=== PATIENT | male | born 1940 | race Caucasian/White ===

== ENCOUNTER 2021-09-08 11:12 | Outpatient (CLI) | payer MEDICARE, SELFPAY ==
[2021-09-08 21:39] LABS: Chloride* 101 mmol/L (96-114); Potassium* 4.7 mmol/L (3.6-5.1); Sodium* 139 mmol/L (135-149)
[2021-09-08 21:42] LABS: Blood Urea Nitrogen* 26 mg/dL (7-30); Carbon Dioxide* 30 mmol/L (20-32); Estimated Glomerular Filt Rate 75.61; Glucose* 104 mg/dL (60-115)
[2021-09-08 21:43] LABS: Calcium* 9.1 mg/dL (8.4-10.6)
[2021-09-08 21:56] LABS: Creatinine Urine 91.4 mg/dL
[2021-09-08 22:13] LABS: Microalbumin Creatinine Ratio 10 mg/g (0-30); Microalbumin Urine < 1 mg/dL
== END 2021-09-08 11:13 | disposition home or self-care (01) ==
PROVIDERS: PCP Emergency Medicine; Visit Provider Emergency Medicine
DX: E11.9 Type 2 diabetes mellitus without complications (principal); I10 Essential (primary) hypertension; D72.821 Monocytosis (symptomatic); E78.5 Hyperlipidemia, unspecified
CPT/HCPCS: 80048; 80061; 82043; 82570

== ENCOUNTER 2021-09-16 12:48 | Outpatient (CLI) | payer MEDICARE, SELFPAY | END 2021-09-16 12:49 | disposition home or self-care (01) | LOC: RAD 12:48 | PROVIDERS: PCP Emergency Medicine; Visit Provider Emergency Medicine | DX: R00.1 Bradycardia, unspecified (principal); I51.7 Cardiomegaly; I35.1 Nonrheumatic aortic (valve) insufficiency | CPT/HCPCS: 93306 ==

== ENCOUNTER 2021-09-23 08:06 | Outpatient (CLI) | payer MEDICARE, SELFPAY ==
[2021-09-23 13:39] LABS: Cholesterol* 121 mg/dL (90-199)
[2021-09-23 13:40] LABS: HDL Cholesterol* 29 mg/dL (>=40); LDL Cholesterol Calculated 59 mg/dL (<100); Triglycerides* 167 mg/dL (40-149)
[2021-09-23 13:44] LABS: Creatinine Urine 105.5 mg/dL
[2021-09-23 13:45] LABS: Microalbumin Creatinine Ratio 0 mg/g (0-30); Microalbumin Urine 1 mg/dL
--- OUTSIDE RECORDS SUMMARY | 2021-10-18 13:03 | XMS_ITS | Encounter Summary ---
:1940 Author Organization [facility] Address [address] [place] [address] Care Team Providers Name Role Phone Ramy Sánchez MD Primary Care Provider [phone] Debbie Burden MD Primary Care Provider Encounter Details Date Type Department Care Team Description 12/19/2019 [facility] Ramona Herrera Obstr uctive sleep apnea (adult) (pediatric) (Primary Dx); Sleep Center Hypertension, e [address] [address] Social History Tobacco Use Types Packs/Day Years Used Date Former Smoker Cigars Alcohol Use Standard Drinks/Week Comments Yes 0 (1 standard drink = 0.6 oz pure alcoho l) one drink once a week Sex Assigned at Date Recorded Not on file documented as of this encounter Plan of Treatment Not on filedocumented as of this encounter Visit Diagnoses Diagnosis Obstructive sleep apnea (adult) (pediatr ic) - Primary Hypertension, essential Unspecified essential hypertension documented in this encounter Care Teams Flight Kitchen Manager Relationship Specialty Start Date End Date Ramy Sánchez MD PCP - General 09/20/01 05/25/21 [address] [place], [place] [id number] Debbie Burden MD PCP - General Family Medicine 05/26/21 [facility] [address] [place] [address] documented as of this encounter
--- OUTSIDE RECORDS SUMMARY | 2021-10-18 13:03 | XMS_ITS | Encounter Summary ---
:1940 Author Organization [facility] Address [address] [place] [address]. [place] [address] Care Team Providers Name Role Phone Ramy Sánchez MD Primary Care Provider [phone] Encounter Details Date Type Department Care Team Description 05/09/2021 Orders Only [facility] Barry Turner er for [facility] OR MD Karl screening for other [address] [facility] GASTROENTEROLOGY viral diseases [address] (Prima ry Dx) [address] [facility] [phone] [place], [place] [address] (Wo rk) Social History Tobacco Use Types Packs/Day Years Used Date Former Smoker Cigars Alcohol Use Standard Drinks/Week Comments Yes 0 (1 standard drink = 0.6 oz pure alcoho l) one drink once a week Sex Assigned at Date Recorded Not on file documented as of this encounter Plan of Treatment Scheduled Orders Name Type Priority Associated Diagnoses Order S chedule Asymptomatic COVID-19 Lab Routine Encounter For [facility] michael Expected: 05/09/2021 Virus (Coronavirus) by PCR For Other Chandrika l Diseases (Approximate), Expires: 2022 documented as of this encounter Visit Diagnoses Diagnosis Encounter for screening for other viral diseases - Primary documented in this encounter Care Teams Director Of It Operations Relationship Specialty Start Date End Date Ramy Sánchez MD PCP - General 09/20/01 05/25/21 [address] [place], [place] [id number] documented as of this encounter
--- OUTSIDE RECORDS SUMMARY | 2021-10-18 13:03 | XMS_ITS | Encounter Summary ---
:1940 Author Organization [facility] Address [address] [place] [address] Care Team Providers Name Role Phone Debbie Burden MD Primary Care Provider Encounter Details Date Type Department Care Team Description 06/16/2021 Travel Social History Tobacco Use Types Packs/Day Years Used Date Former Smoker Cigars Smokeless Tobacco: Never Used Alcohol Use Standard Drinks/Week Comments Yes 0 (1 standard drink = 0.6 oz pure alcoho l) one drink once a week Sex Assigned at Date Recorded Not on file COVID-19 Exposure Response Date Recorded In the last month, have you been in contact with No / Unsure 06/16/2021 11:49 AM CDT someone who was confirmed or suspected to have Coronavirus / COVID-19? documented as of this encounter Plan of Treatment Not on filedocumented as of this encounter Visit Diagnoses Not on filedocumented in this encounter Care Teams Corrections Unit Supervisor Relationship Specialty Start Date End Date Debbie Burden MD PCP - General Family Medicine 05/26/21 [facility] [address] [place] [address] documented as of this encounter
--- OUTSIDE RECORDS SUMMARY | 2021-10-18 13:03 | XMS_ITS | Encounter Summary ---
:1940 Author Organization [facility] Address [address] [place] [address] Care Team Providers Name Role Phone Ramy Sánchez MD Primary Care Provider [phone] Reason for Visit Reason Comments Sleep Problem PAP REPLACEMENT SETUP Encounter Details Date Type Department Care Team Description 12/19/2019 Documentation Only [facility] Slee p Problem (PAP Sleep [facility] REPLACEMENT SET UP) [address] [address] Social History Tobacco Use Types [...] on filedocumented in this encounter Care Teams Oil And Gas Superintendent Relationship Specialty Start Date End Date Ramy Sánchez MD PCP - General 09/20/01 05/25/21 [address] [place] [address] documented as of this encounter
--- OUTSIDE RECORDS SUMMARY | 2021-10-18 13:03 | XMS_ITS | Encounter Summary ---
:1940 Author Organization [facility] Address [address] [place] [address]. [place] [address] Care Team Providers Name Role Phone Debbie Burden MD Primary Care Provider Reason for Visit Auth/Cert Specialty Diagnoses / Procedures Referred By Contact Refer red To Contact Surgery Diagnoses Acute pancreatitis Acute pancreatitis [K85.90] [facility] Procedures HC UGI ENDOSCOPY W EUS ESOPHAGOGASTRODUODENOSCOPY, WITH ENDOSCOPIC US [address] [place], [place] [phone] Fax: Referral ID Status Reason Start Date Expiration Date Visits Requ ested Visits Authorized [id number] 1 1 Encounter Details Date Type Department Care Team Description 06/16/2021 Surgery [facility] Jesús Turner ESOPHAG OGASTRODUODENOS [facility]imy Barajas MD COPY, WITH ENDOSCOPIC [address] [facility] GASTROENTEROLOGY Ultrasound [address] [phone] [place] [address] 5511 (Wo rk) Surgery Details Date/Time Status Location OR Service Patient Case Case Traum a Class Class Type Case? 06/16/21 12:40 Posted [facility] OR OR 03 Gastroenterology Same Day PM Surgery Panel 1 Procedure [facility] Anes Op Region Wound Class Commen ts ESOPHAGOGASTRODUODEN N/A Monitor Anesthesia Mouth II-Jenna n Contaminated OSCOPY, WITH Care ENDOSCOPIC Ultrasound Surgeon Surgeon Role Service Panel Jesús Turner MD Primary Gastroenterology 1 documented in this encounter Social History Tobacco Use Types Packs/Day Years [...] / COVID-19? documented as of this encounter Last Filed Vital Signs Vital Sign Reading Time Taken Comments Blood Pressure 137/86 06/15/2021 12:07 PM CDT Pulse 78 06/15/2021 12:07 PM CDT Temperature 36.5 ??C (97.7 ??F) 06/15/2021 12:07 PM CDT Respiratory Rate - - Oxygen Saturation 98% 06/15/2021 12:07 PM CDT Inhaled Oxygen Concentration - - Weight 89.8 kg (198 lb) 06/15/2021 12:07 PM CDT H&P Height 172.7 cm (5' 8) 06/15/2021 12:07 PM CDT H&P Body Mass Index 30.11 06/15/2021 12:07 PM CDT documented in this encounter Discharge Instructions Discharge InstructionsJosy John RN - 06/16/2021 2:[address] JESÚS TURNER M.D. CLINIC PHONE NUMBER: [phone] [facility] GENERAL ANESTHESIA OR SEDATION ADULT DISCHARGE INSTRUCTIONS SPECIAL PRECAUTIONS FOR 24 HOURS AFTER SURGERY IT IS NOT UNUSUAL TO FEEL LIGHT-HEADED OR FAINT, UP TO 24 HOURS AFTER SURGERY OR WHILE TAKING PAIN MEDICATION. IF YOU HAVE THESE SYMPTOMS; SIT FOR A FEW MINUTES BEFORE STANDING AND HAVE SOMEONE ASSIST YOU WHEN YOU GET UP TO WALK OR USE THE BATHROOM. YOU SHOULD REST AND RELAX FOR THE NEXT 24 HOURS AND YOU MUST MAKE ARRANGEMENTS TO HAVE SOMEONE STAY WITH YOU FOR AT LEAST 24 HOURS AFTER YOUR DISCHARGE. AVOID HAZARDOUS AND STRENUOUS ACTIVITIES. DO NOTMAKE IMPORTANT DECISIONS FOR [address] ANY VEHICLE OR OPERATE MECHANICAL EQUIPMENT FOR 24 HOURS FOLLOWING THE END OF YOUR SURGERY. EVEN THOUGH YOU MAY FEEL NORMAL, YOUR REACTIONS MAY BE AFFECTED BY THE MEDICATION YOU HAVE RECEIVED. DO NOT DRINK ALCOHOLIC BEVERAGES FOR 24 HOURS FOLLOWING YOUR SURGERY. DRINK CLEAR LIQUIDS (APPLE JUICE, WINSTON JALYN, 7-UP, BROTH, ETC.). PROGRESS TO YOUR REGULAR DIET YOU FEEL ABLE. YOU MAY HAVE A DRY MOUTH, A SORE THROAT, MUSCLES ACHES OR TROUBLE SLEEPING. THESE SHOULD GO AWAY AFTER 24 HOURS. CALL YOUR DOCTOR FOR ANY OF THE FOLLOWING: SIGNS OF INFECTION (FEVER, GROWING TENDERNESS AT THE SURGERY SITE, A LARGE AMOUNT OF DRAINAGE OR BLEEDING, SEVERE PAIN, FOUL-SMELLING DRAINAGE, REDNESS OR SWELLING. IT HAS BEEN OVER 8 TO 10 HOURS SINCE SURGERY AND YOU ARE STILL NOT ABLE TO URINATE (PASS WATER). documented in this encounter Medications at Time of Discharge Medication Sig Dispensed Refills Start Date End Date ACCU-CHEK CATARINO FOR ONCE DAILY 1 Device 1 06/10/2009 DEVIIndications: Type II or CHECKS unspecified type diabetes mellitus without mention of complication, not stated as uncontrolled ACCU-CHEK CATARINO Check BS daily as 100 Strip 0 06/10/2009 STRPIndications: Type II or directed unspecified type diabetes mellitus without mention of complication, not stated as uncontrolled ACCU-CHEK MULTICLIX LANCETS TEST DAILY 100 Each 0 06/11/19 10 MISCIndications: Type II or unspecified type diabetes mellitus without mention of complication, not stated as uncontrolled ASPIRIN 81 MG OR ONE DAILY 100 3 06/14/2006 TABSIndications: Other and unspecified hyperlipidemia, Essential hypertension, benign atorvastatin (LIPITOR) 20 Take 20 mg by mouth 0 MG tablet daily cholecalciferol (VITAMIN Take by mouth three 0 D3) 125 mcg (5000 units) times a week capsule fluticasone (FLONASE) 50 Binger 1 spray into 0 MCG/ACT nasal spray both nostrils daily gabapentin (NEURONTIN) 600 Take 600 mg by mouth 0 MG tablet At Bedtime LISINOPRIL 20 MG OR ONE DAILY, LAST 30 10 12/18/2008 TABSIndications: Type II or REFILL unspecified type diabetes mellitus without mention of complication, not stated as uncontrolled, Essential hypertension, benign metFORMIN (GLUCOPHAGE) 500 Take 1,500 mg by 0 MG tablet mouth daily (with breakfast) metoprolol succinate ER Take 50 mg by mouth 0 (TOPROL-XL) 50 MG 24 hr daily tablet montelukast (SINGULAIR) 10 Take 10 mg by mouth 0 MG tablet At Bedtime tamsulosin (FLOMAX) 0.4 MG Take 0.4 mg by mouth 0 capsule daily documented as of this encounter H&P Notes Carin Gallego MD - 06/16/2021 12:10 PM CDT I have reviewed the surgical (or preoperative) H&P that is linked to this encounter, and examined the patient. There are no significant changes Clinical Conditions Present on Arrival: Clinically Significant Risk Factors Present on Admission # Platelet Defect: home medication list includes an antiplatelet medication # Obesity: Estimated body mass index is 30.11 kg/m?? as calculated from the following: Height as of this encounter: 1.727 m (5' 8). Weight as of this encounter: 89.8 kg (198 lb). Source Note - Gilbert, Provider - 06/15/2021 12:15 PM CDT documented in this encounter Plan of Treatment Not on filedocumented as of this encounter Procedures Procedure Name Priority Date/Time Associated Diagnosis Comme nts GLUCOSE BY METER Routine 06/16/2021 2:18 PM Resul ts for this CDT procedure are i n the results section. ESOPHAGOGASTRODUODE 06/16/2021 1:27 PM Acute pancreati tis NOSCOPY, WITH CDT ENDOSCOPIC US UPPER EUS Routine 06/16/2021 1:25 PM Results f or this CDT procedure are i n the results section. GLUCOSE BY METER Routine 06/16/2021 11:33 Results for this AM CDT procedure are i n the results section. LAB RESULT - HIM 06/14/2021 12:00 SCAN AM CDT LAB RESULT - HIM 06/14/2021 12:00 SCAN AM CDT EKG CARDIAC - HIM 06/14/2021 12:00 SCAN AM CDT documented in this encounter Results Glucose by meter (06/16/2021 2:18 PM CDT) P athologist Signature GLUCOSE BY 85 70 - 99 06/16/2021 [facility] METER POCT mg/dL 2:31 PM CDT POC Specimen (Source) Anatomical Collection Method Collection Time Re ceived Time Location / / Volume Laterality Blood, Capillary BLOOD SPECIMEN / 06/16/2021 2:18 04/0 09/2021 2:31 Unknown PM CDT PM CDT Jesús JONES POCT Performing Organization Address City/State/ZIP Code Phon [place] [address] Care Lab [address] Lab (1st floor, no room number) UPPER EUS (06/16/2021 1:25 PM CDT) Component Value Ref Test Analysis Performed At [facility] Range Method Time Signature Upper EUS [facility] RADIOLOGY RESULTS Patient Name: Jd ZimmermanJuany Donavan ? Procedure Date: 06/16/2021 1:25 PM ? Account Num juan: [id number] Date of : 1940 ? Admit Type: Outp atient Age: 80 ? Gender: Male Attending MD: JESÚS TURNER MD Total Sedation Joe e: Instrument Name: 260 - Linear EUS ? Procedure: ?Upper EUS Indications: ?pancreas cyst, pancreatitis of unknown etiology, ?and one first degree relative with pancreas cancer Providers: ?JESÚS TURNER MD (Doctor) Referring MD: ? Medicines: ?Monitored Anesthesia Care Complications: ?No immediate complications. Procedure: ?Pre-Anesthesia Assessment: ?- Prior to the procedure, a History and Physical ?was performed, and patient medications and ?allergies were reviewed. The patient is competent. ?The risks and benefits of the procedure and the ?sedation options and risks were discussed with the ?patient. All questions were answered and informed ?consent was obtained. Patient identification and ?proposed procedure were verified by the physician ?in the pre-procedure area. Mental Status ?E xamination: alert and oriented. Airway ?Examination: normal oropharyngeal airway and neck ?mobility. Respiratory Examination: clear to ?auscultation. CV Examination: normal. After ?reviewing the risks and benefits, the patient was ?deemed in satisfactory condition to undergo the ?procedure. The anesthesia plan was to use monitored ?anesthesia care (MAC). Immediately prior to ?administration of medications, the patient was ?re-assessed for adequacy to receive sedatives. The ?heart rate, respiratory rate, oxygen saturations, ?blood pressure, adequacy of pulmonary ventilation, ?and response to care were monitored throughout the ?procedure. The physical status of the patient was ?re-assessed after the procedure. ?After obtaining informed consent, the endoscope was ?passed under direct vision. Throughout the ?procedure, the patient's blood pressure, pulse, and ?oxygen saturations were monitored continuously. The ?Olympus Exera II Ultrasound Gastrovideoscope, ?Linear, Model # [id number], Endora # 260, SN # ?[id number] was introduced through the mouth, and ?advanced to the third part of duodenum. The upper ?EUS was accomplished without difficulty. The ?patient tolerat ed the procedure well. ? Findings: ? ENDOSCOPIC FINDING: : ? The entire examined stomach was normal. ? The examined duodenum was normal. ? ENDOSONOGRAPHIC FINDING: : ? There was no sign of significant endosonographic abno rmality in the ? ampulla. No masses were identified. ? There was no sign of significant endosonographic abno rmality in the ? common bile duct. The maximum sera meter of the duct was 3 mm. No stones, ? no biliary sludge, ducts of normal caliber and ducts with regular ? contour were identified. ? There was no sign of significant endosonographic abno rmality in the ? gallbladder. No stones and no biliary sludge were lidia ntified. ? There was no sign of significant endosonographic abnormality in the left ? lobe of the liver and in the right lobe of the liver. No focal pathology ? was identified. ? There was no sign of significant endosonographic abno rmality in the ? pancreatic head, pancreatic body and pancreatic tuyet l. The pancreatic ? duct measured up to 2 mm in diameter in the hea d and 1 mm in the body ? and tail. No masses, no cysts. ? The aortopulmonary region (level 5), subcarinal mediastinum (level 7) ? and celiac region (level 20) nodes were e ndosonographically normal. No ? pathologic lymphadenopathy was identified. ? Impression: ? - There was no sign of significant pathology in the ?ampulla. ?- There was no sign of significant pathology in the ?common bile duct. ?- There was no sign of significant pathology in the ?gallbladder. ?- There was no evidence of significant pathology in ?the left lobe of the liver and in the right lobe of ?the liver. ?- There was no sign of significant pathology in the ?pancreatic head, pancreatic body and pancreatic ?tail. Recommendation: ? - Observe patient's clinical course. ? Procedure Code(s): ? --- Professional --- ? 03875, Esophagogastroduodenoscopy , flexible, transoral; with endoscopic ? ultrasound examinatio n, including the esophagus, stomach, and either the ? duodenum or a surgically altered stomach where the jejunum is examined ? distal to the anastomosis CPT copyright 2020 [employer]. All rights reserved. The codes documented in this report are prelimin denilson and upon invoice coder review may be revised to meet current compliance requirements. Jesús Turner M.D. JESÚS TURNER MD 06/16/2021 2:22:07 PM I was physically present for the entire viewing portion of t he exam. JESÚS TURNER MD Number of Addenda: 0 Note Initiated On: 06/16/2021 1:25 PM MRN: ?[id number] Procedure Date: ? 06/16/2021 1:25:06 PM Total Procedure Duration: 0 hours 6 minutes 35 seconds Estimated Blood Loss: ? Scope In: 1:53:18 PM Scope Out: 1:59:53 PM Specimen (Source) Anatomical Collection Method Collection Time Re ceived Time Location / / Volume Laterality 06/16/2021 1:25 PM CDT Jesús Turner MD PROCEDURES Performing Organization Address City/State/ZIP Code Phon e Number RADIOLOGY RESULTS (ABNORMAL) Glucose by meter (06/16/2021 11:33 AM CDT) P athologist Signature GLUCOSE BY 108 (H) 70 - 99 06/16/2021 [facility] METER POCT mg/dL 11:40 AM CDT POC Specimen Anatomical Collection Method Collection Time Receive d Time (Source) Location / / Volume Laterality Blood, venous BLOOD SPECIMEN / 06/16/2021 11:33 2021 Unknown AM CDT 11:40 AM CDT Jesús Turner MD LAB - BEAKER POCT Performing Organization Address City/State/ZIP Code Phon e Number [facility] [place] [address] Care Lab [address] Lab (1st floor, no room number) LAB RESULT - HIM SCAN (06/14/2021 12:00 AM CDT) Specimen (Source) Anatomical Location Collection Method / Collectio n Time Received Time / Laterality Volume 06/14/2021 Narrative This result has an attachment that is no t available. Provider Scan NON-BEAKER LAB TESTING LAB RESULT - HIM SCAN (06/14/2021 12:00 AM CDT) Specimen (Source) Anatomical Location Collection Method / Collectio n Time Received Time / Laterality Volume 06/14/2021 Narrative This result has an attachment that is no t available. Provider Scan NON-BEAKER LAB TESTING EKG CARDIAC - HIM SCAN (06/14/2021 12:00 AM CDT) Specimen (Source) Anatomical Location Collection Method / Collectio n Time Received Time / Laterality Volume 06/14/2021 Narrative This result has an attachment that is no t available. Provider Scan ECG ORDERABLES documented in this encounter Visit Diagnoses Diagnosis Acute pancreatitis documented in this encounter Administered Medications Inactive Administered Medications - up to 3 most recent administrations Medication Order MAR Action Action Date Dose Rate Site albuterol (PROVENTIL) neb solution 2.5 m g 2.5 mg, Nebulization, EVERY 4 HOURS PRN, shortness of breath / dyspnea, Starting on Lissette 06/16/21 at 1423, PACU fentaNYL (PF) (SUBLIMAZE) injection 50 m cg 50 mcg, Intravenous, EVERY 5 MIN PRN, moderate to eda re pain, Starting on Lissette 06/16/21 at 1423, Administer fentaNYL (SUBLIMAZE) for ac sterling pain control. Move to HYDROmorphone (DILAUDID): - IF patient has received up to 4 doses (200 mcg) of fentaNYL (SUBLIMAZE), OR - IF severe pain (pain score greater than or equal to seven (7) or inability of patient to par ticipate in post op recovery due to pain) AFTER 2 doses fentaNYL (SUBLIMAZE). WAIT 5 minutes AFTER last fentaNYL (SUBLIMAZE) dose before administering HYDROmorphone (DILAUDID). Postop Anesthesia Phase I only. Notify Provider to assess for uncontroll ed pain or analgesic side effects. Do NOT revert back to fentanyl (SUBLIMAZE) afte r moving to HYDROmorphone (DILAUDID)., PACU fentaNYL (PF) (SUBLIMAZE) injection 50 m cg 50 mcg, Intravenous, EVERY 15 MIN PRN, other, acute pa in while in Phase II, Starting on Lissette 06/16/21 at 1423, Up to a total of 100 mcg. Use as a short acting IV agent for acute pain control. Patient must be monitore d a minimum of 30 minutes before leaving the facility and meet all Phase II disc harge criteria., Phase ll hydrALAZINE (APRESOLINE) injection 2.5-5 mg 2.5-5 mg, Intravenous, EVERY 10 MIN PRN, other, for Systolic Blood Pressure greater than 160 mmHg, Administer over 1 Minutes, Starting on Lissette 06/16/21 at 1423, Max cumulative dose = 20 mg. FOR USE IN PACU ONLY., PACU HYDROmorphone (DILAUDID) injection 0.4 m g 0.4 mg, Intravenous, EVERY 5 MIN PRN, moderate to eda re pain, Starting on Lissette 06/16/21 at 1423, Administer HYDROmorphone (DILAUDID) up to a total of 5 doses (2 mg) for moderate to severe pain. Notify Provider to assess for uncontrolled pain or analgesic side effects., PACU labetalol (NORMODYNE/TRANDATE) injection 10 mg 10 mg, Intravenous, ONCE PRN, other, for Systolic Blood Pressure greater than 160 mmHg while Heart Rate greater than 60 bp m, Starting on Lissette 06/16/21 at 1423, For 1 dose, For PACU USE ONLY. PROTECT FROM LIGHT., PACU lactated ringers infusion New Bag 06/16/2021 1:47 PM CDT at 25 mL/hr, Intravenous, CONTINUOUS, IF patient NOT on dialysis., Pre-procedure, Starting on Lissette 06/16/21 at 1200, Until Lissette 06/16/21 at 1707 lactated ringers infusion at 100 mL/hr, Intravenous, CONTINUOUS, Continue until IV catheter is weaned, PACU/Phase II, Starting on Lissette 06/16/21 at 1430, Until T 06/16/21 at 1707 lidocaine (LMX4) cream Topical, EVERY 1 HOUR PRN, pain, with VAD insertion, S tarting on Lissette 06/16/21 at 1130, Apply at least 30 minutes prior to VAD insertion in divided doses as needed for size of site for insertion. MAX Dose: 2.5 g (?? of 5 g tube) Do NOT give if patient has a history of allergy to any local anesthetic or any babak product. Do NOT use both lidocaine intradermal/subcu taneous injection and the lidocaine cream on the same site., Pre-procedure lidocaine 1 % 0.1-1 mL 0.1-1 mL, Other, EVERY 1 HOUR PRN, mild pain with VAD insertion, Starting on Lissette 06/16/21 at 1130, MAX dose 1 mL subcutaneous OR intrader mal along the side of the vein in divided doses as needed for VAD insertion. Do NOT give if patient has a history of allergy to any local anesthet ic or any babak product. Do NOT use both lidocaine intradermal/subcutaneous injec tion and the lidocaine cream on the same site., Pre-procedure ondansetron (ZOFRAN) injection 4 mg 4 mg, Intravenous, EVERY 30 MIN PRN, owen sea, Administer over 2-5 Minutes, Starting on Lissette 06/16/21 at 1423, For 2 doses, MAX total dose = 8 mg, including OR dosing. If not resolved in 15 minutes, then go to step 2 [prochlo rperazine (COMPAZINE), if ordered]. Irritant., PACU/Phase II ondansetron (ZOFRAN-ODT) ODT tab 4 mg 4 mg, Oral, EVERY 30 MIN PRN, nausea, St arting on Lissette 06/16/21 at 1423, For 2 doses, MAX total dose = 8 mg, including OR dosi ng. If not resolved in 15 minutes, then go to step 2 [prochlorperazine (COMPAZINE), if ordered]. With dry hands, peel back foil backing and gently remove tablet. Do not push ora l disintegrating tablet through foil backing. Administer immediately on tongue and oral disintegrating tablet dissolves in seconds, then swallow with saliva. Liquid not required., PACU/Phase II oxyCODONE (ROXICODONE) tablet 5 mg 5 mg, Oral, EVERY 4 HOURS PRN, moderate to severe pain, Starting on Lissette 06/16/21 at 1423, Max: 5 mg for opioid-na??ve patient., PACU/Phase II prochlorperazine (COMPAZINE) injection 5 mg 5 mg, Intravenous, EVERY 6 HOURS PRN, nausea, vomiting , Administer over 1-2 Minutes, Starting on Lissette 06/16/21 at 1423, PACU/Phase II racEPINEPHrine neb solution 0.5 mL 0.5 mL, Nebulization, EVERY 4 HOURS PRN, shortness of breath / dyspnea, Starting on Lissette 06/16/21 at 1423, PACU sodium chloride (PF) 0.9% PF flush 3 mL 3 mL, Intracatheter, EVERY 8 HOURS, First dose on Lissette 06/16/21 at 1200, to lock peripheral IV dormant line, Pre-procedure sodium chloride (PF) 0.9% PF flush 3 mL 3 mL, Intracatheter, EVERY 1 MIN PRN, li ne flush, other, to ensure patency or to lock dormant line, Starting on Lissette 06/16/21 at 1130, Pre -procedure documented in this encounter Active and Recently Administered Medications Times are shown in CDT. Scheduled Medication Order 06/14/2021 06/15/2021 06/16/2021 sodium chloride (PF) 0.9% PF flush 3 mL 1200 (Canceled Entry - Provider: Orders Generic Provider - Comment: Automatically canceled at discontinue of medication order) 3 mL, Intracatheter, EVERY 8 HOURS, Firs t dose on Lissette 06/16/21 at 1200, to lock peripheral IV dormant line, Pre-procedure Continuous Medication Order 06/14/2021 06/15/2021 06/16/2021 lactated ringers infusion 1347 ( New Bag - Provider: Artemio Leo APRN DIRECTOR OF ACQUISITIONS)1401 (Anesthesia Volume Adjustment - Provider: Artemio Leo APRN DIRECTOR OF ACQUISITIONS) at 25 mL/hr, Intravenous, CONTINUOUS, IF patient NOT on dialysis., Pre- procedure, Starting on Lissette 06/16/21 at 1200, Until Lissette 06/16/21 at 1707 lactated ringers infusion 1430 ( Canceled Entry - Provider: Orders Generic Provider - Comment: Automatically canceled at discontinue of medication order) at 100 mL/hr, Intravenous, CONTINUOUS, C ontinue until IV catheter is weaned, PACU/Phase II, Starting on Lissette 06/16/21 at 1430, Until Lissette 06/16/21 at 1707 PRN Medication Order 06/14/2021 06/15/2021 06/16/2021 albuterol (PROVENTIL) neb solution 2.5 mg 2.5 mg, Nebulization, EVERY 4 HOURS PRN, shortness of breath / dyspnea, Starting on Lissette 06/16/21 at 1423, PACU fentaNYL (PF) (SUBLIMAZE) injection 50 mcg 50 mcg, Intravenous, EVERY 5 MIN PRN, mo derate to severe pain, Starting on Lissette 06/16/21 at 1423, Administer fentaNYL (SUBLIMAZE) for acute pain control. Move to HYDROmorphone (DILAUDID): - IF patient has received up to 4 doses (200 mcg) of fent aNYL (SUBLIMAZE), OR - IF severe pain (pain score greater than or equal to seven (7) or inability of patient to participate in post op recovery due to pain) AFTER 2 doses fentaNYL (SUBLIMAZE). WAIT 5 mi nutes AFTER last fentaNYL (SUBLIMAZE) dose before administering HYDROmorphone (DILAUDID). Postop Anesthesia Phase I only. Notify Provider to assess for uncontroll ed pain or analgesic side effects. Do NO T revert back to fentanyl (SUBLIMAZE) after moving to HYDROmorphone (DILAUDID)., PACU fentaNYL (PF) (SUBLIMAZE) injection 50 mcg 50 mcg, Intravenous, EVERY 15 MIN PRN, o ther, acute pain while in Phase II, Starting on Lissette 06/16/21 at 1423, Up to a total of 100 mcg. Use as a short acting IV agent for acute pain control. Patient must be monitored a minimum of 30 minutes bef ore leaving the facility and meet all Phase II discharge criteria., Phase ll hydrALAZINE (APRESOLINE) injection 2.5-5 mg 2.5-5 mg, Intravenous, EVERY 10 MIN PRN, other, for Systolic Blood Pressure greater than 160 mmHg, Administer over 1 Minutes, Starting on Lissette 06/16/21 at 1423, Max cumulative dose = 20 mg. FOR USE IN PACU ONLY., PACU HYDROmorphone (DILAUDID) injection 0.4 mg 0.4 mg, Intravenous, EVERY 5 MIN PRN, mo derate to severe pain, Starting on Lissette 06/16/21 at 1423, Administer HYDROmorphone (DILAUDID) up to a total of 5 doses (2 mg) for moderate to severe pain. Notify Pro vider to assess for uncontrolled pain or analgesic side effects. , PACU labetalol (NORMODYNE/TRANDATE) injection 10 mg 10 mg, Intravenous, ONCE PRN, other, for Systolic Blood Pressure greater than 160 mmHg while Heart Rate greater than 60 bpm, Starting on Lissette 06/16/21 at 1423, For 1 dose, For PACU USE ONLY. PROTECT FROM LIGHT., PACU lidocaine (LMX4) cream Topical, EVERY 1 HOUR PRN, pain, with VA D insertion, Starting on Lissette 06/16/21 at 1130, Apply at least 30 minutes prior to VAD insertion in divided doses as needed for size of site for insertion. MAX Dose: 2.5 g (?? of 5 g tube) Do NOT give if p atient has a history of allergy to any local anesthetic or any babak product. Do NOT use both lidocaine intradermal/subcutaneous injection and the lidocaine cream on the same site., Pre-procedure lidocaine 1 % 0.1-1 mL 0.1-1 mL, Other, EVERY 1 HOUR PRN, mild pain with VAD insertion, Starting on Lissette 06/16/21 at 1130, MAX dose 1 mL subcutaneous OR intradermal along the side of the vein in divided doses as needed for VAD i nsertion. Do NOT give if patient has a h istory of allergy to any local anesthetic or any babak product. Do NOT use both lidocaine intradermal/subcutaneous injection and the lidocaine cream on the same site., Pre-procedure ondansetron (ZOFRAN) injection 4 mg(Linked Group 1) 4 mg, Intravenous, EVERY 30 MIN PRN, owen sea, Administer over 2-5 Minutes, Starting on Lissette 06/16/21 at 1423, For 2 doses, MAX total dose = 8 mg, including OR dosing. If not resolved in 15 minutes, then go to step 2 [prochlorperazine (COMPAZINE), if ordered]. Irrita nt., PACU/Phase II ondansetron (ZOFRAN-ODT) ODT tab 4 mg(Linked Group 1) 4 mg, Oral, EVERY 30 MIN PRN, nausea, St arting on Lissette 4/7/22 at 1423, For 2 doses, MAX total dose = 8 mg, including OR dosing. If not resolved in 15 minutes, then go to step 2 [prochlorperazine (COMPAZI NE), if ordered]. With dry hands, peel b ack foil backing and gently remove tablet. Do not push oral disintegrating tablet through foil backing. Administer immediately on tongue and oral disintegrating t ablet dissolves in seconds, then swallow with saliva. Liquid not required., PACU/Phase II oxyCODONE (ROXICODONE) tablet 5 mg 5 mg, Oral, EVERY 4 HOURS PRN, moderate to severe pain, Starting on Lissette 06/16/21 at 1423, Max: 5 mg for opioid-na??ve patient., PACU/Phase II prochlorperazine (COMPAZINE) injection 5 mg 5 mg, Intravenous, EVERY 6 HOURS PRN, na usea, vomiting, Administer over 1-2 Minutes, Starting on Lissette 06/16/21 at 1423, PACU/Phase II racEPINEPHrine neb solution 0.5 mL 0.5 mL, Nebulization, EVERY 4 HOURS PRN, shortness of breath / dyspnea, Starting on Lissette 06/16/21 at 1423, PACU sodium chloride (PF) 0.9% PF flush 3 mL 3 mL, Intracatheter, EVERY 1 MIN PRN, li ne flush, other, to ensure patency or to lock dormant line, Starting on Lissette 06/16/21 at 1130, Pre-procedure Linked Groups Order Group 1: ondansetron (ZOFRAN-ODT) ODT tab 4 mgJump to med 4 mg, Oral, EVERY 30 MIN PRN, nausea, St arting on Lissette 06/16/21 at 1423, For 2 doses
MAX total dose = 8 mg, including OR dosing. If not resolved in 15 minutes, then go to step 2 [prochlorperazine (COMPAZINE), if ordered]. With dry hands, peel back foil backing and gently remove tablet. Do not push oral disintegrating tablet through foil backing. Administer immediately on tongue and oral disintegrating tablet dissolves in seco nds, then swallow with saliva. Liquid not required.
PACU/Phase II Or ondansetron (ZOFRAN) injection 4 mgJump to med 4 mg, Intravenous, EVERY 30 MIN PRN, owen sea, Administer over 2-5 Minutes, Starting on Lissette 06/16/21 at 1423, For 2 doses
MAX total dose = 8 mg, including OR dosing. If not resolved in 15 minutes, then go to step 2 [prochlorperazine (COM PAZINE), if ordered]. Irritant.
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
--- OUTSIDE RECORDS SUMMARY | 2021-10-18 13:03 | XMS_ITS | Clinical Summary ---
:1940 Author Organization [facility] Address [address] [place] [address] Care Team Providers Name Role Phone Debbie Burden MD Primary Care Provider Allergies Active Allergy Reactions Severity Noted Date Comments Iodine Blisters 06/09/2021 Mercury Blisters 11/22/2005 No Known Drug Allergies 08/06/2003 Medications Medication Sig Dispensed Refills Start Date End Date Status ASPIRIN 81 MG OR ONE DAILY 100 3 06/14/2006 Ac tive TABSIndications: Other and unspecified hyperlipidemia, Essential hypertension, benign LISINOPRIL 20 MG OR ONE DAILY, LAST 30 10 12/18/2008 Active TABSIndications: Type II REFILL or unspecified type diabetes mellitus without mention of complication, not stated as uncontrolled, Essential hypertension, benign ACCU-CHEK CATARINO FOR ONCE DAILY 1 Device 1 06/10/2009 Active DEVIIndications: Type II CHECKS or unspecified type diabetes mellitus without mention of complication, not stated as uncontrolled ACCU-CHEK CATARINO Check BS daily 100 Strip 0 06/10/2009 Active STRPIndications: Type II as directed or unspecified type diabetes mellitus without mention of complication, not stated as uncontrolled ACCU-CHEK MULTICLIX TEST DAILY 100 Each 0 06/10/2009 Active LANCETS MISCIndications: Type II or unspecified type diabetes mellitus without mention of complication, not stated as uncontrolled metFORMIN (GLUCOPHAGE) Take 1,500 mg by 0 Active 500 MG tablet mouth daily (with breakfast) atorvastatin (LIPITOR) Take 20 mg by 0 Active 20 MG tablet mouth daily tamsulosin (FLOMAX) 0.4 Take 0.4 mg by 0 Active MG capsule mouth daily gabapentin (NEURONTIN) Take 600 mg by 0 Active 600 MG tablet mouth At Bedtime montelukast (SINGULAIR) Take 10 mg by 0 Active 10 MG tablet mouth At Bedtime metoprolol succinate ER Take 50 mg by 0 Active (TOPROL-XL) 50 MG 24 hr mouth daily tablet cholecalciferol (VITAMIN Take by mouth 0 Active D3) 125 mcg (5000 units) three times a capsule week fluticasone (FLONASE) 50 Quentin 1 spray 0 Active MCG/ACT nasal spray into both nostrils daily Active Problems Problem Noted Date TYPE 2 DIABETES, HBA1C GOAL < 7% 01/09/2010 HYPERLIPIDEMIA LDL GOAL <100 01/09/2010 Impotence of organic origin 10/04/2007 Diabetes mellitus, type 2 10/31/2006 Overview: Problem list name updated by automated p rocess. Provider to review Allergic rhinitis 10/13/2004 Overview: Problem list name updated by automated p rocess. Provider to review Hyperlipidemia 08/06/2003 Overview: Problem list name updated by automated p rocess. Provider to review Essential hypertension, benign 08/06/2003 Special screening for malignant neoplasm of prostate 0 08/06/2003 Resolved Problems Problem Noted Date Resolved Date Abnormal glucose 06/14/2006 10/06/2007 Overview: Problem list name updated by automated p rocess. Provider to review Immunizations Name Administration Dates Next Due Pneumococcal 23 valent 06/10/2009 TD (ADULT, 7+) 06/10/2009, 07/13/1997 Family History Medical History Relation Comments Cancer Brother 1 pancreatic 57 years diagnosis Diabetes Brother 2 type two Cancer Brother 3 ESPOGHEAL CANCER Relation Status Comments Brother 1 Brother 2 Alive Brother 3 Alive Social History Tobacco Use Types Packs/Day Years Used Date Former Smoker Cigars Smokeless Tobacco: Never Used Alcohol Use Standard Drinks/Week Comments Yes 0 (1 standard drink = 0.6 oz pure alcoho l) one drink once a week Sex Assigned at Date Recorded Not on file Last Filed Vital Signs Vital Sign Reading Time Taken Comments Blood Pressure 139/85 06/16/2021 2:45 PM CDT Pulse 69 06/16/2021 2:45 PM CDT Temperature 36.7 ??C (98.1 ??F) 06/16/2021 2:45 PM CDT Respiratory Rate 16 06/16/2021 2:45 PM CDT Oxygen Saturation 96% 06/16/2021 2:45 PM CDT Inhaled Oxygen Concentration - - Weight 89.8 kg (198 lb) 06/15/2021 12:07 PM CDT H&P Height 172.7 cm (5' 8) 06/15/2021 12:07 PM CDT H&P Body Mass Index 30.11 06/15/2021 12:07 PM CDT Plan of Treatment Health Maintenance Due Date Last Done Comments ADVANCE CARE PLANNING 1940 ANNUAL REVIEW OF HM ORDERS 1940 FALL RISK ASSESSMENT 12/27/2004 MEDICARE ANNUAL WELLNESS 12/27/2004 VISIT LIPID 01/13/2010 07/13/2009, 04/28/2009, 10/27/2008, Additional history exists A1C 02/23/2010 11/24/2009, 07/13/2009, 04/28/2009, Additional history exists DIABETIC FOOT EXAM 06/10/2010 06/10/2009, 06/10/2009 BMP 07/13/2010 07/13/2009, 06/10/2009, 04/28/2009, Additional history exists CREATININE 07/13/2010 07/13/2009, 06/10/2009, 04/28/2009, Additional history exists EYE EXAM 11/24/2010 11/24/2009 MICROALBUMIN 11/24/2010 11/24/2009, 10/27/2008, 09/27/2007 PHQ-2 (once per calendar 03/12/2021 year) COVID-19 Vaccine (4 - 04/19/2021 12/17/2020, 05/15/2020, Booster for Pfizer series) 04/24/2020 DTAP/TDAP/TD IMMUNIZATION 10/12/2029 10/13/2019, 03/12/2011 , (5 - Td or Tdap) 06/10/2009, Additional history exists Pneumococcal Vaccine: 65+ Completed 05/06/2014, 03/19/2012 , Years 06/10/2009 ZOSTER IMMUNIZATION Completed 11/21/2019, 07/17/2019, 03/19/2012 INFLUENZA VACCINE Completed 01/10/2021, 11/21/2019, 01/13/2019, Additional history exists IPV IMMUNIZATION Aged Out No longer eligi ble based on patient 's age to complete this topic MENINGITIS IMMUNIZATION Aged Out No longe r eligible based on patient 's age to complete this topic Insurance Payer Benefit Plan / Subscriber ID Effective Dates Phone Addre ss Type Group BCBS BCBS MEDICARE [id number] 2020-Lian [phone] [address] [address] Medicare ADVANTAGE t 0 [place] [address] (Home) [place] [address] 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
--- OUTSIDE RECORDS SUMMARY | 2021-10-18 13:03 | XMS_ITS | Continuity of Care Document ---
:1940 Author Organization [facility] Address [address] [address] [place] [address] Phone Care Team Providers Name Role Phone Andreas Marrufo MD Unavailable Unavailable Allergies, Adverse Reactions, Alerts Substance Reaction Status Criticality sodium iodide Adverse reaction Active No Information povidone-iodine Adverse reaction Active No Information iodoform Adverse reaction Active No Information POTASSIUM IODIDE Adverse reaction Active No Information IODINE Adverse reaction Active No Information SODIUM IODIDE Adverse reaction Active No Information Medications Medication Instructions Dosage Effective Dates Status Comment s (start - stop) gabapentin 600 mg take 1 Tablet by 1 Tablet - Active tablet Oral route 3 times every day metoprolol succinate take 1 tablet by 50 MG - Active ER 50 mg oral route every tablet,extended day release 24 hr MONTELUKAST SODIUM chew 2 tablet by Not Available - Activ e (unknown strength) oral route every day metformin 500 mg take 1 tablet by 500 MG - Active tablet ORAL route 2 times every day atorvastatin 20 mg take 1 tablet by 20 MG - Active tablet ORAL route every day tamsulosin 0.4 mg take 1 capsule by 0.4 MG - Active capsule ORAL route every day 1/2 hour following the same meal each day Vitamin D3 125 mcg take 1 by Oral 1 - Active (5,000 unit) tablet route every day Lipitor 20 mg Tab Take 1 tablet by - Active mouth daily lisinopril 20 mg Tab Take one tablet by - Active mouth daily Aspirin Low Dose 81 Take one tablet by - Active mg Tab, Delayed mouth daily Release Procedures Procedure Date Ugi Endo; W/endo Ultrasound Ex Telephone E&M III 21-30 Min EFFIE Colonoscopy Flex; Dx (sep Pro) Advance Directives Directive Yes / No Effective Date File Name No Information Encounters Encounter Practice Location Reason(s) Diagnoses Date Provider Provide rs Description For Visit Copied on Encounter [facility] No Information Jun- Niru ORTE[place] [facility] Andreas. [facility] [place], Endoscopy [address] [address], [place] [address], [place], [place], [place], [id number], [place], [place] [id number], tel:[phone]. [phone] tel:[phone] [place] [address] No Information Jun- Yue ORTEGA Referri [facility]. Provider: [facility], Hospital [address] [facility] [address] [facility] Yue [place], [address] [place] [address], [facility], [place], [place], [address] [place] [id number], [place], [address], [place] [id number], [place] tel:+[phone] [place]. , [place], [id number] tel:[phone] . tel:[phone] Telephone [facility] GI Acute Yue ORTEGA Referring E&M III [facility] Symptoms pancreatitis, [facility]. Provi rajiv: 21-30 Min MD [place], or unspecified [address] Concerns complication [facility] [address], (chief status, [address], , [address] [facility] complaint) unspecified [address], [place], pancreatitis [place], , [id number], type [place], [place], [place] [id number], [place], [address]. tel:[phone] [place]. tel:[phone] tel:[phone] [address] [facility] No Information Niru ORTE[facility] Andreas. [facility], [address] [address], [address], [address], [place], [place], [place], [id number], [place], [place] [id number], tel:[phone]. [phone] tel:[phone] [facility] No Referri ng Digestive [facility] ScreeningHemor 9-200 Information Pro vider: Health [place], Endoscopy rhoids Nos [address] [facility] Princess [place] [address], [place], [address] [facility] [address], [place], [place], [facility] [id number], [facility], [address]. tel:+ tel:[phone] Family History Family Member Type Diagnosis Age At Onset No Information Immunizations Vaccine Date Status Comments influenza, high-dose seasonal, administered N ote: [facility] bi-directional quadrivalent, .7mL dose, interfa ce ; Source: Other preservative free Registry SARS-COV-2 (COVID-19) vaccine, administered N ote: [facility] bi-directional mRNA, spike protein, LNP, interf jessica ; Source: Other preservative free, 30 mcg/0.3mL Registry dose SARS-COV-2 (COVID-19) vaccine, administered N ote: [facility] bi-directional mRNA, spike protein, LNP, interf jessiac ; Source: Other preservative free, 30 mcg/0.3mL Registry dose SARS-COV-2 (COVID-19) vaccine, administered N ote: [facility] bi-directional mRNA, spike protein, LNP, interf jessica ; Source: Other preservative free, 30 mcg/0.3mL Registry dose influenza, seasonal vaccine, administered Not e: [facility] bi-directional quadrivalent, adjuvanted, .5mL i nterface ; Source: Other dose, preservative free Registry zoster vaccine recombinant administered Note: [facility] bi-directional interface ; Sour ce: Other Registry tetanus toxoid, reduced administered Note: [facility] bi-directional diphtheria toxoid, and acellular interface ; Source: Other pertussis vaccine, adsorbed Roberta stry zoster vaccine recombinant administered Note: [facility] bi-directional interface ; Sour ce: Other Registry influenza, high dose seasonal, administered N ote: [facility] bi-directional preservative-free interface ; So urce: Other Registry influenza, high dose seasonal, administered N ote: [facility] bi-directional preservative-free interface ; So urce: Other Registry influenza, high dose seasonal, administered N ote: [facility] bi-directional preservative-free interface ; So urce: Other Registry Afluria Qd administered Note: [facility] bi-directional interface ; Sour ce: Other Registry influenza, high dose seasonal, administered N ote: [facility] bi-directional preservative-free interface ; So urce: Other Registry Prevnar 13 administered Note: [facility] bi-di rectional interface ; Sour ce: Other Registry influenza, high dose seasonal, administered N ote: [facility] bi-directional preservative-free interface ; So urce: Other Registry zoster vaccine, live administered Note: [facility] bi-directional interface ; Sour ce: Other Registry Pneumovax 23 administered Note: [facility] bi-di rectional interface ; Sour ce: Other Registry influenza virus vaccine, administered Note: M [facility] bi-directional unspecified formulation interfac e ; Source: Other Registry tetanus toxoid, reduced administered Note: [facility] bi-directional diphtheria toxoid, and acellular interface ; Source: Other pertussis vaccine, adsorbed Roberta stry Influenza, seasonal, injectable administered Note: [facility] bi-directional interface ; Sour ce: Other Registry tetanus toxoid, reduced administered Note: [facility] bi-directional diphtheria toxoid, and acellular interface ; Source: Other pertussis vaccine, adsorbed Roberta stry Pneumovax administered Note: [facility] bi-di rectional interface ; Sour ce: Other Registry Payers Payer name Insurance type Covered libertarian ID Authorization(s ) [employer] Medicare Advantage BL [id number] Social History Type Description Quantity Date Captured Comments Sex Male Smoking Status No Information Chief Complaint And Reason For Visit No Information Reason For Referral Reason For Referral No Information Plan Of Treatment Date Type Action Status Referral Ordered: ordered EUS Appointment date/timeframe: 06/16/2021 History Of Present Illness Encounter Date Complaint History Of Present I llness GI Symptoms or Concerns Jd is a very pleasant 80-year-old gentleman with no past medical history of any pancreas problems who about 6 weeks ago developed abdominal pain and w as hospitalized and after workup was diagnosed with acute pancreatitis of unknown etiology. He did have a mild elevation in ALT abo ut 2 times upper limit of normal but otherwise had normal liver tests an ultrasound revealed no stones in his gallbladder or bile duct dilatation. He does not drink alcohol. H e had further imaging with MRI that did reveal a small cyst in his pancreas and noted n o pancreas duct dilatation. I should note this study was done at the time of his e pisode and there was some edema in his pancrea s noted that aided the diagnosis. Since his discharge he has done well with no weight loss no nausea or vomiting. Abdominal pain had completely resolved. Functional Status Date Functional Assessment No Information Instructions Date Instruction Additional Informati on At this point I do recommend Related to Acute pancreatitis, proceeding with endoscopic ultrasound un specified complication status, to better interrogate his pancreas unspe cified pancreatitis type and rule out any occult lesion as well as to better characterize his pancreas cyst. He asked good questions and has a good understanding of the issues at hand. Assessments Type Assessment Date No Information Patient Care Teams Name Effective Dates (start - stop) Status M rubén No Information
--- OUTSIDE RECORDS SUMMARY | 2021-10-18 13:03 | XMS_ITS | Encounter Summary ---
:1940 Author Organization [place] Address [address] [place] [address]. [place] [address] Care Team Providers Name Role Phone Debbie Burden MD Primary Care Provider Reason for Visit Auth/Cert Specialty Diagnoses / Procedures Referred By Contact Refer red To Contact Surgery Diagnoses Acute pancreatitis Acute pancreatitis [K85.90] Rh Periop Services Procedures HC UGI ENDOSCOPY W EUS ESOPHAGOGASTRODUODENOSCOPY, WITH ENDOSCOPIC US [address] [place], [place] [address] Fax: Referral ID Status Reason Start Date Expiration Date Visits Requ ested Visits Authorized [id number] 1 1 Encounter Details Date Type Department Care Team Description 06/16/2021 Anesthesia Event M [facility] Carin Gallego MD [facility] [place] [address] [place], [place] [id number] PeriOp Services Luis A Dobbins APRN [facility] ANESTHESIA [address] [facility] [address] [place], [place] [address] [address] [place] [address] Anesthesia Record Procedure Summary Procedure Name Responsible Anesthesia Start Anesthesia Stop Anesthesiologist Time Time ESOPHAGOGASTRODUODEN Carin Gallego MD 06/16/21 1343 06/16/21 1408 OSCOPY, WITH ENDOSCOPIC Ultrasound (N/A Mouth) Events Date Time Event Comment 06/16/2021 1218 1343 An Start 1347 AN REASSESS I attest that I have identified and re-evaluated the patient immediat jayy before the induction of anesthesia and I am satisfi ed that the anesthetic plan is suitable for the patient' s condition and procedure. The first vital signs beverley rded are pre- induction. Artemio Leo APRN CLOTH BLEACHING RANGE OPERATOR CHIEF 1347 An Start Data 1359 MD Present 1403 an stop data 1408 An Stop Electronically s igned by Artemio Leo APRN CRNA on June 16, 2021 2: 08 PM Name Total propofol 10 mg/mL 60 mg propofol infusion (mcg/kg/min) 71.84 mg glycopyrrolate 0.2 mg/mL 0.2 mg ondansetron 2 mg/mL 4 mg ketamine 10 mg/mL 20 mg lactated ringers infusion 300 mL Agents Name NO HELIOX O2 N2O Air Exp Sevoflurane Exp Isoflurane Exp Desflurane Exp N2O O2 Delivery Device Ins Sevoflurane Ins Isoflurane Ins Desflurane O2 Auxiliary Blood No blood administrations on file. Lines, Drains, and Airways Type Details Placement Removal Incision/Surgical Site 06/16/21; 1358; 06/16/21 1358 by Mouth; scope down Brie Soria RN mouth for procedure Peripheral IV 06/16/21; 1209; 20 G; 06/16/21 1209 by 06/16/21 1504 by Anterior, Left; Juan Wheeler, RN Britni John T, Wrist; Chlorhexidine; RN Tolerated well documented in this encounter Social History Tobacco [...] / COVID-19? documented as of this encounter OR Notes Anesthesia Postprocedure Evaluation - Carin Gallego MD - 06/16/2021 2:26 PM CDT Patient: Jd Go Procedure: Procedure(s): ESOPHAGOGASTRODUODENOSCOPY, WITH ENDOSCOPIC US Anesthesia Type: MAC Note: Disposition: Outpatient Postop Pain Control: Uneventful Sign Out: Well controlled pain PONV: No Neuro/Psych: Uneventful Sign Out: Acceptable/Baseline neuro status Airway/Respiratory: Uneventful Sign Out: Acceptable/Baseline resp. status CV/Hemodynamics: Uneventful Sign Out: Acceptable CV status; No obvious hypovolemia; No obvious fluid overload Other NRE: NONE DID A NON-ROUTINE EVENT OCCUR? No Last vitals: Vitals Value Taken Time BP 109/59 06/16/21 1410 Temp 97.7 ??F (36.5 ??C) 06/16/21 1405 Pulse 68 06/16/21 1410 Resp 16 06/16/21 1410 SpO2 98 % 06/16/21 1405 Electronically Signed By: Carin Gallego MD June 16, 2021 2:26 PM Anesthesia Preprocedure Evaluation - Carin Gallego MD - 06/16/2021 12:08 PM CDT Anesthesia Pre-Procedure Evaluation Patient: Jd Go : 1940 Procedure : Procedure(s): ESOPHAGOGASTRODUODENOSCOPY, WITH ENDOSCOPIC US Past Medical History: Diagnosis Date ??? Arrhythmia ??? Calculus of kidney ??? Coronary artery disease ??? Diabetes (H) type 2 ??? Heart murmur aortic stenosis ??? High cholesterol ??? Hypertension ??? Pancreatitis HX of ??? Sleep apnea Past Surgical History: Procedure Laterality Date ??? ORTHOPEDIC SURGERY Right thumb laceration repaired ??? SEPTOPLASTY ??? ZZ NONSPECIFIC PROCEDURE 1965 surgery on shoulder ??? ZZ NONSPECIFIC PROCEDURE 1985 surgery on lacerated tendons R hand Allergies Allergen Reactions ??? Iodine Blisters ??? Mercury Blisters ??? No Known Drug Allergies Social History Tobacco Use ??? Smoking status: Former Smoker Types: Cigars ??? Smokeless tobacco: Never Used Substance Use Topics ??? Alcohol use: Yes Comment: one drink once a week Wt Readings from Last 1 Encounters: 06/15/21 89.8 kg (198 lb) Anesthesia Evaluation ROS/MED HX ENT/Pulmonary: (+) sleep apnea, Neurologic: Cardiovascular: Comment: Aortic stenosis Echo 09/2020 Final Impressions: 1. LVEF estimate 60-65%. Normal LV size and wall thickness. 2. Normal RV size and global systolic function. 3. Mild aortic stenosis (peak velocity 2.7 m/s and mean gradient 16 mmHg). 4. Mild mitral regurgitation. 5. IVC respiratory variability not well seen. 6. Significantly dilated ascending aorta (4.9 cm). Size is unchanged compared to prior Echo in 08/2019. (+) hypertension--CAD --- METS/Exercise Tolerance: Hematologic: Musculoskeletal: GI/Hepatic: Renal/Genitourinary: Endo: (+) type II DM, Psychiatric/Substance Use: Infectious Disease: Malignancy: Other: Physical Exam Airway Mallampati: II TM distance: > 3 FB Neck ROM: full Respiratory Devices and Support Dental Cardiovascular cardiovascular exam normal Pulmonary pulmonary exam normal OUTSIDE LABS: CBC: Lab Results Component Value Date WBC 9.2 06/10/2009 HGB 16.3 06/10/2009 HCT 46.3 06/10/2009 PLT 251 06/10/2009 BMP: Lab Results Component Value Date NA 140 07/13/2009 NA 139 06/10/2009 POTASSIUM 4.5 07/13/2009 POTASSIUM 4.1 06/10/2009 CHLORIDE 101 07/13/2009 CHLORIDE 102 06/10/2009 CO2 27 07/13/2009 CO2 25 06/10/2009 BUN 19 07/13/2009 BUN 17 06/10/2009 CR 0.90 07/13/2009 CR 0.85 06/10/2009 GLC 108 (H) 06/16/2021 GLC 151 (H) 07/13/2009 COAGS: No results found for: PTT, INR, FIBR POC: No results found for: BGM, HCG, HCGS HEPATIC: Lab Results Component Value Date ALBUMIN 4.5 07/13/2009 PROTTOTAL 8.4 07/13/2009 ALT 21 07/13/2009 AST 31 07/13/2009 ALKPHOS 66 07/13/2009 BILITOTAL 0.6 07/13/2009 OTHER: Lab Results Component Value Date A1C 6.8 (H) 11/24/2009 NENA 8.9 07/13/2009 TSH 1.74 11/24/2009 T4 0.72 11/24/2009 SED 7 06/10/2009 Anesthesia Plan ASA Status: 2 NPO Status: NPO Appropriate Anesthesia Type: MAC. Induction: Intravenous. Maintenance: TIVA. Consents Anesthesia Plan(s) and associated risks, benefits, and realistic alternatives discussed. Questions answered and patient/loss prevention representative(s) expressed understanding. - Discussed: - Discussed with: Patient Postoperative Care Pain management: Oral pain medications. PONV prophylaxis: Ondansetron (or other 5HT-3), Background Propofol Infusion Comments: Carin Gallego MD documented in this encounter Miscellaneous Notes Anesthesia Care Transfer Note - Artemio Leo APRN CLOTH BLEACHING RANGE OPERATOR CHIEF - 06/16/2021 2:08 PM CDT Patient: Jd Go Procedure: Procedure(s): ESOPHAGOGASTRODUODENOSCOPY, WITH ENDOSCOPIC US Diagnosis: Acute pancreatitis [K85.90] Diagnosis Additional Information: No value filed. Anesthesia Type: MAC Note: Oropharynx: oropharynx clear of all foreign objects Level of Consciousness: awake Oxygen Supplementation: nasal cannula Level of Supplemental Oxygen (L/min / FiO2): 2 Independent Airway: airway patency satisfactory and stable Dentition: dentition unchanged Vital Signs Stable: post-procedure vital signs reviewed and stable Report to RN Given: handoff report given Patient transferred to: Phase II Handoff Report: Identifed the Patient, Identified the Reponsible Provider, Reviewed the pertinent medical history, Discussed the surgical course, Reviewed Intra-OP anesthesia mangement and issues during anesthesia, Set expectations for post-procedure period and Allowed opportunity for questions and acknowledgement of understanding Electronically Signed By: Artemio Leo APRN CRNA June 16, 2021 2:08 PM documented in this encounter Plan of Treatment Not on filedocumented as of this encounter Visit Diagnoses Not on filedocumented in this encounter Administered Medications Inactive Administered Medications - up to 3 most recent administrations Medication Order MAR Action Action Date Dose Rate Site glycopyrrolate (ROBINUL) injection Given 06/16/2021 1:51 PM CDT 0.2 mg Intravenous, PRN, Administer over 1-2 Minutes, Starting on Lissette 06/16/21 at 1351, Anesthesia Intra-op ketamine (KETALAR) injection Given 06/16/2021 1:51 PM CDT 20 mg Intravenous, PRN, Administer over 2-5 Minutes, Starting on Lissette 06/16/21 at 1351, Anesthesia Intra-op lactated ringers infusion New Bag 06/16/2021 1:47 PM CDT at 25 mL/hr, Intravenous, CONTINUOUS, IF patient NOT on dialysis., Pre-procedure, Starting on Lissette 06/16/21 at 1200, Until Lissette 06/16/21 at 1707 ondansetron (ZOFRAN) injection Given 06/16/2021 1:55 PM CDT 4 mg Intravenous, PRN, Administer over 2-5 Minutes, Starting on Lissette 06/16/21 at 1355, Anesthesia Intra-op propofol (DIPRIVAN) injection 10 mg/mL v ial Given 06/16/2021 1:54 PM CDT 30 mg Intravenous, PRN, Starting on Lissette 06/16/21 at 1351, Anesthesia Intra-op Given 06/16/2021 1:51 PM CDT 30 mg propofol (DIPRIVAN) New Bag 06/16/2021 1:51 PM 100 mcg/kg/min 53.8 8 mL/hr injection 10 mg/mL vial CDT Intravenous, CONTINUOUS PRN, Starting on Lissette 06/16/21 at 1351, Anesthesia Intra-op documented in this encounter Care Teams Cork Painter And Grader Relationship Specialty Start Date End Date Debbie Burden MD PCP - General Family Medicine 05/26/21 [place] [address] [address], [place] [address] documented as of this encounter
--- OUTSIDE RECORDS SUMMARY | 2021-10-18 13:03 | XMS_ITS | Encounter Summary ---
:1940 Author Organization [facility] Address [address] [place], [place] [address]. [place] [address] Care Team Providers Name Role Phone Debbie Burden MD Primary Care Provider Reason for Visit Auth/Cert Specialty Diagnoses / Procedures Referred By Contact Refer red To Contact Surgery Diagnoses Acute pancreatitis Acute pancreatitis [K85.90] Rh Periop Services Procedures HC UGI ENDOSCOPY W EUS ESOPHAGOGASTRODUODENOSCOPY, WITH ENDOSCOPIC US [address] [place], [place] [address] Fax: Referral ID Status Reason Start Date Expiration Date Visits Requ ested Visits Authorized [id number] 1 1 Encounter Details Date Type Department Care Team Description 06/16/2021 Hospital Encounter M [facility] Jesús Turner PreOP/PostOP MD Karl [address] [facility] GASTROENTEROLOGY [place], [place] [address] [facility] [address] [facility] [phone] [place], [place] [address] (Wo rk) Social History Tobacco [...] documented in this encounter Discharge Instructions Discharge InstructionsDora, Josy Bui RN - 06/16/2021 2:[address] JESÚS TURNER M.D. CLINIC PHONE NUMBER: [phone] [facility] GENERAL ANESTHESIA OR SEDATION ADULT DISCHARGE [...] times a week capsule fluticasone (FLONASE) 50 [place] 1 spray into 0 MCG/ACT nasal spray [...] 89.8 kg (198 lb). Source Note - Scan, Provider - 06/15/2021 12:15 PM CDT documented [...] n the results section. LAB RESULT - [facility] 06/14/2021 12:00 SCAN AM CDT LAB RESULT - [facility] 06/14/2021 12:00 SCAN AM CDT EKG CARDIAC - [facility] 06/14/2021 12:00 SCAN AM CDT documented in this encounter Results Glucose by meter (06/16/2021 2:18 PM CDT) athologist Signature GLUCOSE BY 85 70 - 99 06/16/2021 [facility] METER POCT mg/dL 2:31 PM CDT POC Specimen (Source) Anatomical Collection Method Collection Time Re ceived Time Location / / Volume Laterality Blood, Capillary BLOOD SPECIMEN / 06/16/2021 2:18 04/0 09/2021 2:31 Unknown PM CDT PM CDT Jesús Turner MD LAB - BEAKER POCT Performing Organization Address City/State/ZIP Code Phon e Number [place] [address] Care Lab [address] Lab (1st floor, no room number) UPPER EUS (06/16/2021 1:25 PM CDT) Component Value Ref Test Analysis Performed At [facility] gist Range Method Time Signature Upper EUS [facility] RADIOLOGY RESULTS Patient Name: Jd Go ? Procedure Date: 06/16/2021 1:25 PM ? Account Num juan: [id number] Date of : 1940 ? Admit Type: [...] and ?oxygen saturations were monitored continuously. The ?Fashion Playtesa II Ultrasound Gastrovideoscope, ?Linear, Model # [id number], [place] # 260, SN # ?[id number] was introduced through the mouth, and ?advanced [...] Procedure Code(s): ? --- Professional --- ? 70527, Esophagogastroduodenoscopy , flexible, transoral; with endoscopic ? ultrasound examinatio n, including the esophagus, stomach, and either the ? duodenum or a surgically altered stomach where the jejunum is examined ? distal to the anastomosis CPT copyright 2020 [employer]. All rights reserved. The codes documented in this report are prelimin denilson and upon component assembler supervisor review may be revised to meet current compliance requirements. Jesús Turner M.D. JESÚS TURNER MD 06/16/2021 2:22:07 PM I was physically present for the entire viewing portion of t he exam. JESÚS TURNER MD Number of Addenda: 0 Note Initiated On: 06/16/2021 1:25 PM MRN: ?[id number] Procedure Date: ? 06/16/2021 1:25:06 PM Total [...] BY 108 (H) 70 - 99 06/16/2021 LABORATORY METER POCT mg/dL 11:40 AM CDT POC Specimen Anatomical Collection Method Collection Time Receive d Time (Source) Location / / Volume Laterality Blood, venous BLOOD SPECIMEN / 06/16/2021 11:33 2021 Unknown AM CDT 11:40 AM CDT Jesús Turner MD LAB - BEAKER POCT Performing Organization Address City/State/ZIP Code Phon e Number [place] [address] Care Lab [address] Lab (1st floor, no room number) LAB RESULT - HIM SCAN (06/14/2021 12:00 AM CDT) Specimen (Source) Anatomical Location Collection Method / Collectio n Time Received Time / Laterality Volume 06/14/2021 Narrative This result has an attachment that is no t available. Provider Scan [facility] NON-BEAKER LAB TESTING LAB RESULT - HIM [...] ORDERABLES documented in this encounter Visit Diagnoses Not on filedocumented [...] New Bag - Provider: Artemio Leo APRN BEHAVIOR THERAPIST)1401 (Anesthesia Volume Adjustment - Provider: Artemio Leo APRN BEHAVIOR THERAPIST) at 25 mL/hr, Intravenous, CONTINUOUS, IF patient [...] II documented in this encounter Care Teams Naturalization Examiner Relationship Specialty Start Date End Date Debbie Burden MD PCP - General Family Medicine 05/26/21 [facility] [address] [place] [address] documented as of this encounter
--- OUTSIDE RECORDS SUMMARY | 2021-10-18 13:03 | XMS_ITS | Encounter Summary ---
:1940 Author Organization [facility] Address [address] [place] [address] Care Team Providers Name Role Phone Debbie Burden MD Primary Care Provider Encounter Details Date Type Department Care Team Description 06/09/2021 Travel Social History Tobacco Use Types Packs/Day [...] been in contact with No / Unsure 06/09/2021 3:22 PM CDT someone who was confirmed or suspected to have Coronavirus / COVID-19? documented as of this encounter Plan of Treatment Not on filedocumented as of this encounter Visit Diagnoses Not on filedocumented in this encounter Care Teams Campaign Advisor Relationship Specialty Start Date End Date Debbie Burden MD PCP - General Family Medicine 05/26/21 [facility] [address] [place] [address] documented as of this encounter
--- OUTSIDE RECORDS SUMMARY | 2021-10-18 13:03 | XMS_ITS | Encounter Summary ---
:1940 Author Organization [facility] Address [address] [place] [address]. [place] [address] Care Team Providers Name Role Phone Ramy Sánchez MD Primary Care Provider Reason for Visit Reason Comments Sleep Problem [facility] Encounter Details Date Type Department Care Team Description 12/22/2019 Documentation Only [facility] [address], [address] [place] [address] Social History Tobacco Use Types Packs/Day Years Used Date Former Smoker Cigars Alcohol Use Standard Drinks/Week Comments Yes 0 (1 standard drink = 0.6 oz pure alcoho l) one drink once a week Sex Assigned at Date Recorded Not on file documented as of this encounter Progress Notes Ashly Hayes - 12/22/2019 9:00 AM CDT Error. Pt not a [facility] sleep patient. STM deleted. documented in this encounter Plan of Treatment Not on filedocumented as of this encounter Visit Diagnoses Not on filedocumented in this encounter Care Teams Senior Linux Engineer Relationship Specialty Start Date End Date Ramy Sánchez MD PCP - General 09/20/01 05/25/21 [address] [place] [address] documented as of this encounter
--- OUTSIDE RECORDS SUMMARY | 2021-10-18 13:04 | XMS_ITS | Encounter Summary ---
:1940 Author Organization [facility] Address [address] [place] [address] Care Team Providers Name Role Phone Vanda Sánchez MD Primary Care Provider [phone] Encounter Details Date Type Department Care Team Description 09/27/2007 Orders Only [facility] DM w/o Complication Type II; [facility] DIABETES MELLITUS TYPE II-UN COMPL [address] [place] [phone] Social History Tobacco Use Types Packs/Day Years Used Date Current Every Day Smoker Cigars Comments: couple times a year Alcohol Use Standard Drinks/Week Comments Not Asked 0 (1 standard drink = 0.6 oz pure alcoho l) Sex Assigned at Date Recorded Not on file documented as of this encounter Progress Notes Vanda Sánchez - 09/30/2007 4:03 PM CDT Addended by: VANDA SÁNCHEZ on: 09/30/2007 4:03:58 PM Modules accepted: Orders documented in this encounter Plan of Treatment Not on filedocumented as of this encounter Procedures Procedure Name Priority Date/Time Associated Diagnosis Comme nts CREATININE, URINE Routine 09/27/2007 8:14 DM w/o Complication Results for this AM CDT Type II procedure are i n the results section. HCL ALBUMIN URINE (INC Routine 09/27/2007 8:14 DM w/o Complica tion Results for this CREAT) AM CDT Type II procedure are i n the results section. HCL COMPREHENSIVE Routine 09/27/2007 8:13 DM w/o Complication Results for this METABOLIC PANEL AM CDT Type II procedure ar e in the results section. HCL TSH W/FREE T4 Routine 09/27/2007 8:13 DIABETES MELLITUS Re sults for this REFLEX AM CDT TYPE II-UNCOMPL procedure ar e in the results section. HCL GLYCATED Routine 09/27/2007 8:13 DM w/o Complication Resul ts for this HEMOGLOBIN AM CDT Type II procedure are i n the results section. CL AFF A.M.A. LIPID Routine 09/27/2007 8:13 DM w/o Complicatio n Results for this PANEL AM CDT Type II procedure are i n the results section. documented in this encounter Results CREATININE, URINE (09/27/2007 8:14 AM CDT) athologist Signature Creatinine 173 mg/dL [facility] Urine [place] Specimen Anatomical Collection Method Collection Time Receive d Time (Source) Location / / Volume Laterality 09/27/2007 8:14 AM 8 8:17 CDT AM CDT Vanda Sánchez MD LABORATORY Performing Organization Address City/State/ZIP Code Phon e Number [address] LABS MICROALBUMIN (INC URINE CREAT) (09/27/2007 8:14 AM CDT) athologist Signature Albumin Urine 8 mg/L [facility] mg/L [facility] Albumin Urine 4.68 0 - 20 [facility] mg/g Cr mg/g Cr [facility]AMP[facility] Specimen Anatomical Collection Method Collection Time Receive d Time (Source) Location / / Volume Laterality 09/27/2007 8:14 AM 8 8:17 CDT AM CDT Vanda Sánchez MD LABORATORY Performing Organization Address City/State/ZIP Code Phon e Number [facility] [address] LABS TSH W/FREE T4 REFLEX (09/27/2007 8:13 AM CDT) athologist Signature TSH 1.97 0.4 - 5.0 [facility] mU/L CLINIC LAB Specimen Anatomical Collection Method Collection Time Receive d Time (Source) Location / / Volume Laterality 09/27/2007 8:13 AM 8 8:16 CDT AM CDT Vanda Sánchez MD LABORATORY Performing Organization Address City/State/ZIP Code Phon e Number [facility] [address] [place] [address] [facility] (ABNORMAL) HEMOGLOBIN A1C (09/27/2007 8:13 AM CDT) athologist Signature Hemoglobin A1C 6.5 (H) 4.3 - 6.0 [place] POCT % [facility] Specimen Anatomical Collection Method Collection Time Receive d Time (Source) Location / / Volume Laterality 09/27/2007 8:13 AM 8 8:16 CDT AM CDT Vanda Sánchez MD LABORATORY Performing Organization Address City/[facility]/ZIP Code Phon e Number [facility] [address] [place] [address] [facility] LAB (ABNORMAL) A.M.A. COMPREHENSIVE MET.PANEL (09/27/2007 8:13 AM CDT) athologist Signature Sodium 141 133 - 144 [place] mmol/L [facility] Potassium 4.3 3.4 - 5.3 [place] mmol/L [facility] Chloride 101 94 - 109 [place] mmol/L [facility] Carbon Dioxide 25 20 - 32 [place] mmol/L [facility] Anion Gap 14 6 - 17 [place] mmol/L [facility] Glucose 120 (H) 60 - 99 [facility] mg/dL [facility] Urea Nitrogen 18 7 - 30 [place] mg/dL [facility] Creatinine 0.75 0.66 - [facility] 1.25 mg/dL [facility] Comment: New IDMS-traceable calibration beginning 07/11/07 GFR Estimate >90 >60 mL/min/1.7m2 [place] [facility] GFR Estimate If Black >90 >60 mL/min/1.7m2 [facility] Calcium 9.2 8.5 - 10.4 mg/dL [facility] Bilirubin Total 0.7 0.2 - 1.3 mg/dL [facility] Albumin 4.6 (H) 3.2 - 4.5 g/dL [facility] Protein Total 8.1 6.8 - 8.8 g/dL [facility] Comment: As of 07, reference range reflects plasma specimen type. Alkaline Phosphatase 64 40 - 150 U/L [facility] LAB ALT 18 0 - 70 U/L [facility] CL[facility] IC LAB AST 28 0 - 55 U/L [facility] LAB Specimen Anatomical Collection Method Collection Time Receive d Time (Source) Location / / Volume Laterality 09/27/2007 8:13 AM 8 8:16 CDT AM CDT Vanda Sánchez MD LABORATORY Performing Organization Address City/State/ZIP Code Phon e Number [facility] [address] [place] [address] [facility] LAB (ABNORMAL) A.M.A. LIPID PANEL (09/27/2007 8:13 AM CDT) athologist Signature Cholesterol 195 0 - 200 [facility] mg/dL CLINIC LAB Comment: LDL Cholesterol is the primary guide to therapy: LDL-cholesterol goal in high risk patients is <100 mg/dL and in very high risk patients is <70 mg/dL. The NCEP recommends further evaluation of: patients with cholesterol <200 mg/dL if additional risk factors are present, cholesterol >240 mg/dL, triglycerides >150 mg/dL, or HDL <40 mg/dL. Triglycerides 241 (H) 0 - 150 mg/dL [facility] HDL Cholesterol 30 (L) 40 - 110 mg/dL [facility] LDL Cholesterol Calculated 116 0 - 129 mg/dL [facility] Comment: LDL Cholesterol is the primary guide to therapy: LDL-cholesterol goal in high risk patients is <100 mg/dL and in very high risk patients is <70 mg/dL. VLDL-Cholesterol 48 (H) 0 - 30 mg/dL [facility] Cholesterol/HDL Ratio 6.5 (H) 0.0 - 5.0 [facility] Specimen Anatomical Collection Method Collection Time Receive d Time (Source) Location / / Volume Laterality 09/27/2007 8:13 AM 8 8:16 CDT AM CDT Vanda Sánchez MD LABORATORY Performing Organization Address City/State/ZIP Code Phon e Number [facility] [address] [place] [address] [facility] documented in this encounter Visit Diagnoses Diagnosis DIABETES MELLITUS TYPE II-UNCOMPL Type II or unspecified type diabetes chandler litus without mention of complication, not stated as uncontrolled documented in this encounter Care Teams Psychiatric Nursing Assistant Relationship Specialty Start Date End Date Vanda Sánchez MD PCP - General 09/20/01 05/25/21 [address] [place] [address] documented as of this encounter
--- OUTSIDE RECORDS SUMMARY | 2021-10-18 13:04 | XMS_ITS | Encounter Summary ---
:1940 Author Organization [facility] Address [address] [place] [address]. [place] [address] Care Team Providers Name Role Phone Ramy Sánchez MD Primary Care Provider Reason for Visit Reason Onset Date Comments Diabetes 06/15/2009 supplies Encounter Details Date Type Department Care Team Description 06/15/[address] [facility] Ramy Sánchez Diabetes (supplies) Janice Aguirre MD [address] [place] [phone] (Wo rk) Social History Tobacco Use Types Packs/Day Years Used Date Former Smoker Cigars Alcohol Use Standard Drinks/Week Comments Yes 0 (1 standard drink = 0.6 oz pure alcoho l) one drink once a week Sex Assigned at Date Recorded Not on file documented as of this encounter Miscellaneous Notes Telephone Encounter - Iveth Moreno - 06/15/2009 11:19 AM CDT This was done on 06/10/09. Left a message for patient to check with pharmacy. Iveth Moreno RN Telephone Encounter - Abby Adame - 06/15/2009 10:39 AM CDT Message copied by ABBY ADAME on SunJun 15, 2009 10:39 AM ------ Message from: NESSA DHILLON Created: Yoly Jun 15, 2009 10:34 AM Regarding: JM - DIABETES Contact: First and Last name of caller: JD MCLAUGHLIN Relationship to patient: SELF Reason for call: Pt saw Dr Sánchez 06/10 and was given new test strip kit for diabetes. He needs prescription for acu-strip refills. Pls call pt with questions. Is it in regards to a medication: yes Med Name: ACU-STRIPS Pharmacy name and location: [facility] Provider they see: TATI Phone number they can be reached at: [phone] Ok to leave a message: YES Nessa documented in this encounter Plan of Treatment Not on filedocumented as of this encounter Visit Diagnoses Not on filedocumented in this encounter Care Teams Network Associate Relationship Specialty Start Date End Date Ramy Sánchez MD PCP - General 09/20/01 05/25/21 [address] [place] [address] documented as of this encounter
--- OUTSIDE RECORDS SUMMARY | 2021-10-18 13:04 | XMS_ITS | Encounter Summary ---
:1940 Author Organization [facility] Address [address] [place] [address]. [place] [address] Care Team Providers Name Role Phone Ramy Sánchez MD Primary Care Provider Reason for Visit Reason Onset Date Comments Refill Request 09/24/2007 Lipitor Encounter Details Date Type Department Care Team Description 09/24/2007 Refill [facility] Ramy Sánchez Refill Request (Lipitor) Clinic [place] MD Timothy [address] [place] [phone] (Wo rk) Social History Tobacco Use Types Packs/Day Years Used Date Current Every Day Smoker Cigars Comments: couple times a year Alcohol Use Standard Drinks/Week Comments Not Asked 0 (1 standard drink = 0.6 oz pure alcoho l) Sex Assigned at Date Recorded Not on file documented as of this encounter Miscellaneous Notes Telephone Encounter - Patricia Forbes - 09/24/2007 9:22 AM CDT Date of Last OV: 02/26/07 Reason for visit: Sinus problems Provider seen: Dr. Sánchez When advised to RTC: no RTC Labs pertaining to med: Lab Test 02/12/07 07/30/06 CHOL 175 131 HDL 32* 28* LDL 99 79 TRIG 223* 123 CHOLHDLRATIO 5.5* 4.7 AST 33 02/12/07 ALT 31 06/14/06 Patient has fasting lab appt scheduled for 09/27/07 and follow up with JM on 10/04/07 Approved #15 only until then Patricia Forbes RN documented in this encounter Plan of Treatment Not on filedocumented as of this encounter Visit Diagnoses Diagnosis Other and unspecified hyperlipidemia documented in this encounter Care Teams Shade Classifier Relationship Specialty Start Date End Date Ramy Sánchez MD PCP - General 09/20/01 05/25/21 [address] [place] [address] documented as of this encounter
--- OUTSIDE RECORDS SUMMARY | 2021-10-18 13:04 | XMS_ITS | Encounter Summary ---
:1940 Author Organization [facility] Address [address] [place] [address]. [place] [address] Care Team Providers Name Role Phone Ramy Sánchez MD Primary Care Provider Reason for Visit Reason Onset Date Comments Refill Request 01/18/2009 simvastatin Encounter Details Date Type Department Care Team Description 01/18/2009 Refill [facility] Ramy Sánchez Refill Request Clinic [place]re MD (simvastatin) [address] [place] [phone] (Wo rk) Social History Tobacco Use Types Packs/Day Years Used Date Former Smoker Cigars Alcohol Use Standard Drinks/Week Comments Yes 0 (1 standard drink = 0.6 oz pure alcoho l) one drink once a week Sex Assigned at Date Recorded Not on file documented as of this encounter Miscellaneous Notes Telephone Encounter - Eloisa Sneed - 01/18/2009 1:34 PM CST Last OV: 11/10/08 Reason for visit: DM, allergic, rhinitis, lipid Date last filled: 12/18/08 Lab Test 10/27/08 12/16/07 CHOL 172 167 HDL 31* 30* LDL 97 95 TRIG 219* 208* CHOLHDLRATIO 5.5* 5.5* AST 28 09/27/07 ALT 23 12/16/07 Pt did not check [employer] message last month for liver enzyme, sent letter Medication approved per standing orders Eloisa Sneed RN ADER OPERATOR documented in this encounter Plan of Treatment Not on filedocumented as of this encounter Visit Diagnoses Diagnosis Diabetes mellitus, type 2 (H) Type II or unspecified type diabetes chandler litus without mention of complication, not stated as uncontrolled HYPERLIPIDEMIA NEC/NOS Other and unspecified hyperlipidemia documented in this encounter Care Teams Head Bucker Relationship Specialty Start Date End Date Ramy Sánchez MD PCP - General 09/20/01 05/25/21 [address] [place] [address] documented as of this encounter
--- OUTSIDE RECORDS SUMMARY | 2021-10-18 13:04 | XMS_ITS | Encounter Summary ---
:1940 Author Organization [facility] Address [address] [place] [address]. [place] [address] Care Team Providers Name Role Phone Ramy Sánchez MD Primary Care Provider [phone] Reason for Visit Reason Comments Sinus Problem pressure, headache, teeth hu rt, drainage x3 days Encounter Details Date Type Department Care Team Description 05/18/2008 Office Visit [facility] Ramy Sánchez Maxill denilson Sinusitis; [facility] [place] MD DIABETES MELLITUS TYPE II-UNCOMPL; [address] [place] [address] BENIGN HYPERTENSION; [place], [place] Acute M axillary Sinusitis [phone] Social History Tobacco Use Types Packs/Day Years Used Date Current Every Day Smoker Cigars Comments: couple times a year Alcohol Use Standard Drinks/Week Comments Yes 0 (1 standard drink = 0.6 oz pure alcoho l) one drink once a week Sex Assigned at Date Recorded Not on file documented as of this encounter Last Filed Vital Signs Vital Sign Reading Time Taken Comments Blood Pressure 126/90 05/18/2008 4:00 PM CDT Pulse - - Temperature 36.6 ??C (97.9 ??F) 05/18/2008 4:00 PM CDT Respiratory Rate - - Oxygen Saturation - - Inhaled Oxygen Concentration - - Weight 104.3 kg (230 lb) 05/18/2008 4:00 PM CDT Height 171.5 cm (5' 7.5) 05/18/2008 4:00 PM CDT Body Mass Index 35.49 05/18/2008 4:00 PM CDT documented in this encounter Progress Notes Ramy Sánchez - 05/18/2008 4:18 PM CDT Patient complains of congestion with sore throat, nasal congestion and sinus pain. Some mucopurulantdischarge but no upper dental pain and no sustained fever. Duration less than one month. Has diabetes and also history of airborn allergy or asthma. No chest pain, diaphoresis, or sob. scantilyproductive cough. No problems with vision, hearing, dental or neck pain. No chest pain, palpitations, dyspnea, change in bowel habits, blood in stool or dyspepsia. No rashes, changing moles, weakness, lassitude or back problems. No diabetes, thyroid or cancer. No dysuria or menstrual irregularity. Patient not a smoker. No problems with significant headaches. He has glucose intolerance, obesity and hypertension TMs dull not*red, sinus tenderness left, dental pain lungs clear, s1s2,soft abd,no distress, cyanosis or stridor. A:URI with sinusitis P:fluids, antipyretics,rest and meds as directed. Recheck PRN worsening or non-improvement over 5 days. Discussed signs of systemic or constutional illness. Hyperlipidemia documented in this encounter Nursing Notes 05/18/2008 4:00 PM CDT >> JEFF KINGSLEY Mon May 18, 2008 4:07 PM Patient presents with: Sinus Problem - pressure, headache, teeth hurt, drainage x3 days Initial BP 126/90 Temp (Src) 97.9 ??F (36.6 ??C) (Oral) Ht 5' 7.5 (1.715 m) Wt 230 lb (104.327 kg) Body mass index is 35.49 kg/(m^2).. BP completed using cuff size large Jeff Kingsley CMA documented in this encounter Plan of Treatment Not on filedocumented as of this encounter Visit Diagnoses Diagnosis Maxillary sinusitis Chronic maxillary sinusitis DIABETES MELLITUS TYPE II-UNCOMPL Type II or unspecified type diabetes chandler litus without mention of complication, not stated as uncontrolled BENIGN HYPERTENSION Essential hypertension, benign Acute maxillary sinusitis documented in this encounter Care Teams Air Chipper Relationship Specialty Start Date End Date Ramy Sánchez MD PCP - General 09/20/01 05/25/21 [address] [place] [address] documented as of this encounter
--- OUTSIDE RECORDS SUMMARY | 2021-10-18 13:04 | XMS_ITS | Encounter Summary ---
:1939 Author Organization [facility] Address [address] [place] [address] Care Team Providers Name Role Phone Ramy Sánchez MD Primary Care Provider Reason for Visit Reason Onset Date Comments Refill Request 09/05/2007 lipitor Encounter Details Date Type Department Care Team Description 09/05/2007 Refill [facility] Ramy Sánchez Refill Request (lipitor) Clinic [place] MD Timothy [address] [place] [phone] (Wo rk) Social History Tobacco Use Types Packs/Day Years Used Date Current Every Day Smoker Cigars Comments: couple times a year Alcohol Use Standard Drinks/Week Comments Not Asked 0 (1 standard drink = 0.6 oz pure alcoho l) Sex Assigned at Date Recorded Not on file documented as of this encounter Miscellaneous Notes Telephone Encounter - Martha Ahn - 09/05/2007 10:32 AM CDT Last office visit: [id number] Reason for visit: sinusitis/diabetes Date last filled: [id number] Lab Test 02/12/07 07/30/06 CHOL 175 131 HDL 32* 28* LDL 99 79 TRIG 223* 123 CHOLHDLRATIO 5.5* 4.7 AST 33 02/12/07 ALT 31 06/14/06 Medication APPROVED per standing orders-#15 only Letter sent [id number] appt., yet. Josiah Ahn RN documented in this encounter Plan of Treatment Not on filedocumented as of this encounter Visit Diagnoses Diagnosis Other and unspecified hyperlipidemia documented in this encounter Care Teams Security Sales Manager Relationship Specialty Start Date End Date Ramy Sánchez MD PCP - General 09/20/01 05/25/21 [address] [place] [address] documented as of this encounter
--- OUTSIDE RECORDS SUMMARY | 2021-10-18 13:04 | XMS_ITS | Encounter Summary ---
:1940 Author Organization [facility] Address [address] [place] [address]. [place] [address] Care Team Providers Name Role Phone Ramy Sánchez MD Primary Care Provider Reason for Visit Reason Onset Date Comments Refill Request 12/18/2008 lisinopril Encounter Details Date Type Department Care Team Description 12/18/2008 Refill [facility] Ramy Sánchez Refill Request Clinic [place] MD Timothy (lisinopril) [address] [place] [phone] (Wo rk) Social History Tobacco Use Types Packs/Day Years Used Date Former Smoker Cigars Alcohol Use Standard Drinks/Week Comments Yes 0 (1 standard drink = 0.6 oz pure alcoho l) one drink once a week Sex Assigned at Date Recorded Not on file documented as of this encounter Miscellaneous Notes Telephone Encounter - Conchita Franklin - 12/18/2008 1:38 PM CDT Date of last OV: 11/10/08 Reason for visit: DM, allergies Date last filled: 12/14/08 #30 Labs pertaining to med: Last 2 Encounter BP Readings: Date BP 11/10/2008 104/70 05/18/2008 126/90 CR 0.84 10/27/08 POTASSIUM 4.1 10/27/08 Lab Test 10/27/08 12/16/07 CHOL 172 167 HDL 31* 30* LDL 97 95 TRIG 219* 208* CHOLHDLRATIO 5.5* 5.5* AST 28 09/27/07 ALT 23 12/16/07 Medication approved per standing orders, needs LFT, letter sent via [employer] Conchita Franklin RN documented in this encounter Plan of Treatment Not on filedocumented as of this encounter Visit Diagnoses Diagnosis Type II or unspecified type diabetes chandler litus without mention of complication, not stated as uncontrolled Essential hypertension, benign Diabetes mellitus, type 2 (H) Type II or unspecified type diabetes chandler litus without mention of complication, not stated as uncontrolled documented in this encounter Care Teams Blacksmith Farm Relationship Specialty Start Date End Date Ramy Sánchez MD PCP - General 09/20/01 05/25/21 [address] [place] [address] documented as of this encounter
--- OUTSIDE RECORDS SUMMARY | 2021-10-18 13:04 | XMS_ITS | Encounter Summary ---
:1940 Author Organization [facility] Address [address] [place] [address] Care Team Providers Name Role Phone Ramy Sánchez MD Primary Care Provider [phone] Reason for Visit Reason Comments Sinus Problem sneezing, cogestion, pain an d pressure x 2 days Encounter Details Date Type Department Care Team Description 04/02/2009 Office Visit [facility] Chris Grover MD [facility] [address] (Primary Dx) [address] [place] [address] [place] [phone] [phone] Social History Tobacco Use Types Packs/Day Years Used Date Former Smoker Cigars Alcohol Use Standard Drinks/Week Comments Yes 0 (1 standard drink = 0.6 oz pure alcoho l) one drink once a week Sex Assigned at Date Recorded Not on file documented as of this encounter Last Filed Vital Signs Vital Sign Reading Time Taken Comments Blood Pressure 123/67 04/02/2009 2:08 PM ENVIRONMENTAL PROTECTION INSPECTOR Pulse 87 04/02/2009 2:08 PM ENVIRONMENTAL PROTECTION INSPECTOR Temperature 36.9 ??C (98.5 ??F) 04/02/2009 2:08 PM ENVIRONMENTAL PROTECTION INSPECTOR Respiratory Rate - - Oxygen Saturation - - Inhaled Oxygen Concentration - - Weight 103.9 kg (229 lb) 04/02/2009 2:08 PM ENVIRONMENTAL PROTECTION INSPECTOR Height 171.5 cm (5' 7.5) 04/02/2009 2:08 PM ENVIRONMENTAL PROTECTION INSPECTOR Body Mass Index 35.34 04/02/2009 2:08 PM ENVIRONMENTAL PROTECTION INSPECTOR documented in this encounter Progress Notes Chris Grover - 04/02/2009 2:27 PM CST SUBJECTIVE: Jd Go is a 68 year old male who complains of coryza, nasal congestion, post nasal drip and facial pressure for 1 days. He denies a history of no other unusual symptoms and denies a history of asthma. Patient used tosmoke cigarettes. OBJECTIVE: He appears well, vital signs are as noted by the nurse. Ears normal. Throat and pharynx normal. Necksupple. No adenopathy in the neck. Nose is congested. Sinuses non tender. The chest is clear, without wheezes or rales. ASSESSMENT: Viral Syndrome PLAN: Symptomatic therapy suggested: push fluids and rest. Call or return to clinic prn if these symptoms worsen or fail to improve as anticipated. RONMENTAL PROTECTION INSPECTOR documented in this encounter Nursing Notes 04/02/2009 2:15 PM CST >> BROOKE INFANTE Fri Apr 02, 2009 2:10 PM Patient presents with: Sinus Problem - sneezing, cogestion, pain and pressure x 2 days Initial BP 123/67 Pulse 87 Temp (Src) 98.5 ??F (36.9 ??C) (Oral) Ht 5' 7.5 (1.715 m) Wt 229lb (103.874 kg) Body mass index is 35.34 kg/(m^2).. BP completed using cuff size regular HEALTH MAINTENANCE REVIEWED. Brooke Infante CMA documented in this encounter Plan of Treatment Not on filedocumented as of this encounter Visit Diagnoses Diagnosis Viral syndrome - Primary Unspecified viral infection, in conditio ns classified elsewhere and of unspecified site documented in this encounter Care Teams Vice President Of Advertising Relationship Specialty Start Date End Date Ramy Sánchez MD PCP - General 09/20/01 05/25/21 [address] [place] [address] documented as of this encounter
--- OUTSIDE RECORDS SUMMARY | 2021-10-18 13:04 | XMS_ITS | Encounter Summary ---
:1939 Author Organization [facility] Address [address] [place] [address]. [place] [address] Care Team Providers Name Role Phone Ramy Sánchez MD Primary Care Provider [phone] Reason for Visit Reason Comments Blood Draw pt is fasting for labs Encounter Details Date Type Department Care Team Description 11/24/2009 Office Visit [facility] Ramy Sánchez HYPERL IPIDEMIA NEC/NOS; Clinic [facility] Aguirre MD BENIGN HYPERTENSION [address] [place] [phone] Social History Tobacco Use Types Packs/Day Years Used Date Former Smoker Cigars Alcohol Use Standard Drinks/Week Comments Yes 0 (1 standard drink = 0.6 oz pure alcoho l) one drink once a week Sex Assigned at Date Recorded Not on file documented as of this encounter Last Filed Vital Signs Vital Sign Reading Time Taken Comments Blood Pressure 128/78 11/24/2009 9:52 AM CDT Pulse 70 11/24/2009 9:52 AM CDT Temperature 36.3 ??C (97.4 ??F) 11/24/2009 9:52 AM CDT Respiratory Rate 16 11/24/2009 9:52 AM CDT Oxygen Saturation 96% 11/24/2009 9:52 AM CDT Inhaled Oxygen Concentration - - Weight 101.2 kg (223 lb) 11/24/2009 9:52 AM CDT Height 171.5 cm (5' 7.5) 11/24/2009 9:52 AM CDT Body Mass Index 34.41 11/24/2009 9:52 AM CDT documented in this encounter Progress Notes Ramy Sánchez - 11/24/2009 10:23 AM CDT SUBJECTIVE: CC: Jd Go is a 68 year old male who presents for hypertension and diabetes HPI: has gone off his statin, did better on lipitor, working on a fish diet, labs today, then two months from now after back on meds PROBLEM LIST: Patient Active Problem List Diagnoses Code ??? HYPERLIPIDEMIA NEC/NOS 272.4 ??? BENIGN HYPERTENSION 401.1 ??? SCREENING MAL NEOP-PROSTATE V76.44 ??? ALLERGIC RHINITIS NOS 477.9 ??? DIABETES MELLITUS TYPE II-UNCOMPL 250.00 ??? Impotence of Organic Origin 607.84 PAST MEDICAL HISTORY: Past Medical History Diagnosis Date ??? Calculus of Kidney PAST SURGICAL HISTORY: Past Surgical History Procedure Date ??? Nonspecific procedure 1965 surgery on shoulder ??? Nonspecific procedure 1985 surgery on lacerated tendons R hand CURRENT MEDICATIONS: Current outpatient prescriptions Medication Sig ??? ACCU-CHEK CATARINO MAR FOR ONCE DAILY CHECKS ??? ACCU-CHEK CATARINO STRP Check BS daily as directed ??? ACCU-CHEK MULTICLIX LANCETS MISC TEST DAILY ??? LISINOPRIL 20 MG OR TABS ONE DAILY, LAST REFILL ??? ASPIRIN 81 MG OR TABS ONE DAILY FAMILY HISTORY: Family History Problem Relation Age of Onset ??? Cancer Brother pancreatic 57 years diagnosis ??? Diabetes Brother type two ??? Cancer Brother [facility] MAINTENANCE: REVIEW OF OUTSIDE RECORDS: NO REVIEW OF SYSTEMS: C: NEGATIVE for fever, chills, change in weight I: NEGATIVE for worrisome rashes, moles or lesions E: NEGATIVE for vision changes or irritation E/M: NEGATIVE for ear, mouth and throat problems R: NEGATIVE for significant cough or SOB CV: NEGATIVE for chest pain, palpitations or peripheral edema GI: NEGATIVE for nausea, abdominal pain, heartburn, or change in bowel habits : NEGATIVE for frequency, dysuria, or hematuria M: NEGATIVE for significant arthralgias or myalgia N: NEGATIVE for weakness, dizziness or paresthesias E: NEGATIVE for temperature intolerance, skin/hair changes H: NEGATIVE for bleeding problems P: NEGATIVE for changes in mood or affect EXAM: BP 138/78 Pulse 70 Temp(Src) 97.4 ??F (36.3 ??C) (Oral) Resp 16 Ht 5' 7.5 (1.715 m) Wt 223 lb (101.152 kg) SpO2 96% GENERAL APPEARANCE: healthy, alert and no distress EXAM: GENERAL APPEARANCE: healthy, alert and no distress EYES: EOMI, PERRL HENT: ear canals and TM's normal and nose and mouth without ulcers or lesions NECK: no adenopathy, no asymmetry, masses, or scars and thyroid normal to palpation RESP: lungs clear to auscultation - no rales, rhonchi or wheezes CV: regular rates and rhythm, normal S1 S2, no S3 or S4 and no murmur, click or rub - ABDOMEN: soft, nontender, no HSM or masses and bowel sounds normal MS: extremities normal- no gross deformities noted, no evidence of inflammation in joints, FROM in all extremities. ASSESSMENT/PLAN hgms are at goal I have discussed with patient the risks, benefits, medications, treatment options and modalities. I have instructed the patient to call or schedule a follow-up appointment if any problems or failureto improve. documented in this encounter Nursing Notes 11/24/2009 10:00 AM CDT >> BRIE PALENCIA Wed Nov 24, 2009 10:02 AM Patient presents with: Blood Draw - pt is fasting for labs Initial BP 138/78 Pulse 70 Temp(Src) 97.4 ??F (36.3 ??C) (Oral) Resp 16 Ht 5' 7.5 (1.715 m) Wt 223 lb (101.152 kg) SpO2 96% Estimated Body mass index is 34.41 kg/(m^2) as calculated from the following: Height as of this encounter: 5' 7.5(1.715 m). Weight as of this encounter: 223 lb(101.152 kg).. BP completed using cuff size large Health Maintenance Updated with Patient: Yes Tobacco Verified: Yes Payor/Verify RX Benefits/Reconcile Disp Completed if allowed: Yes Family History Updated: Yes Immunizations Up to Date: Yes Mychart Offered: Yes Brie Palencia CMA documented in this encounter Plan of Treatment Not on filedocumented as of this encounter Procedures Procedure Name Priority Date/Time Associated Diagnosis Comme nts HCL ALBUMIN URINE Routine 11/24/2009 10:27 HYPERLIPIDEMIA NEC/ NOS Results for this (INC CREAT) AM CDT procedure are i n the results section. HCL TSH Routine 11/24/2009 10:26 HYPERLIPIDEMIA NEC/NOS R esults for this AM CDT procedure are i n the results section. HCL T4 FREE Routine 11/24/2009 10:26 HYPERLIPIDEMIA NEC/NOS R esults for this AM CDT procedure are i n the results section. HCL GLYCATED Routine 11/24/2009 10:26 HYPERLIPIDEMIA NEC/NOS R esults for this HEMOGLOBIN AM CDT procedure are i n the results section. documented in this encounter Results MICROALBUMIN (INC URINE CREAT) (11/24/2009 10:27 AM CDT) P athologist Signature Creatinine 196 mg/dL [facility] Urine [facility] Albumin Urine 12 mg/L [facility] mg/L [facility] Albumin Urine 6.12 0 - 20 [facility] mg/g Cr mg/g Cr [facility] Specimen Anatomical Collection Method Collection Time Receive d Time (Source) Location / / Volume Laterality 11/24/2009 10:27 11/24/2009 AM CDT 10:30 AM CDT Ramy Sánchez MD LABORATORY Performing Organization Address City/State/ZIP Code Phon e Number [address] [address] [facility] T4, FREE, SERUM (11/24/2009 10:26 AM CDT) P athologist Signature T4 Free 0.72 0.70 - 1.85 [facility] ng/dL CLINIC LAB Specimen Anatomical Collection Method Collection Time Receive d Time (Source) Location / / Volume Laterality 11/24/2009 10:26 11/24/2009 AM CDT 10:29 AM CDT Ramy Sánchez MD LABORATORY Performing Organization Address City/State/ZIP Code Phon e Number [facility] [address] [place] [address] [facility] TSH- (11/24/2009 10:26 AM CDT) athologist Signature TSH 1.74 0.4 - 5.0 [facility] mU/L [facility] Specimen Anatomical Collection Method Collection Time Receive d Time (Source) Location / / Volume Laterality 11/24/2009 10:26 11/24/2009 AM CDT 10:29 AM CDT Ramy Sánchez MD LABORATORY Performing Organization Address City/State/ZIP Code Phon e Number [facility] [address] [place] [address] [facility] (ABNORMAL) HEMOGLOBIN A1C (11/24/2009 10:26 AM CDT) P athologist Signature Hemoglobin A1C 6.8 (H) 4.3 - 6.0 [place] [facility] Specimen Anatomical Collection Method Collection Time Receive d Time (Source) Location / / Volume Laterality 11/24/2009 10:26 11/24/2009 AM CDT 10:29 AM CDT Ramy Sánchez MD LABORATORY Performing Organization Address City/State/ZIP Code Phon e Number [facility] [id number] [place] [address] [facility] documented in this encounter Visit Diagnoses Diagnosis HYPERLIPIDEMIA NEC/NOS Other and unspecified hyperlipidemia BENIGN HYPERTENSION Essential hypertension, benign documented in this encounter Care Teams Felling Bucking Supervisor Relationship Specialty Start Date End Date aRmy Sánchez MD PCP - General 09/20/01 05/25/[id number] [place] [address] documented as of this encounter
--- OUTSIDE RECORDS SUMMARY | 2021-10-18 13:04 | XMS_ITS | Encounter Summary ---
:1939 Author Organization [facility] Address [address] [place] [address]. [place] [address] Care Team Providers Name Role Phone Ramy Sánchez MD Primary Care Provider Encounter Details Date Type Department Care Team Description 10/21/2008 Orders Only [facility] Ramy Sánchez DIABET ES MELLITUS TYPE [facility] [place] MD II-UNCOMPL (Primary [address] [facility] [address] [facility] [place] [place] [place] [address] [phone] Social History Tobacco Use Types Packs/Day Years [...] as of this encounter Visit Diagnoses Diagnosis DIABETES MELLITUS TYPE II-UNCOMPL - Prim denilson Type II or unspecified type diabetes chandler litus without mention of complication, not stated as uncontrolled documented in this encounter Care Teams Technical Operations Specialist Relationship Specialty Start Date End Date Ramy Sánchez MD PCP - General 09/20/01 05/25/[address] [place], [place] [id number] documented as of this encounter
--- OUTSIDE RECORDS SUMMARY | 2021-10-18 13:04 | XMS_ITS | Encounter Summary ---
:1939 Author Organization [facility] Address [address] [place] [address] Care Team Providers Name Role Phone Ramy Sánchez MD Primary Care Provider Reason for Visit Reason Onset Date Comments Refill Request 06/04/2007 lipitor Encounter Details Date Type Department Care Team Description 06/04/2007 Refill [facility] Ramy Sánchez Refill Request (lipitor) Clinic [place] MD Timothy [address] [place] [phone] [phone] (Wo rk) Social History Tobacco Use Types Packs/Day Years Used Date Current Every Day Smoker Cigars Comments: couple times a year Alcohol Use Standard Drinks/Week Comments Not Asked 0 (1 standard drink = 0.6 oz pure alcoho l) Sex Assigned at Date Recorded Not on file documented as of this encounter Miscellaneous Notes Telephone Encounter - Abby James - 06/04/2007 12:02 PM CDT Last ov 02/26/07 Last filled 05/02/07 Lab Test 02/12/07 07/30/06 CHOL 175 131 HDL 32* 28* LDL 99 79 TRIG 223* 123 CHOLHDLRATIO 5.5* 4.7 AST 33 02/12/2007 ALT 31 06/14/2006 Medication approved per standing orders/Abby James RN documented in this encounter Plan of Treatment Not on filedocumented as of this encounter Visit Diagnoses Diagnosis Other and unspecified hyperlipidemia documented in this encounter Care Teams Traffic Control Operator Relationship Specialty Start Date End Date Ramy Sánchez MD PCP - General 09/20/01 05/25/21 [address] [place] [address] documented as of this encounter
--- OUTSIDE RECORDS SUMMARY | 2021-10-18 13:04 | XMS_ITS | Encounter Summary ---
:1939 Author Organization [facility] Address [address] [place] [address]. [place] [address] Care Team Providers Name Role Phone Ramy Sánchez MD Primary Care Provider Reason for Referral Referral not Required - Closed Specialty Diagnoses / Procedures Referred By Contact Refer red To Contact Diagnoses Diabetes mellitus, type 2 (H) Well adult exam Ramy Sánchez [facility] [address] [facility] [address] [place], [place] [address] [place] [address] Referral ID Status Reason Start Date Expiration Date Visits Requ ested Visits Authorized [id number] Closed 12/19/2007 03/11/2011 1 1 Referral not Required - Closed Specialty Diagnoses / Procedures Referred By Contact Refer red To Contact Diagnoses Diabetes mellitus, type 2 (H) Well adult exam Ramy Sánchez [place] [facility] [address] [place], [place] [address] [address] [place] [address] Phone: Fax: Referral ID Status Reason Start Date Expiration Date Visits Requ ested Visits Authorized [id number] Closed 12/19/2007 03/11/2011 1 1 Reason for Visit Reason Comments Results lab results Refill Request Encounter Details Date Type Department Care Team Description 12/19/2007 Office Visit [facility] Ramy Sánchez Diabet es Mellitus, Type 2 (H); [facility] [place] Well Adult Exam; [address] [facility] [id number] [place] [address] DM w/o Complication Type II; [place] [facility] [place] Essenti al Hypertension, Benign [phone] [phone] Social History Tobacco Use Types Packs/Day Years [...] Sign Reading Time Taken Comments Blood Pressure 114/54 12/19/2007 9:45 AM CDT Pulse - - Temperature - - Respiratory Rate - - Oxygen Saturation - - Inhaled Oxygen Concentration - - Weight 103.9 kg (229 lb) 12/19/2007 9:45 AM CDT Height 170.2 cm (5' 7) 12/19/2007 9:45 AM CDT Body Mass Index 35.87 12/19/2007 9:45 AM CDT documented in this encounter Progress Notes Ramy Sánchez - 12/19/2007 10:39 AM CDT SUBJECTIVE: CC: Jd Go is a 66 year old male who presents for diabetes follow up and well parameters HPI: has a brother with pancreatic ca, he needs colon check, psa, PROBLEM LIST: Patient Active Problem List Diagnoses Code ??? HYPERLIPIDEMIA NEC/NOS 272.4 ??? BENIGN HYPERTENSION 401.1 ??? SCREENING MAL NEOP-PROSTATE V76.44 ??? ALLERGIC RHINITIS NOS 477.9 ??? DIABETES MELLITUS TYPE II-UNCOMPL 250.00 ??? Impotence of Organic Origin 607.84 PAST MEDICAL HISTORY: Past Medical History Diagnosis Date ??? Calculus of Kidney PAST SURGICAL HISTORY: Past Surgical History Procedure Date ??? Nonspecific procedure 1966 surgery on shoulder ??? Nonspecific procedure 1985 surgery on lacerated tendons R hand CURRENT MEDICATIONS: Current outpatient prescriptions Medication Sig ??? LEVITRA 20 MG OR TABS ONE TABLET TAKEN AT LEAST 30 MINUTES BEFORE INTERCOURSE ??? LISINOPRIL 20 MG OR TABS ONE DAILY, LAST REFILL, pt needs fasting labs and an appt with his provider ??? LIPITOR 20 MG OR TABS ONE DAILY ??? FLONASE INHA 50 MCG/DOSE NA as directed ??? ASPIRIN 81 MG OR TABS ONE DAILY ??? TYRA 180 MG OR TABS 1 TABLET DAILY FAMILY HISTORY: Family History Problem Relation ??? Cancer Brother pancreatic 57 years diagnosis ??? Diabetes Brother type two HEALTH MAINTENANCE: REVIEW OF OUTSIDE RECORDS: NO [...] changes in mood or affect EXAM: BP 114/54 Ht 5' 7 (1.702 m) Wt 229 lb (103.874 kg) GENERAL APPEARANCE: healthy, alert and no distress [...] HSM or masses and bowel sounds normal Rectal exam: prostate symmetric w/o nodularity, no masses palpated GU_male: testicles normal without atrophy or masses and no hernias MS: extremities normal- no gross deformities noted, no evidence of inflammation in joints, FROM in all extremities. SKIN: no suspicious lesions or rashes NEURO: Normal strength and tone, sensory exam grossly normal, mentation intact and speech normal PSYCH: mentation appears normal. and affect normal/bright ASSESSMENT/PLAN: : Well Adult Diabetes Colon screen Discussed diabetic comorbities Wt loss Med adjust Discussed specific cardiac sonsiderations regarding smoking, chol, diet family history, obesity, exercise, stress, second hand smoke and air pollutants, and relationship to ASVD in general. Discussed general screening and chest pain investigation modalities and Sceeningrelated to patients current needs. I have discussed with patient the risks, benefits, medications, treatment options and modalities. I have instructed the patient to call or schedule a follow-up appointment if any problems or failureto improve. documented in this encounter Nursing Notes 12/19/2007 9:45 AM CDT >> JEFF KINGSLEY [facility] Dec 19, 2007 9:53 AM Patient presents with: Results - lab results Refill Request Initial BP 114/54 Ht 5' 7 (1.702 m) Wt 229 lb (103.874 kg) Body mass index is 35.87 kg/(m^2).. BP completed using cuff size large Jeff Kingsley CMA documented in this encounter Plan of Treatment Not on filedocumented as of this encounter Procedures Procedure Name Priority Date/Time Associated Comments Diagnosis ZZ CONSULT Routine 05/20/2008 Diabetes Mellitus, OPHTHALMOLOGY Type 2 (H) Well Adult Exam [facility] PROSTATE SPEC Routine 12/19/2007 10:36 Diabetes Mellitus, Results for this ANTIGEN,SCREEN AM CDT Type 2 (H) procedure are in the results section. documented in this encounter Results CONSULT OPHTHALMOLOGY (05/20/2008) Narrative This result has an attachment that is no t available. Ramy Sánchez MD REFERRAL PROSTATE SPEC ANTIGEN,SCREEN (12/19/2007 10:36 AM CDT) P athologist Signature PSA 0.47 0 - 4 ug/L [facility] Specimen Anatomical Collection Method Collection Time Receive d Time (Source) Location / / Volume Laterality 12/19/2007 10:36 12/19/2007 AM CDT 10:41 AM CDT Ramy Sánchez MD LABORATORY Performing Organization Address City/State/ZIP Code Phon e Number [facility] [address] [place] [address] [facility] documented in this encounter Visit Diagnoses Diagnosis Diabetes mellitus, type 2 (H) Type II or unspecified type diabetes chandler litus without mention of complication, not stated as uncontrolled Well adult exam Routine general medical examination at a [facility] care facility Type II or unspecified type diabetes chandler litus without mention of complication, not stated as uncontrolled Essential hypertension, benign documented in this encounter Care Teams Shuttle Preparation Supervisor Relationship Specialty Start Date End Date Ramy Sánchez MD PCP - General 09/20/01 05/25/21 [address] [place] [address] documented as of this encounter
--- OUTSIDE RECORDS SUMMARY | 2021-10-18 13:04 | XMS_ITS | Encounter Summary ---
:1939 Author Organization [facility] Address [address] [place] [address] Care Team Providers Name Role Phone Ramy Sánchez MD Primary Care Provider [phone] Encounter Details Date Type Department Care Team Description 10/27/2008 Orders Only [facility] HILTON BETES MELLITUS TYPE [facility] II-UNCOMPL [address] [place] [address] Social History Tobacco Use Types Packs/Day Years [...] Procedure Name Priority Date/Time Associated Comments Diagnosis HCL ALBUMIN URINE Routine 10/27/2008 8:01 AM DIABETES MELLITUS Results for this (INC CREAT) CDT TYPE II-UNCOMPL procedure ar e in the results section. HCL LIPID PANEL, Routine 10/27/2008 8:00 AM DIABETES MELLITUS Results for this REFLEX TO DIRECT LDL CDT TYPE II-UNCOMPL proc edure are in the results section. HCL BASIC METABOLIC Routine 10/27/2008 8:00 AM DIABETES MELLIT US Results for this PANEL CDT TYPE II-UNCOMPL procedure ar e in the results section. HCL GLYCATED Routine 10/27/2008 8:00 AM DIABETES MELLITUS Resu lts for this HEMOGLOBIN CDT TYPE II-UNCOMPL procedure ar e in the results section. documented in this encounter Results MICROALBUMIN (INC URINE CREAT) (10/27/2008 8:01 AM CDT) P athologist Signature Creatinine 164 mg/dL [facility] Urine [facility] Albumin Urine 9 mg/L [facility] mg/L [facility] Albumin Urine 5.49 0 - 20 [facility] mg/g Cr mg/g Cr [facility] Specimen Anatomical Collection Method Collection Time Receive d Time (Source) Location / / Volume Laterality 10/27/2008 8:01 AM 9 8:03 CDT AM CDT Ramy Sánchez MD LABORATORY Performing Organization Address City/State/ZIP Code Phon e Number [facility] [address] [place] [address] [facility] (ABNORMAL) LIPID PANEL, REFLEX TO DIRECT LDL (10/27/2008 8:00 AM CDT) athologist Signature Cholesterol 172 0 - 200 [facility] mg/dL CLINIC LAB Comment: LDL Cholesterol is the primary guide to therapy: LDL-cholesterol goal in high risk patients is <100 mg/dL and in very high risk patients is <70 mg/dL. The NCEP recommends further evaluation of: patients with cholesterol <200 mg/dL if additional risk factors are present, cholesterol >240 mg/dL, triglycerides >150 mg/dL, or HDL <40 mg/dL. Triglycerides 219 (H) 0 - 150 mg/dL [facility] HDL Cholesterol 31 (L) 40 - 110 mg/dL [facility] LDL Cholesterol Calculated 97 0 - 129 mg/dL [facility] Comment: LDL Cholesterol is the primary guide to therapy: LDL-cholesterol goal in high risk patients is <100 mg/dL and in very high risk patients is <70 mg/dL. VLDL-Cholesterol 44 (H) 0 - 30 mg/dL [facility] Cholesterol/HDL Ratio 5.5 (H) 0.0 - 5.0 [facility] Specimen Anatomical Collection Method Collection Time Receive d Time (Source) Location / / Volume Laterality 10/27/2008 8:00 AM 9 8:02 CDT AM CDT Ramy Sánchez MD LABORATORY Performing Organization Address City/State/ZIP Code Phon e Number [facility] [address] [place] [address] [phone] [facility] (ABNORMAL) A.M.A. BASIC METABOLIC PANEL (10/27/2008 8:00 AM CDT) athologist Signature Sodium 139 133 - 144 [facility] mmol/L [facility] Potassium 4.1 3.4 - 5.3 [facility] mmol/L [facility] Chloride 102 94 - 109 [facility] mmol/L [facility] Carbon Dioxide 25 20 - 32 [facility] mmol/L [facility] Anion Gap 12 6 - 17 [facility] mmol/L [facility] Glucose 138 (H) 60 - 99 [facility] mg/dL [facility] Urea Nitrogen 16 7 - 30 [facility] mg/dL [facility] Creatinine 0.84 0.66 - [facility] 1.25 mg/dL [facility] Comment: New IDMS-traceable calibration beginning 07/11/07 GFR Estimate >90 >60 mL/min/1.7m2 [facility] GFR Estimate If Black >90 >60 mL/min/1.7m2 F [facility] Calcium 8.5 8.5 - 10.4 mg/dL [facility] Specimen Anatomical Collection Method Collection Time Receive d Time (Source) Location / / Volume Laterality 10/27/2008 8:00 AM 9 8:02 CDT AM CDT Ramy Sánchez MD LABORATORY Performing Organization Address City/State/ZIP Code Phon e Number [facility] [address] [place] [address] [phone] [facility] (ABNORMAL) HEMOGLOBIN A1C (10/27/2008 8:00 AM CDT) athologist Signature Hemoglobin A1C 7.2 (H) 4.3 - 6.0 [facility] POCT % [facility] Specimen Anatomical Collection Method Collection Time Receive d Time (Source) Location / / Volume Laterality 10/27/2008 8:00 AM 9 8:02 CDT AM CDT Ramy Sánchez MD LABORATORY Performing Organization Address City/[facility]/ZIP Code Phon e Number [facility] [address] [place] [address] [facility] documented in this encounter Visit Diagnoses Diagnosis DIABETES MELLITUS TYPE II-UNCOMPL Type II or unspecified type diabetes chandler litus without mention of complication, not stated as uncontrolled documented in this encounter Care Teams Core Man Relationship Specialty Start Date End Date Ramy Sánchez MD PCP - General 09/20/01 05/25/21 [address] [place], [place] [id number] documented as of this encounter
--- OUTSIDE RECORDS SUMMARY | 2021-10-18 13:04 | XMS_ITS | Encounter Summary ---
:1939 Author Organization [place] Address [address] [place] [address]. [place] [address] Care Team Providers Name Role Phone Ramy Sánchez MD Primary Care Provider [phone] Reason for Visit Reason Onset Date Comments Refill Request 09/16/2007 Lisinopril Slk Encounter Details Date Type Department Care Team Description 09/16/2007 Refill [facility] Ramy Sánchez Refill Request Clinic [place] MD Timothy (Lisinopril Slk) [id number] [place] [phone] [phone] (Wo rk) Social History Tobacco Use Types Packs/Day Years Used Date Current Every Day Smoker Cigars Comments: couple times a year Alcohol Use Standard Drinks/Week Comments Not Asked 0 (1 standard drink = 0.6 oz pure alcoho l) Sex Assigned at Date Recorded Not on file documented as of this encounter Miscellaneous Notes Telephone Encounter - Sue Hemphill - 09/16/2007 3:48 PM CDT Refilled Pso for quanity of #14 only, pt hasn't been seen and we have sent him 2 letters. I sent radha my chart reminder today and a reminder letter Last Seen: 02/26/07 with JM for sinusitis Last 4 Encounter BP Readings: Date BP 02/26/2007 120/78 02/12/2007 126/79 10/11/2006 118/70 10/06/2006 118/70 CREATININE Date Value Range Status 06/14/06 0.80 0.80-1.50 (mg/dL) Final POTASSIUM Date Value Range Status 06/14/06 4.1 3.4-5.3 (mmol/L) Final Rtc instructions: see above Last Filled: 08/14/07 #30 Sue Hemphill RN. documented in this encounter Plan of Treatment Not on filedocumented as of this encounter Visit Diagnoses Diagnosis Type II or unspecified type diabetes chandler litus without mention of complication, not stated as uncontrolled Essential hypertension, benign documented in this encounter Care Teams Director Web Relationship Specialty Start Date End Date Ramy Sánchez MD PCP - General 09/20/01 05/25/21 [address] [place] [address] documented as of this encounter
--- OUTSIDE RECORDS SUMMARY | 2021-10-18 13:04 | XMS_ITS | Encounter Summary ---
:1939 Author Organization [place] Address [address] [place] [address]. [place] [address] Care Team Providers Name Role Phone Ramy Sánchez MD Primary Care Provider [phone] Reason for Visit Reason Comments Results Allergies Encounter Details Date Type Department Care Team Description 11/10/2008 Office Visit [facility] Ramy Sánchez DIABET ES MELLITUS TYPE II-UNCOMPL; [facility] [place] [facility] MD ALLERGIC RHINITIS NOS; [address] [facility] [id number] [place] [address] HYPERLIPIDEMIA NEC/[place] [address] [phone] Social History Tobacco Use Types Packs/Day Years Used Date Former Smoker Cigars Alcohol Use Standard Drinks/Week Comments Yes 0 (1 standard drink = 0.6 oz pure alcoho l) one drink once a week Sex Assigned at Date Recorded Not on file documented as of this encounter Last Filed Vital Signs Vital Sign Reading Time Taken Comments Blood Pressure 104/70 11/10/2008 4:10 PM CDT Pulse 64 11/10/2008 4:10 PM CDT Temperature - - Respiratory Rate - - Oxygen Saturation - - Inhaled Oxygen Concentration - - Weight 106.6 kg (235 lb) 11/10/2008 4:10 PM CDT Height - - Body Mass Index 36.26 05/18/2008 4:00 PM CDT documented in this encounter Progress Notes Ramy Sánchez - 11/10/2008 4:20 PM CDT SUBJECTIVE: CC: Jd Go is a 67 year old male who presents for DIABETES AND ALLERGY HPI: generally doing well but weight is still high, labs are good, no foot issues PROBLEM LIST: Patient Active Problem List Diagnoses [...] outpatient prescriptions Medication Sig ??? ACCU-CHEK CATARINO STRP Check BS as directed ??? SIMVASTATIN 40 MG OR TABS 1 TABLET AT BEDTIME ??? LISINOPRIL 20 MG OR TABS ONE DAILY, LAST REFILL, pt needs fasting labs and an appt with his provider ??? ASPIRIN 81 MG OR TABS ONE DAILY ??? TYRA 180 MG OR TABS 1 TABLET DAILY ??? LEVITRA 20 MG OR TABS ONE TABLET TAKEN AT LEAST 30 MINUTES BEFORE INTERCOURSE FAMILY HISTORY: Family History Problem Relation ??? [...] changes in mood or affect EXAM: BP 104/70 Pulse 64 Wt 235 lb (106.595 kg) GENERAL APPEARANCE: healthy, alert and no [...] in joints, FROM in all extremities. ASSESSMENT/PLAN Diabetes I have discussed with patient the risks, benefits, medications, treatment options and modalities. I have instructed the patient to call or schedule a follow-up appointment if any problems or failureto improve. documented in this encounter Nursing Notes 11/10/2008 4:00 PM CDT >> BRITTANEY Frederick Nov 10, 2008 4:11 PM Patient presents with: Results Allergies Initial BP 104/70 Pulse 64 Wt 235 lb (106.595 kg) Estimated Body mass index is 36.26 kg/(m^2) ascalculated from: Height of 5' 7.5 (1.715 m) as of 05/18/08 Weight of 235 lb (106.595 kg) as of this encounter. BP completed using cuff size large-L Cora Andrews CMA documented in this encounter Plan of Treatment Not on filedocumented as of this encounter Visit Diagnoses Diagnosis DIABETES MELLITUS TYPE II-UNCOMPL Type II or unspecified type diabetes chandler litus without mention of complication, not stated as uncontrolled ALLERGIC RHINITIS NOS Allergic rhinitis, cause unspecified HYPERLIPIDEMIA NEC/NOS Other and unspecified hyperlipidemia documented in this encounter Care Teams Sewer And Drain Technician Relationship Specialty Start Date End Date Ramy Sánchez MD PCP - General 09/20/01 05/25/21 [address] [place] [address] documented as of this encounter
--- OUTSIDE RECORDS SUMMARY | 2021-10-18 13:04 | XMS_ITS | Encounter Summary ---
:1939 Author Organization [place] Address [address] [place] [address] Care Team Providers Name Role Phone Ramy Sánchez MD Primary Care Provider Encounter Details Date Type Department Care Team Description 05/20/2008 Orders Only [facility] Ramy Sánchez SIS NOT YET Clinic [facility] MD DEFINED (Primary Dx) [address] [place] [phone] [id number] Social History Tobacco Use Types Packs/Day Years [...] Name Priority Date/Time Associated Diagnosis Comme nts EYE EXAM (SIMPLE-NONBILLABLE) Routine 05/20/2008 DIAGNOSIS N OT YET DEFINED documented in this encounter Results EYE EXAM (SIMPLE-NONBILLABLE) (05/20/2008) Narrative This result has an attachment that is no t available. Ramy Sánchez MD PROCEDURES documented in this encounter Visit Diagnoses Diagnosis DIAGNOSIS NOT YET DEFINED - Primary documented in this encounter Care Teams Wax Cutter Relationship Specialty Start Date End Date Ramy Sánchez MD PCP - General 09/20/01 05/25/[id number] [place] [address] documented as of this encounter
--- OUTSIDE RECORDS SUMMARY | 2021-10-18 13:04 | XMS_ITS | Encounter Summary ---
:1939 Author Organization [place] Address [address] [place] [address]. [place] [address] Care Team Providers Name Role Phone Ramy Sánchez MD Primary Care Provider [phone] Reason for Visit Reason Onset Date Comments Refill Request 03/18/2009 zocor Encounter Details Date Type Department Care Team Description 03/18/2009 Refill [facility] Ramy Sánchez Refill Request (zocor) Janice Aguirre MD [address] [place] [phone] [phone] (Wo rk) Social History Tobacco Use Types Packs/Day Years Used Date Former Smoker Cigars Alcohol Use Standard Drinks/Week Comments Yes 0 (1 standard drink = 0.6 oz pure alcoho l) one drink once a week Sex Assigned at Date Recorded Not on file documented as of this encounter Miscellaneous Notes Telephone Encounter - Eloisa Sneed - 03/23/2009 11:39 AM CST Tried pt again, no answer,lmovm informing will refill, needs liver fxn before next refill, make lab appt, call if ?'s, sent message to pharmacy too Eloisa Sneed RN OROLOGY PROFESSOR Telephone Encounter - Eloisa Sneed - 03/18/2009 4:12 PM CST Last OV: 11/10/08 Reason for visit: DM Date last filled: 03/04/09 Lab Test 10/27/08 12/16/07 CHOL 172 167 HDL 31* 30* LDL 97 95 TRIG 219* 208* CHOLHDLRATIO 5.5* 5.5* AST 28 09/27/07 ALT 23 12/16/07 Pt instructed multiple times to make lab appt, no appt made, pt needs liver fxn done, lmom for pt benedicto, routed to [facility] to await call Eloisa Sneed RN OROLOGY PROFESSOR documented in this encounter Plan of Treatment Not on filedocumented as of this encounter Visit Diagnoses Diagnosis Diabetes mellitus, type 2 (H) Type II or unspecified type diabetes chandler litus without mention of complication, not stated as uncontrolled documented in this encounter Care Teams Tax Appraiser Relationship Specialty Start Date End Date Ramy Sánchez MD PCP - General 09/20/01 05/25/21 [address] [place] [address] documented as of this encounter
--- OUTSIDE RECORDS SUMMARY | 2021-10-18 13:04 | XMS_ITS | Encounter Summary ---
:1939 Author Organization [place] Address [address] [place] [address] Care Team Providers Name Role Phone Ramy Sánchez MD Primary Care Provider [phone] Encounter Details Date Type Department Care Team Description 04/28/2009 Orders Only [facility] HYP ERLIPIDEMIA NEC/NOS; [facility] BENIGN HYPERTENSION; [address] [facility] DIABETES MELLITUS TYPE II-UN COMPL; [place], [place] Diabetes Me llitus, Type 2 (H) [phone] Social History Tobacco Use Types Packs/Day Years [...] Priority Date/Time Associated Diagnosis Comme nts HCL COMPREHENSIVE Routine 04/28/2009 9:40 Diabetes Mellitus, R esults for this METABOLIC PANEL AM INDUSTRIAL ENGINEERING DIRECTOR Type 2 (H) procedure are in HYPERLIPIDEMIA NEC/NOS the r esults section. HCL LIPID PANEL, Routine 04/28/2009 9:39 HYPERLIPIDEMIA NEC/NOS Results for this REFLEX TO DIRECT LDL AM INDUSTRIAL ENGINEERING DIRECTOR BENIGN HYPE RTENSION procedure are in DIABETES MELLITUS TYPE the r esults II-UNCOMPL section. HCL GLYCATED Routine 04/28/2009 9:39 DIABETES MELLITUS TYPE Re sults for this HEMOGLOBIN AM INDUSTRIAL ENGINEERING DIRECTOR II-UNCOMPL procedure are in BENIGN HYPERTENS ION the results HYPERLIPIDEMIA NEC/NOS secti on. documented in this encounter Results (ABNORMAL) A.M.A. COMPREHENSIVE MET.PANEL (04/28/2009 9:40 AM INDUSTRIAL ENGINEERING DIRECTOR) athologist Signature Sodium 141 133 - 144 [place] mmol/L [facility] Potassium 3.8 3.4 - 5.3 [place] mmol/L [facility] Chloride 101 94 - 109 [place] mmol/L [facility] Carbon Dioxide 29 20 - 32 [place] mmol/L [facility] Anion Gap 11 6 - 17 [place] mmol/L [facility] Glucose 143 (H) 60 - 99 [place] mg/dL [facility] Urea Nitrogen 17 7 - 30 [place] mg/dL [facility] Creatinine 0.84 0.66 - [place] 1.25 mg/dL [facility] Comment: New IDMS-traceable calibration beginning 07/11/07 GFR Estimate >90 >60 mL/min/1.7m2 [place] E [facility] GFR Estimate If Black >90 >60 mL/min/1.7m2 F [facility] Calcium 8.8 8.5 - 10.4 mg/dL [facility] Bilirubin Total 0.7 0.2 - 1.3 mg/dL [facility] Albumin 4.3 3.3 - 4.9 g/dL [facility] Comment: Reference range changed on 11/11. Protein Total 7.9 6.8 - 8.8 g/dL [facility] Comment: As of 07, reference range reflects plasma specimen type. Alkaline Phosphatase 62 40 - 150 U/L [facility] ALT 27 0 - 70 U/L [facility] AST 32 0 - 55 U/L [facility] Specimen Anatomical Collection Method Collection Time Receive d Time (Source) Location / / Volume Laterality 04/28/2009 9:40 AM 0 9:41 INDUSTRIAL ENGINEERING DIRECTOR AM INDUSTRIAL ENGINEERING DIRECTOR Ramy Sánchez MD LABORATORY Performing Organization Address City/State/ZIP Code Phon e Number [facility] [address] [place] [address] [facility] (ABNORMAL) HEMOGLOBIN A1C (04/28/2009 9:39 AM INDUSTRIAL ENGINEERING DIRECTOR) athologist Signature Hemoglobin A1C 7.0 (H) 4.3 - 6.0 [place] POCT % [facility] Specimen Anatomical Collection Method Collection Time Receive d Time (Source) Location / / Volume Laterality 04/28/2009 9:39 AM 0 9:41 INDUSTRIAL ENGINEERING DIRECTOR AM INDUSTRIAL ENGINEERING DIRECTOR Ramy Sánchez MD LABORATORY Performing Organization Address [facility] [address]/ZIP Code Phon e Number [facility] [address] [place] [address] [facility] (ABNORMAL) LIPID PANEL, REFLEX TO DIRECT LDL (04/28/2009 9:39 AM INDUSTRIAL ENGINEERING DIRECTOR) P athologist Signature Cholesterol 226 (H) 0 - 200 [facility] mg/dL CLINIC LAB Comment: LDL Cholesterol is the primary guide to therapy. The NCEP recommends further evaluation of: patients with cholesterol <200 mg/dL if additional risk factors are present, cholesterol >240 mg/dL, triglycerides >150 mg/dL, or HDL <40 mg/dL. Triglycerides 265 (H) 0 - 150 mg/dL [facility] HDL Cholesterol 29 (L) 40 - 110 mg/dL [facility] LDL Cholesterol Calculated 144 (H) 0 - 129 mg/dL [facility] Comment: LDL Cholesterol is the primary guide to therapy: LDL-cholesterol goal in high risk patients is <100 mg/dL and in very high risk patients is <70 mg/dL. VLDL-Cholesterol 53 (H) 0 - 30 mg/dL [facility] Cholesterol/HDL Ratio 7.8 (H) 0.0 - 5.0 [facility] Specimen Anatomical Collection Method Collection Time Receive d Time (Source) Location / / Volume Laterality 04/28/2009 9:39 AM 0 9:41 INDUSTRIAL ENGINEERING DIRECTOR AM INDUSTRIAL ENGINEERING DIRECTOR Ramy Sánchez MD LABORATORY Performing Organization Address City/[facility] [address]/ZIP Code Phon e Number [facility] [address] [place] [address] [facility] documented in this encounter Visit Diagnoses Diagnosis HYPERLIPIDEMIA NEC/NOS Other and unspecified hyperlipidemia BENIGN HYPERTENSION Essential hypertension, benign DIABETES MELLITUS TYPE II-UNCOMPL Type II or unspecified type diabetes chandler litus without mention of complication, not stated as uncontrolled Diabetes mellitus, type 2 (H) Type II or unspecified type diabetes chandler litus without mention of complication, not stated as uncontrolled documented in this encounter Care Teams Pack Worker Relationship Specialty Start Date End Date Ramy Sánchez MD PCP - General 09/20/01 05/25/21 [address] [place] [address] documented as of this encounter
--- OUTSIDE RECORDS SUMMARY | 2021-10-18 13:04 | XMS_ITS | Encounter Summary ---
:1939 Author Organization [place] Address [address] [place] [address]. [place] [address] Care Team Providers Name Role Phone Ramy Sánchez MD Primary Care Provider [phone] Reason for Visit Reason Comments Sinus Problem runny nose, cough, sneezing Encounter Details Date Type Department Care Team Description 02/26/2007 Office Visit [facility] Ramy Sánchez ACUTE MAXILLARY SINUSITIS; [facility] [place] MD DIABETES MELLITUS TYPE II-[address] [address] [phone] Social History Tobacco Use Types Packs/Day Years Used Date Current Every Day Smoker Cigars Comments: couple times a year Alcohol Use Standard Drinks/Week Comments Not Asked 0 (1 standard drink = 0.6 oz pure alcoho l) Sex Assigned at Date Recorded Not on file documented as of this encounter Last Filed Vital Signs Vital Sign Reading Time Taken Comments Blood Pressure 120/78 02/26/2007 2:30 PM CONSERVATION SCIENCE TEACHER Pulse 80 02/26/2007 2:30 PM CONSERVATION SCIENCE TEACHER Temperature 36.6 ??C (97.8 ??F) 02/26/2007 2:30 PM CONSERVATION SCIENCE TEACHER Respiratory Rate - - Oxygen Saturation - - Inhaled Oxygen Concentration - - Weight 98.4 kg (217 lb) 02/26/2007 2:30 PM CONSERVATION SCIENCE TEACHER Height 171.5 cm (5' 7.5) 02/26/2007 2:30 PM CONSERVATION SCIENCE TEACHER Body Mass Index 33.49 02/26/2007 2:30 PM CONSERVATION SCIENCE TEACHER documented in this encounter Progress Notes Ramy Sánchez - 02/26/2007 3:00 PM CST Patient complains of congestion with sore throat, nasal congestion and sinus pain. Some mucopurulantdischarge but no upper dental pain and no sustained fever. Duration less than five days. Has longhistory of airborn allergy or asthma. No chest pain, diaphoresis, or sob. Non productive cough. TMs dull not *red, sinus tenderness left lungs clear, s1s2,soft abd,no distress, cyanosis or stridor. A:URI with sinusitis P:fluids, antipyretics,rest and amox as directed. Recheck PRN worsening or non-improvement over 5 days. Discussed signs of systemic or constutional illness. Review diabetic parameters ERVATION SCIENCE TEACHER documented in this encounter Nursing Notes 02/26/2007 2:30 PM CST >> JORGE AMADOR 02/26/2007 2:50 pm Patient presents with: Sinus Problem - runny nose, cough, sneezing Initial BP 120/84 Pulse 80 Temp (Src) 97.8 (Oral) Ht 5' 7.5 (1.72m) Wt 217 lbs (98.4kg) Body mass index is 33.47 kg/(m^2). BP completed using cuff size large ALINA AMADOR MA documented in this encounter Plan of Treatment Not on filedocumented as of this encounter Visit Diagnoses Diagnosis Acute maxillary sinusitis Type II or unspecified type diabetes chandler litus without mention of complication, not stated as uncontrolled documented in this encounter Care Teams Senior Microstrategy Developer Relationship Specialty Start Date End Date Ramy Sánchez MD PCP - General 09/20/01 05/25/21 [address] [place] [address] documented as of this encounter
--- OUTSIDE RECORDS SUMMARY | 2021-10-18 13:04 | XMS_ITS | Encounter Summary ---
:1939 Author Organization [place] Address [address] [place] [address]. [place] [address] Care Team Providers Name Role Phone Ramy Sánchez MD Primary Care Provider [phone] Reason for Visit Reason Comments RECHECK lab work Refill Request Flonase Encounter Details Date Type Department Care Team Description 10/04/2007 Office Visit [facility] Ramy Sánchez nce of Organic Origin (Primary Dx); Clinic Janice Aguirre MD DIABETES MELLITUS TYPE II-UNCOMPL; [address] [place] [address] [place] [address] [phone] Social History Tobacco Use Types Packs/Day Years Used Date Current Every Day Smoker Cigars Comments: couple times a year Alcohol Use Standard Drinks/Week Comments Not Asked 0 (1 standard drink = 0.6 oz pure alcoho l) Sex Assigned at Date Recorded Not on file documented as of this encounter Last Filed Vital Signs Vital Sign Reading Time Taken Comments Blood Pressure 118/79 10/04/2007 9:00 AM CDT Pulse - - Temperature - - Respiratory Rate - - Oxygen Saturation - - Inhaled Oxygen Concentration - - Weight 103.9 kg (229 lb) 10/04/2007 9:00 AM CDT Height 170.2 cm (5' 7) 10/04/2007 9:00 AM CDT Body Mass Index 35.87 10/04/2007 9:00 AM CDT documented in this encounter Progress Notes Ramy Sánchez - 10/04/2007 9:15 AM CDT SUBJECTIVE: CC: Jd Go is a 66 year old male who presents for diabetes, obesity and metabollic syndrome-HPI: exercise slowed down by foot injury Concerned about ed issues, glucose control, bp and has only tinea on foot exam today PROBLEM LIST: Patient Active Problem List Diagnoses Code ??? HYPERLIPIDEMIA NEC/NOS 272.4 ??? BENIGN HYPERTENSION 401.1 ??? SCREENING MAL NEOP-PROSTATE V76.44 ??? ALLERGIC RHINITIS NOS 477.9 ??? OTHER ABNORMAL GLUCOSE 790.29 ??? DIABETES MELLITUS TYPE II-UNCOMPL 250.00 PAST MEDICAL HISTORY: Past Medical History Diagnosis Date ??? CALCULUS OF KIDNEY PAST SURGICAL HISTORY: Past Surgical History Procedure Date ??? Nonspecific procedure 1965 surgery on shoulder ??? Nonspecific procedure 1985 surgery on lacerated tendons R hand CURRENT MEDICATIONS: Current outpatient prescriptions Medication Sig ??? LISINOPRIL 20 MG OR TABS ONE DAILY, LAST REFILL, pt needs fasting labs and an appt with his provider ??? LIPITOR 20 MG OR TABS ONE DAILY ??? FLONASE INHA 50 MCG/DOSE NA as directed ??? ASPIRIN 81 MG OR TABS ONE DAILY ??? TYRA 180 MG OR TABS 1 TABLET DAILY FAMILY HISTORY: No family history on file. HEALTH MAINTENANCE: REVIEW OF OUTSIDE RECORDS: NO [...] skin/hair changes H: NEGATIVE for bleeding problems EXAM: BP 118/79 Ht 5' 7 (1.702 m) Wt 229 [...] PSYCH: mentation appears normal. and affect normal/bright LYMPHATICS: No axillary, cervical, inguinal, or supraclavicular nodes ASSESSMENT/PLAN Diabetes ed I have discussed with patient the risks, benefits, medications, treatment options and modalities. I have instructed the patient to call or schedule a follow-up appointment if any problems or failureto improve. documented in this encounter Nursing Notes 10/04/2007 9:00 AM CDT >> JEFF KINGSLEY Fri Oct 04, 2007 9:05 AM Patient presents with: RECHECK - lab work Refill Request - Flonase Initial BP 118/80 Ht 5' 7 (1.702 m) Wt 229 lb (103.874 kg) Body mass index is 35.87 kg/(m^2).. BP completed using cuff size large Jeff Kingsley CMA documented in this encounter Plan of Treatment Not on filedocumented as of this encounter Visit Diagnoses Diagnosis Impotence of organic origin - Primary DIABETES MELLITUS TYPE II-UNCOMPL Type II or unspecified type diabetes chandler litus without mention of complication, not stated as uncontrolled BENIGN HYPERTENSION Essential hypertension, benign documented in this encounter Care Teams Motion Study Technician Relationship Specialty Start Date End Date Ramy Sánchez MD PCP - General 09/20/01 05/25/21 [address] [place] [address] (work) documented as of this encounter
--- OUTSIDE RECORDS SUMMARY | 2021-10-18 13:04 | XMS_ITS | Encounter Summary ---
:1939 Author Organization [facility] Address [address] [place] [address] Care Team Providers Name Role Phone Ramy Sánchez MD Primary Care Provider [phone] Encounter Details Date Type Department Care Team Description 05/08/2009 Medical Correspondence [facility], 05-08-09 Clinic Janice Aguirre [facility] [address] [facility] [address] [place] [address], [address] [place] [address] [phone] Social History Tobacco Use Types Packs/Day Years [...] on filedocumented in this encounter Care Teams Farm Field Manager Relationship Specialty Start Date End Date Ramy Sánchez MD PCP - General 09/20/01 05/25/[id number] [place] [address] documented as of this encounter
--- OUTSIDE RECORDS SUMMARY | 2021-10-18 13:04 | XMS_ITS | Encounter Summary ---
:1939 Author Organization [place] Address [address] [place] [address]. [place] [address] Care Team Providers Name Role Phone Ramy Sánchez MD Primary Care Provider [phone] Encounter Details Date Type Department Care Team Description 12/30/2012 Telephone [facility] Ramy Sán[place] [address] [phone] [place], [place] [phone] (Wo rk) Social History Tobacco Use Types [...] on filedocumented in this encounter Care Teams Chief Of Internal Medicine Relationship Specialty Start Date End Date Ramy Sánchez MD PCP - General 09/20/01 05/25/21 [address] [place], [place] [id number] documented as of this encounter
--- OUTSIDE RECORDS SUMMARY | 2021-10-18 13:04 | XMS_ITS | Encounter Summary ---
:1939 Author Organization [place] Address [address] [place] [address]. [place] [address] Care Team Providers Name Role Phone Ramy Sánchez MD Primary Care Provider Reason for Visit Reason Onset Date Comments Refill Request 10/01/2007 zestril 20mg x 1 wk only to cover him until office visit - pt overdue f or ov Encounter Details Date Type Department Care Team Description 10/01/2007 Refill [facility] Ramy Sánchez Refill Request (zestril [facility] [place] MD Timothy 20mg x 1 wk only to [address] [place] [address] cover him until office [place], [place] visit - pt overdue [phone] for ov) [phone] (Wo rk) Social History Tobacco Use Types Packs/Day Years Used Date Current Every Day Smoker Cigars Comments: couple times a year Alcohol Use Standard Drinks/Week Comments Not Asked 0 (1 standard drink = 0.6 oz pure alcoho l) Sex Assigned at Date Recorded Not on file documented as of this encounter Miscellaneous Notes Telephone Encounter - Tabitha Maria - 10/01/2007 2:23 PM CDT Last seen: Reason for visit: sinusitis RTC: none Last 2 Encounter BP Readings: Date BP 02/26/2007 120/78 02/12/2007 126/79 CR 0.75 09/27/07 POTASSIUM 4.3 09/27/07 Last filled: #14 on - pt instructed this is his last refill. Appt. Scheduled for OK x 7 days only per PSO. Kyle Maria RN documented in this encounter Plan of Treatment Not on filedocumented as of this encounter Visit Diagnoses Diagnosis Type II or unspecified type diabetes chandler litus without mention of complication, not stated as uncontrolled Essential hypertension, benign documented in this encounter Care Teams Scroll Machine Operator Relationship Specialty Start Date End Date Ramy Sánchez MD PCP - General 09/20/01 05/25/21 [address] [place] [address] documented as of this encounter
--- OUTSIDE RECORDS SUMMARY | 2021-10-18 13:04 | XMS_ITS | Encounter Summary ---
:1939 Author Organization [place] Address [address] [place] [address]. [place] [address] Care Team Providers Name Role Phone Ramy Sánchez MD Primary Care Provider Reason for Visit Reason Onset Date Comments Refill Request 07/15/2007 lisinopril Encounter Details Date Type Department Care Team Description 07/15/2007 Refill [facility] Ramy Sánchez Refill Request Clinic [place] MD Timothy (lisinopril) [address] [place] [phone] (Wo rk) Social History Tobacco Use Types Packs/Day Years Used Date Current Every Day Smoker Cigars Comments: couple times a year Alcohol Use Standard Drinks/Week Comments Not Asked 0 (1 standard drink = 0.6 oz pure alcoho l) Sex Assigned at Date Recorded Not on file documented as of this encounter Miscellaneous Notes Telephone Encounter - Conchita Franklin - 07/15/2007 3:49 PM CDT Date of last OV: 02/26/07 Reason for visit: sinus Date last filled: 04/09/07 #90 Labs pertaining to med: Last 2 BP Readings: Date: BP: 02/26/2007 120/78 02/12/2007 126/79 CR 0.80 06/14/2006 POTASSIUM 4.1 06/14/2006 OKed one month, letter sent to be seen fasting. Conchita Franklin RN documented in this encounter Plan of Treatment Not on filedocumented as of this encounter Visit Diagnoses Diagnosis Type II or unspecified type diabetes chandler litus without mention of complication, not stated as uncontrolled Essential hypertension, benign documented in this encounter Care Teams Semiconductor Wafers Marker Relationship Specialty Start Date End Date Ramy Sánchez MD PCP - General 09/20/01 05/25/21 [address] [place] [address] documented as of this encounter
--- OUTSIDE RECORDS SUMMARY | 2021-10-18 13:04 | XMS_ITS | Encounter Summary ---
:1939 Author Organization [place] Address [address] [place] [address]. [place] [address] Care Team Providers Name Role Phone Ramy Sánchez MD Primary Care Provider [phone] Reason for Visit Reason Comments Diabetes FU Refill Request NEEDS A NEW DIABETES DEBI Breathing Problem SLEEPING LONGER DON'T FEEL R ESTED, SOB, COUGHING X4 MONTHS + Pain NOTICING MORE ACHES AND PAIN S AFTER STARTING CHOLESTEROL MED. Encounter Details Date Type Department Care Team Description 06/10/2009 Office Visit [facility] Ramy Sánchez Hypertension, Benign; Clinic [place] MD Timothy DIABETES MELLITUS TYPE II-UNCOMPL; [id number] [employer]OTENCE [employer]IN; [place], [place] Vac-Dis Combinations NEC; [phone] Hyperlipidaemia LDL Goal <100 [phone] Social History Tobacco Use Types Packs/Day Years Used Date Former Smoker Cigars Alcohol Use Standard Drinks/Week Comments Yes 0 (1 standard drink = 0.6 oz pure alcoho l) one drink once a week Sex Assigned at Date Recorded Not on file documented as of this encounter Last Filed Vital Signs Vital Sign Reading Time Taken Comments Blood Pressure 112/70 06/10/2009 10:32 AM CDT Pulse 75 06/10/2009 10:32 AM CDT Temperature 36.4 ??C (97.6 ??F) 06/10/2009 10:32 AM CDT Respiratory Rate - - Oxygen Saturation 93% 06/10/2009 10:32 AM CDT Inhaled Oxygen Concentration - - Weight 104.8 kg (231 lb) 06/10/2009 10:32 AM CDT Height - - Body Mass Index 35.65 04/02/2009 2:08 PM 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 Patient concerns: sob - PATIENT LOST GLUCOSE METER AND HASN'T BEEN TAKING GLUCOSE READINGS. Patient glucose self monitoring: LOST METER. Blood glucose averages: Symptoms of low blood sugar/hypoglycemia (nausea, shakey, sweaty, dizzy...)? NO Problems taking medications regularly? NO DIABETIC MEDS NOW Side effects? What are you doing for exercise outside of work or your daily activities? WALKING Health maintenance updated? Yes PHQ-2 Over the last two weeks- Have you been bothered by little interest or pleasure in doing things? No Over the last two weeks- Have you been been feeling down, depressed, or hopeless? No Situational stress from family illness BP: At goal,feels dragged out, sleeping poorly, dry cough and malaise Last 3 Encounter Readings: Office Visit on 06/10/2009 06/10/2009 10:32 AM BP: 112/70 Office Visit on 04/02/2009 04/02/2009 2:08 PM BP: 123/67 Office Visit on 11/10/2008 11/10/2008 4:10 PM BP: 104/70 A1C 7.0 04/28/2009 A1C 7.2 10/27/2008 A1C 6.5 12/16/2007 Recent Labs Lab Test 04/28/09 0939 10/27/08 0800 ??? CHOL 226* 172 ??? HDL 29* 31* ??? LDL 144* 97 ??? TRIG 265* 219* ??? CHOLHDLRATIO 7.8* 5.5* Last 3 Encounter Readings: Office Visit on 06/10/2009 06/10/2009 10:32 AM Weight: 231 lb (104.781 kg) Office Visit on 04/02/2009 04/02/2009 2:08 PM Weight: 229 lb (103.874 kg) Office Visit on 11/10/2008 11/10/2008 4:10 PM Weight: 235 lb (106.595 kg) Current outpatient prescriptions Medication Sig ??? SIMVASTATIN 40 MG OR TABS NEEDS LIVER TEST--1 TABLET AT BEDTIME ??? LISINOPRIL 20 MG OR TABS ONE DAILY, LAST REFILL ??? ACCU-CHEK CATARINO STRP Check BS as directed ??? LEVITRA 20 MG OR TABS ONE TABLET TAKEN AT LEAST 30 MINUTES BEFORE INTERCOURSE ??? ASPIRIN 81 MG OR TABS ONE DAILY ??? TYRA 180 MG OR TABS 1 TABLET DAILY Histories reviewed and updated in [facility]. Chest xray shows his baseline and no lesion REVIEW OF SYSTEMS: C: NEGATIVE for fatigue, unexpected change in weight I: NEGATIVE for worrisome rashes, moles or lesions E: NEGATIVE for acute vision problems or changes R: NEGATIVE for significant cough or shortness of breath CV: NEGATIVE for chest pain, palpitations or new or worsening peripheral edema : NEGATIVE for frequency, dysuria, or hematuria N: NEGATIVE for weakness, dizziness, syncope, headaches E: NEGATIVE for temperature intolerance, skin/hair changes H: NEGATIVE for easy bruising or bleeding problems P: NEGATIVE for changes in mood or affect EXAM: Vitals: BP 112/70 Pulse 75 Temp(Src) 97.6 ??F (36.4 ??C) (Oral) Wt 231 lb (104.781 kg) SpO2 93% BMIE= There is no height on file to calculate BMI. GENERAL APPEARANCE: alert and no acute distress PSYCH: mentation appears normal and affect normal/bright EYES: EOMI, fundoscopic exam normal HENT: ear canals and TM's normal and nose and mouth without ulcers or lesions RESP: lungs clear to auscultation - no rales, rhonchi or wheezes CV: regular rate and rhythm, normal S1 S2, no S3 or S4 and no murmur, click or rub - ABDOMEN: soft, nontender, no HSM or masses and bowel sounds normal. No abdominal bruits. EXT: no cyanosis or edema in lower extremities SKIN: no venous stasis changes NEURO: Normal strength and tone, sensory exam grossly normal, mentation intact and speech normal LYMPHATICS: No axillary, cervical, inguinal, or supraclavicular nodes Foot Exam: normal DP and PT pulses, no trophic changes or ulcerative lesions and normal sensory exam ASSESSMENT/PLAN: 401.1 Essential Hypertension, Benign Plan: Comment: on lisinopril: will watch the cough, dc'd his statin today 250.00 DIABETES MELLITUS TYPE II-UNCOMPL Plan: FOOT EXAM, ACCU-CHEK CATARINO MAR, CBC WITH PLATELETS, DIFF, CHEST X-RAY 2 VW, A.M.A. COMPREHENSIVE MET.PANEL, CK, TOTAL, SED RATE, AUTO, FOOT EXAM Comment: 607.84 Impotence of Organic Origin Plan: LEVITRA 20 MG OR TABS Comment: V06.8 Vac-Dis Combinations NEC Plan: TD (ADULT, 7+), PNEUMOCOCCAL VACCINE,ADULT,SQ OR IM Comment: 272.4DH Hyperlipidaemia LDL Goal <100 Plan: Comment: stop statin for one month for myalgia documented in this encounter Nursing Notes 06/10/2009 10:30 AM CDT >> GALO PURVIS Lissette Jun 10, 2009 10:37 AM Patient presents with: Diabetes - FU Refill Request - NEEDS A NEW DIABETES DEBI Breathing Problem - SLEEPING LONGER DON'T FEEL RESTED, SOB, COUGHING X4 MONTHS + Pain - NOTICING MORE ACHES AND PAINS AFTER STARTING CHOLESTEROL MED. Initial BP 112/70 Pulse 75 Temp(Src) 97.6 ??F (36.4 ??C) (Oral) Wt 231 lb (104.781 kg) SpO2 93% Estimated Body mass index is 35.65 kg/(m^2) as calculated from the following: Height as of 10: 5' 7.5(1.715 m). Weight as of this encounter: 231 lb(104.781 kg).. BP completed using cuff size large - ra. Galo Purvis, Quality Control Scientist documented in this encounter Plan of Treatment Not on filedocumented as of this encounter Procedures Procedure Name Priority Date/Time Associated Comments Diagnosis HC CHEST TWO VIEWS, Routine 06/10/2009 11:31 DIABETES MELLITUS Results for this FRONT/LAT AM CDT TYPE II-UNCOMPL procedure ar e in the results section. CL AFF CBC WITH Routine 06/10/2009 11:11 DIABETES MELLITUS Res ults for this PLATELETS, DIFF AM CDT TYPE II-UNCOMPL procedure are in the results section. HCL COMPREHENSIVE Routine 06/10/2009 11:11 DIABETES MELLITUS R esults for this METABOLIC PANEL AM CDT TYPE II-UNCOMPL procedure are in the results section. HCL CK, TOTAL Routine 06/10/2009 11:11 DIABETES MELLITUS Resul ts for this AM CDT TYPE II-UNCOMPL procedure ar e in the results section. HCL SED RATE (ESR) Routine 06/10/2009 11:11 DIABETES MELLITUS Results for this AM CDT TYPE II-UNCOMPL procedure ar e in the results section. C FOOT EXAM Routine 06/10/2009 11:10 DIABETES MELLITUS AM CDT TYPE II-UNCOMPL C FOOT EXAM Routine 06/10/2009 10:25 DIABETES MELLITUS AM CDT TYPE II-UNCOMPL documented in this encounter Results CHEST X-RAY 2 VW (06/10/2009 11:31 AM CDT) Anatomical Region Laterality Modality Other Specimen (Source) Anatomical Collection Method Collection Time Re ceived Time Location / / Volume Laterality 06/10/2009 11:31 AM CDT Impressions 06/11/2009 7:40 AM CDT CHEST TWO VIEW* ??Jun 10, 2009 11:31:00 A M HISTORY: ??Diabetes. COMPARISON: ??None. FINDINGS: The heart is mildly prominent. Otherwise negative. Ramy Sánchez MD GENERAL IMAGING SED RATE, AUTO (06/10/2009 11:11 AM CDT) P athologist Signature Sed Rate 7 0 - 20 mm/h [facility] Specimen Anatomical Collection Method Collection Time Receive d Time (Source) Location / / Volume Laterality 06/10/2009 11:11 06/10/2009 AM CDT 11:14 AM CDT Ramy Sánchez MD LABORATORY Performing Organization Address City/State/ZIP Code Phon e Number [facility] [address] [place], [place] [id number] [facility] CK, TOTAL (06/10/2009 11:11 AM CDT) athologist Signature CK Total 157 45 - 300 [facility] U/L [facility] Specimen Anatomical Collection Method Collection Time Receive d Time (Source) Location / / Volume Laterality 06/10/2009 11:11 06/10/2009 AM CDT 11:14 AM CDT Ramy Sánchez MD LABORATORY Performing Organization Address City/State/ZIP Code Phon e Number [facility] [address] [place] [address] [facility] (ABNORMAL) A.M.A. COMPREHENSIVE MET.PANEL (06/10/2009 11:11 AM CDT) athologist Signature Sodium 139 133 - 144 [place] mmol/L [facility] Potassium 4.1 3.4 - 5.3 [place] mmol/L [facility] Chloride 102 94 - 109 [place] mmol/L [facility] Carbon Dioxide 25 20 - 32 [place] mmol/L [facility] Anion Gap 12 6 - 17 [place] mmol/L [facility] Glucose 206 (H) 60 - 99 [place] mg/dL [facility] Urea Nitrogen 17 7 - 30 [place] mg/dL [facility] Creatinine 0.85 0.66 - [place] 1.25 mg/dL [facility] Comment: New IDMS-traceable calibration beginning 07/11/07 GFR Estimate 89 >60 mL/min/1.7m2 [place] [facility] GFR Estimate If Black >90 >60 mL/min/1.7m2 [facility] Calcium 8.9 8.5 - 10.4 mg/dL [facility] Bilirubin Total 0.7 0.2 - 1.3 mg/dL [facility] Albumin 4.4 3.3 - 4.9 g/dL [facility] Comment: Reference range changed on 11/11. Protein Total 8.1 6.8 - 8.8 g/dL [place] [facility] Comment: As of 07, reference range reflects plasma specimen type. Alkaline Phosphatase 62 40 - 150 U/L [facility] ALT 26 0 - 70 U/L [facility] LAB AST 32 0 - 55 U/L [facility] Specimen Anatomical Collection Method Collection Time Receive d Time (Source) Location / / Volume Laterality 06/10/2009 11:11 06/10/2009 AM CDT 11:14 AM CDT Ramy Sánchez MD LABORATORY Performing Organization Address City/State/ZIP Code Phon e Number [facility] [address] [place] [address] [facility] CBC WITH PLATELETS, DIFF (06/10/2009 11:11 AM CDT) [facility] Method Time Signature WBC 9.2 4.0 - [place] 11.0 [facility] 10e9/L [facility] RBC Count 5.08 4.4 - 5.9 [place] 10e12/L [facility] Hemoglobin 16.3 13.3 - [place] 17.7 g/dL [facility] Hematocrit 46.3 40.0 - [place] 53.0 % [facility] MCV 91 78 - 100 [place] fl [facility] MCH 32.1 26.5 - [place] 33.0 pg [facility] MCHC 35.2 31.5 - [place] 36.5 g/dL [facility] RDW 12.5 10.0 - [place] 15.0 % [facility] Platelet Count 251 150 - 450 [place] 10e9/L [facility] Diff Method Automated [place] Method [facility] % Neutrophils 57 40 - 75 % [facility] % Lymphocytes 27 20 - 48 % [facility] % Monocytes 12 0 - 12 % [facility] % Eosinophils 3 0 - 6 % [facility] % Basophils 1 0 - 2 % [facility] Absolute 5.3 1.6 - 8.3 [place] Neutrophil 10e9/L [facility] Absolute 2.5 0.8 - 5.3 [place] Lymphocytes 10e9/L [facility] Absolute 1.1 0.0 - 1.3 [place] Monocytes 10e9/L [facility] Absolute 0.3 0.0 - 0.7 [place] Eosinophils 10e9/L [facility] Absolute 0.1 0.0 - 0.2 [place] Basophils 10e9/L [facility] Specimen Anatomical Collection Method Collection Time Receive d Time (Source) Location / / Volume Laterality 06/10/2009 11:11 06/10/2009 AM CDT 11:14 AM CDT Ramy Sánchez MD LABORATORY Performing Organization Address City/State/ZIP Code Phon e Number [facility] [address] [place] [address] [facility] documented in this encounter Visit Diagnoses Diagnosis Essential hypertension, benign DIABETES MELLITUS TYPE II-UNCOMPL Type II or unspecified type diabetes chandler litus without mention of complication, not stated as uncontrolled Impotence of organic origin Need for prophylactic vaccination and in oculation against other combinations of diseases Hyperlipidaemia LDL goal <100 Other and unspecified hyperlipidemia documented in this encounter Care Teams Pulmonary Physician Relationship Specialty Start Date End Date Ramy Sánchez MD PCP - General 09/20/01 05/25/21 [address] [place] [address] documented as of this encounter
--- OUTSIDE RECORDS SUMMARY | 2021-10-18 13:04 | XMS_ITS | Encounter Summary ---
:1939 Author Organization [place] Address [address] [place] [address] Care Team Providers Name Role Phone Ramy Sánchez MD Primary Care Provider Reason for Visit Reason Onset Date Comments Diabetes 07/14/2008 Encounter Details Date Type Department Care Team Description 07/14/2008 Telephone [facility] Ramy Sánchez Diabetes [place] [id number] [place] [phone] [place], [place] [phone] (Wo rk) Social History Tobacco Use Types Packs/Day Years Used Date Current Every Day Smoker Cigars Comments: couple times a year Alcohol Use Standard Drinks/Week Comments Yes 0 (1 standard drink = 0.6 oz pure alcoho l) one drink once a week Sex Assigned at Date Recorded Not on file documented as of this encounter Miscellaneous Notes Telephone Encounter - Iveth Moreno - 07/14/2008 10:45 AM CDT Patient due for diabetes f/u, letter sent. Iveth Moreno RN documented in this encounter Plan of Treatment Not on filedocumented as of this encounter Visit Diagnoses Not on filedocumented in this encounter Care Teams Fire Pot Operator Relationship Specialty Start Date End Date Ramy Sánchez MD PCP - General 09/20/01 05/25/[id number] [place] [address] [place] [address] documented as of this encounter
--- OUTSIDE RECORDS SUMMARY | 2021-10-18 13:04 | XMS_ITS | Encounter Summary ---
:1939 Author Organization [place] Address [address] [place] [address]. [place] [address] Care Team Providers Name Role Phone Ramy Sánchez MD Primary Care Provider Reason for Visit Reason Onset Date Comments Refill Request 08/14/2007 lisinopril Encounter Details Date Type Department Care Team Description 08/14/2007 Refill [facility] Ramy Sánchez Refill Request Clinic [place] MD Timothy (lisinopril) [address] [place] [phone] (Wo rk) Social History Tobacco Use Types Packs/Day Years Used Date Current Every Day Smoker Cigars Comments: couple times a year Alcohol Use Standard Drinks/Week Comments Not Asked 0 (1 standard drink = 0.6 oz pure alcoho l) Sex Assigned at Date Recorded Not on file documented as of this encounter Miscellaneous Notes Telephone Encounter - Martha Ahn - 08/14/2007 1:55 PM CDT Last office visit: [id number] Reason for visit: sinusitis/DM Date last filled: [id number] Last 2 Encounter BP Readings: Date BP 02/26/2007 120/78 02/12/2007 126/79 CR 0.80 06/14/06 POTASSIUM 4.1 06/14/06 Medication APPROVED per standing order 2ND LETTER SENT-pt due to be seen this month. Josiah Ahn RN documented in this encounter Plan of Treatment Not on filedocumented as of this encounter Visit Diagnoses Diagnosis Type II or unspecified type diabetes chandler litus without mention of complication, not stated as uncontrolled Essential hypertension, benign documented in this encounter Care Teams Stitch Bonder Machine Operator Helper Relationship Specialty Start Date End Date Ramy Sánchez MD PCP - General 09/20/01 05/25/21 [address] [place] [address] documented as of this encounter
--- OUTSIDE RECORDS SUMMARY | 2021-10-18 13:04 | XMS_ITS | Encounter Summary ---
:1939 Author Organization [place] Address [address] [place] [address] Care Team Providers Name Role Phone Ramy Sánchez MD Primary Care Provider Reason for Visit Reason Onset Date Comments Diabetes 09/28/2010 Encounter Details Date Type Department Care Team Description 09/28/2010 Telephone [facility] Ramy Sánchez Diabetes [place] [address] [place] [phone] [place] [address] (Wo rk) Social History Tobacco Use Types Packs/Day Years Used Date Former Smoker Cigars Alcohol Use Standard Drinks/Week Comments Yes 0 (1 standard drink = 0.6 oz pure alcoho l) one drink once a week Sex Assigned at Date Recorded Not on file documented as of this encounter Miscellaneous Notes Telephone Encounter - Iveth Moreno - 09/28/2010 2:38 PM CDT Patient due for diabetes f/u, letter sent. Iveth Moreno RN documented in this encounter Plan of Treatment Not on filedocumented as of this encounter Visit Diagnoses Not on filedocumented in this encounter Care Teams Mine Development Engineer Relationship Specialty Start Date End Date Ramy Sánchez MD PCP - General 09/20/01 05/25/[id number] [place] [address] documented as of this encounter
--- OUTSIDE RECORDS SUMMARY | 2021-10-18 13:04 | XMS_ITS | Encounter Summary ---
:1939 Author Organization [place] Address [address] [place] [address]. [place] [address] Care Team Providers Name Role Phone Ramy Sánchez MD Primary Care Provider [phone] Reason for Visit Reason Onset Date Comments Refill Request 03/03/2009 zocor Encounter Details Date Type Department Care Team Description 03/03/2009 Refill [facility] Ramy Sánchez Refill Request (zocor) Janice Aguirre MD [address] [place] [phone] [phone] (Wo rk) Social History Tobacco Use Types Packs/Day Years Used Date Former Smoker Cigars Alcohol Use Standard Drinks/Week Comments Yes 0 (1 standard drink = 0.6 oz pure alcoho l) one drink once a week Sex Assigned at Date Recorded Not on file documented as of this encounter Miscellaneous Notes Telephone Encounter - Eloisa Sneed - 03/03/2009 3:34 PM CST Last OV: 11/10/08 Reason for visit: DM, lipid Date last filled: 01/31/09 Lab Test 10/27/08 12/16/07 CHOL 172 167 HDL 31* 30* LDL 97 95 TRIG 219* 208* CHOLHDLRATIO 5.5* 5.5* AST 28 09/27/07 ALT 23 12/16/07 Told last refill to make lab appt, no appt made, approved #14 Medication approved per standing orders Eloisa Sneed RN [employer] documented in this encounter Plan of Treatment Not on filedocumented as of this encounter Visit Diagnoses Diagnosis Diabetes mellitus, type 2 (H) Type II or unspecified type diabetes chandler litus without mention of complication, not stated as uncontrolled documented in this encounter Care Teams Missileman Relationship Specialty Start Date End Date Raym Sánchez MD PCP - General 09/20/01 05/25/21 [address] [place] [address] documented as of this encounter
--- OUTSIDE RECORDS SUMMARY | 2021-10-18 13:04 | XMS_ITS | Encounter Summary ---
:1939 Author Organization [place] Address [address] [place] [address]. [place] [address] Care Team Providers Name Role Phone Ramy Sánchez MD Primary Care Provider [phone] Reason for Visit Reason Comments RECHECK medications Blood Draw fasting labs Encounter Details Date Type Department Care Team Description 07/13/2009 Office Visit [facility] Ramy Sánchez Diabet es Mellitus, Type 2 (H) (Primary Dx); Clinic Janice Aguirre MD HYPERLIPIDEMIA NEC/NOS; [address] [facility] [id number] [place] [address] BENIGN HYPERTENSION; [place], [place] SCREENI NG MAL NEOP-PROSTATE [id number] [phone] Social History Tobacco Use Types Packs/Day Years Used Date Former Smoker Cigars Alcohol Use Standard Drinks/Week Comments Yes 0 (1 standard drink = 0.6 oz pure alcoho l) one drink once a week Sex Assigned at Date Recorded Not on file documented as of this encounter Last Filed Vital Signs Vital Sign Reading Time Taken Comments Blood Pressure 120/82 07/13/2009 8:56 AM CDT Pulse 60 07/13/2009 8:56 AM CDT Temperature 36.4 ??C (97.5 ??F) 07/13/2009 8:56 AM CDT Respiratory Rate - - Oxygen Saturation - - Inhaled Oxygen Concentration - - Weight 106.1 kg (234 lb) 07/13/2009 8:56 AM CDT Height 172.7 cm (5' 8) 07/13/2009 8:56 AM CDT Body Mass Index 35.58 07/13/2009 8:56 AM CDT documented in this encounter Progress Notes Raym Sánchez - 07/13/2009 9:11 AM CDT SUBJECTIVE: CC: Jd Go is a 68 year old male who presents for follow up blood sugar and bp HPI: working on home improvement, discussed diet and meds, need prostate check. He'd had body ache issues with his statin pill and wondered if he had chest tightness in bed at night and that is gone now and he sleeps better PROBLEM LIST: Patient Active Problem List Diagnoses [...] MAR FOR ONCE DAILY CHECKS ??? ACCU-CHEK MULTICLIX LANCETS MISC TEST DAILY ??? LISINOPRIL 20 MG OR TABS ONE DAILY, LAST REFILL ??? ASPIRIN 81 MG OR TABS ONE DAILY ??? ACCU-CHEK CATARINO STRP Check BS daily as directed FAMILY HISTORY: Family History Problem Relation ??? [...] changes in mood or affect EXAM: BP 120/82 Pulse 60 Temp(Src) 97.5 ??F (36.4 ??C) (Oral) Ht 5' 8 (1.727 m) Wt 234 lb (106.142 kg) GENERAL APPEARANCE: healthy, alert and no [...] HSM or masses and bowel sounds normal ASSESSMENT/PLAN hyperlipidemia I have discussed with patient the risks, benefits, medications, treatment options and modalities. I have instructed the patient to call or schedule a follow-up appointment if any problems or failureto improve. documented in this encounter Nursing Notes 07/13/2009 8:45 AM CDT >> LASHELL Frederick July 13, 2009 9:00 AM Patient presents with: RECHECK - medications Blood Draw - fasting labs Initial BP 120/82 Pulse 60 Temp(Src) 97.5 ??F (36.4 ??C) (Oral) Ht 5' 8 (1.727 m) Wt 234 lb(106.142 kg) Estimated Body mass index is 35.58 kg/(m^2) as calculated from the following: Height as of this encounter: 5' 8(1.727 m). Weight as of this encounter: 234 lb(106.142 kg).. BP completed using cuff size: large documented in this encounter Plan of Treatment Not on filedocumented as of this encounter Procedures Procedure Name Priority Date/Time Associated Comments Diagnosis HCL PROSTATE SPEC Routine 07/13/2009 9:16 AM SCREENING MAL Res ults for this ANTIGEN,SCREEN CDT NEOP-PROSTATE procedure ar e in the results section. HCL COMPREHENSIVE Routine 07/13/2009 9:16 AM Diabetes Mellitus , Results for this METABOLIC PANEL CDT Type 2 (H) procedure ar e in the results section. HCL GLYCATED Routine 07/13/2009 9:16 AM Diabetes Mellitus, Res ults for this HEMOGLOBIN CDT Type 2 (H) procedure are i n the results section. CL AFF A.M.A. LIPID Routine 07/13/2009 9:16 AM Diabetes Mellit us, Results for this PANEL CDT Type 2 (H) procedure are i n the results section. documented in this encounter Results PROSTATE SPEC ANTIGEN,SCREEN (07/13/2009 9:16 AM CDT) athologist Signature PSA 0.45 0 - 4 ug/L [facility] Specimen Anatomical Collection Method Collection Time Receive d Time (Source) Location / / Volume Laterality 07/13/2009 9:16 AM 0 9:21 CDT AM CDT Ramy Sánchez MD LABORATORY Performing Organization Address City/[facility]/ZIP Code Phon e Number [facility] [address] [place] [address] [facility] (ABNORMAL) HEMOGLOBIN A1C (07/13/2009 9:16 AM CDT) athologist Signature Hemoglobin A1C 7.2 (H) 4.3 - 6.0 [place] POCT % [facility] Specimen Anatomical Collection Method Collection Time Receive d Time (Source) Location / / Volume Laterality 07/13/2009 9:16 AM 0 9:21 CDT AM CDT Ramy Sánchez MD LABORATORY Performing Organization Address City/State/ZIP Code Phon e Number [facility] [address] [place] [address] [facility] (ABNORMAL) A.M.A. LIPID PANEL (07/13/2009 9:16 AM CDT) athologist Signature Cholesterol 243 (H) 0 - 200 [place] mg/dL [facility]INIC LAB Comment: LDL Cholesterol is the primary guide to therapy. The NCEP recommends further evaluation of: patients with cholesterol <200 mg/dL if additional risk factors are present, cholesterol >240 mg/dL, triglycerides >150 mg/dL, or HDL <40 mg/dL. Triglycerides 282 (H) 0 - 150 mg/dL [facility] HDL Cholesterol 27 (L) 40 - 110 mg/dL [facility] LDL Cholesterol Calculated 159 (H) 0 - 129 mg/dL [facility] Comment: LDL Cholesterol is the primary guide to therapy: LDL-cholesterol goal in high risk patients is <100 mg/dL and in very high risk patients is <70 mg/dL. VLDL-Cholesterol 56 (H) 0 - 30 mg/dL [facility] Cholesterol/HDL Ratio 8.9 (H) 0.0 - 5.0 [facility] Specimen Anatomical Collection Method Collection Time Receive d Time (Source) Location / / Volume Laterality 07/13/2009 9:16 AM 0 9:21 CDT AM CDT Ramy Sánchez MD LABORATORY Performing Organization Address City/State/ZIP Code Phon e Number [facility] [address] [place] [address] [facility] (ABNORMAL) A.M.A. COMPREHENSIVE MET.PANEL (07/13/2009 9:16 AM CDT) P athologist Signature Sodium 140 133 - 144 [place] mmol/L [facility] Potassium 4.5 3.4 - 5.3 [place] mmol/L [facility] Chloride 101 94 - 109 [place] mmol/L [facility] Carbon Dioxide 27 20 - 32 [place] mmol/L [facility] Anion Gap 12 6 - 17 [place] mmol/L [facility] Glucose 151 (H) 60 - 99 [place] mg/dL [facility] Urea Nitrogen 19 7 - 30 [place] mg/dL [facility] Creatinine 0.90 0.66 - [facility] 1.25 mg/dL [facility] Comment: New IDMS-traceable calibration beginning 07/11/07 GFR Estimate 84 >60 mL/min/1.7m2 [facility] GFR Estimate If Black >90 >60 mL/min/1.7m2 [facility] Calcium 8.9 8.5 - 10.4 mg/dL [facility] Bilirubin Total 0.6 0.2 - 1.3 mg/dL [facility] Albumin 4.5 3.3 - 4.9 g/dL [place] [facility] Comment: Reference range changed on 11/11. Protein Total 8.4 6.8 - 8.8 g/dL [place] [facility] Comment: As of 07, reference range reflects plasma specimen type. Alkaline Phosphatase 66 40 - 150 U/L [facility] ALT 21 0 - 70 U/L [facility] AST 31 0 - 55 U/L [facility] LAB Specimen Anatomical Collection Method Collection Time Receive d Time (Source) Location / / Volume Laterality 07/13/2009 9:16 AM 0 9:21 CDT AM CDT Ramy Sánchez MD LABORATORY Performing Organization Address City/State/ZIP Code Phon e Number [facility] [address] [place] [address] [facility] documented in this encounter Visit Diagnoses Diagnosis Diabetes mellitus, type 2 (H) - Primary Type II or unspecified type diabetes chandler litus without mention of complication, not stated as uncontrolled HYPERLIPIDEMIA NEC/NOS Other and unspecified hyperlipidemia BENIGN HYPERTENSION Essential hypertension, benign SCREENING MAL NEOP-PROSTATE Special screening for malignant neoplasm of prostate documented in this encounter Care Teams Field Map Technician Relationship Specialty Start Date End Date Ramy Sánchez MD PCP - General 09/20/01 05/25/21 [address] [place] [address] documented as of this encounter
--- OUTSIDE RECORDS SUMMARY | 2021-10-18 13:04 | XMS_ITS | Encounter Summary ---
:1940 Author Organization [place] Address [address] [place] [address] Care Team Providers Name Role Phone Ramy Sánchez MD Primary Care Provider Encounter Details Date Type Department Care Team Description 02/18/2008 Orders Only [facility] Ramy Sánchez SIS NOT YET Clinic [place] MD DEFINED (Primary Dx) [address] [facility] [address] [place] [id number] [phone] Social History Tobacco Use Types Packs/Day Years [...] Name Priority Date/Time Associated Diagnosis Comme nts COLONOSCOPY Routine 02/18/2008 DIAGNOSIS NOT YET DEFINED documented in this encounter Results COLONOSCOPY (02/18/2008) Narrative This result has an attachment that is no t available. Ramy Sánchez MD PROCEDURES documented in this encounter Visit Diagnoses Diagnosis DIAGNOSIS NOT YET DEFINED - Primary documented in this encounter Care Teams Print Shop Helper Relationship Specialty Start Date End Date Ramy Sánchez MD PCP - General 09/20/01 05/25/21 [address] [place] [place], [place] [id number] documented as of this encounter
--- OUTSIDE RECORDS SUMMARY | 2021-10-18 13:04 | XMS_ITS | Encounter Summary ---
:1939 Author Organization [place] Address [address] [place] [address] Care Team Providers Name Role Phone Ramy Sánchez MD Primary Care Provider Reason for Visit Reason Onset Date Comments Diabetes 06/17/2008 Encounter Details Date Type Department Care Team Description 06/17/2008 Telephone [facility] Ramy Sánchez Diabetes [place] [id number] [place] [phone] [place], [place] [phone] (Wo rk) Social History Tobacco Use Types Packs/Day Years Used Date Current Every Day Smoker Cigars Comments: couple times a year Alcohol Use Standard Drinks/Week Comments Yes 0 (1 standard drink = 0.6 oz pure alcoho l) one drink once a week Sex Assigned at Date Recorded Not on file documented as of this encounter Miscellaneous Notes Telephone Encounter - Iveth Moreno - 06/17/2008 2:42 PM CDT Patient due for diabetes f/u, letter sent. Iveth Moreno RN documented in this encounter Plan of Treatment Not on filedocumented as of this encounter Visit Diagnoses Not on filedocumented in this encounter Care Teams Physician Internist Relationship Specialty Start Date End Date Ramy Sánchez MD PCP - General 09/20/01 05/25/[id number] [place] [address] [place] [address] documented as of this encounter
--- OUTSIDE RECORDS SUMMARY | 2021-10-18 13:04 | XMS_ITS | Encounter Summary ---
:1939 Author Organization [place] Address [address] [place] [address] Care Team Providers Name Role Phone Ramy Sánchez MD Primary Care Provider [phone] Encounter Details Date Type Department Care Team Description 12/16/2007 Orders Only [facility] HILTON BETES MELLITUS TYPE II-UNCOMPL; [facility] HYPERLIPIDEMIA NEC/NOS [address] [place] [phone] Social History Tobacco Use Types Packs/Day Years Used Date Current Every Day Smoker Cigars Comments: couple times a year Alcohol Use Standard Drinks/Week Comments Not Asked 0 (1 standard drink = 0.6 oz pure alcoho l) Sex Assigned at Date Recorded Not on file documented as of this encounter Progress Notes Nydia Flowers - 12/16/2007 10:19 AM CDT Addended by: NYDIA FLOWERS on: 12/16/2007 10:19:05 AM Modules accepted: Orders documented in this encounter Plan of Treatment Not on filedocumented as of this encounter Procedures Procedure Name Priority Date/Time Associated Comments Diagnosis HCL GLYCATED Routine 12/16/2007 9:09 AM DIABETES MELLITUS Resu lts for this HEMOGLOBIN CDT TYPE II-UNCOMPL procedure ar e in the results section. HCL ALT Routine 12/16/2007 9:09 AM DIABETES MELLITUS Resu lts for this CDT TYPE II-UNCOMPL procedure are in HYPERLIPIDEMIA the results NEC/NOS section. CL AFF A.M.A. LIPID Routine 12/16/2007 9:09 AM DIABETES MELLIT US Results for this PANEL CDT TYPE II-UNCOMPL procedure are in HYPERLIPIDEMIA the results NEC/NOS section. documented in this encounter Results (ABNORMAL) HEMOGLOBIN A1C (12/16/2007 9:09 AM CDT) athologist Signature Hemoglobin A1C 6.5 (H) 4.3 - 6.0 [place] [facility] % [facility] Specimen Anatomical Collection Method Collection Time Receive d Time (Source) Location / / Volume Laterality 12/16/2007 9:09 AM 8 9:11 CDT AM CDT Ramy Sánchez MD LABORATORY Performing Organization Address City/[facility]/ZIP [facility] Phon e Number [facility] [phone] [place] [address] [facility] ALANINE AMINO (ALT) (SGPT) (12/16/2007 9:09 AM CDT) athologist Signature ALT 23 0 - 70 U/L [facility] Specimen Anatomical Collection Method Collection Time Receive d Time (Source) Location / / Volume Laterality 12/16/2007 9:09 AM 8 9:11 CDT AM CDT Ramy Sánchez MD LABORATORY Performing Organization Address City/[facility] Code Phon e Number [facility] [address] [place] [address] [facility] (ABNORMAL) A.M.A. LIPID PANEL (12/16/2007 9:09 AM CDT) athologist Signature Cholesterol 167 0 - 200 [facility] mg/dL [facility] Comment: LDL Cholesterol is the primary guide to therapy: LDL-cholesterol goal in high risk patients is <100 mg/dL and in very high risk patients is <70 mg/dL. The NCEP recommends further evaluation of: patients with cholesterol <200 mg/dL if additional risk factors are present, cholesterol >240 mg/dL, triglycerides >150 mg/dL, or HDL <40 mg/dL. Triglycerides 208 (H) 0 - 150 mg/dL [facility] HDL Cholesterol 30 (L) 40 - 110 mg/dL [facility] LDL Cholesterol Calculated 95 0 - 129 mg/dL [facility] Comment: LDL Cholesterol is the primary guide to therapy: LDL-cholesterol goal in high risk patients is <100 mg/dL and in very high risk patients is <70 mg/dL. VLDL-Cholesterol 42 (H) 0 - 30 mg/dL [facility] Cholesterol/HDL Ratio 5.5 (H) 0.0 - 5.0 [facility] Specimen Anatomical Collection Method Collection Time Receive d Time (Source) Location / / Volume Laterality 12/16/2007 9:09 AM 8 9:11 CDT AM CDT Ramy Sánchez MD LABORATORY Performing Organization Address City/State/ZIP Code Phon e Number [place] [phone] [place] [address] [facility] documented in this encounter Visit Diagnoses Diagnosis DIABETES MELLITUS TYPE II-UNCOMPL Type II or unspecified type diabetes chandler litus without mention of complication, not stated as uncontrolled HYPERLIPIDEMIA NEC/NOS Other and unspecified hyperlipidemia documented in this encounter Care Teams Crime Laboratory Analyst Relationship Specialty Start Date End Date Ramy Sánchez MD PCP - General 09/20/01 05/25/21 [address] [place] [address] documented as of this encounter
--- OUTSIDE RECORDS SUMMARY | 2021-10-18 13:04 | XMS_ITS | Encounter Summary ---
:1939 Author Organization [place] Address [address] [place] [address]. [place] [address] Care Team Providers Name Role Phone Ramy Sánchez MD Primary Care Provider Reason for Visit Reason Onset Date Comments Medication Request 12/24/2007 Pt's spouse calling- needing rx accucheck test strips faxed in to pharmacy Encounter Details Date Type Department Care Team Description 12/24/2007 Telephone [facility] Ramy Sánchez Medica tion Request Clinic Janice Aguirre MD (Pt's spouse calling- [address] needing rx accucheck [place], [place] [phone] pharmacy) [phone] (Wo rk) Social History Tobacco Use Types Packs/Day Years Used Date Current Every Day Smoker Cigars Comments: couple times a year Alcohol Use Standard Drinks/Week Comments Yes 0 (1 standard drink = 0.6 oz pure alcoho l) one drink once a week Sex Assigned at Date Recorded Not on file documented as of this encounter Miscellaneous Notes Telephone Encounter - Tabitha Maria - 12/24/2007 10:45 AM CDT Pt's spouse is calling- needing rx: test strips for his accuck AV home monitor. Please authorize rx to fax. Informed caller to f/u with pharmacy, and we would contact pt ONLY if any questions or issues. Thanks. Kyle Maria R.N. documented in this encounter Plan of Treatment Not on filedocumented as of this encounter Visit Diagnoses Diagnosis DIABETES MELLITUS TYPE II-UNCOMPL - Prim denilson Type II or unspecified type diabetes chandler litus without mention of complication, not stated as uncontrolled documented in this encounter Care Teams Director Of Aviation Relationship Specialty Start Date End Date Ramy Sánchez MD PCP - General 09/20/01 05/25/21 [address] [place] [address] documented as of this encounter
--- OUTSIDE RECORDS SUMMARY | 2021-10-18 13:04 | XMS_ITS | Encounter Summary ---
:1939 Author Organization [place] Address [address] [place] [address]. [place] [address] Care Team Providers Name Role Phone Ramy Sánchez MD Primary Care Provider [phone] Reason for Visit Reason Onset Date Comments Diabetes 08/20/2008 Encounter Details Date Type Department Care Team Description 08/20/2008 Telephone [facility] Ramy Sánchez, Diabetes [place] [address] [place] [phone] [place], [place] [phone] (Wo rk) Social History Tobacco Use Types Packs/Day Years Used Date Current Every Day Smoker Cigars Comments: couple times a year Alcohol Use Standard Drinks/Week Comments Yes 0 (1 standard drink = 0.6 oz pure alcoho l) one drink once a week Sex Assigned at Date Recorded Not on file documented as of this encounter Miscellaneous Notes Telephone Encounter - Iveth Moreno - 08/20/2008 2:46 PM CDT Patient due for diabetes ov and labs, he hasn't responded to previous letters. Left message to call back. Iveth Moreno RN documented in this encounter Plan of Treatment Not on filedocumented as of this encounter Visit Diagnoses Not on filedocumented in this encounter Care Teams [employer] Relationship Specialty Start Date End Date Ramy Sánchez MD PCP - General 09/20/01 05/25/21 [address] [place] [address] documented as of this encounter
--- OUTSIDE RECORDS SUMMARY | 2021-10-18 13:05 | XMS_ITS | Encounter Summary ---
:1939 Author Organization [place] Address [address] [place] [address]. [place] [address] Care Team Providers Name Role Phone Ramy Sánchez MD Primary Care Provider Encounter Details Date Type Department Care Team Description 08/05/2003 Abstract [facility] Barbara Almaguer [address] [place], [place] [phone] Social History Tobacco Use Types Packs/Day Years Used Date Never Assessed Sex Assigned at Date Recorded Not on file documented as of this encounter Plan of Treatment Not on filedocumented as of this encounter Visit Diagnoses Not on filedocumented in this encounter Care Teams Extrusion Utility Worker Relationship Specialty Start Date End Date Ramy Sánchez MD PCP - General 09/20/01 05/25/21 [address] [place], [place] [id number] documented as of this encounter
--- OUTSIDE RECORDS SUMMARY | 2021-10-18 13:05 | XMS_ITS | Encounter Summary ---
:1939 Author Organization [place] Address [address] [place] [address] Care Team Providers Name Role Phone Ramy Sánchez MD Primary Care Provider [phone] Reason for Visit Reason Comments Sinus Problem pressure, drainage, sneezing with bloody discharge Encounter Details Date Type Department Care Team Description 05/22/2005 Office Visit [facility] Ramy Sánchez ACUTE BRONCHITIS Clinic BartonParth Aguirre MD (Primary Dx) [address] [address] [phone] Social History Tobacco Use Types Packs/Day Years Used Date Current Every Day Smoker Cigars Comments: couple times a year Alcohol Use Standard Drinks/Week Comments Not Asked 0 (1 standard drink = 0.6 oz pure alcoho l) Sex Assigned at Date Recorded Not on file documented as of this encounter Last Filed Vital Signs Vital Sign Reading Time Taken Comments Blood Pressure 124/84 05/22/2005 3:45 PM CREDIT CASHIER Pulse - - Temperature 36.4 ??C (97.5 ??F) 05/22/2005 3:45 PM CREDIT CASHIER Respiratory Rate - - Oxygen Saturation - - Inhaled Oxygen Concentration - - Weight 104.3 kg (230 lb) 05/22/2005 3:45 PM CREDIT CASHIER Height 172.7 cm (5' 8) 05/22/2005 3:45 PM CREDIT CASHIER Body Mass Index 34.97 05/22/2005 3:45 PM CREDIT CASHIER documented in this encounter Progress Notes Ramy Sánchez - 05/22/2005 4:06 PM CST Patient complains of congestion with sore throat, nasal congestion and sinus pain. Some mucopurulantdischarge but no upper dental pain and no sustained fever. Duration less than two to three weeks. Has history of airborn allergy or asthma. No chest pain, diaphoresis, or sob. Somewhat productive cough. TMs dull not *red, sinus tenderness none lungs clear, s1s2,soft abd,no distress, cyanosis or stridor. A:URI with bronchitis P:fluids, antipyretics,rest and as directed. Recheck PRN worsening or non-improvement over 5 days. Discussed signs of systemic or constutional illness. IT CASHIER documented in this encounter Nursing Notes 05/22/2005 3:45 PM CST >> JEFF KINGSLEY 05/22/2005 3:59 pm Patient presents with: Sinus Problem - pressure, drainage, sneezing with bloody discharge Initial BP 124/84 Temp (Src) 97.5 (Oral) Ht 5' 8 (1.73m) Wt 230 lbs (104.3kg) Body mass indexis 34.98 kg/(m^2).. BP completed using cuff size large Jeff Kingsley CMA documented in this encounter Plan of Treatment Not on filedocumented as of this encounter Procedures Procedure Name Priority Date/Time Associated Diagnosis Comme nts CHEST TWO VIEWS, Routine 05/22/2005 Acute Bronchitis Resu lts for this FRONT/LAT procedure are i n the results section . documented in this encounter Results CHEST X-RAY 2 VW (05/22/2005) Anatomical Region Laterality Modality Other Impressions 05/22/2005 REPORT OF OUTSIDE FILMS FROM [facility] JD [place] : ??39 CHEST: ??05/22/05 FINDINGS: ??Negative. Regulo Griffin M.D./bonnie D & T: ??05/24/05 Ordering MD/Provider Initial Interpretat ion: Normal/Negative. Electronically filed by Grazyna Rudolph ??05/23/2005 ??9:39 AM Ramy Sánchez MD GENERAL IMAGING documented in this encounter Visit Diagnoses Diagnosis Acute bronchitis - Primary documented in this encounter Care Teams Mine Administrator Supervisor Relationship Specialty Start Date End Date Ramy Sánchez MD PCP - General 09/20/01 05/25/21 [address] [place] [address] documented as of this encounter
--- OUTSIDE RECORDS SUMMARY | 2021-10-18 13:05 | XMS_ITS | Encounter Summary ---
:1940 Author Organization [facility] Address [address] [place] [address]. [place] [address] Care Team Providers Name Role Phone Ramy Sánchez MD Primary Care Provider [phone] Reason for Visit Reason Comments UTI frequency, urgency, burning, odor, lower back pain Encounter Details Date Type Department Care Team Description 02/08/2006 Office Visit [facility] Ramy Sánchez INFECTION NOS (Primary Dx); [facility] [place] OTHER ABNORMAL GLUCOSE [address] [address] [phone] Social History Tobacco Use Types Packs/Day Years Used Date Current Every Day Smoker Cigars Comments: couple times a year Alcohol Use Standard Drinks/Week Comments Not Asked 0 (1 standard drink = 0.6 oz pure alcoho l) Sex Assigned at Date Recorded Not on file documented as of this encounter Last Filed Vital Signs Vital Sign Reading Time Taken Comments Blood Pressure 112/78 02/08/2006 11:00 AM HANDTOOLS REPAIRER Pulse - - Temperature 36.4 ??C (97.6 ??F) 02/08/2006 11:00 AM HANDTOOLS REPAIRER Respiratory Rate - - Oxygen Saturation - - Inhaled Oxygen Concentration - - Weight 106.1 kg (234 lb) 02/08/2006 11:00 AM HANDTOOLS REPAIRER Height 172.7 cm (5' 8) 02/08/2006 11:00 AM HANDTOOLS REPAIRER Body Mass Index 35.58 02/08/2006 11:00 AM HANDTOOLS REPAIRER documented in this encounter Progress Notes Ramy Sánchez - 02/08/2006 1:31 PM CST ,SUBJECTIVE: CC: Jd Go is a 65 year old male who presents for fever , malaise, dysuria and frequancy, HPI: feels totally washed out , no polyuria but 1000 glucose in urine, only 165 in blood PROBLEM LIST: Patient Active Problem List Diagnoses Code ??? HYPERLIPIDEMIA NEC/NOS 272.4 ??? BENIGN HYPERTENSION 401.1 ??? SCREENING MAL NEOP-PROSTATE V76.44 ??? ALLERGIC RHINITIS NOS 477.9 PAST MEDICAL HISTORY: Past Medical History Diagnosis Date ??? CALCULUS OF KIDNEY PAST SURGICAL HISTORY: Past Surgical History Procedure Date ??? Nonspecific procedure 1965 surgery on shoulder ??? Nonspecific procedure 1985 surgery on lacerated tendons R hand CURRENT MEDICATIONS: Current outpatient prescriptions Medication Sig ??? LEVAQUIN 250 MG OR TABS 1 TABLET DAILY ??? TYRA 180 MG OR TABS 1 TABLET DAILY ??? LISINOPRIL 10 MG OR TABS one daily ??? LIPITOR 10 MG OR TABS one daily FAMILY HISTORY: No family history on file HEALTH MAINTENANCE: REVIEW OF OUTSIDE RECORDS: NO [...] changes in mood or affect EXAM: BP 112/78 Temp (Src) 97.6 (Oral) Ht 5' 8 (1.73m) Wt 234 lbs (106.1kg) GENERAL APPEARANCE: healthy, alert and no distress EXAM: GENERAL APPEARANCE: healthy, alert and no distress EYES: EOMI, fundi benign- PERRL HENT: ear canals and TM's normal [...] HSM or masses and bowel sounds normal NEURO: Normal strength and tone, sensory exam grossly normal, mentation intact and speech normal PSYCH: mentation appears normal. and affect normal/bright LYMPHATICS: No axillary, cervical, inguinal, or supraclavicular nodes ASSESSMENT/PLAN Encounter Diagnoses Code Name Primary? Qualifier ??? 599.0 URIN TRACT INFECTION NOS Yes ??? 790.29 OTHER ABNORMAL GLUCOSE Upper tract uti:neymaraqmargo, two week follow I have discussed with patient the risks, benefits, medications, treatment options and modalities. I have instructed the patient to call or schedule a follow-up appointment if any problems or failureto improve. TOOLS REPAIRER documented in this encounter Nursing Notes 02/08/2006 11:00 AM CST >> JEFF KINGSLEY 02/08/2006 11:11 am Patient presents with: UTI - frequency, urgency, burning, odor, lower back pain Initial BP 112/78 Temp (Src) 97.6 (Oral) Ht 5' 8 (1.73m) Wt 234 lbs (106.1kg) Body mass indexis 35.59 kg/(m^2).. BP completed using cuff size large Jeff Kingsley CMA documented in this encounter Plan of Treatment Not on filedocumented as of this encounter Procedures Procedure Name Priority Date/Time Associated Diagnosis Comme nts HCL BASIC METABOLIC Routine 02/08/2006 11:40 AM Urin Tract Inf ection Results for this PANEL HANDTOOLS REPAIRER Nos procedure are in Other Abnormal the results Glucose section. HCL CULTURE, URINE Routine 02/08/2006 11:25 AM Urin Tract Infe ction Results for this (MISYS) HANDTOOLS REPAIRER Nos procedure are i n the results section. HCL UA MICRO IF Routine 02/08/2006 11:14 AM Urin Tract Infecti on Results for this POSITIVE HANDTOOLS REPAIRER Nos procedure are i n the results section. CL AFF MICRO Routine 02/08/2006 11:14 AM Results for this EXAM-URINE HANDTOOLS REPAIRER procedure are i n the results section. documented in this encounter Results (ABNORMAL) A.M.A. BASIC METABOLIC PANEL (02/08/2006 11:40 AM HANDTOOLS REPAIRER) athologist Signature Sodium 137 133 - 144 [place] mmol/L [facility] Potassium 4.5 3.4 - 5.3 [place] mmol/L [facility] Chloride 99 94 - 109 [place] mmol/L [facility] Carbon Dioxide 24 20 - 32 [place] mmol/L [facility] Anion Gap 14 6 - 17 [place] mmol/L [facility] Glucose 164 (H) 60 - 110 [place] mg/dL [facility] Urea Nitrogen 14 7 - 30 [place] mg/dL [facility] Creatinine 1.10 0.80 - [place] 1.50 mg/dL [facility] GFR Estimate 71 >60 [place] mL/min/1.7 [facility] m2 LAB GFR Estimate If 86 >60 [place] Black mL/min/1.7 [facility] m2 LAB Comment: Stages of Chronic Kidney Disease Stage 1: ??GFR 90 or greater and other e vidence of kidney damage* Stage 2: ??GFR 60-89 and other evidence of kidney damage * Stage 3: ??GFR 30-59 Stage 4: ??GFR 15-29 Stage 5: ??GFR less than 15 or dialysis *Chronic kidney disease is defined as ki dney damage or GFR less than 60 mL/min/1.73 m2 for three months or grea ter. ??Kidney damage is defined as pathologic abnormalities or markers or damage, including abnormalities in blood or urine tests or imaging studies. Calcium 9.2 8.5 - 10.4 mg/dL [facility] Specimen Anatomical Collection Method Collection Time Receive d Time (Source) Location / / Volume Laterality 02/08/2006 11:40 02/08/2006 AM HANDTOOLS REPAIRER 11:45 AM HANDTOOLS REPAIRER Ramy Sánchez MD LABORATORY Performing Organization Address City/State/ZIP Code Phon e Number [facility] [address] [place] [address] [facility] CULTURE, URINE (MISYS) (02/08/2006 11:25 AM HANDTOOLS REPAIRER) Patholo gist Method Time Signature Specimen Midstream Urine [facility] Culture Micro >100,000 [place] colonies/mL [facility] coli Report status FINAL [id number] [facility] Specimen Anatomical Collection Method Collection Time Receive d Time (Source) Location / / Volume Laterality 02/08/2006 11:25 02/08/2006 AM HANDTOOLS REPAIRER 11:30 AM HANDTOOLS REPAIRER Organism Antibiotic Method Susceptibility >100,000 colonies/ml Amoxicillin/Clav <=2 Suscep tible escherichia coli ([place]) >100,000 colonies/ml Ampicillin <=2 Suscept ible escherichia coli ([place]) >100,000 colonies/ml Cefazolin <=4 Suscept ible escherichia coli ([place]) >100,000 colonies/ml Ceftriaxone <=1 Suscept ible escherichia coli ([place]) >100,000 colonies/ml Cefuroxime Axetil 4 Suscept ible escherichia coli ([place]) >100,000 colonies/ml Ciprofloxacin <=0.25 Susc eptible escherichia coli ([place]) >100,000 colonies/ml Gentamicin <=1 Suscept ible escherichia coli ([place]) >100,000 colonies/ml Levofloxacin <=0.25 Susc eptible escherichia coli ([place]) >100,000 colonies/ml Nitrofurantoin <=16 Suscep tible escherichia coli ([place]) >100,000 colonies/ml Ticarcillin <=8 Suscept ible escherichia coli ([place]) >100,000 colonies/ml Ticarcillin/Clav <=8 Suscep tible escherichia coli ([place]) >100,000 colonies/ml Tobramycin <=1 Suscept ible escherichia coli ([place]) >100,000 colonies/ml Trimethoprim/Sulfamethoxazole <=1/19 Susceptible escherichia coli ([place]) Ramy Sánchez MD LABORATORY Performing Organization Address City/State/ZIP Code Phon e Number M [facility] [address] [address] [facility] (ABNORMAL) MICRO EXAM-URINE (02/08/2006 11:14 AM HANDTOOLS REPAIRER) [facility] Method Time Signature WBC Urine 10-25 (A) 0 - 2 [place] /[facility] RBC Urine 5-10 (A) 0 - 2 [place] /HPF [facility] Squamous EPI Few FEW /LPF [facility] Bacteria Urine Moderate (A) NEG /HPF [facility] Specimen Anatomical Collection Method Collection Time Receive d Time (Source) Location / / Volume Laterality 02/08/2006 11:14 02/08/2006 AM HANDTOOLS REPAIRER 11:20 AM HANDTOOLS REPAIRER Ramy Sánchez MD LABORATORY Performing Organization Address [facility]/ZIP Code Phon e Number [address] [address] [facility] (ABNORMAL) UA MICRO IF POSITIVE (02/08/2006 11:14 AM HANDTOOLS REPAIRER) [facility] Method Time Signature Color Urine Yellow [facility] Appearance Urine Clear [facility] Glucose Urine >=1000 (A) NEG mg/dL [facility] Bilirubin Urine Negative NEG [facility] Ketones Urine Negative NEG mg/dL [facility] Specific [place] 1.025 1.003 - [place] Urine 1.035 [facility] Blood Urine Small (A) NEG [facility] pH Urine 5.0 5.0 - 7.0 [place] pH [facility] Protein Albumin Negative NEG mg/dL [place] Urine [facility] Urobilinogen 0.2 0.2 - 1.0 [place] Urine EU/dL [facility] Nitrite Urine Negative NEG [facility] Leukocyte Trace (A) NEG [place] Esterase Urine [facility] Source Midstream [place] Urine [facility] Specimen Anatomical Collection Method Collection Time Receive d Time (Source) Location / / Volume Laterality 02/08/2006 11:14 02/08/2006 AM HANDTOOLS REPAIRER 11:20 AM HANDTOOLS REPAIRER Ramy Sánchez MD LABORATORY Performing Organization Address City/[facility]/ZIP Code Phon e Number [address] [address] [facility] documented in this encounter Visit Diagnoses Diagnosis Urinary tract infection, site not specif ied - Primary Other abnormal glucose documented in this encounter Care Teams Childcare Attendant Relationship Specialty Start Date End Date Ramy Sánchez MD PCP - General 09/20/01 05/25/21 [address] [place] [address] documented as of this encounter
--- OUTSIDE RECORDS SUMMARY | 2021-10-18 13:05 | XMS_ITS | Encounter Summary ---
:1940 Author Organization [facility] Address [address] [place] [address] Care Team Providers Name Role Phone Ramy Sánchez MD Primary Care Provider [phone] Reason for Visit Reason Comments UTI hematuria, dysuria Encounter Details Date Type Department Care Team Description 10/06/2006 Office Visit [facility] Ian Araujo (Primary Dx); [facility] [place] [facility] [place] URIN TRACT INFECTION NOS [address] [place] [id number] [phone] Social History Tobacco Use Types Packs/Day Years Used Date Current Every Day Smoker Cigars Comments: couple times a year Alcohol Use Standard Drinks/Week Comments Not Asked 0 (1 standard drink = 0.6 oz pure alcoho l) Sex Assigned at Date Recorded Not on file documented as of this encounter Last Filed Vital Signs Vital Sign Reading Time Taken Comments Blood Pressure 118/70 10/06/2006 9:00 AM CDT Pulse - - Temperature - - Respiratory Rate - - Oxygen Saturation - - Inhaled Oxygen Concentration - - Weight 99.8 kg (220 lb) 10/06/2006 9:00 AM CDT Height 175.3 cm (5' 9) 10/06/2006 9:00 AM CDT Body Mass Index 32.49 10/06/2006 9:00 AM CDT documented in this encounter Progress Notes Ian Mejia - 10/06/2006 11:15 AM CDT Jd Go presents to clinic today for evaluation of 12-24 hours of some urinary urgency/frequency. He had a small amt of gross hematuria once yesterday. Urine is reportedly yellow. No dark tea colored urine. Pt reports some end stream dysuria yesterday. No dysuria now. Denies any dysuria now, urinary urgency/frequency, fever, chills, nausea, vomiting, back or flank pain. No abdominal pain. No testicular pain. No obstructive voiding sxs. PAST URINARY HX: Jd has a hx of UTI's (most recently ucx positive 03-02-06). Distant single episode of kidney stones. Hx of intermittent gross hematuria (previously evaluated by urology) and chronicprostatitis. OBJECTIVE: BP 118/70 Ht 5' 9 (1.75m) Wt 220 lbs (99.8kg) GENERAL: Very pleasant, comfortable and generally well appearing. ABDOMEN: Soft, non-tender, non-distended. Positive normal bowel sounds. No HSM or masses. No suprapubic tenderness. No CVA tenderness. ASSESSMENT/PLAN: 599.7 HEMATURIA (primary encounter diagnosis) Note: Single episode. Plan: UA MICRO IF POSITIVE, MICRO EXAM-URINE 599.0 URIN TRACT INFECTION NOS Plan: UA MICRO IF POSITIVE, MICRO EXAM-URINE, CIPRO 250 MG OR TABS F/u with Dr. Sánchez next week for repeat UA and to make sure all sxs resolved. May need urology referral if gross hematuria persists. documented in this encounter Nursing Notes 10/06/2006 9:00 AM CDT >> DARA GONZALEZ 10/06/2006 8:55 am Patient presents with: UTI - hematuria, dysuria Initial BP 118/70 Ht 5' 9 (1.75m) Wt 220 lbs (99.8kg) Body mass index is 32.47 kg/(m^2). BP completed using cuff size large Dara Gonzalez LPN documented in this encounter Plan of Treatment Not on filedocumented as of this encounter Procedures Procedure Name Priority Date/Time Associated Diagnosis Comme nts HCL UA MICRO IF Routine 10/06/2006 9:01 AM Hematuria Results for this POSITIVE CDT Urin Tract Infection procedu re are in Nos the results section. CL AFF MICRO Routine 10/06/2006 9:01 AM Urin Tract Infection R esults for this EXAM-URINE CDT Nos procedure are in Hematuria the results section. documented in this encounter Results MICRO EXAM-URINE (10/06/2006 9:01 AM CDT) P athologist Signature WBC Urine O - 2 0 - 2 /HPF [facility] RBC Urine O - 2 0 - 2 /HPF [facility] Squamous EPI Few FEW /LPF [facility] Specimen Anatomical Collection Method Collection Time Receive d Time (Source) Location / / Volume Laterality 10/06/2006 9:01 AM 200 7 9:03 CDT AM CDT Ian Araujo PA-C LABORATORY Performing Organization Address City/State/ZIP Code Phon e Number [facility] [address] [place], [place] [phone] [facility] (ABNORMAL) UA MICRO IF POSITIVE (10/06/2006 9:01 AM CDT) Patholo gist Method Time Signature Color Urine Yellow [facility] Appearance Urine Clear [facility] Glucose Urine Negative NEG mg/dL [facility] Bilirubin Urine Negative NEG [facility] Ketones Urine Negative NEG mg/dL [facility] Specific [place] 1.025 1.003 - [place] Urine 1.035 [facility]3] LAB Blood Urine Small (A) NEG [facility] pH Urine 5.0 5.0 - 7.0 [place] pH [facility]3] LAB Protein Albumin Negative NEG mg/dL [place] Urine [facility]3] LAB Urobilinogen 0.2 0.2 - 1.0 [place] Urine EU/dL [facility]3] LAB Nitrite Urine Negative NEG [facility] Leukocyte Negative NEG [place] Esterase Urine [facility]3] LAB Source Midstream [place] Urine [facility]3] LAB Specimen Anatomical Collection Method Collection Time Receive d Time (Source) Location / / Volume Laterality 10/06/2006 9:01 AM 7 9:03 CDT AM CDT Ian Araujo PA-C LABORATORY Performing Organization Address City/State/ZIP Code Phon e Number [facility] [address] [place] [address] [facility] documented in this encounter Visit Diagnoses Diagnosis Hematuria - Primary Urinary tract infection, site not specif ied documented in this encounter Care Teams Binder Folder Operator Relationship Specialty Start Date End Date Ramy Sánchez MD PCP - General 09/20/01 05/25/21 [address] [place] [address] documented as of this encounter
--- OUTSIDE RECORDS SUMMARY | 2021-10-18 13:05 | XMS_ITS | Encounter Summary ---
:1940 Author Organization [facility] Address [address] [place] [address]. [place] [address] Care Team Providers Name Role Phone Ramy Sánchez MD Primary Care Provider [phone] Reason for Visit Reason Comments Diabetes Fasting for follow up. Encounter Details Date Type Department Care Team Description 07/30/2006 Office Visit [facility] Ramy Sánchez DIABET ES MELLITUS TYPE II-UNCOMPL (Primary Dx); [facility] [place] HYPERLIPIDEMIA NEC/NOS [address] [address] [phone] Social History Tobacco Use Types Packs/Day Years Used Date Current Every Day Smoker Cigars Comments: couple times a year Alcohol Use Standard Drinks/Week Comments Not Asked 0 (1 standard drink = 0.6 oz pure alcoho l) Sex Assigned at Date Recorded Not on file documented as of this encounter Last Filed Vital Signs Vital Sign Reading Time Taken Comments Blood Pressure 112/80 07/30/2006 10:00 AM CDT Pulse - - Temperature - - Respiratory Rate - - Oxygen Saturation - - Inhaled Oxygen Concentration - - Weight 103.4 kg (228 lb) 07/30/2006 10:00 AM CDT Height 175.3 cm (5' 9) 07/30/2006 10:00 AM CDT Body Mass Index 33.67 07/30/2006 10:00 AM CDT documented in this encounter Progress Notes Ramy Sánchez - 07/31/2006 8:42 AM CDT SUBJECTIVE: CC: Jd Go is a 65 year old male who presents for the good results of his diabetic ed HPI: home monitoring is successful, weight needs to come down, reviewed his lipids and bp PROBLEM LIST: Patient Active Problem List Diagnoses Code ??? HYPERLIPIDEMIA NEC/NOS 272.4 ??? BENIGN HYPERTENSION 401.1 ??? SCREENING MAL NEOP-PROSTATE V76.44 ??? ALLERGIC RHINITIS NOS 477.9 ??? OTHER ABNORMAL GLUCOSE 790.29 PAST MEDICAL HISTORY: Past Medical History Diagnosis Date ??? CALCULUS OF KIDNEY PAST SURGICAL HISTORY: Past Surgical History Procedure Date ??? Nonspecific procedure 1965 surgery on shoulder ??? Nonspecific procedure 1985 surgery on lacerated tendons R hand CURRENT MEDICATIONS: Current outpatient prescriptions Medication Sig ??? LISINOPRIL 20 MG OR TABS ONE DAILY ??? ASPIRIN 81 MG OR TABS ONE DAILY ??? TYRA 180 MG OR TABS 1 TABLET DAILY ??? LIPITOR 10 MG OR TABS one [...] changes in mood or affect EXAM: BP 112/80 Ht 5' 9 (1.75m) Wt 228 lbs (103.4kg) GENERAL APPEARANCE: healthy, alert and no distress [...] HSM or masses and bowel sounds normal SKIN: no suspicious lesions or rashes NEURO: Normal strength and tone, sensory exam grossly normal, mentation intact and speech normal ASSESSMENT/PLAN Encounter Diagnoses Code Name Primary? Qualifier ??? 250.00 DIABETES MELLITUS TYPE II-UNCOMPL Yes ??? 272.4 HYPERLIPIDEMIA NEC/NOS Three months I have discussed with patient the risks, benefits, medications, treatment options and modalities. I have instructed the patient to call or schedule a follow-up appointment if any problems or failureto improve. documented in this encounter Nursing Notes 07/30/2006 10:00 AM CDT >> KP MCGARRY 07/30/2006 10:02 am Patient presents with: Diabetes - Fasting for follow up. initial BP 112/80 Ht 5' 9 (1.75m) Wt 228 lbs (103.4kg) Body mass index is 33.65 kg/(m^2). BP completed using cuff size large. MARCOS Rosen documented in this encounter Plan of Treatment Not on filedocumented as of this encounter Procedures Procedure Name Priority Date/Time Associated Diagnosis Comme nts HCL AST Routine 07/30/2006 10:13 AM Diabetes Mellitus Res ults for this CDT Type Ii-Uncompl procedure are in Hyperlipidemia the results Nec/Nos section. CL AFF A.M.A. LIPID Routine 07/30/2006 10:13 AM Diabetes Melli tus Results for this PANEL CDT Type Ii-Uncompl procedure are in Hyperlipidemia the results Nec/Nos section. documented in this encounter Results (ABNORMAL) A.M.A. LIPID PANEL (07/30/2006 10:13 AM CDT) P athologist Signature Cholesterol 131 0 - 200 [place] mg/dL CLINIC LAB Comment: LDL Cholesterol is the primary guide to therapy: LDL-cholesterol goal in high risk patients is <100 mg/dL and in very high risk patients is <70 mg/dL. The NCEP recommends further evaluation of: patients with cholesterol <200 mg/dL if additional risk factors are present, cholesterol >240 mg/dL, triglycerides >150 mg/dL, or HDL <40 mg/dL. Triglycerides 123 0 - 150 mg/dL [facility] HDL Cholesterol 28 (L) 40 - 110 mg/dL [facility] LDL Cholesterol Calculated 79 0 - 129 mg/dL [facility] Comment: LDL Cholesterol is the primary guide to therapy: LDL-cholesterol goal in high risk patients is <100 mg/dL and in very high risk patients is <70 mg/dL. VLDL-Cholesterol 25 0 - 30 mg/dL [facility] Cholesterol/HDL Ratio 4.7 0.0 - 5.0 [facility] Specimen Anatomical Collection Method Collection Time Receive d Time (Source) Location / / Volume Laterality 07/30/2006 10:13 07/30/2006 AM CDT 10:15 AM CDT Ramy Sánchez MD LABORATORY Performing Organization Address City/[facility]/ZIP Code Phon e Number [address] [address] [phone] [facility] AST (07/30/2006 10:13 AM CDT) P athologist Signature AST 29 0 - 55 U/L [facility] Specimen Anatomical Collection Method Collection Time Receive d Time (Source) Location / / Volume Laterality 07/30/2006 10:13 07/30/2006 AM CDT 10:15 AM CDT Ramy Sánchez MD LABORATORY Performing Organization Address [facility] Phon e Number [facility] [address] [place] [phone] [facility] documented in this encounter Visit Diagnoses Diagnosis Type II or unspecified type diabetes chandler litus without mention of complication, not stated as uncontrolled - Primary Other and unspecified hyperlipidemia documented in this encounter Care Teams Furnishings Conservator Relationship Specialty Start Date End Date Ramy Sánchez MD PCP - General 09/20/01 05/25/21 [address] [place] [address] documented as of this encounter
--- OUTSIDE RECORDS SUMMARY | 2021-10-18 13:05 | XMS_ITS | Encounter Summary ---
:1940 Author Organization [facility] Address [address] [place] [address]. [place] [address] Care Team Providers Name Role Phone Ramy Sánchez MD Primary Care Provider Reason for Referral - Closed Specialty Diagnoses / Procedures Referred By Contact Refer red To Contact Diagnoses Hematuria Ramy Sánchez [place] [id number] [place] [address] [phone] Referral ID Status Reason Start Date Expiration Date Visits Requ ested Visits Authorized [id number] Closed 11/20/2003 03/11/2011 1 1 Reason for Visit Reason Comments Allergies on going UTI pain Rectal Problem hemrrhoids Encounter Details Date Type Department Care Team Description 11/20/2003 Office Visit [facility] Ramy Sánchez RACT INFECTION NOS (Primary Dx); Clinic [facility]und[facility]th Aguirre MD ALLERGIC RHINITIS NOS; [address] [place] [address] HYPERLIPIDEMIA NEC/NOS ; [place], [place] EXT HEM RRHOID W COMP NEC; [id number] ANAL FISSURE; [phone] HEMATURIA (Work) Social History Tobacco Use Types Packs/Day Years Used Date Current Every Day Smoker Cigars Comments: couple times a year Alcohol Use Standard Drinks/Week Comments Not Asked 0 (1 standard drink = 0.6 oz pure alcoho l) Sex Assigned at Date Recorded Not on file documented as of this encounter Last Filed Vital Signs Vital Sign Reading Time Taken Comments Blood Pressure 132/84 11/20/2003 10:25 AM CDT Pulse - - Temperature 36.1 ??C (96.9 ??F) 11/20/2003 10:25 AM CDT Respiratory Rate - - Oxygen Saturation - - Inhaled Oxygen Concentration - - Weight 105.7 kg (233 lb) 11/20/2003 10:25 AM CDT Height - - Body Mass Index - - documented in this encounter Progress Notes 11/20/2003 10:00 AM CDT SUBJECTIVE: CC: Jd Go is a 62 year old male who presents for hemmorhoid and fissure with pain in anus,lipid recheck and single episode of gross hematuria HPI: had dysuria and frequencey PROBLEM LIST: Patient Active Problem List: HYPERLIPIDEMIA NEC/NOS[272.4] BENIGN HYPERTENSION[401.1] SCREENING MAL NEOP-PROSTATE[V76.44] PAST MEDICAL HISTORY: Review of patient's past medical history indicates: CALCULUS OF KIDNEY PAST SURGICAL HISTORY: Review of patient's past surgical history indicates: NONSPECIFIC PROCEDURE 1965 Comment: surgery on shoulder NONSPECIFIC PROCEDURE 1985 Comment: surgery on lacerated tendons R hand CURRENT MEDICATIONS: Current prescriptions: ANUSOL-HC CREA 2.5 % EX twice daily to anal area LIPITOR 10 MG OR TABS 1 tab PO QD (Once per day) LISINOPRIL 10 MG OR TABS 1 tab PO QD (Once per day) FAMILY HISTORY: Patient's family history None on file HEALTH MAINTENANCE: REVIEW OF OUTSIDE RECORDS: NO REVIEW OF SYSTEMS: C: NEGATIVE for fever, chills, change in weight I: NEGATIVE for worrisome rashes, moles or lesions E/M: NEGATIVE for ear, mouth and throat problems R: NEGATIVE for significant cough or SOB CV: NEGATIVE for chest pain, palpitations or peripheral edema GI: NEGATIVE for nausea, abdominal pain, heartburn, or change in bowel habits : NEGATIVE for frequency, dysuria, or hematuria EXAM: BP 132/84 Temp (Src) 96.9 (Oral) Wt 233 lbs (105.7kg) GENERAL APPEARANCE: healthy, alert and no distress [...] and no murmur, click or rub - Abdomen: soft, nontender, no HSM or masses and bowel sounds normal ASSESSMENT/PLAN 599.0 URIN TRACT INFECTION NOS cipro 477.9 ALLERGIC RHINITIS NOS 272.4 HYPERLIPIDEMIA NEC/NOS 455.5 EXT HEMRRHOID W COMP NEC 565.0 ANAL FISSURE 599.7 HEMATURIA-Urology referral, repeat psa early I have discussed with patient the risks, benefits, medications, treatment options and modalities. I have instructed the patient to call or schedule a follow-up appointment if any problems or failure to improve. documented in this encounter Nursing Notes 11/20/2003 10:00 AM CDT >> KP MCGARRY 11/20/03 10:26 am Jd Go presents for multiple concerns. Hemrrhoids, possible UTI painful urination with frequency and on going allergy symptons. Initial BP 132/84 Temp (Src) 96.9 (Oral) Wt 233 lbs (105.7kg) completed using BP cuff size: large. MARCOS Rosen documented in this encounter Plan of Treatment Not on filedocumented as of this encounter Procedures Procedure Name Priority Date/Time Associated Diagnosis Comme nts ZZ CONSULT Routine 12/01/2003 Hematuria UROLOGY HCL PROSTATE SPEC Routine 11/20/2003 11:10 AM Hematuria Res ults for this ANTIGEN,SCREEN CDT procedure are in the results section. HCL UA MICRO IF Routine 11/20/2003 10:32 AM Urin Tract Infecti on Results for this POSITIVE CDT Nos procedure are i n the results section. CL AFF MICRO Routine 11/20/2003 10:32 AM Urin Tract Infection Results for this EXAM-URINE CDT Nos procedure are i n the results section. documented in this encounter Results CONSULT UROLOGY (12/01/2003) Narrative This result has an attachment that is no t available. Ramy Sánchez MD REFERRAL PROSTATE SPEC ANTIGEN,SCREEN (11/20/2003 11:10 AM CDT) P athologist Signature PSA 0.21 0 - 4 ug/L [facility] Specimen Anatomical Collection Method Collection Time Receive d Time (Source) Location / / Volume Laterality 11/20/2003 11:10 11/20/2003 AM CDT 11:15 AM CDT Ramy Sánchez MD LABORATORY Performing Organization Address City/[facility]/ZIP Code Phon e Number [facility] [address] [place] [address] [facility] (ABNORMAL) MICRO EXAM-URINE (11/20/2003 10:32 AM CDT) [facility] Method Time Signature WBC Urine 0-2 0 - 2 [place] /HPF [facility] RBC Urine 0-2 0 - 2 [place] /HPF [facility] Squamous EPI Few FEW /LPF [facility] Bacteria Urine Few (A) NEG /HPF [facility] Mucous Urine Present (A) NEG /LPF [facility] Specimen Anatomical Collection Method Collection Time Receive d Time (Source) Location / / Volume Laterality 11/20/2003 10:32 11/20/2003 AM CDT 10:37 AM CDT Ramy Sánchez MD LABORATORY Performing Organization Address City/[facility]/ZIP Code Phon e Number [facility] [id number] [place] [address] [facility] (ABNORMAL) UA MICRO IF POSITIVE (11/20/2003 10:32 AM CDT) [facility] gist Method Time Signature Color Urine Yellow [facility] Appearance Urine Clear [facility] Glucose Urine Negative NEG mg/dL [facility] Bilirubin Urine Negative NEG [facility] Ketones Urine Negative NEG mg/dL [facility] Specific [place] 1.025 1.001 - [place] Urine 1.035 [facility] Blood Urine Small (A) NEG [facility] pH Urine 5.0 5.0 - 7.0 [place] pH [facility] Protein Albumin Negative NEG mg/dL [place] Urine [facility] Urobilinogen 0.2 0.2 - 1.0 [place] Urine EU/dL [facility] Nitrite Urine Negative NEG [facility] Leukocyte Negative NEG [place] Esterase Urine [facility] Source Midstream [place] Urine [facility] Specimen Anatomical Collection Method Collection Time Receive d Time (Source) Location / / Volume Laterality 11/20/2003 10:32 11/20/2003 AM CDT 10:37 AM CDT Ramy Sánchez MD LABORATORY Performing Organization Address City/State/[facility] Code Phon e Number [facility] [address] [place] [address] [facility] documented in this encounter Visit Diagnoses Diagnosis Urinary tract infection, site not specif ied - Primary Allergic rhinitis, cause unspecified HYPERLIPIDEMIA NEC/NOS Other and unspecified hyperlipidemia External hemorrhoids with other complica tion Anal fissure Hematuria documented in this encounter Care Teams Job Molder Relationship Specialty Start Date End Date Ramy Sánchez MD PCP - General 09/20/01 05/25/21 [address] [place] [address] documented as of this encounter
--- OUTSIDE RECORDS SUMMARY | 2021-10-18 13:05 | XMS_ITS | Encounter Summary ---
:1939 Author Organization [facility] Address [address] [place] [address]. [place] [address] Care Team Providers Name Role Phone Ramy Sánchez MD Primary Care Provider [phone] Encounter Details Date Type Department Care Team Description 10/31/2006 Telephone [facility] Ramy Sánchez [place] MD [address] [place] [phone] [place] [phone] [place] [address] [phone] (Wo rk) Social History Tobacco Use Types [...] on filedocumented in this encounter Care Teams Bell Person Relationship Specialty Start Date End Date Ramy Sánchez MD PCP - General 09/20/01 05/25/21 [address] [place], [place] [id number] documented as of this encounter
--- OUTSIDE RECORDS SUMMARY | 2021-10-18 13:05 | XMS_ITS | Encounter Summary ---
:1939 Author Organization [facility] Address [address] [place] [address]. [place] [address] Care Team Providers Name Role Phone Ramy Sánchez MD Primary Care Provider [phone] Reason for Visit Reason Comments RECHECK Follow up urinary infection, treated last week Diabetes Needs A!C recheck Encounter Details Date Type Department Care Team Description 10/11/2006 Office Visit [facility] Ramy Sánchez Y SYS SYMPTOM NEC (Primary Dx); Clinic [facility]th Aguirre MD OTHER ABNORMAL GLUCOSE [address] [phone] [phone] Social History Tobacco Use Types Packs/Day Years Used Date Current Every Day Smoker Cigars Comments: couple times a year Alcohol Use Standard Drinks/Week Comments Not Asked 0 (1 standard drink = 0.6 oz pure alcoho l) Sex Assigned at Date Recorded Not on file documented as of this encounter Last Filed Vital Signs Vital Sign Reading Time Taken Comments Blood Pressure 118/70 10/11/2006 9:30 AM CDT Pulse - - Temperature - - Respiratory Rate - - Oxygen Saturation - - Inhaled Oxygen Concentration - - Weight 99.8 kg (220 lb) 10/11/2006 9:30 AM CDT Height - - Body Mass Index 32.49 10/06/2006 9:00 AM CDT documented in this encounter Progress Notes Tracee Del Rio - 11/15/2006 2:22 PM CDT Comment: Diabetes Education Pt completed the class series and will be discharged from the program. A1c dropped from 7.1 to 5.6. Thank you for this referral. Tracee Del Rio RD,CDE Ramy Sánchez - 10/11/2006 10:19 AM CDT SUBJECTIVE: CC: Jd Go is a 65 year old male who presents for recurrent UTI, he had a Urology workup last winter HPI: notes malaise and dysuria, PROBLEM LIST: Patient Active Problem List Diagnoses [...] MEDICATIONS: Current outpatient prescriptions Medication Sig ??? FLONASE INHA 50 MCG/DOSE NA as directed ??? CIPRO 250 MG OR TABS ONE TABLET TWICE DAILY ??? LISINOPRIL 20 MG OR TABS ONE DAILY ??? ASPIRIN 81 MG OR TABS ONE DAILY ??? LIPITOR 10 MG OR TABS one daily ??? TYRA 180 MG OR TABS 1 TABLET DAILY FAMILY HISTORY: No family history on file [...] E: NEGATIVE for temperature intolerance, skin/hair changes EXAM: BP 118/70 Wt 220 lbs (99.8kg) GENERAL APPEARANCE: healthy, alert and no distress [...] or masses and bowel sounds normal ASSESSMENT/PLAN Encounter Diagnoses Code Name Primary? Qualifier ??? 788.9 URINARY SYS SYMPTOM NEC Yes ??? 790.29 OTHER ABNORMAL GLUCOSE Known glucose intolerance: check A1c consider Rx changes I have discussed with patient the risks, benefits, medications, treatment options and modalities. I have instructed the patient to call or schedule a follow-up appointment if any problems or failureto improve. documented in this encounter Nursing Notes 10/11/2006 9:30 AM CDT >> PATRICIA FORBES 10/11/2006 9:41 am Jd Go presents for follow up on urinary infection, treated with Cipro on Sunday. HGB A1C check Initial BP 118/70 Wt 220 lbs (99.8kg) Estimated Body mass index is 32.47 kg/(m^2) as calculated from: Height of 5' 9 (1.753 m) as of 10/06/06 Weight of 220 lbs (99.791 kg) as of this encounter. BP completed using cuff size: large Patricia Forbse RN documented in this encounter Plan of Treatment Not on filedocumented as of this encounter Procedures Procedure Name Priority Date/Time Associated Comments Diagnosis HCL GLYCATED Routine 10/11/2006 10:19 AM Other Abnormal Result s for this HEMOGLOBIN CDT Glucose procedure are i n the results section. HCL UA MICRO IF Routine 10/11/2006 10:01 AM Urinary Sys Sympto m Results for this POSITIVE CDT Nec procedure are i n the results section. CL AFF MICRO Routine 10/11/2006 10:01 AM Urinary Sys Symptom R esults for this EXAM-URINE CDT Nec procedure are i n the results section. documented in this encounter Results HEMOGLOBIN A1C (10/11/2006 10:19 AM CDT) athologist Signature Hemoglobin A1C 5.6 4.3 - 6.0 [place] POCT % [facility] Specimen Anatomical Collection Method Collection Time Receive d Time (Source) Location / / Volume Laterality 10/11/2006 10:19 10/11/2006 AM CDT 10:20 AM CDT Ramy Sánchez MD LABORATORY Performing Organization Address City/State/ZIP Code Phon e Number [facility] [address] [place] [address] [facility] MICRO EXAM-URINE (10/11/2006 10:01 AM CDT) athologist Signature WBC Urine O - 2 0 - 2 /HPF [facility] RBC Urine O - 2 0 - 2 /HPF [facility] Specimen Anatomical Collection Method Collection Time Receive d Time (Source) Location / / Volume Laterality 10/11/2006 10:01 10/11/2006 AM CDT 10:04 AM CDT Ramy Sánchez MD LABORATORY Performing Organization Address City/[facility]/ZIP Code Phon e Number [facility] [id number] [place] [address] [facility] (ABNORMAL) UA MICRO IF POSITIVE (10/11/2006 10:01 AM CDT) [facility] gist Method Time Signature Color Urine Yellow [facility] Appearance Urine Clear [facility] Glucose Urine 100 (A) NEG mg/dL [facility] Bilirubin Urine Negative NEG [facility] Ketones Urine Trace (A) NEG mg/dL [facility] Specific [place] >1.030 1.003 - [place] Urine 1.035 [facility] Blood Urine Trace (A) NEG [facility] pH Urine 5.5 5.0 - 7.0 [place] pH [facility] Protein Albumin Negative NEG mg/dL [place] Urine [facility] Urobilinogen 0.2 0.2 - 1.0 [place] Urine EU/dL [facility] Nitrite Urine Negative NEG [facility] Leukocyte Negative NEG [place] Esterase Urine [facility] Source Midstream [place] Urine [facility] Specimen Anatomical Collection Method Collection Time Receive d Time (Source) Location / / Volume Laterality 10/11/2006 10:01 10/11/2006 AM CDT 10:04 AM CDT Ramy Sánchez MD LABORATORY Performing Organization Address City/State/[facility] Code Phon e Number [facility] [address] [place] [address] [facility] documented in this encounter Visit Diagnoses Diagnosis Urinary sys symptom NEC - Primary Other symptoms involving urinary system Other abnormal glucose documented in this encounter Care Teams Dairy Husbandman Relationship Specialty Start Date End Date Ramy Sánchez MD PCP - General 09/20/01 05/25/21 [address] [place] [address] documented as of this encounter
--- OUTSIDE RECORDS SUMMARY | 2021-10-18 13:05 | XMS_ITS | Encounter Summary ---
:1939 Author Organization [facility] Address [address] [place] [address] Care Team Providers Name Role Phone Ramy Sánchez MD Primary Care Provider [phone] Reason for Visit Reason Comments RECHECK f/u meds, BP check Blood Draw pt requesting PSA and hgb A1 C Encounter Details Date Type Department Care Team Description 06/14/2006 Office Visit [facility] Elijah, HYPERLIPID EMIA NEC/NOS; [facility] Fady Evans BENIGN HYPERTENSION; [address] [facility] MD Stevo OTHER ABNORMAL GLUCOSE; [place], [place] ARIJAI AESTHETIC SCREENI NG MAL NEOP-PROSTATE [phone] [facility] [phone] [place], [place] [address] (Wo rk) Social History Tobacco Use Types Packs/Day Years Used Date Current Every Day Smoker Cigars Comments: couple times a year Alcohol Use Standard Drinks/Week Comments Not Asked 0 (1 standard drink = 0.6 oz pure alcoho l) Sex Assigned at Date Recorded Not on file documented as of this encounter Last Filed Vital Signs Vital Sign Reading Time Taken Comments Blood Pressure 134/80 06/14/2006 8:00 AM CDT Pulse 72 06/14/2006 8:00 AM CDT Temperature - - Respiratory Rate 16 06/14/2006 8:00 AM CDT Oxygen Saturation - - Inhaled Oxygen Concentration - - Weight 108 kg (238 lb) 06/14/2006 8:00 AM CDT Height 172.7 cm (5' 8) 06/14/2006 8:00 AM CDT Body Mass Index 36.19 06/14/2006 8:00 AM CDT documented in this encounter Progress Notes Fady Nava - 06/14/2006 8:27 AM CDT Subjective: Jd Go is a 65 year old male with hyperlipidemia and hypertension. He was found to have an elevated glucose in 01/15. He was told to follow-up for HgbA1c. Current outpatient prescriptions Medication Sig ??? TYRA 180 MG OR TABS 1 TABLET DAILY ??? LISINOPRIL 10 MG OR TABS one daily ??? LIPITOR 10 MG OR TABS one daily Cardiovascular risk analysis - 65 year old male LDL goal is under 100. ROS: taking medications as instructed, no medication side effects noted, no TIA's, no chest pain on exertion, no dyspnea on exertion, no swelling of ankles, no orthostatic dizziness or lightheadedness,no orthopnea or paroxysmal nocturnal dyspnea. New concerns: none. Objective: BP 134/80 Pulse 72 Resp 16 Ht 5' 8 (1.73m) Wt 238 lbs (108.0kg) Appearance healthy, alert and cooperative. General exam BP noted to be well controlled today in office, S1, S2 normal, no gallop, no murmur, chest clear, no edema. Lab review: orders written for new lab studies as appropriate; see orders. ASSESSMENT/PLAN: 272.4 HYPERLIPIDEMIA NEC/NOS Note: due for recheck Plan: Not fasting. Recommended starting baby ASA today. 401.1 BENIGN HYPERTENSION Note: controlled Plan: A.M.A. COMPREHENSIVE MET.PANEL 790.29 OTHER ABNORMAL GLUCOSE Note: elevated glucose- (non-fasting today) Plan: HEMOGLOBIN A1C, A.M.A. COMPREHENSIVE MET.PANEL V76.44 SCREENING MAL NEOP-PROSTATE Plan: PROSTATE SPEC ANTIGEN,SCREEN Fady Nava MD [facility] documented in this encounter Nursing Notes 06/14/2006 8:00 AM CDT >> JOSSIE MO 06/14/2006 8:16 am Patient presents with: RECHECK - f/u meds, BP check Initial BP 134/80 Pulse 72 Resp 16 Ht 5' 8 (1.73m) Wt 238 lbs (108.0kg) Body mass index is 36.20 kg/(m^2).. BP completed using cuff size large Jossie Mo/MARCOS documented in this encounter Plan of Treatment Not on filedocumented as of this encounter Procedures Procedure Name Priority Date/Time Associated Diagnosis Comme nts HCL PROSTATE SPEC Routine 06/14/2006 8:26 Screening Mal Result s for this ANTIGEN,SCREEN AM CDT Neop-Prostate procedure ar e in the results section. HCL COMPREHENSIVE Routine 06/14/2006 8:26 Other Abnormal Resul ts for this METABOLIC PANEL AM CDT Glucose procedure are in Benign Hypertension the resu lts section. [facility] GLYCATED Routine 06/14/2006 8:26 Other Abnormal Results fo r this HEMOGLOBIN AM CDT Glucose procedure are i n the results section. documented in this encounter Results (ABNORMAL) A.M.A. COMPREHENSIVE MET.PANEL (06/14/2006 8:26 AM CDT) Analysis Performed At Patho logist Time Signature Sodium 139 133 - 144 [facility] mmol/L [facility] Potassium 4.1 3.4 - 5.3 [facility] mmol/L [facility] Chloride 102 94 - 109 [facility] mmol/L [facility] Carbon Dioxide 27 20 - 32 [facility] mmol/L [facility] Anion Gap 9 6 - 17 [facility] mmol/L [facility] Glucose 237 (H) 60 - 110 [facility] mg/dL [facility] Urea Nitrogen 20 7 - 30 [facility] mg/dL [facility] Creatinine 0.80 0.80 - [facility] 1.50 mg/dL [facility] GFR Estimate >90 >60 [facility] mL/min/1.7 [facility] m2 LAB GFR Estimate If >90 >60 [facility] Black mL/min/1.7 [facility] m2 LAB Calcium 9.1 8.5 - 10.4 [facility] mg/dL [facility] Bilirubin Total 0.6 0.2 - 1.3 [facility] mg/dL [facility] Albumin 4.2 3.2 - 4.5 [facility] g/dL [facility] Protein Total 7.6 6.0 - 8.2 [facility] g/dL [facility] Alkaline 81 40 - 150 [facility] Phosphatase U/L [facility] ALT 31 0 - 70 U/L [facility] AST 29 0 - 55 U/L [facility] Specimen Anatomical Collection Method Collection Time Receive d Time (Source) Location / / Volume Laterality 06/14/2006 8:26 AM 7 8:31 CDT AM CDT Fady Nava MD LABORATORY Performing Organization Address City/State/ZIP Code Phon e Number [facility] [address] [place] [address] [facility] (ABNORMAL) HEMOGLOBIN A1C (06/14/2006 8:26 AM CDT) P athologist Signature Hemoglobin A1C 7.1 (H) 4.3 - 6.0 [place] POCT [facility] Specimen Anatomical Collection Method Collection Time Receive d Time (Source) Location / / Volume Laterality 06/14/2006 8:26 AM 7 8:31 CDT AM CDT Fady Nava MD LABORATORY Performing Organization Address City/State/ZIP Code Phon e Number [facility] [address] [place] [address] [facility] PROSTATE SPEC ANTIGEN,SCREEN (06/14/2006 8:26 AM CDT) P athologist Signature PSA 0.96 0 - 4 ug/L [facility] Specimen Anatomical Collection Method Collection Time Receive d Time (Source) Location / / Volume Laterality 06/14/2006 8:26 AM 7 8:31 CDT AM CDT Fday Nava MD LABORATORY Performing Organization Address City/State/ZIP Code Phon e Number [facility] [address] [place] [address] [facility] documented in this encounter Visit Diagnoses Diagnosis Other and unspecified hyperlipidemia Essential hypertension, benign Other abnormal glucose Special screening for malignant neoplasm of prostate documented in this encounter Care Teams Water Pumping Station Engineer Relationship Specialty Start Date End Date Ramy Sánchez MD PCP - General 09/20/01 05/25/21 [address] [place] [address] documented as of this encounter
--- OUTSIDE RECORDS SUMMARY | 2021-10-18 13:05 | XMS_ITS | Encounter Summary ---
:1940 Author Organization [facility] Address [address] [place] [address]. [place] [address] Care Team Providers Name Role Phone Ramy Sánchez MD Primary Care Provider [phone] Reason for Visit Reason Comments Refill Request needs med refill on lipitor and lisinopril--fasting labs Encounter Details Date Type Department Care Team Description 08/06/2003 Office Visit [facility] Ramy Sánchez HYPERL IPIDEMIA NEC/NOS; [facility] [place] MD BENIGN HYPERTENSION; [address] [place] [id number] [place] [address] [place] [address] [phone] Social History Tobacco Use Types Packs/Day Years Used Date Never Assessed Sex Assigned at Date Recorded Not on file documented as of this encounter Last Filed Vital Signs Vital Sign Reading Time Taken Comments Blood Pressure 120/70 08/06/2003 12:15 PM CDT Pulse - - Temperature - - Respiratory Rate - - Oxygen Saturation - - Inhaled Oxygen Concentration - - Weight 104.8 kg (231 lb) 08/06/2003 12:15 PM CDT Height - - Body Mass Index - - documented in this encounter Progress Notes 08/06/2003 12:15 PM CDT SUBJECTIVE: Jd Go, a 62 year old male scheduled an appointment to discuss the following issu es: HYPERLIPIDEMIA NEC/NOS BENIGN HYPERTENSION SCREENING MAL [id number]-[id number] exam Medical, so cial, surgical, and family histories reviewed. ROS: C: NEGATIVE for fever, chills, change in weight I: NEGATIVE for worrisome rashes, moles or lesions E: NEGATIVE for vision changes or irritation E/M: NEGATIVE for ear, mouth and throat problems R: NEGATIVE for significant cough or SOB CV: NEGATIVE fo r chest pain, palpitations or peripheral edema GI: NEGATIVE for nausea, abdominal pain, heartburn, or change in bowel habits : NEGATIVE for frequency, dysuria, or hematuria M: NEGATIVE for significant arthralgias or myalgia N: NEGATIVE for weakness, dizziness or paresthesias E: NEGATIVE for temperatu re intolerance, skin/hair changes. OBJECTIVE: BP 120/70 Wt 231 lbs (104.8kg) EXAM: GENERAL APPEA ULYSSES: healthy, alert and no distress EYES: EOMI, fundi benign- PERRL HENT: ear canals and TM's ivana l and nose and mouth without ulcers or lesions NECK: no adenopathy, no asymmetry, masses, or scars an d thyroid normal to palpation RESP: lungs clear to auscultation - no rales, rhonchi or wheezes CV: re gular rates and rhythm, normal S1 S2, no S3 or S4 and no murmur, click or rub - Abdomen: soft, nonten rajiv, no HSM or masses and bowel sounds normal Rectal exam: prostate symmetric w/o nodularity, no mass es palpated GU_male: testicles normal without atrophy or masses and no hernias. ASSESSMENT/PLAN: 27 2.4 HYPERLIPIDEMIA NEC/NOS Note: Plan: A.M.A. LIPID PANEL, A.M.A. HEPATIC PANEL 401.1 BENIGN HYPERTENSION Note: Plan: V76.44 SCREENING MAL NEOP-PROSTATE Note: Plan: PROSTATE SPEC ANTIGEN,SC LEAN documented in this encounter Nursing Notes 08/06/2003 12:15 PM CDT >> LISANDRA PEDERSEN 08/06/2003 12:14 pm BP cuff size: large documented in this encounter Plan of Treatment Not on filedocumented as of this encounter Procedures Procedure Name Priority Date/Time Associated Diagnosis Comme nts HCL PROSTATE SPEC Routine 08/06/2003 12:32 Screening Mal Resul ts for this ANTIGEN,SCREEN PM CDT Neop-Prostate procedure ar e in the results section. HCL HEPATIC PANEL Routine 08/06/2003 12:32 Hyperlipidemia Nec/ Nos Results for this PM CDT procedure are i n the results section. CL AFF A.M.A. Routine 08/06/2003 12:32 Hyperlipidemia Nec/Nos Results for this LIPID PANEL PM CDT procedure are i n the results section. documented in this encounter Results PROSTATE SPEC ANTIGEN,SCREEN (08/06/2003 12:32 PM CDT) athologist Signature PSA 0.29 0 - 4 ug/L [facility] Specimen Anatomical Collection Method Collection Time Receive d Time (Source) Location / / Volume Laterality 08/06/2003 12:32 08/06/2003 PM CDT 12:37 PM CDT Ramy Sánchez MD LABORATORY Performing Organization Address City/[facility]/ZIP Code Phon e Number [facility] [address] [place] [address] [facility] A.M.A. HEPATIC PANEL (08/06/2003 12:32 PM CDT) athologist Signature Bilirubin 0.0 0.0 - 0.3 [facility] Conjugated mg/dL CLINIC LAB Bilirubin Delta 0.1 0.0 - 0.4 [facility] mg/dL [facility] Bilirubin Total 0.6 0.2 - 1.3 [facility] mg/dL [facility] Albumin 4.3 3.2 - 4.5 [facility] g/dL [facility] Protein Total 8.2 6.0 - 8.2 [facility] g/dL [facility] LAB Alkaline 73 40 - 150 [facility] Phosphatase U/L CLINIC LAB ALT 25 0 - 70 U/L [facility] AST 32 0 - 55 U/L [facility] Specimen Anatomical Collection Method Collection Time Receive d Time (Source) Location / / Volume Laterality 08/06/2003 12:32 08/06/2003 PM CDT 12:37 PM CDT Ramy Sánchez MD LABORATORY Performing Organization Address City/[facility]/ZIP Code Phon e Number [facility] [address] [place] [address] [facility] (ABNORMAL) A.M.A. LIPID PANEL (08/06/2003 12:32 PM CDT) P athologist Signature Cholesterol 177 <200 mg/dL [facility] Comment: Cholesterol Reference Range: <200 ??The NCEP recommends further ? evaluation of: ? 1. ??Patients with cholesterol ? greater than 200 mg/dL ? if additional risk facto rs ? are present. ? 2. ??All patients with a ? cholesterol greater than ? 240 mg/dL. Triglycerides 159 (H) <150 mg/dL [facility] HDL Cholesterol 38 (L) >40 mg/dL [facility] LDL Cholesterol Calculated 107 <130 mg/dL [facility] VLDL-Cholesterol 32 (H) 0 - 30 mg/dL [facility] Cholesterol/HDL Ratio 4.7 0.0 - 5.0 [facility] Specimen Anatomical Collection Method Collection Time Receive d Time (Source) Location / / Volume Laterality 08/06/2003 12:32 08/06/2003 PM CDT 12:37 PM CDT Ramy Sánchez MD LABORATORY Performing Organization Address City/State/ZIP Code Phon e Number [address] [address] [facility] documented in this encounter Visit Diagnoses Diagnosis Other and unspecified hyperlipidemia Essential hypertension, benign Special screening for malignant neoplasm of prostate documented in this encounter Care Teams Reference Data Expert Relationship Specialty Start Date End Date Ramy Sánchez MD PCP - General 09/20/01 05/25/21 [address] [place] [address] documented as of this encounter
--- OUTSIDE RECORDS SUMMARY | 2021-10-18 13:05 | XMS_ITS | Encounter Summary ---
:1939 Author Organization [facility] Address [address] [place] [address]. [place] [address] Care Team Providers Name Role Phone Ramy Sánchez MD Primary Care Provider [phone] Reason for Visit Reason Comments Medication Problem side effects Encounter Details Date Type Department Care Team Description 06/15/[address] [facility] Ramy Sánchez IMPOTE NCE, ORGANIC ORIGN; [facility] [place] MD Timothy HYPERLIPIDEMIA NEC/NOS; [address] [facility] [id number] [place] [address] [place] [address] [phone] Social History Tobacco Use Types Packs/Day Years Used Date Current Every Day Smoker Cigars Comments: couple times a year Alcohol Use Standard Drinks/Week Comments Not Asked 0 (1 standard drink = 0.6 oz pure alcoho l) Sex Assigned at Date Recorded Not on file documented as of this encounter Last Filed Vital Signs Vital Sign Reading Time Taken Comments Blood Pressure 114/78 06/15/2005 4:00 PM CDT Pulse - - Temperature - - Respiratory Rate - - Oxygen Saturation - - Inhaled Oxygen Concentration - - Weight 107 kg (236 lb) 06/15/2005 4:00 PM CDT Height 175.3 cm (5' 9) 06/15/2005 4:00 PM CDT Body Mass Index 34.85 06/15/2005 4:00 PM CDT documented in this encounter Progress Notes Ramy Sánchez - 06/15/2005 4:33 PM CDT Jd is a 64 year old male who presents for follow up of: Erectile dysfunction with issues with lipids and bp, obesity and age, normal glucose tolerance, non smoker Patient Active Problem List Diagnoses Code ??? HYPERLIPIDEMIA NEC/NOS 272.4 ??? BENIGN HYPERTENSION 401.1 ??? SCREENING MAL NEOP-PROSTATE V76.44 ??? ALLERGIC RHINITIS NOS 477.9 Past Medical History Diagnosis Date ??? CALCULUS OF KIDNEY Past Surgical History Procedure Date ??? Nonspecific procedure 1965 surgery on shoulder ??? Nonspecific procedure 1985 surgery on lacerated tendons R hand Current outpatient prescriptions Medication Sig ??? LISINOPRIL 10 MG OR TABS 1 tab PO QD (Once per day) ??? TYRA 180 MG OR TABS 1 tablet qd ??? LIPITOR 10 MG OR TABS 1 tab PO QD (Once per day)-needs fasting bloodwork and f/u visit for further refills Allergies Allergen Reactions ??? No Known Drug Allergies Review of Systems: CONSTITUTIONAL:NEGATIVE for fever, chills, change in weight INTEGUMENTARY/SKIN: NEGATIVE for worrisome rashes, moles or lesions RESP:NEGATIVE for significant cough or SOB CV: NEGATIVE for chest pain, palpitations or peripheral edema GI: NEGATIVE for nausea, abdominal pain, heartburn, or change in bowel habits MUSCULOSKELETAL:NEGATIVE for significant arthralgias or myalgia NEURO: NEGATIVE for weakness, dizziness or paresthesias Examination: GENERAL APPEARANCE: healthy, alert, no distress EYES: Eyes grossly normal to inspection, fundi benign-no diabetic or hypertensive changes seen, PERRL HENT: ear canals and TM's normal, nose and mouth without ulcers or lesions NECK: no adenopathy, no asymmetry, masses, or scars, thyroid normal to palpation RESP: lungs clear to auscultation - no rales, rhonchi or wheezes CV: regular rates and rhythm, normal S1 S2, no S3 or S4, no murmur, click or rub, no irregular beats ABDOMEN: soft, nontender, without hepatosplenomegaly or masses, bowel sounds normal ASSESSMENT:ED PLAN: Trial of ed meds, discussed wt and bp documented in this encounter Nursing Notes 06/15/2005 4:00 PM CDT >> JEFF KINGSLEY 06/15/2005 4:09 pm Patient presents with: Medication Problem - side effects Initial BP 114/78 Ht 5' 9 (1.75m) Wt 236 lbs (107.0kg) Body mass index is 34.84 kg/(m^2).. BP completed using cuff size large Jeff Kingsley CMA documented in this encounter Plan of Treatment Not on filedocumented as of this encounter Visit Diagnoses Diagnosis Impotence of organic origin Other and unspecified hyperlipidemia Essential hypertension, benign documented in this encounter Care Teams Side Splitter Relationship Specialty Start Date End Date Ramy Sánchez MD PCP - General 09/20/01 05/25/21 [address] [place] [address] documented as of this encounter
--- OUTSIDE RECORDS SUMMARY | 2021-10-18 13:05 | XMS_ITS | Encounter Summary ---
:1939 Author Organization [facility] Address [address] [place] [address]. [place] [address] Care Team Providers Name Role Phone Ramy Sánchez MD Primary Care Provider Reason for Referral Specialty Diagnoses / Procedures Referred By Contact Refer red To Contact Ramy Sánchez ph, [place] [id number] [place] [address] [phone] Referral ID Status Reason Start Date Expiration Date Visits Requ ested Visits Authorized Encounter Details Date Type Department Care Team Description 07/12/2005 Orders Only [facility] Ramy Sánchez SIS NOT YET Clinic [place]th Aguirre MD DEFINED (Primary Dx) [address] [address] [phone] Social History Tobacco Use Types Packs/Day Years [...] Date/Time Associated Diagnosis Comme nts ZZ CONSULT ALLERGY/ASTHMA Routine 07/12/2005 DIAGNOSIS NO T YET DEFINED documented in this encounter Results CONSULT ALLERGY (07/12/2005) Specimen (Source) Anatomical Location Collection Method / Collectio n Time Received Time / Laterality Volume 07/12/2005 Narrative This result has an attachment that is no t available. Ramy Sánchez MD REFERRAL documented in this encounter Visit Diagnoses Diagnosis DIAGNOSIS NOT YET DEFINED - Primary documented in this encounter Care Teams Community Music Therapist Relationship Specialty Start Date End Date Ramy Sánchez MD PCP - General 09/20/01 05/25/21 [address] [place] [address] documented as of this encounter
--- OUTSIDE RECORDS SUMMARY | 2021-10-18 13:05 | XMS_ITS | Encounter Summary ---
:1939 Author Organization [facility] Address [address] [place] [address]. [place] [address] Care Team Providers Name Role Phone Ramy Sánchez MD Primary Care Provider [phone] Reason for Visit Reason Comments RECHECK medication with fasting labs Encounter Details Date Type Department Care Team Description 02/12/2007 Office Visit [facility] Ramy Sánchez DIABET ES MELLITUS TYPE II-UNCOMPL; Clinic Janice Aguirre MD BENIGN HYPERTENSION; [address] [facility] [id number] [place] [address] HYPERLIPIDEMIA NEC/[place] [address] [phone] Social History Tobacco Use Types Packs/Day Years Used Date Current Every Day Smoker Cigars Comments: couple times a year Alcohol Use Standard Drinks/Week Comments Not Asked 0 (1 standard drink = 0.6 oz pure alcoho l) Sex Assigned at Date Recorded Not on file documented as of this encounter Last Filed Vital Signs Vital Sign Reading Time Taken Comments Blood Pressure 126/79 02/12/2007 8:45 AM HEAD MACHINE FEEDER Pulse - - Temperature - - Respiratory Rate - - Oxygen Saturation - - Inhaled Oxygen Concentration - - Weight 99.8 kg (220 lb) 02/12/2007 8:45 AM HEAD MACHINE FEEDER Height 170.2 cm (5' 7) 02/12/2007 8:45 AM HEAD MACHINE FEEDER Body Mass Index 34.46 02/12/2007 8:45 AM HEAD MACHINE FEEDER documented in this encounter Progress Notes Ramy Sánchez - 02/12/2007 9:11 AM CST Follow up on lipid lowering therapy. Taking lipitor for 35 months No problems with vision, hearing, dental or neck pain. No chest pain, palpitations, dyspnea, change in bowel habits, blood in stool or dyspepsia. No rashes, changing moles, weakness, lassitude or back problems. No diabetes, thyroid or cancer. No dysuria or menstrual irregularity. Patient not a smoker. No problems with significant headaches. On exam the vital signs are stable. No neck masses or thyromegaly. No bruits, murmers, rubs or extrasounds. No cardiomegaly or chest wall tenderness. Lungs clear, no abdominal masses or organomegaly. No CVA tenderness. Normal gait and stance. Neck is supple. Med change:none continue with same meds and recheck six months MACHINE FEEDER documented in this encounter Nursing Notes 02/12/2007 8:45 AM CST >> JEFF KINGSLEY 02/12/2007 9:01 am Patient presents with: RECHECK - medication with fasting labs Initial BP 126/84 Ht 5' 7 (1.70m) Wt 220 lbs (99.8kg) Body mass index is 34.45 kg/(m^2).. BP completed using cuff size large Jeff Kingsley CMA documented in this encounter Plan of Treatment Not on filedocumented as of this encounter Procedures Procedure Name Priority Date/Time Associated Diagnosis Comme nts HCL GLYCATED Routine 02/12/2007 9:11 AM Diabetes Mellitus Type Results for this HEMOGLOBIN HEAD MACHINE FEEDER Ii-Uncompl procedure are i n the results section. HCL CK, TOTAL Routine 02/12/2007 9:11 AM Hyperlipidemia Nec/No s Results for this HEAD MACHINE FEEDER procedure are i n the results section. HCL AST Routine 02/12/2007 9:11 AM Hyperlipidemia Nec/Nos Results for this HEAD MACHINE FEEDER procedure are i n the results section. CL AFF A.M.A. LIPID Routine 02/12/2007 9:11 AM Hyperlipidemia Nec/Nos Results for this PANEL HEAD MACHINE FEEDER procedure are i n the results section. documented in this encounter Results HEMOGLOBIN A1C (02/12/2007 9:11 AM HEAD MACHINE FEEDER) P athologist Signature Hemoglobin A1C 5.2 4.3 - 6.0 [facility] Specimen Anatomical Collection Method Collection Time Receive d Time (Source) Location / / Volume Laterality 02/12/2007 9:11 AM 7 9:14 HEAD MACHINE FEEDER AM HEAD MACHINE FEEDER Ramy Sánchez MD LABORATORY Performing Organization Address City/State/ZIP Code Phon e Number [facility] [address] [place] [address] [facility] CK, TOTAL (02/12/2007 9:11 AM HEAD MACHINE FEEDER) athologist Signature CK Total 181 45 - 300 [place] U/L [facility] Specimen Anatomical Collection Method Collection Time Receive d Time (Source) Location / / Volume Laterality 02/12/2007 9:11 AM 7 9:14 HEAD MACHINE FEEDER AM HEAD MACHINE FEEDER Ramy Sánchez MD LABORATORY Performing Organization Address City/[facility]/ZIP Code Phon e Number [facility] [address] [place] [address] [phone] [facility] AST (02/12/2007 9:11 AM HEAD MACHINE FEEDER) athologist Signature AST 33 0 - 55 U/L [facility] Specimen Anatomical Collection Method Collection Time Receive d Time (Source) Location / / Volume Laterality 02/12/2007 9:11 AM 7 9:14 HEAD MACHINE FEEDER AM HEAD MACHINE FEEDER Ramy Sánchez MD LABORATORY Performing Organization Address City/[facility]/ZIP Code Phon e Number [facility] [address] [place] [address] [phone] [facility] (ABNORMAL) A.M.A. LIPID PANEL (02/12/2007 9:11 AM HEAD MACHINE FEEDER) athologist Signature Cholesterol 175 0 - 200 [facility] mg/dL CLINIC LAB Comment: LDL Cholesterol is the primary guide to therapy: LDL-cholesterol goal in high risk patients is <100 mg/dL and in very high risk patients is <70 mg/dL. The NCEP recommends further evaluation of: patients with cholesterol <200 mg/dL if additional risk factors are present, cholesterol >240 mg/dL, triglycerides >150 mg/dL, or HDL <40 mg/dL. Triglycerides 223 (H) 0 - 150 mg/dL [facility] HDL Cholesterol 32 (L) 40 - 110 mg/dL [facility] LDL Cholesterol Calculated 99 0 - 129 mg/dL [facility] Comment: LDL Cholesterol is the primary guide to therapy: LDL-cholesterol goal in high risk patients is <100 mg/dL and in very high risk patients is <70 mg/dL. VLDL-Cholesterol 45 (H) 0 - 30 mg/dL [facility] Cholesterol/HDL Ratio 5.5 (H) 0.0 - 5.0 [facility] Specimen Anatomical Collection Method Collection Time Receive d Time (Source) Location / / Volume Laterality 02/12/2007 9:11 AM 7 9:14 HEAD MACHINE FEEDER AM HEAD MACHINE FEEDER Ramy Sánchez MD LABORATORY Performing Organization Address City/State/ZIP Code Phon e Number [facility] [address] [place] [address] [facility] documented in this encounter Visit Diagnoses Diagnosis Type II or unspecified type diabetes chandler litus without mention of complication, not stated as uncontrolled Essential hypertension, benign Other and unspecified hyperlipidemia documented in this encounter Care Teams Furniture And Bedding Inspector Relationship Specialty Start Date End Date Ramy Sánchez MD PCP - General 09/20/01 05/25/21 [address] [place] [address] documented as of this encounter
--- OUTSIDE RECORDS SUMMARY | 2021-10-18 13:05 | XMS_ITS | Encounter Summary ---
:1939 Author Organization [facility] Address [address] [place] [address]. [place] [address] Care Team Providers Name Role Phone Ramy Sánchez MD Primary Care Provider Reason for Referral - Closed Specialty Diagnoses / Procedures Referred By Contact Refer red To Contact Diagnoses Type II or unspecified type diabetes mellitus without mention of complication, not stated as uncontrolled Ramy Sánchez [place] [id number] [place] [address] [phone] Referral ID Status Reason Start Date Expiration Date Visits Requ ested Visits Authorized [id number] Closed 07/02/2006 03/11/2011 1 1 Reason for Visit Reason Comments Results lab work - indicates diabete s Encounter Details Date Type Department Care Team Description 07/02/2006 Office Visit [facility] Ramy Sánchez DIABET ES MELLITUS TYPE II-UNCOMPL (Primary Dx); [facility] [place] BENIGN HYPERTENSION [address] [address] [phone] Social History Tobacco Use Types Packs/Day Years Used Date Current Every Day Smoker Cigars Comments: couple times a year Alcohol Use Standard Drinks/Week Comments Not Asked 0 (1 standard drink = 0.6 oz pure alcoho l) Sex Assigned at Date Recorded Not on file documented as of this encounter Last Filed Vital Signs Vital Sign Reading Time Taken Comments Blood Pressure 120/82 07/02/2006 9:45 AM CDT Pulse - - Temperature - - Respiratory Rate - - Oxygen Saturation - - Inhaled Oxygen Concentration - - Weight 105.7 kg (233 lb) 07/02/2006 9:45 AM CDT Height 175.3 cm (5' 9) 07/02/2006 9:45 AM CDT Body Mass Index 34.41 07/02/2006 9:45 AM CDT documented in this encounter Progress Notes Arleth Arredondo - 07/12/2006 2:43 PM CDT Attended Diabetes Education today and was instructed on the basics of diabetes, carb counting, the importance of frequent exercise and blood glucose testing. Arleth Arredondo RN CDE Ramy Sánchez - 07/02/2006 10:11 AM CDT SUBJECTIVE: CC: Jd Go is a 65 year old male who presents for follow up of Type II diabetes HPI: new dx, hasn't made the dietary commitment yet PROBLEM LIST: Patient Active Problem List Diagnoses [...] MEDICATIONS: Current outpatient prescriptions Medication Sig ??? ASPIRIN 81 MG OR TABS ONE [...] for temperature intolerance, skin/hair changes EXAM: BP 120/82 Ht 5' 9 (1.75m) Wt 233 lbs (105.7kg) GENERAL APPEARANCE: healthy, [...] extremities. SKIN: no suspicious lesions or rashes ASSESSMENT/PLAN Diabetic ed Lipid, wt and sugar assignments I have discussed with patient the risks, benefits, medications, treatment options and modalities. I have instructed the patient to call or schedule a follow-up appointment if any problems or failureto improve. documented in this encounter Nursing Notes 07/02/2006 9:45 AM CDT >> JEFF KINGSLEY 07/02/2006 9:58 am Patient presents with: Results - lab work - indicates diabetes Initial BP 120/82 Ht 5' 9 (1.75m) Wt 233 lbs (105.7kg) Body mass index is 34.39 kg/(m^2).. BP completed using cuff size large Jeff Kingsley CMA documented in this encounter Plan of Treatment Not on filedocumented as of this encounter Visit Diagnoses Diagnosis Type II or unspecified type diabetes chandler litus without mention of complication, not stated as uncontrolled - Primary Essential hypertension, benign documented in this encounter Care Teams Horse Stud Worker Relationship Specialty Start Date End Date Ramy Sánchez MD PCP - General 09/20/01 05/25/21 [address] [place] [address] documented as of this encounter
--- OUTSIDE RECORDS SUMMARY | 2021-10-18 13:05 | XMS_ITS | Encounter Summary ---
:1939 Author Organization [facility] Address [address] [place] [address] Care Team Providers Name Role Phone Ramy Sánchez MD Primary Care Provider [phone] Reason for Visit Reason Comments Blood Draw Encounter Details Date Type Department Care Team Description 10/28/2004 Orders Only [facility] HYP ERLIPIDEMIA NEC/NOS; [facility] BENIGN HYPERTENSION [address] [place], [place] [phone] Social History Tobacco Use Types Packs/Day [...] Priority Date/Time Associated Diagnosis Comme nts HCL GLUCOSE Routine 10/28/2004 9:34 AM Benign Hypertension Re sults for this CDT procedure are i n the results section. HCL AST Routine 10/28/2004 9:34 AM Hyperlipidemia Nec/Nos Results for this CDT procedure are i n the results section. CL AFF A.M.A. Routine 10/28/2004 9:34 AM Hyperlipidemia Nec/No s Results for this LIPID PANEL CDT procedure are i n the results section. documented in this encounter Results (ABNORMAL) GLUCOSE (10/28/2004 9:34 AM CDT) P athologist Signature Glucose 111 (H) 60 - 110 [place] [facility] mg/dL CLINIC LAB Specimen Anatomical Collection Method Collection Time Receive d Time (Source) Location / / Volume Laterality 10/28/2004 9:34 AM 5 9:36 CDT AM CDT Ramy Sánchez MD LABORATORY Performing Organization Address [facility] Code Phon e Number [facility] [address] [place] [address] [phone] [facility] AST (10/28/2004 9:34 AM CDT) athologist Signature AST 28 0 - 55 U/L [facility] Specimen Anatomical Collection Method Collection Time Receive d Time (Source) Location / / Volume Laterality 10/28/2004 9:34 AM 5 9:36 CDT AM CDT Ramy Sánchez MD LABORATORY Performing Organization Address [facility] Phon e Number [facility] [address] [place] [address] [phone] [facility] (ABNORMAL) A.M.A. LIPID PANEL (10/28/2004 9:34 AM CDT) athologist Signature Cholesterol 175 0 - 200 [facility] mg/dL CLINIC LAB Comment: Cholesterol Reference Range: <200 ??The NCEP recommends further ? evaluation of: ? 1. ??Patients with cholesterol ? greater than 200 mg/dL ? if additional risk facto rs ? are present. ? 2. ??All patients with a ? cholesterol greater than ? 240 mg/dL. Triglycerides 187 (H) 0 - 150 mg/dL [facility] HDL Cholesterol 35 (L) >40 mg/dL [facility] LDL Cholesterol Calculated 102 0 - 129 mg/dL [facility] VLDL-Cholesterol 37 (H) 0 - 30 mg/dL [facility] Cholesterol/HDL Ratio 5.0 0.0 - 5.0 [facility] Specimen Anatomical Collection Method Collection Time Receive d Time (Source) Location / / Volume Laterality 10/28/2004 9:34 AM 5 9:36 CDT AM CDT Ramy Sánchez MD LABORATORY Performing Organization Address City/State/[facility] Code Phon e Number [address] [address] [facility] documented in this encounter Visit Diagnoses Diagnosis Other and unspecified hyperlipidemia Essential hypertension, benign documented in this encounter Care Teams Bottom Hoop Driver Relationship Specialty Start Date End Date Ramy Sánchez MD PCP - General 09/20/01 05/25/21 [address] [place] [address] documented as of this encounter
--- OUTSIDE RECORDS SUMMARY | 2021-10-18 13:05 | XMS_ITS | Encounter Summary ---
:1940 Author Organization [facility] Address [address] [place] [address]. [place] [address] Care Team Providers Name Role Phone Ramy Sánchez MD Primary Care Provider [phone] Reason for Visit Reason Comments Blood Draw Cholesterol check (fasting) and blood pressure Encounter Details Date Type Department Care Team Description 11/22/2005 Office Visit [facility] Ramy Sánchez ALLERG IC RHINITIS NOS; [facility] [place] MD HYPERLIPIDEMIA NEC/NOS; [id number] [place] [id number] [place] [address] BENIGN HYPERTENSION; [place], [place] SCREENI NG MAL NEOP-PROSTATE [address] [phone] Social History Tobacco Use Types Packs/Day Years Used Date Current Every Day Smoker Cigars Comments: couple times a year Alcohol Use Standard Drinks/Week Comments Not Asked 0 (1 standard drink = 0.6 oz pure alcoho l) Sex Assigned at Date Recorded Not on file documented as of this encounter Last Filed Vital Signs Vital Sign Reading Time Taken Comments Blood Pressure 126/84 11/22/2005 9:15 AM CDT Pulse - - Temperature - - Respiratory Rate - - Oxygen Saturation - - Inhaled Oxygen Concentration - - Weight 104.8 kg (231 lb) 11/22/2005 9:15 AM CDT Height - - Body Mass Index 34.11 06/15/2005 4:00 PM CDT documented in this encounter Progress Notes Ramy Sánchez - 11/22/2005 1:09 PM CDT Subjective: Jd Go is a 64 year old male with hypertension. Current outpatient prescriptions Medication Sig ??? TYRA 180 MG OR TABS 1 TABLET DAILY ??? LISINOPRIL 10 MG OR TABS one daily ??? LIPITOR 10 MG OR TABS one daily ??? LEVITRA 10 MG OR TABS 1 TABLET DAILY NEEDED ??? VIAGRA 50 MG OR TABS 1 TABLET DAILY NEEDED Hypertension ROS: taking medications as instructed, no medication side effects noted, no TIA's, no chest pain on exertion, no dyspnea on exertion, no swelling of ankles. New concerns: lipid goals, diet and meds, gets lots of exercise. Objective: BP 126/84 Wt 231 lbs (104.8kg) Appearance healthy, alert and cooperative. General exam BP noted to be well controlled today in office, S1, S2 normal, no gallop, no murmur, chest clear, no JVD, no HSM, no edema. Lab review: labs are reviewed, up to date and normal. Assessment: Hypertension well controlled. Recheck glucose status Plan: repeat labs ordered prior to next appointment, orders and follow up as documented in [facility], reviewed diet, exercise and weight control. documented in this encounter Nursing Notes 11/22/2005 9:15 AM CDT >> DANITZA FORBES 11/22/2005 9:26 am Jd Go presents for fasting cholesterol blood work and blood pressure check. Initial BP 126/84 Wt 231 lbs (104.8kg) Estimated Body mass index is 34.10 kg/(m^2) as calculated from: Height of 5' 9 (1.753 m) as of 06/15/05 Weight of 231 lbs (104.781 kg) as of this encounter. BP completed using cuff size: thad Forbes RN documented in this encounter Plan of Treatment Not on filedocumented as of this encounter Procedures Procedure Name Priority Date/Time Associated Diagnosis Comme nts [facility] PROSTATE SPEC Routine 11/22/2005 9:51 Hyperlipidemia Nec/Nos Results for this ANTIGEN,SCREEN AM CDT Screening Mal procedure ar e in [facility] the results section. [facility] COMPREHENSIVE Routine 11/22/2005 9:51 Benign Hyperte nsion Results for this METABOLIC PANEL AM CDT Hyperlipidemia Nec/Nos pr ocedure are in the results section. CL AFF A.M.A. LIPID Routine 11/22/2005 9:51 Benign Hyper tension Results for this PANEL AM CDT Hyperlipidemia Nec/Nos proce dure are in the results section. documented in this encounter Results (ABNORMAL) A.M.A. LIPID PANEL (11/22/2005 9:51 AM CDT) P athologist Signature Cholesterol 190 0 - 200 [facility] mg/dL CLINIC LAB Comment: LDL Cholesterol is the primary guide to therapy: LDL-cholesterol goal in high risk patients is <100 mg/dL and in very high risk patients is <70 mg/dL. The NCEP recommends further evaluation of: patients with cholesterol <200 mg/dL if additional risk factors are present, cholesterol >240 mg/dL, triglycerides >150 mg/dL, or HDL <40 mg/dL. Triglycerides 176 (H) 0 - 150 mg/dL [facility] HDL Cholesterol 33 (L) 40 - 110 mg/dL [facility] LDL Cholesterol Calculated 122 0 - 129 mg/dL [facility] Comment: LDL Cholesterol is the primary guide to therapy: LDL-cholesterol goal in high risk patients is <100 mg/dL and in very high risk patients is <70 mg/dL. VLDL-Cholesterol 35 (H) 0 - 30 mg/dL [facility] Cholesterol/HDL Ratio 5.8 (H) 0.0 - 5.0 [facility] Specimen Anatomical Collection Method Collection Time Receive d Time (Source) Location / / Volume Laterality 11/22/2005 9:51 AM 6 9:54 CDT AM CDT Ramy Sánchez MD LABORATORY Performing Organization Address City/State/ZIP Code Phon e Number [facility] [address] [place] [address] [facility] (ABNORMAL) A.M.A. COMPREHENSIVE MET.PANEL (11/22/2005 9:51 AM CDT) Analysis Performed At Patho logist Time Signature Sodium 141 133 - 144 [place] mmol/L [facility] Potassium 4.5 3.4 - 5.3 [place] mmol/L [facility] Chloride 103 94 - 109 [place] mmol/L [facility] Carbon Dioxide 26 20 - 32 [place] mmol/L [facility] Anion Gap 11 6 - 17 [place] mmol/L [facility] Glucose 143 (H) 60 - 110 [place] mg/dL [facility] Urea Nitrogen 19 7 - 30 [place] mg/dL [facility] Creatinine 0.90 0.80 - [facility] 1.50 mg/dL [facility] GFR Estimate >90 >60 [place] mL/min/1.7 [facility] m2 LAB GFR Estimate If >90 >60 [place] Black mL/min/1.7 [facility] m2 LAB Calcium 9.2 8.5 - 10.4 [place] mg/dL [facility] Bilirubin Total 0.5 0.2 - 1.3 [place] mg/dL [facility] Albumin 4.6 (H) 3.2 - 4.5 [place] g/dL [facility] Protein Total 8.3 (H) 6.0 - 8.2 [place] g/dL [facility] Alkaline 77 40 - 150 [place] Phosphatase U/L [facility] ALT 31 0 - 70 U/L [facility] AST 29 0 - 55 U/L [facility] Specimen Anatomical Collection Method Collection Time Receive d Time (Source) Location / / Volume Laterality 11/22/2005 9:51 AM 6 9:54 CDT AM CDT Ramy Sánchez MD LABORATORY Performing Organization Address City/[facility]/ZIP Code Phon e Number [facility] [address] [place] [address] [facility] PROSTATE SPEC ANTIGEN,SCREEN (11/22/2005 9:51 AM CDT) P athologist Signature PSA 0.29 0 - 4 ug/L [facility] Specimen Anatomical Collection Method Collection Time Receive d Time (Source) Location / / Volume Laterality 11/22/2005 9:51 AM 6 9:54 CDT AM CDT Ramy Sánchez MD LABORATORY Performing Organization Address City/[facility]/ZIP Code Phon e Number [facility] [address] [place] [address] [facility] documented in this encounter Visit Diagnoses Diagnosis Allergic rhinitis, cause unspecified Other and unspecified hyperlipidemia Essential hypertension, benign Special screening for malignant neoplasm of prostate documented in this encounter Care Teams Rural Mail Contractor Relationship Specialty Start Date End Date Ramy Sánchez MD PCP - General 09/20/01 05/25/21 [address] [place], [place] [id number] documented as of this encounter
--- OUTSIDE RECORDS SUMMARY | 2021-10-18 13:05 | XMS_ITS | Encounter Summary ---
:1939 Author Organization [facility] Address [address] [place] [address]. [place] [address] Care Team Providers Name Role Phone Ramy Sánchez MD Primary Care Provider Reason for Visit Reason Onset Date Comments Refill Request 08/31/2004 Lisinopril 10mg,Lipi tor 10mg/PSO-mj Encounter Details Date Type Department Care Team Description 08/31/2004 Refill [facility] Ramy Sánchez [facility] [place] (Lisinopril 10mg,Lipitor [address] 10mg/PSO-mj) [place] [address] [id number] (Wo rk) Social History Tobacco Use Types Packs/Day Years Used Date Current Every Day Smoker Cigars Comments: couple times a year Alcohol Use Standard Drinks/Week Comments Not Asked 0 (1 standard drink = 0.6 oz pure alcoho l) Sex Assigned at Date Recorded Not on file documented as of this encounter Miscellaneous Notes Telephone Encounter - Laurel King - 08/31/2004 2:52 PM CDT Last OV: 11/20/03 Reason: allergies and UTI Provider: Last filled: 07/24/04 Last BP: 132/84 CHOL 177 08/06/2003 HDL 38 08/06/2003 LDL 107 08/06/2003 TRIG 159 08/06/2003 CHOLHDLRATIO 4.7 08/06/2003 AST 32 08/06/2003 ALT 25 08/06/2003 OK PSO x 0 refills. Advised needs fasting bloodwork and f/u appt for futher refills. Laurel King RN documented in this encounter Plan of Treatment Not on filedocumented as of this encounter Visit Diagnoses Not on filedocumented in this encounter Care Teams Back Hoe Operator Relationship Specialty Start Date End Date Ramy Sánchez MD PCP - General 09/20/01 05/25/21 [address] [place] [address] documented as of this encounter
--- OUTSIDE RECORDS SUMMARY | 2021-10-18 13:05 | XMS_ITS | Encounter Summary ---
:1939 Author Organization [facility] Address [address] [place] [address]. [place] [address] Care Team Providers Name Role Phone Ramy Sánchez MD Primary Care Provider Encounter Details Date Type Department Care Team Description 07/14/2002 Orders Only [facility] Ramy Sánchez MIXED HYPERLIPIDEMIA Clinic Janice Aguirre MD (Primary Dx) Laboratory [address] [facility] [address] [place] [address] [phone] Social History Tobacco Use Types Packs/Day Years Used Date Never Assessed Sex Assigned at Date Recorded Not on file documented as of this encounter Plan of Treatment Not on filedocumented as of this encounter Visit Diagnoses Diagnosis Mixed hyperlipidemia - Primary documented in this encounter Care Teams Produce Manager Relationship Specialty Start Date End Date Ramy Sánchez MD PCP - General 09/20/01 05/25/21 [address] [place] [address] documented as of this encounter
--- OUTSIDE RECORDS SUMMARY | 2021-10-18 13:05 | XMS_ITS | Encounter Summary ---
:1939 Author Organization [facility] Address [address] [place] [address] Care Team Providers Name Role Phone Ramy Sánchez MD Primary Care Provider [phone] Encounter Details Date Type Department Care Team Description 11/24/2006 Orders Only [facility] Archana ConklinLI PIDEMIA NEC/NOS Clinic Crook MD Ashly (Primary Dx) [address] [place], [place] CLINIC [address] [phone] [place] [address] Social History Tobacco Use Types Packs/Day Years Used Date Current Every Day Smoker Cigars Comments: couple times a year Alcohol Use Standard Drinks/Week Comments Not Asked 0 (1 standard drink = 0.6 oz pure alcoho l) Sex Assigned at Date Recorded Not on file documented as of this encounter Progress Notes Archana Conklin - 11/24/2006 1:13 PM CDT Jd Go called while I was on-call 11/24/2006 and needs refill on Lipitor. Didn't realize he was out. Good LDL so it was refilled. Rx faxed to [facility]. Archana Conklin MD documented in this encounter Plan of Treatment Not on filedocumented as of this encounter Visit Diagnoses Diagnosis Other and unspecified hyperlipidemia - P rimary documented in this encounter Care Teams Configuration Manager Relationship Specialty Start Date End Date Ramy Sánchez MD PCP - General 09/20/01 05/25/21 [address] [place] [address] documented as of this encounter
--- OUTSIDE RECORDS SUMMARY | 2021-10-18 13:05 | XMS_ITS | Encounter Summary ---
:1939 Author Organization [facility] Address [address] [place] [address]. [place] [address] Care Team Providers Name Role Phone Ramy Sánchez MD Primary Care Provider Reason for Referral - Closed Specialty Diagnoses / Procedures Referred By Contact Refer red To Contact Diagnoses Urinary tract infection, site not specified Ramy Sánchez [place] [id number] [place] [address] [phone] Referral ID Status Reason Start Date Expiration Date Visits Requ ested Visits Authorized [id number] Closed 03/02/2006 03/11/2011 1 1 AGING SUPERVISOR Reason for Visit Reason Comments UTI frequency, burning, urgency Encounter Details Date Type Department Care Team Description 03/02/2006 Office Visit [facility] Ramy Sánchez [facility] INFECTION Clinic [place] NOS (Primary Dx) [address] [address] [phone] Social History Tobacco Use Types Packs/Day Years Used Date Current Every Day Smoker Cigars Comments: couple times a year Alcohol Use Standard Drinks/Week Comments Not Asked 0 (1 standard drink = 0.6 oz pure alcoho l) Sex Assigned at Date Recorded Not on file documented as of this encounter Last Filed Vital Signs Vital Sign Reading Time Taken Comments Blood Pressure 124/82 03/02/2006 9:15 AM PACKAGING SUPERVISOR Pulse - - Temperature - - Respiratory Rate - - Oxygen Saturation - - Inhaled Oxygen Concentration - - Weight 106.6 kg (235 lb) 03/02/2006 9:15 AM PACKAGING SUPERVISOR Height 172.7 cm (5' 8) 03/02/2006 9:15 AM PACKAGING SUPERVISOR Body Mass Index 35.73 03/02/2006 9:15 AM PACKAGING SUPERVISOR documented in this encounter Progress Notes Ramy Sánchez - 03/02/2006 3:31 PM CST SUBJECTIVE: CC: Jd Go is a 65 year old male who presents for follow up of uti, still feels not quite back to par HPI: notices burning dysuria, ua still abnormal, will get Urology eval, psa has been good, glucose is borderline PROBLEM LIST: Patient Active Problem List Diagnoses [...] MEDICATIONS: Current outpatient prescriptions Medication Sig ??? CIPRO 500 MG OR TABS ONE TABLET TWICE DAILY ??? TYRA 180 MG OR TABS 1 TABLET DAILY ??? LISINOPRIL 10 MG OR TABS one daily ??? LIPITOR 10 MG OR TABS one daily FAMILY HISTORY: No family history on file HEALTH MAINTENANCE: REVIEW OF OUTSIDE RECORDS: NO REVIEW OF SYSTEMS: C: NEGATIVE for fever, chills, change in weight I: NEGATIVE for worrisome rashes, moles or lesions INTEGUMENTARY/SKIN: NEGATIVE for worrisome rashes, moles or lesions E/M: NEGATIVE for ear, mouth and throat problems R: NEGATIVE for significant cough or SOB CV: NEGATIVE for chest pain, palpitations or peripheral edema GI: NEGATIVE for nausea, abdominal pain, heartburn, or change in bowel habits : NEGATIVE for frequency, dysuria, or hematuria EXAM: BP 124/82 Ht 5' 8 (1.73m) Wt 235 lbs (106.6kg) GENERAL APPEARANCE: healthy, alert and no distress [...] ??? 599.0 URIN TRACT INFECTION NOS Yes hyperglycemia I have discussed with patient the risks, benefits, medications, treatment options and modalities. I have instructed the patient to call or schedule a follow-up appointment if any problems or failureto improve. AGING SUPERVISOR documented in this encounter Nursing Notes 03/02/2006 9:15 AM CST >> JEFF KINGSLEY 03/02/2006 9:18 am Patient presents with: UTI - frequency, burning, urgency Initial BP 124/82 Ht 5' 8 (1.73m) Wt 235 lbs (106.6kg) Body mass index is 35.74 kg/(m^2).. BP completed using cuff size large Jeff Kingsley CMA documented in this encounter Plan of Treatment Not on filedocumented as of this encounter Procedures Procedure Name Priority Date/Time Associated Diagnosis Comme nts HCL CULTURE, URINE Routine 03/02/2006 9:28 AM Urin Tract Infec tion Results for this (MISYS) PACKAGING SUPERVISOR Nos procedure are i n the results section. HCL UA MICRO IF Routine 03/02/2006 9:24 AM Urin Tract Infectio n Results for this POSITIVE PACKAGING SUPERVISOR Nos procedure are i n the results section. CL AFF MICRO Routine 03/02/2006 9:24 AM Results f or this EXAM-URINE PACKAGING SUPERVISOR procedure are i n the results section. documented in this encounter Results CULTURE, URINE (MISYS) (03/02/2006 9:28 AM PACKAGING SUPERVISOR) [facility] Method Time Signature Specimen Midstream Urine [place] Description [facility] Culture Micro 50 to 100,000 [place] colonies/mL [facility] coli Report status FINAL [id number] [facility] Specimen Anatomical Collection Method Collection Time Receive d Time (Source) Location / / Volume Laterality 03/02/2006 9:28 AM 6 9:31 PACKAGING SUPERVISOR AM PACKAGING SUPERVISOR Organism Antibiotic Method Susceptibility 50 to 100,000 colonies/ml Amoxicillin/Clav <=2 S usceptible escherichia coli (eugenia) 50 to 100,000 colonies/ml Ampicillin <=2 Cash sceptible escherichia coli ([place]ugenia) 50 to 100,000 colonies/ml Cefazolin <=4 Cash sceptible escherichia coli ([place]ugenia) 50 to 100,000 colonies/ml Ceftriaxone <=1 Cash sceptible escherichia coli ([place]) 50 to 100,000 colonies/ml Cefuroxime Axetil 4 Cash sceptible escherichia coli ([place]) 50 to 100,000 colonies/ml Ciprofloxacin <=0.25 Susceptible escherichia coli ([place]) 50 to 100,000 colonies/ml Gentamicin <=1 Cash sceptible escherichia coli ([place]) 50 to 100,000 colonies/ml Levofloxacin <=0.25 Susceptible escherichia coli ([place]) 50 to 100,000 colonies/ml Nitrofurantoin <=16 S usceptible escherichia coli ([place]ug[place]) 50 to 100,000 colonies/ml Ticarcillin <=8 Cash sceptible escherichia coli ([place]ug[place]) 50 to 100,000 colonies/ml Ticarcillin/Clav <=8 S usceptible escherichia coli ([place]) 50 to 100,000 colonies/ml Tobramycin <=1 Cash sceptible escherichia coli ([place]) 50 to 100,000 colonies/ml Trimethoprim/Sulfamethoxazole <=1/19 Susceptible escherichia coli ([place]) Ramy Sánchez MD LABORATORY Performing Organization Address City/State/ZIP Code Phon e Number [facility] [address] [place] [address] [facility] (ABNORMAL) MICRO EXAM-URINE (03/02/2006 9:24 AM PACKAGING SUPERVISOR) Analysis Performed At Patho logist Time Signature WBC Urine 50-100 (A) 0 - 2 /HPF [facility] RBC Urine 10-25 (A) 0 - 2 /HPF [facility] Squamous EPI Few FEW /LPF [facility] Bacteria Urine Few (A) NEG /HPF [facility] Specimen Anatomical Collection Method Collection Time Receive d Time (Source) Location / / Volume Laterality 03/02/2006 9:24 AM 6 9:27 PACKAGING SUPERVISOR AM PACKAGING SUPERVISOR Ramy Sánchez MD LABORATORY Performing Organization Address [facility] Code Phon e Number [facility] [id number] [place] [address] [facility] (ABNORMAL) UA MICRO IF POSITIVE (03/02/2006 9:24 AM PACKAGING SUPERVISOR) [facility] Method Time Signature Color Urine Yellow [facility] Appearance Urine Slightly [place] Cloudy [facility] Glucose Urine Negative NEG mg/dL [facility] Bilirubin Urine Negative NEG [facility] Ketones Urine Trace (A) NEG mg/dL [facility] Specific [place] 1.025 1.003 - [place] Urine 1.035 [facility] Blood Urine Moderate (A) NEG [facility] pH Urine 5.0 5.0 - 7.0 [place] pH [facility] Protein Albumin Negative NEG mg/dL [place] Urine [facility] Urobilinogen 0.2 0.2 - 1.0 [place] Urine EU/dL [facility] Nitrite Urine Positive (A) NEG [facility] Leukocyte Moderate (A) NEG [place] Esterase Urine [facility] Source Midstream [place] Urine [facility] Specimen Anatomical Collection Method Collection Time Receive d Time (Source) Location / / Volume Laterality 03/02/2006 9:24 AM 6 9:27 PACKAGING SUPERVISOR AM PACKAGING SUPERVISOR Ramy Sánchez MD LABORATORY Performing Organization Address City/[facility]/ZIP Code Phon e Number [facility] [id number] [place] [address] [facility] documented in this encounter Visit Diagnoses Diagnosis Urinary tract infection, site not specif ied - Primary documented in this encounter Care Teams Blow Mold Machine Operator Relationship Specialty Start Date End Date Ramy Sánchez MD PCP - General 09/20/01 05/25/[id number] [place] [address] documented as of this encounter
== END 2021-09-23 08:07 | disposition home or self-care (01) ==
LOC: LKVREF 08:08
PROVIDERS: PCP Emergency Medicine; Visit Provider Emergency Medicine
DX: E11.9 Type 2 diabetes mellitus without complications (principal); Z12.5 Encounter for screening for malignant neoplasm of prostate
CPT/HCPCS: 80061; 82043; 82570; 84153

== ENCOUNTER 2022-03-21 12:10 | Outpatient (CLI) | payer MEDICARE, SELFPAY ==
[2022-03-21 18:08] LABS: Vitamin B12* 301 pg/mL (243-894)
== END 2022-03-21 12:11 | disposition home or self-care (01) ==
PROVIDERS: PCP Otolaryngology; Visit Provider Family Medicine
DX: Z00.00 Encounter for general adult medical examination without abnormal findings (principal); E78.5 Hyperlipidemia, unspecified; I10 Essential (primary) hypertension; E11.9 Type 2 diabetes mellitus without complications; E55.9 Vitamin D deficiency, unspecified; E66.9 Obesity, unspecified; Z13.29 Encounter for screening for other suspected endocrine disorder; Z13.21 Encounter for screening for nutritional disorder
CPT/HCPCS: 82607; 84443

== ENCOUNTER 2022-04-28 03:36 | Outpatient (CLI) | payer MEDICARE, SELFPAY | END 2022-04-28 03:37 | disposition home or self-care (01) | LOC: AMB 09:29 | PROVIDERS: PCP Emergency Medicine; Visit Provider Family Medicine | DX: R41.82 Altered mental status, unspecified (principal) | CPT/HCPCS: A0998 ==

== ENCOUNTER 2022-04-28 11:09 | Observation (INO) | payer MEDICARE, SELFPAY ==
[2022-04-28] VITALS (22 sets, daily range): BP systolic 85–135; BP diastolic 62–85; PULSE 53–95; RESP 18; TEMP 36.4–36.6; O2SAT 93–100; BMI 27.4; BMI 28.0
--- NOTE | 2022-04-28 12:05 | CRLHL7_ITS ---
For Patients: As a result of the Century Cures Act, medical imaging exams and procedure reports are released immediately into your electronic medical record. You may view this report before your referring provider. If you have questions, please contact your health care provider. INDICATION: Seizure, fall, head injury. TECHNIQUE: CT head without contrast. COMPARISON: None. FINDINGS: CSF spaces: Within normal limits for age. Brain parenchyma: Cerebral atrophy with a small amount of low-density in the deep white matter li-white differentiation is distinct. No intracranial bleed or mass effect. Skull base and calvarium: Mucosal thickening paranasal sinuses. Atherosclerosis. The visualized orbits are grossly unremarkable. No skull fractures. Right temporomandibular joint osteoarthritis. IMPRESSION: 1. No calvarial fracture or intracranial bleed. 2. Cerebral atrophy with nonspecific white matter disease, likely microangiopathy. Please note that all CT scans at this facility use dose modulation, iterative reconstruction, and/or weight-based dosing when appropriate to reduce radiation dose to as low as reasonably achievable. Dictated by Tyler Culver MD @ 04/28/2022 1:42:50 PM (Electronically Signed)
--- NOTE | 2022-04-28 12:07 | ED_ITS ---
HPI - General Adult General Date Seen: 04/28/22 Chief complaint: Weakness Stated complaint: Fall Sunday, labored breathing Time Seen by Provider: 04/28/22 11:17 Source: patient and family Mode of arrival: ambulatory Limitations: no limitations History of Present Illness HPI narrative: Patient is an 81-year-old male who is here with his for evaluation of a spell last night and a recent fall. He tells me that on Sunday, 5 days ago, he was standing in the kitchen when his legs just kind of gave out from under him. He denies any loss of consciousness, but says he fell forward and hit his head, which went through a thin cabinet as he fell. He does not think he has any major trauma to his head, apparently saw Dr. Barraza that same day. A head CT was ordered for next , apparently more to workup the fall then to workup head injury. He also has a history of a drop of several g and his hemoglobin. He did have some blood in his stool on guaiac testing, and so colonoscopy has been ordered as well. He has not had any chest pain, palpitations, shortness of breath, weakness, and has not had any other falls recently. Last night, his was awakened at about 3:00 a.m. she says by a change in his breathing pattern. She says that he was breathing very deeply and loudly, his right fist was clenched, and she could not wake him up. She thinks this lasted for about 20 minutes. During that time she called her son who lives about 4 miles away, and by the time he came over, she says that he was starting to improve. There was a period of time after that where he was just talking gibberish, really did not make sense, that slowly improved and by the time EMS arrived he was following commands and was returning to baseline. She estimates it took about an hour for him to completely return to his usual baseline. He does not have any history of seizure. He has not had any recent headaches, nausea or vomiting. He does have a history of coronary artery disease, has a history of a thoracic aortic aneurysm which has been followed and has been stable. He has a history of aortic valve stenosis which is also been followed and is stable, that is been asymptomatic by his report. Has a history of diabetes, blood sugar was checked by paramedics when they arrived, and his recalls that it was about 120. They called clinic today and were advised to come to the ER for evaluation. Related Data Home Medications Medication Instructions Recorded Confirmed aspirin 81 mg tablet,delayed 81 mg PO Q48H 09/08/21 04/28/22 release cholecalciferol (vitamin D3) 125 5,000 unit PO .[id number] 09/08/21 04/28/22 mcg (5,000 unit) tablet fluticasone propionate 50 1 spray intranasal BID 09/08/21 04/28/22 mcg/actuation nasal spray,suspension ferrous sulfate 325 mg (65 mg 325 mg PO DAILY 04/28/22 04/28/22 iron) tablet (iron) gabapentin 300 mg capsule 600 mg PO HS 04/28/22 04/28/22 montelukast 10 mg tablet 10 mg PO HS 04/28/22 04/28/22 naproxen sodium 220 mg capsule 220 mg PO DAILY PRN 04/28/22 04/28/22 (Aleve) omeprazole 20 mg capsule,delayed 20 mg PO DAILY 04/28/22 04/28/22 release rosuvastatin 40 mg tablet 40 mg PO DAILY 04/28/22 04/28/22 Previous Rx's Medication Instructions Recorded lisinopril 20 mg tablet 20 mg PO DAILY #90 tabs 03/21/22 metformin 500 mg tablet 500 - 1,000 mg PO BID #270 tabs 03/21/22 metoprolol succinate 50 mg 50 mg PO DAILY #90 tabs 03/21/22 tablet,extended release 24 hr tamsulosin 0.4 mg capsule 0.8 mg PO DAILY #180 caps 03/21/22 Allergies Allergy/AdvReac Type Severity Reaction Status Date / Time iodine Allergy Severe skin Verified 04/11/22 14:44 reaction SEVERE mercury (elemental) Allergy Verified 04/28/22 14:56 Review of Systems Status of ROS: Reports: 10 or more systems reviewed and unremarkable except as noted in History and below [facility] Medical History (Updated 04/28/22 @ 17:02 by Sammy Agarwal MD) Allergies Aortic valve stenosis Ascending aorta dilatation Asymptomatic coronary heart disease Decreased testosterone level Environmental and seasonal allergies Gastrointestinal bleed Groin mass Hematuria Hyperlipidemia Intraductal papillary mucinous neoplasm Kidney lesion Low back pain Obesity Pancreatitis Tremor Type II diabetes mellitus, well controlled Unsteady gait Vitamin D deficiency Surgical History History of hand surgery History of nasal septoplasty History of shoulder surgery Family History Son Atrial fibrillation Thyroid cancer Daughter Autoimmune disorder Social History (Updated 04/28/22 @ 16:58 by Sammy Agarwal MD) Narrative: He lives with his of 61 years in [place]. 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 Code status is DNR. He does not smoke. He drinks alcohol about 3 times a month. Smoking Status: Never smoker Do you use any of these nicotine containing products: None Second hand tobacco smoke exposure: Yes How often do you have a drink containing alcohol: 2-4 times a month How many standard drinks containing alcohol do you have on a typical day: 1 or 2 How often do you have six or more drinks on one occasion: Never AUDIT-C Alcohol total score: 2 Non-prescribed substance use: denies use Caffeine: Yes (1 cup coffee AM) Little interest or pleasure in doing things: not at all Feeling down, depressed, or hopeless: several days service: No Exam Narrative: Exam Narrative: Vital signs as noted above. In general, an alert, well-appearing patient. Head: Normocephalic, atraumatic. Eyes: Pupils are equal reactive. Extraocular movements are full. Mild nystagmus on rightward gaze. No diplopia. Conjunctivae are normal. ENT: Mucous membranes are moist. Throat is normal. Tongue is midline. Neck: Supple without lymphadenopathy. No bruits. Nontender in the midline. Heart: Regular rate and rhythm. No murmur or rub. Systolic murmur heard best at the right sternal border. Lungs: Clear bilaterally. No increased work of breathing, crackles or wheezes. Abdomen: Soft and nontender. No organomegaly. No masses. Extremities: Well perfused. No edema. No calf tenderness. Pulses intact. Neurologic: Patient is alert and oriented to person and place. Speech is fluent. Face is symmetric. Moves all extremities equally. Cerebellar function is intact by finger-nose testing. Affect: Normal. Skin: Warm and dry. Well perfused. Const: Vital Signs, click to edit/add: Vital Signs - 24 hr 04/28/22 11:26 04/28/22 13:02 04/28/22 13:03 Pulse Rate 61 61 Pulse Rate [Pulse Oximeter] 66 Respiratory Rate 18 Blood Pressure Blood Pressure [Ri ght Upper Arm] 135/71 Pulse Oximetry 99 93 95 Oxygen Delivery Me thod Room Air 04/28/22 13:15 04/28/22 13:30 04/28/22 13:45 Pulse Rate 61 53 L 60 Pulse Rate [Pulse Oximeter] Respiratory Rate Blood Pressure Blood Pressure [Ri ght Upper Arm] Pulse Oximetry 94 95 95 Oxygen Delivery Me thod 04/28/22 13:57 04/28/22 13:58 04/28/22 14:00 Pulse Rate 60 62 62 Pulse Rate [Pulse Oximeter] Respiratory Rate Blood Pressure 116/79 Blood Pressure [Ri ght Upper Arm] Pulse Oximetry 96 95 94 Oxygen Delivery Me thod 04/28/22 14:02 04/28/22 14:24 04/28/22 14:31 Pulse Rate 63 65 Pulse Rate [Pulse Oximeter] Respiratory Rate Blood Pressure 112/65 114/69 Blood Pressure [Ri ght Upper Arm] Pulse Oximetry 97 98 Oxygen Delivery Me thod 04/28/22 15:02 04/28/22 15:03 04/28/22 15:15 Pulse Rate 69 61 66 Pulse Rate [Pulse Oximeter] Respiratory Rate Blood Pressure 114/62 Blood Pressure [Ri ght Upper Arm] Pulse Oximetry 99 98 99 Oxygen Delivery Me thod 04/28/22 15:30 04/28/22 15:32 04/28/22 15:36 Pulse Rate 72 69 67 Pulse Rate [Pulse Oximeter] Respiratory Rate Blood Pressure 85/68 L 135/72 Blood Pressure [Ri ght Upper Arm] Pulse Oximetry 97 98 96 Oxygen Delivery Me thod Documenting provider has reviewed patient's vital signs: yes Course Course Hospital Course: Patient had an EKG which by my review showed a normal sinus rhythm, first-degree AV block. T-waves are normal. No acute ST segment changes. CT of the head by my review showed no acute changes. Final radiology report was likewise negative. His labs were most notable for an elevated potassium of 6 and a creatinine of 1.8. Most recent baseline was 1. I did repeat the potassium to make sure that the initial 1 was not due to hemolysis, repeat returned at 6.1. His BUN is a little bit elevated, perhaps some of this is related to a component of dehydration, I have ordered some fluids. I do not see anything on EKG to suggest changes related to hyperkalemia. I have not ordered additional treatment therefore, will see how he responds to fluids and follow the potassium closely. He does have an elevated sed rate at 44, CRP is normal. Other labs are fairly unremarkable. His hemoglobin is 9.3, down just a little bit from clinic. He is down from his baseline which had previously been 13. This is being evaluated. His MCV and MCH are normal. LFTs are unremarkable, bilirubin is normal. BNP is 257. Point of care troponin is 0.01. He did mention a previous kidney cyst, looks like this was diagnosed during an episode of pancreatitis last year when he had the indeterminate lesion, had an MRI to follow that up and that does look like it was a simple cyst in the right kidney that was 4 cm. I would think that is unlikely to be related. I do think he should be monitored in the hospital to make sure that his potassium is improving and that his mild renal insufficiency is improving as well. Etiology of his episode last night is not entirely clear although it is somewhat suggestive to me of seizure. Neurology follow-up at some point may be reasonable. I think a cardiac cause is less likely given the duration of symptoms and the period Of confusion afterward. Stroke also seems less likely. Vital Signs Vital signs: Initial Vital Signs Temperature Source Temporal Artery Scan 04/28/22 11:26 Pulse Rate 66 04/28/22 11:26 Pulse Rhythm 04/28/22 11:26 Respiratory Rate 18 04/28/22 11:26 Blood Pressure 135/71 04/28/22 11:26 Blood Pressure Mean 92 04/28/22 11:26 Blood Pressure Position Supine 04/28/22 11:26 Pulse Oximetry 99 04/28/22 11:26 Oxygen Delivery Method 04/28/22 11:26 Vital Signs Pulse Rate 66 04/28/22 11:26 Respiratory Rate 18 04/28/22 11:26 Blood Pressure 135/71 04/28/22 11:26 Pulse Oximetry 99 04/28/22 11:26 Oxygen Delivery Method 04/28/22 11:26 Temperature 97.9 F 04/28/22 19:03 Pulse Rate 95 04/28/22 19:03 Respiratory Rate 18 04/28/22 19:03 Blood Pressure 107/75 04/28/22 19:03 Pulse Oximetry 98 04/28/22 19:03 Oxygen Delivery Method 04/28/22 19:03 Medical Decision Making Lab Data Labs: Lab Results 04/28/22 04/28/22 04/28/22 Range/Units 12:28 12:28 12:28 WBC 7.95 (4.50-11.00) K/uL RBC 2.86 L (4.30-5.90) m/uL Hgb 9.3 L (13.5-17.5) gm/dL Hct 27.4 L (37.0-53.0) % MCV 96 (80-100) fL MCH 33 (26-34) pg MCHC 34 (32-36) gm/dL RDW Coeff of Martin 12.5 (11.5-15.5) % Plt Count 195 (140-440) K/uL Neut % (Auto) 69.1 (42.0-72.0) % Lymph % (Auto) 17.1 L (20-44) % [place] % (Auto) 11.8 H (0.0-11.0) % Eos % (Auto) 1.6 (0.0-7.0) % Baso % (Auto) 0.1 (0.0-3.0) % Neut # (Auto) 5.49 (1.7-7.0) K/uL Lymph # (Auto) 1.40 (0.90-2.90) K/uL [place] # (Auto) 0.90 (0.00-0.90) K/UL Eos # (Auto) 0.13 (0.00-0.50) K/uL Baso # (Auto) 0.01 (0.00-0.30) K/uL ESR 44 H (2-15) mm/hr Sodium 140 (135-149) mmol/L Potassium 6.0 H (3.6-5.1) mmol/L Chloride 110 (96-114) mmol/L Carbon Dioxide 22 (20-32) mmol/L BUN 40 H (7-30) mg/dL Creatinine 1.8 H (0.5-1.5) mg/dL Estimated Creat Clear 30.61 Estimated GFR 37 ml/min Glucose 107 (60-115) mg/dL Lactate (0.5-1.9) mmol/L Calcium 9.0 (8.4-10.6) mg/dL Magnesium (1.5-2.6) mg/dL Iron (49-181) ug/dL TIBC (261-462) ug/dL % Saturation (20-50) % Total Bilirubin (0.1-1.5) mg/dL Direct Bilirubin (0.0-0.5) mg/dL AST (12-35) U/L ALT (4-50) U/L Alkaline Phosphatase (40-150) U/L C-Reactive Protein < 0.5 L (0.5-1.0) mg/dL NT-Pro-B Natriuret Pep pg/mL Total Protein (6.0-8.3) g/dL Albumin (3.3-5.0) g/dL SARS-CoV-2 (PCR) (Negative) POC Troponin I (0.01-0.04) ng/ml 04/28/22 04/28/22 04/28/22 Range/Units 12:28 12:28 12:28 WBC (4.50-11.00) K/uL RBC (4.30-5.90) m/uL Hgb (13.5-17.5) gm/dL Hct (37.0-53.0) % MCV (80-100) fL MCH (26-34) pg MCHC (32-36) gm/dL RDW Coeff of Martin (11.5-15.5) % Plt Count (140-440) K/uL Neut % (Auto) (42.0-72.0) % Lymph % (Auto) (20-44) % [place] % (Auto) (0.0-11.0) % Eos % (Auto) (0.0-7.0) % Baso % (Auto) (0.0-3.0) % Neut # (Auto) (1.7-7.0) K/uL Lymph # (Auto) (0.90-2.90) K/uL [place] # (Auto) (0.00-0.90) K/UL Eos # (Auto) (0.00-0.50) K/uL Baso # (Auto) (0.00-0.30) K/uL ESR (2-15) mm/hr Sodium (135-149) mmol/L Potassium (3.6-5.1) mmol/L Chloride (96-114) mmol/L Carbon Dioxide (20-32) mmol/L BUN (7-30) mg/dL Creatinine (0.5-1.5) mg/dL Estimated Creat Clear Estimated GFR ml/min Glucose (60-115) mg/dL Lactate 0.9 (0.5-1.9) mmol/L Calcium (8.4-10.6) mg/dL Magnesium 1.7 (1.5-2.6) mg/dL Iron (49-181) ug/dL TIBC (261-462) ug/dL % Saturation (20-50) % Total Bilirubin 0.5 (0.1-1.5) mg/dL Direct Bilirubin 0.2 (0.0-0.5) mg/dL AST 20 (12-35) U/L ALT 15 (4-50) U/L Alkaline Phosphatase 51 (40-150) U/L C-Reactive Protein (0.5-1.0) mg/dL NT-Pro-B Natriuret Pep 257 pg/mL Total Protein 7.4 (6.0-8.3) g/dL Albumin 4.2 (3.3-5.0) g/dL SARS-CoV-2 (PCR) (Negative) POC Troponin I 0.01 (0.01-0.04) ng/ml 04/28/22 04/28/22 04/28/22 Range/Units 12:28 13:50 14:23 WBC (4.50-11.00) K/uL RBC (4.30-5.90) m/uL Hgb (13.5-17.5) gm/dL Hct (37.0-53.0) % MCV (80-100) fL MCH (26-34) pg MCHC (32-36) gm/dL RDW Coeff of Martin (11.5-15.5) % Plt Count (140-440) K/uL Neut % (Auto) (42.0-72.0) % Lymph % (Auto) (20-44) % [place] % (Auto) (0.0-11.0) % Eos % (Auto) (0.0-7.0) % Baso % (Auto) (0.0-3.0) % Neut # (Auto) (1.7-7.0) K/uL Lymph # (Auto) (0.90-2.90) K/uL [place] # (Auto) (0.00-0.90) K/UL Eos # (Auto) (0.00-0.50) K/uL Baso # (Auto) (0.00-0.30) K/uL ESR (2-15) mm/hr Sodium (135-149) mmol/L Potassium 6.1 H* (3.6-5.1) mmol/L Chloride (96-114) mmol/L Carbon Dioxide (20-32) mmol/L BUN (7-30) mg/dL Creatinine (0.5-1.5) mg/dL Estimated Creat Clear Estimated GFR ml/min Glucose (60-115) mg/dL Lactate (0.5-1.9) mmol/L Calcium (8.4-10.6) mg/dL Magnesium (1.5-2.6) mg/dL Iron 110 (49-181) ug/dL TIBC 299 (261-462) ug/dL % Saturation 37 (20-50) % Total Bilirubin (0.1-1.5) mg/dL Direct Bilirubin (0.0-0.5) mg/dL AST (12-35) U/L ALT (4-50) U/L Alkaline Phosphatase (40-150) U/L C-Reactive Protein (0.5-1.0) mg/dL NT-Pro-B Natriuret Pep pg/mL Total Protein (6.0-8.3) g/dL Albumin (3.3-5.0) g/dL SARS-CoV-2 (PCR) Negative SARS-CoV-2 (Negative) POC Troponin I (0.01-0.04) ng/ml Discharge Plan Discharge Clinical Impression: Episode of unresponsiveness, Acute renal insufficiency, Acute hyperkalemia Patient Disposition: Admitted As Inpatient Condition: Stable
[2022-04-28 12:38] LABS: Lactate* 0.9 mmol/L (0.5-1.9)
[2022-04-28 12:39] LABS: Basophils Absolute Auto 0.01 K/uL (0.00-0.30); Basophils Percent Auto 0.1 % (0.0-3.0); Eosinophils Absolute Auto 0.13 K/uL (0.00-0.50); Eosinophils Percent Auto 1.6 % (0.0-7.0); Hematocrit 27.4 % (37.0-53.0); Hemoglobin* 9.3 gm/dL (13.5-17.5); Immature Granulocytes Abs Auto 0.02 K/uL (0.00-0.30); Immature Granulocytes Pct Auto 0.3 %; Lymphocytes Percent Auto 17.1 % (20-44); Mean Corpuscular HGB Conc 34 gm/dL (32-36); Mean Corpuscular Hemoglobin 33 pg (26-34); Mean Corpuscular Volume 96 fL (80-100); Monocytes Percent Auto 11.8 % (0.0-11.0); Neutrophils Absolute Auto 5.49 K/uL (1.7-7.0); Neutrophils Percent Auto 69.1 % (42.0-72.0); Platelet Count* 195 K/uL (140-440); RDW Coefficient of Variation % 12.5 % (11.5-15.5); Red Blood Count 2.86 m/uL (4.30-5.90); White Blood Count* 7.95 K/uL (4.50-11.00)
[2022-04-28 12:46] LABS: Troponin, Point-of-Care* 0.01 ng/ml (0.01-0.04)
[2022-04-28 12:49] LABS: Slide Review Reflex No
[2022-04-28 12:57] LABS: Chloride* 110 mmol/L (96-114); Sodium* 140 mmol/L (135-149)
[2022-04-28 12:58] LABS: Albumin* 4.2 g/dL (3.3-5.0)
[2022-04-28 13:00] LABS: Blood Urea Nitrogen* 40 mg/dL (7-30); Carbon Dioxide* 22 mmol/L (20-32); Creatinine* 1.8 mg/dL (0.5-1.5); Est. Creatinine Clearance* 30.61; Estimated Glomerular Filt Rate 37 ml/min
[2022-04-28 13:01] LABS: Alanine Aminotransferase* 15 U/L (4-50); Alkaline Phosphatase* 51 U/L (40-150); Aspartate Amino Transferase* 20 U/L (12-35); Bilirubin Direct* 0.2 mg/dL (0.0-0.5); Bilirubin Total* 0.5 mg/dL (0.1-1.5); Glucose* 107 mg/dL (60-115); Magnesium* 1.7 mg/dL (1.5-2.6); Total Protein* 7.4 g/dL (6.0-8.3)
[2022-04-28 13:05] LABS: C Reactive Protein* < 0.5 mg/dL (0.5-1.0)
[2022-04-28 13:18] LABS: NT Pro B Type NatriureticPept* 257 pg/mL
[2022-04-28 13:58] LABS: Erythrocyte SedimentationRate* 44 mm/hr (2-15)
--- NOTE | 2022-04-28 14:22 | ED.NURSE ---
Critical lab: K+ 6.1, handed to at 0990
[2022-04-28 14:23] LABS: Potassium* 6.1 mmol/L (3.6-5.1)
[2022-04-28] MEDS: 0.9 % SODIUM CHLORIDE 1000 ml 1,000 ML IV (15:31)
[2022-04-28 15:33] LABS: SARS PCR* Negative SARS-CoV-2 (Negative)
--- NOTE | 2022-04-28 16:18 | CRLHL7_ITS ---
For Patients: As a result of the Century Cures Act, medical imaging exams and procedure reports are released immediately into your electronic medical record. You may view this report before your referring provider. If you have questions, please contact your health care provider. INDICATION: Acute kidney injury TECHNIQUE: Ultrasound renal bilateral. Colón-scale and color Doppler sonographic images were acquired of the kidneys and urinary bladder. COMPARISON: None. FINDINGS: Right kidney: Length 12.7 cm. Right cortex 15 mm. Normal echotexture and cortex noted. No masses, stones, or hydronephrosis seen. Simple cyst at inferior pole of right kidney, measuring 3.1 cm in maximal dimension. Left kidney: Length 12.5 cm. Left renal cortex 13 mm. Normal echotexture and cortex noted. No masses, stones, or hydronephrosis seen. Bladder: Bladder not evaluated. IMPRESSION: 1. Unremarkable sonographic appearance of the kidneys. No hydronephrosis. No perinephric fluid. 2. Simple inferior pole right renal cyst measuring to 3.1 cm. Dictated by Stevo Torres MD @ 04/28/2022 6:13:53 PM Dictated by: Stevo Torres MD @ 04/28/2022 18:14:05 (Electronically Signed)
--- NOTE | 2022-04-28 16:40 | P.IMHP_ITS ---
Hospitalist- H&P: BRENDEN History of Present Illness Date Seen: 04/28/22 Chief complaint: Fall Sunday, labored breathing Narrative: Jd Go is a 81 year old male admitted through the emergency department with an unresponsive spell at home as well as other concerns. During the night last night his awoke to find him having very noisy breathing and even some gurgling sound. She tried to arouse him but was unable to arouse him for 15 or 20 minutes. During this time he was breathing but was very noisy. She also noted that he had clenched his right fist very tightly and she could not get it to relax. He has sleep apnea and uses CPAP. When this episode occurred his CPAP was off. His tried unsuccessfully to put back on. He eventually woke up but initially was talking gibberish. Eventually he was able to come back to normal consciousness and normal speech. There was no generalized seizure activity. No tonic clonic movement except for the clenching of his fist. She called her son who recommended that he come to the emergency room for evaluation. When she called 911 they did a stroke screen over the phone and he had no focal neurologic abnormalities that she could identify. On that basis she decided to bring him to the emergency room today rather than du ring the night. He fell on Sunday, 4 days ago. He was standing at the kitchen counter and he reports his legs just gave out on him. He he was conscious as he went down. He did not lose consciousness. He reports he was otherwise feeling fine. His witnessed this. He hit a cabinet with his head. No significant head injury. He saw his primary care doctor in clinic. CT scan of the head was scheduled for next week. He denies previous episodes of falls. He does note that his gait is less steady than it used to be. His notes that he has a shuffling gait. He is currently being evaluated for anemia. He has a colonoscopy scheduled for next Sunday, 1 week from today. His last colonoscopy was over a decade ago and was apparently normal at that time. He has not had bloody stools. He does have constipation. He did have guaiac-positive stool today. He was also found to have elevated potassium 6.1 and elevated creatinine 1.8 today. These were last checked last summer when his creatinine was 1.0 and potassium was 4.7. He is on lisinopril. He takes Aleve but quite infrequently. Maybe 1 tablet this week. He does have BPH with urinary retention, incontinence, frequency. Review of Systems Narrative: Review of systems is unremarkable except as noted above [facility] Medical History (Updated 04/28/22 @ 17:02 by Sammy Agarwal MD) Allergies Aortic valve stenosis Ascending aorta dilatation Asymptomatic coronary heart disease Decreased testosterone level Environmental and seasonal allergies Gastrointestinal bleed Groin mass Hematuria Hyperlipidemia Intraductal papillary mucinous neoplasm Kidney lesion Low back pain Obesity Pancreatitis Tremor Type II diabetes mellitus, well controlled Unsteady gait Vitamin D deficiency Surgical History History of hand surgery History of nasal septoplasty History of shoulder surgery Family History Son Atrial fibrillation Thyroid cancer Daughter Autoimmune disorder Social History (Updated 04/28/22 @ 16:58 by Sammy Agarwal MD) Narrative: He lives with his of 61 years in [place]. 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 is healthcare power of civil rights attorney primarily and his son and daughter are secondary healthcare power of civil rights attorney. Code status is DNR. He does not smoke. He drinks alcohol about 3 times a month. Smoking Status: Never smoker Do you use any of these nicotine containing products: None Second hand tobacco smoke exposure: Yes How often do you have a drink containing alcohol: 2-4 times a month How many standard drinks containing alcohol do you have on a typical day: 1 or 2 How often do you have six or more drinks on one occasion: Never AUDIT-C Alcohol total score: 2 Non-prescribed substance use: denies use Caffeine: Yes (1 cup coffee AM) Little interest or pleasure in doing things: not at all Feeling down, depressed, or hopeless: several days service: No Meds Home Medications and Allergies Home Medications Medication Instructions Recorded Confirmed Type aspirin 81 mg tablet,delayed 81 mg PO Q48H 09/08/21 04/28/22 History release cholecalciferol (vitamin D3) 125 5,000 unit PO .3XWEEKLY 09/08/21 04/28/22 Hi story mcg (5,000 unit) tablet fluticasone propionate 50 1 spray intranasal BID 09/08/21 04/28/22 History mcg/actuation nasal spray,suspension ferrous sulfate 325 mg (65 mg 325 mg PO DAILY 04/28/22 04/28/22 History iron) tablet (iron) gabapentin 300 mg capsule 600 mg PO HS 04/28/22 04/28/22 History montelukast 10 mg tablet 10 mg PO HS 04/28/22 04/28/22 History naproxen sodium 220 mg capsule 220 mg PO DAILY PRN 04/28/22 04/28/22 History (Aleve) omeprazole 20 mg capsule,delayed 20 mg PO DAILY 04/28/22 04/28/22 History release rosuvastatin 40 mg tablet 40 mg PO DAILY 04/28/22 04/28/22 History Allergies Allergy/AdvReac Type Severity Reaction Status Date / Time iodine Allergy Severe skin Verified 04/11/22 14:44 reaction SEVERE mercury (elemental) Allergy Verified 04/28/22 14:56 Exam Narrative: Exam Narrative: He is alert and appears in no distress. He gives his own history. No apparent head trauma. Eyes normal. Extraocular movements are full. Visual frazier are intact. Pupils are quite small. No scleral icterus. No facial asymmetry. Oropharynx is normal. Tongue is midline. He has some superficial erythema and ulcerations at the opening of his right nares. Neck is supple without mass or adenopathy. Respirations are clear to auscultation. Cardiovascular: S1, S2, regular rate and rhythm. 2/6 systolic ejection murmur heard best over the right upper sternal border. Abdomen: Bowel sounds active. Abdomen is soft without tenderness or mass. External genitalia normal. Extremities are normal. He has intact pulses, intact sensation, good capillary refill. Strength is 5/5 bilaterally in shoulder flexion and extension, elbow flexion extension, wrist flexion and extension, finger extension and distribution superintendent strength. Strength is 5/5 bilaterally in hip flexion, knee flexion and extension, ankle dorsiflexion and plantar flexion. [id number] and heel-hayden are accurate. His a mild tremor at maximum extension on [id number]. No obvious resting tremor. No marked rigidity or bradykinesia. Const: Vital Signs, click to edit/add: Vital Signs - 24 hr 04/28/22 11:26 04/28/22 13:02 04/28/22 13:03 Pulse Rate 61 61 Pulse Rate [Pulse Oximeter] 66 Respiratory Rate 18 Blood Pressure Blood Pressure [Ri ght Upper Arm] 135/71 Pulse Oximetry 99 93 95 Oxygen Delivery Me thod Room Air 04/28/22 13:15 04/28/22 13:30 04/28/22 13:45 Pulse Rate 61 53 L 60 Pulse Rate [Pulse Oximeter] Respiratory Rate Blood Pressure Blood Pressure [Ri ght Upper Arm] Pulse Oximetry 94 95 95 Oxygen Delivery Me thod 04/28/22 13:57 04/28/22 13:58 04/28/22 14:00 Pulse Rate 60 62 62 Pulse Rate [Pulse Oximeter] Respiratory Rate Blood Pressure 116/79 Blood Pressure [Ri ght Upper Arm] Pulse Oximetry 96 95 94 Oxygen Delivery Me thod 04/28/22 14:02 04/28/22 14:24 04/28/22 14:31 Pulse Rate 63 65 Pulse Rate [Pulse Oximeter] Respiratory Rate Blood Pressure 112/65 114/69 Blood Pressure [Ri ght Upper Arm] Pulse Oximetry 97 98 Oxygen Delivery Me thod 04/28/22 15:02 04/28/22 15:03 04/28/22 15:15 Pulse Rate 69 61 66 Pulse Rate [Pulse Oximeter] Respiratory Rate Blood Pressure 114/62 Blood Pressure [Ri ght Upper Arm] Pulse Oximetry 99 98 99 Oxygen Delivery Me thod 04/28/22 15:30 04/28/22 15:32 04/28/22 15:36 Pulse Rate 72 69 67 Pulse Rate [Pulse Oximeter] Respiratory Rate Blood Pressure 85/68 L 135/72 Blood Pressure [Ri ght Upper Arm] Pulse Oximetry 97 98 96 Oxygen Delivery Me thod Documenting provider has reviewed patient's vital signs: yes Hospitalist - H&P: Result Labs Labs: Short CBC 04/28/22 Range/Units 12:28 WBC 7.95 (4.50-11.00) K/uL Hgb 9.3 L (13.5-17.5) gm/dL Hct 27.4 L (37.0-53.0) % Plt Count 195 (140-440) K/uL BMP 04/28/22 04/28/22 12:28 13:50 Sodium 140 Potassium 6.0 H 6.1 H* Chloride 110 Carbon Dioxide 22 BUN 40 H Creatinine 1.8 H Glucose 107 Calcium 9.0 Liver Function 04/28/22 Range/Units 12:28 Total Bilirubin 0.5 (0.1-1.5) mg/dL Direct Bilirubin 0.2 (0.0-0.5) mg/dL AST 20 (12-35) U/L ALT 15 (4-50) U/L Alkaline Phosphatase 51 (40-150) U/L Albumin 4.2 (3.3-5.0) g/dL Assessment and Plan Assessment and plan (1) Gastrointestinal bleed: Problem comment: Progressive anemia with guaiac-positive stool on 04/28/2022. Colonoscopy scheduled for next week. Will try to arrange EGD at that time as well. In the hospital monitor hemoglobin. Status: Acute (2) Acute renal insufficiency: Problem comment: Summer 2021 creatinine 1.0 and potassium 4.7 04/28/2022 creatinine 1.8 and potassium 6.1 Status: Acute (3) Acute hyperkalemia: Problem comment: Hydrate, diuretic, hold lisinopril and NSAIDs Status: Acute (4) Episode of unresponsiveness: Problem comment: Uncertain if this was a seizure. Outpatient Neurology follow-up recommended Status: Acute (5) Hypertension: Problem comment: Hold lisinopril. May need diuretic. Status: Acute (6) Obstructive sleep apnea syndrome: Problem comment: Uncertain if unresponsive spell was due to disordered sleep/obstructive sleep apnea or seizure Status: Acute (7) BPH (benign prostatic hyperplasia): Problem comment: Check renal ultrasound and bladder scan. Status: Acute (8) Tremor: Problem comment: Possibly early Parkinson's. Outpatient Neurology follow-up. Status: Acute (9) Unsteady gait: Problem comment: Recent fall due to legs giving out. Possibly early Parkinson's. PT evaluation. Outpatient Neurology follow-up. Status: Acute Plan Patient will be admitted to the hospital for evaluation treatment of the above medical problems. Serial labs to check renal function, potassium, hemoglobin. IV fluids and IV diuretics to help potassium. Outpatient followup for Neurology. Monitor for recurrent unresponsive spells. Total time spent today is 90 minutes, 60 minutes in coordination of care discussing with patient family and other providers ongoing evaluation management of spells, kidney disease, anemia, poor balance and falls
[2022-04-28] MEDS: 0.9 % SODIUM CHLORIDE 1000 ml 1,000 ML 500 ML IV (16:55)
[2022-04-28] MEDS: FUROSEMIDE 10 MG/ML inj 40 MG IVP (16:55)
[2022-04-28 17:08] LABS: Iron* 110 ug/dL (49-181)
[2022-04-28 17:17] LABS: Percent Iron Saturation 37 % (20-50); Total Iron Binding Capacity 299 ug/dL (261-462)
[2022-04-28] MEDS: METFORMIN 500 MG TABLET 1000 MG PO (18:12)
[2022-04-28] MEDS: MONTELUKAST 10 MG TABLET PO (20:06)
[2022-04-28] MEDS: GABAPENTIN 300 MG CAPSULE 600 MG PO (20:06)
[2022-04-28] MEDS: SODIUM CHLORIDE 0.9 % (FLUSH) 10 ML SYRINGE 5 ML IVF (20:07)
--- NOTE | 2022-04-28 22:27 | PC.NURSE ---
Shift [id number]- Patient arrives to unit this afternoon with and daughter. He denies pain. He is up with SBA. He is alert and oriented. Appetite intact.
[2022-04-29 03:00] VITALS: BP 93/74; PULSE 69; RESP 18; TEMP 36.6; O2SAT 98
--- NOTE | 2022-04-29 05:25 | PC.NURSE ---
Shift note: Pt was found speaking to himself with the right fingers clinched together at 0345. Difficulty to arouse on awaking and not response to calling name or shaking. Episode lasted for about 5 minute before regaining consciousness. Vitally stable after the episode but Bp was 93/74 and neuro intact.
[2022-04-29] MEDS: OMEPRAZOLE 20 MG CAPSULE DR PO (06:46)
[2022-04-29 06:48] LABS: Basophils Absolute Auto 0.02 K/uL (0.00-0.30); Basophils Percent Auto 0.2 % (0.0-3.0); Eosinophils Absolute Auto 0.11 K/uL (0.00-0.50); Eosinophils Percent Auto 1.1 % (0.0-7.0); Hematocrit 29.4 % (37.0-53.0); Hemoglobin* 9.9 gm/dL (13.5-17.5); Immature Granulocytes Abs Auto 0.01 K/uL (0.00-0.30); Immature Granulocytes Pct Auto 0.1 %; Immature Reticulocyte Fraction 10.5 % (2.3-13.4); Lymphocytes Percent Auto 17.9 % (20-44); Mean Corpuscular HGB Conc 34 gm/dL (32-36); Mean Corpuscular Hemoglobin 33 pg (26-34); Mean Corpuscular Volume 97 fL (80-100); Monocytes Percent Auto 10.8 % (0.0-11.0); Neutrophils Absolute Auto 7.22 K/uL (1.7-7.0); Neutrophils Percent Auto 69.9 % (42.0-72.0); Platelet Count* 266 K/uL (140-440); RDW Coefficient of Variation % 12.5 % (11.5-15.5); Red Blood Count 3.03 m/uL (4.30-5.90); Reticulocyte Hemoglobin Equivi 32.6 pg (29.0-35.0); Reticulocyte Percent 2.1 % (0.5-2.0); Reticulocytes Absolute 0.06 # (0.03-0.08); White Blood Count* 10.33 K/uL (4.50-11.00)
[2022-04-29 06:55] LABS: Slide Review Reflex No
[2022-04-29 07:08] LABS: Chloride* 107 mmol/L (96-114); Potassium* 5.3 mmol/L (3.6-5.1); Sodium* 140 mmol/L (135-149)
[2022-04-29 07:11] LABS: Blood Urea Nitrogen* 42 mg/dL (7-30); Carbon Dioxide* 23 mmol/L (20-32); Creatinine* 1.9 mg/dL (0.5-1.5); Estimated Glomerular Filt Rate 35 ml/min
[2022-04-29 07:12] LABS: Glucose* 135 mg/dL (60-115)
[2022-04-29 07:15] VITALS: PULSE 86
[2022-04-29 07:45] VITALS: BP 112/64; PULSE 81; RESP 18; TEMP 36.9; O2SAT 98
[2022-04-29] MEDS: 0.9 % SODIUM CHLORIDE 1000 ml 1,000 ML 500 ML IV (08:50)
[2022-04-29] MEDS: SODIUM CHLORIDE 0.9 % (FLUSH) 10 ML SYRINGE 5 ML IVF (08:50)
[2022-04-29] MEDS: METFORMIN 500 MG TABLET PO (09:10)
[2022-04-29] MEDS: TAMSULOSIN HCL 0.4 MG CAPSULE 0.8 MG PO (09:11)
[2022-04-29] MEDS: ROSUVASTATIN CALCIUM 10 MG TABLET 40 MG PO (09:11)
[2022-04-29] MEDS: METOPROLOL SUCCINATE (XL) 50 MG TAB PO (09:11)
--- NOTE | 2022-04-29 09:19 | P.DS_ITS ---
DS: Providers Provider Date Seen: 04/29/22 Date of admission: 04/28/22 16:09 Primary care physician: Mick Barraza MD Admitting Clinician: Sammy Agarwal MD Attending Physician on discharge: Sammy Agarwal MD Date of Discharge: 04/29/22 DS: Diagnosis Discharge Diagnosis (1) Episode of unresponsiveness: Status: Acute Problem details: Uncertain if this was a seizure. Had a 2nd unresponsive episode during sleep last night. Spoke with Neurology at [place]. Recommend transfer for EEG monitoring (2) Acute renal insufficiency: Status: Acute Problem details: Cause for this is uncertain. Chronic lisinopril use likely making it worse. Summer 2021 creatinine 1.0 and potassium 4.7 04/28/2022 creatinine 1.8 and potassium 6.1 04/29/2022 creatinine 1.9 and potassium 5.3 after normal saline bolus and furosemide 40 mg IV (3) Acute hyperkalemia: Status: Acute Problem details: Hydrate, diuretic, hold lisinopril and NSAIDs (4) Gastrointestinal bleed: Status: Acute Problem details: Progressive anemia with guaiac-positive stool on 04/28/2022. Colonoscopy scheduled for next week. Will try to arrange EGD at that time as well. Hemoglobin stable in the hospital. (5) Obstructive sleep apnea syndrome: Status: Acute Problem details: 2 unresponsive spells occurred when he was not wearing CPAP. Uncertain if unresponsive spell was due to disordered sleep/obstructive sleep apnea or seizure (6) BPH (benign prostatic hyperplasia): Status: Acute Problem details: Normal renal ultrasound. No apparent obstructive uropathy (7) Hypertension: Status: Acute Problem details: Hold lisinopril. May need diuretic. (8) Tremor: Status: Acute Problem details: Possibly early Parkinson's. (9) Unsteady gait: Status: Acute Problem details: Recent fall due to legs giving out. Possibly early Parkinson's. PT evaluation. DS: Summary Hospital Course Hospital Course: Jd Go is a 81 year old male admitted through the emergency department with an unresponsive spell at home as well as other concerns. During the night last night his awoke to find him having very noisy breathing and even some gurgling sound.? She tried to arouse him but was unable to arouse him for 15 or 20 minutes.? During this time he was breathing but was very noisy breathing.? She also noted that he had clenched his right fist very tightly and she could not get it to relax.? He has sleep apnea and uses CPAP.? When this episode occurred his CPAP was off.? His tried unsuccessfully to put back on.? He eventually woke up but initially was talking gibberish.? Eventually he was able to come back to normal consciousness and normal speech.? There was no generalized seizure activity.? No tonic clonic movement except for the clenching of his fist and posturing of his right arm.? She called her son who recommended that he come to the emergency room for evaluation.? When she called 911 they did a stroke screen over the phone and he had no focal neurologic abnormalities that she could identify.? On that basis she decided to bring him to the emergency room in the morning rather than during the night. He fell on Sunday, 4 days ago.? He was standing at the kitchen counter and he reports his legs just gave out on him.? He he was conscious as he went down.? He did not lose consciousness.? He reports he was otherwise feeling fine.? His witnessed this.? He hit a cabinet with his head.? No significant head injury.? He saw his primary care doctor in clinic.? He denies previous episodes of falls.? He does note that his gait is less steady than it used to be.? His notes that he has a shuffling gait. He is currently being evaluated for anemia.? He has a colonoscopy scheduled for May 09.? His last colonoscopy was over a decade ago and was apparently normal at that time.? He has not had bloody stools.? He does have constipation.? He did have guaiac-positive stool today. He was also found to have elevated potassium 6.1 and elevated creatinine 1.8 today.? These were last checked last summer when his creatinine was 1.0 and potassium was 4.7.? He is on lisinopril.? He takes Aleve but quite infrequently.? Maybe 1 tablet this week.? He does have BPH with urinary retention, incontinence, frequency. Last night in the hospital he had another spell of unresponsiveness. His nurse noted that he was again clenching his right fist and posturing with his right arm but other extremities appear to be normal. He was unarousable for about 5 minutes. When he did arouse he was a bit confused but came around to normal consciousness relatively quickly. He was observed to be breathing during this time but he did not have CPAP on. He does not recall any of this. Status at Discharge Cognitive/behavioral status at discharge: At baseline Functional status at discharge: independent ambulation Overall status at discharge: patient is back to baseline Time Spent with Patient Time attestation: Total time spent providing and/or coordinating discharge services: Time spent: Greater than 30 minutes Exam Narrative: Exam Narrative: He is alert and oriented to his circumstances. He does not recall the events during the night. He has just eaten his breakfast without any difficulties. H ead is normal. Eyes are normal. No facial asymmetry. Speech is normal. Respirations are clear to auscultation. Cardiovascular: S1, S2, regular rate and rhythm. 2/6 systolic murmur. Abdomen: Bowel sounds active. Abdomen is soft without tenderness. Upper extremities are noted to have equal strength. He has a mild coarse tremor and mild clumsiness with rapid finger movements. No resting tremor. No rigidity. When he walks he is noted to move his right leg less efficiently than his left. Const: Vital Signs, click to edit/add: Vital Signs - 24 hr 04/28/22 11:26 04/28/22 13:02 04/28/22 13:03 Temperature Pulse Rate 61 61 Pulse Rate [Left R adial] Pulse Rate [Pulse Oximeter] 66 Respiratory Rate 18 Blood Pressure Blood Pressure [Ri ght Arm] Blood Pressure [Ri ght Upper Arm] 135/71 Pulse Oximetry 99 93 95 Oxygen Delivery Me thod Room Air 04/28/22 13:15 04/28/22 13:30 04/28/22 13:45 Temperature Pulse Rate 61 53 L 60 Pulse Rate [Left R adial] Pulse Rate [Pulse Oximeter] Respiratory Rate Blood Pressure Blood Pressure [Ri ght Arm] Blood Pressure [Ri ght Upper Arm] Pulse Oximetry 94 95 95 Oxygen Delivery Me thod 04/28/22 13:57 04/28/22 13:58 04/28/22 14:00 Temperature Pulse Rate 60 62 62 Pulse Rate [Left R adial] Pulse Rate [Pulse Oximeter] Respiratory Rate Blood Pressure 116/79 Blood Pressure [Ri ght Arm] Blood Pressure [Ri ght Upper Arm] Pulse Oximetry 96 95 94 Oxygen Delivery Me thod 04/28/22 14:02 04/28/22 14:24 04/28/22 14:31 Temperature Pulse Rate 63 65 Pulse Rate [Left R adial] Pulse Rate [Pulse Oximeter] Respiratory Rate Blood Pressure 112/65 114/69 Blood Pressure [Ri ght Arm] Blood Pressure [Ri ght Upper Arm] Pulse Oximetry 97 98 Oxygen Delivery Me thod 04/28/22 15:02 04/28/22 15:03 04/28/22 15:15 Temperature Pulse Rate 69 61 66 Pulse Rate [Left R adial] Pulse Rate [Pulse Oximeter] Respiratory Rate Blood Pressure 114/62 Blood Pressure [Ri ght Arm] Blood Pressure [Ri ght Upper Arm] Pulse Oximetry 99 98 99 Oxygen Delivery Il thod 04/28/22 15:30 04/28/22 15:32 04/28/22 15:36 Temperature Pulse Rate 72 69 67 Pulse Rate [Left R adial] Pulse Rate [Pulse Oximeter] Respiratory Rate Blood Pressure 85/68 L 135/72 Blood Pressure [Ri ght Arm] Blood Pressure [Ri ght Upper Arm] Pulse Oximetry 97 98 [facility] 04/28/22 16:20 04/28/22 16:20 04/28/22 17:38 Temperature 97.5 F L Pulse Rate 86 Pulse Rate [Left R adial] 80 Pulse Rate [Pulse Oximeter] Respiratory Rate 18 18 Blood Pressure Blood Pressure [Ri ght Arm] 111/85 Blood Pressure [Ri ght Upper Arm] Pulse Oximetry 100 100 [facility] Room Air 04/28/22 19:03 04/28/22 23:00 04/29/22 03:00 Temperature 97.9 F 98 F 97.8 F Pulse Rate Pulse Rate [Left R adial] 95 82 69 Pulse Rate [Pulse Oximeter] Respiratory Rate 18 18 18 Blood Pressure Blood Pressure [Ri ght Arm] 107/75 101/67 93/74 Blood Pressure [Ri ght Upper Arm] Pulse Oximetry 98 93 98 [facility] Room Air Room Air 04/29/22 07:15 Temperature Pulse Rate 86 Pulse Rate [Left R adial] Pulse Rate [Pulse Oximeter] Respiratory Rate Blood Pressure Blood Pressure [Ri ght Arm] Blood Pressure [Ri ght Upper Arm] Pulse Oximetry Oxygen Delivery Me thod Documenting provider has reviewed patient's vital signs: yes DS: Data Data Completed and Pending Completed studies during hospitalization: Head CT shows chronic age-related changes without focal abnormality, trauma, bleeding, mass Labs on day of discharge: Labs from last 24 hours 04/29/22 04/29/22 04/28/22 06:04 06:04 14:23 WBC 10.33 RBC 3.03 L Hgb 9.9 L Hct 29.4 L MCV 97 MCH 33 MCHC 34 RDW Coeff of Martin 12.5 Plt Count 266 Neut % (Auto) 69.9 Lymph % (Auto) 17.9 L [place] % (Auto) 10.8 Eos % (Auto) 1.1 Baso % (Auto) 0.2 Neut # (Auto) 7.22 H Lymph # (Auto) 1.80 [place] # (Auto) 1.10 H Eos # (Auto) 0.11 Baso # (Auto) 0.02 ESR Absolute Retic 0.06 Percent Retic 2.1 H Immature Retic Fraction 10.5 Retic Hgb Equivalent 32.6 Sodium 140 Potassium 5.3 H Chloride 107 Carbon Dioxide 23 BUN 42 H Creatinine 1.9 H Estimated Creat Clear 29.00 Estimated GFR 35 Glucose 135 H Lactate Calcium 9.0 Magnesium Iron TIBC % Saturation Total Bilirubin Direct Bilirubin AST ALT Alkaline Phosphatase C-Reactive Protein NT-Pro-B Natriuret Pep Total Protein Albumin SARS-CoV-2 (PCR) Negative SARS-CoV-2 POC Troponin I 04/28/22 04/28/22 04/28/22 13:50 12:28 12:28 WBC RBC Hgb Hct MCV MCH MCHC RDW Coeff of Martin Plt Count Neut % (Auto) Lymph % (Auto) [place] % (Auto) Eos % (Auto) Baso % (Auto) Neut # (Auto) Lymph # (Auto) [place] # (Auto) Eos # (Auto) Baso # (Auto) ESR Absolute Retic Percent Retic Immature Retic Fraction Retic Hgb Equivalent Sodium Potassium 6.1 H* Chloride Carbon Dioxide BUN Creatinine Estimated Creat Clear Estimated GFR Glucose Lactate Calcium Magnesium Iron 110 TIBC 299 % Saturation 37 Total Bilirubin Direct Bilirubin AST ALT Alkaline Phosphatase C-Reactive Protein NT-Pro-B Natriuret Pep Total Protein Albumin SARS-CoV-2 (PCR) POC Troponin I 0.01 04/28/22 04/28/22 04/28/22 12:28 12:28 12:28 WBC RBC Hgb Hct MCV MCH MCHC RDW Coeff of Martin Plt Count Neut % (Auto) Lymph % (Auto) [place] % (Auto) Eos % (Auto) Baso % (Auto) Neut # (Auto) Lymph # (Auto) [place] # (Auto) Eos # (Auto) Baso # (Auto) ESR 44 H Absolute Retic Percent Retic Immature Retic Fraction Retic Hgb Equivalent Sodium Potassium Chloride Carbon Dioxide BUN Creatinine Estimated Creat Clear Estimated GFR Glucose Lactate 0.9 Calcium Magnesium 1.7 Iron TIBC % Saturation Total Bilirubin 0.5 Direct Bilirubin 0.2 AST 20 ALT 15 Alkaline Phosphatase 51 C-Reactive Protein NT-Pro-B Natriuret Pep 257 Total Protein 7.4 Albumin 4.2 SARS-CoV-2 (PCR) POC Troponin I 04/28/22 04/28/22 12:28 12:28 WBC 7.95 RBC 2.86 L Hgb 9.3 L Hct 27.4 L MCV 96 MCH 33 MCHC 34 RDW Coeff of Martin 12.5 Plt Count 195 Neut % (Auto) 69.1 Lymph % (Auto) 17.1 L [place] % (Auto) 11.8 H Eos % (Auto) 1.6 Baso % (Auto) 0.1 Neut # (Auto) 5.49 Lymph # (Auto) 1.40 [place] # (Auto) 0.90 Eos # (Auto) 0.13 Baso # (Auto) 0.01 ESR Absolute Retic Percent Retic Immature Retic Fraction Retic Hgb Equivalent Sodium 140 Potassium 6.0 H Chloride 110 Carbon Dioxide 22 BUN 40 H Creatinine 1.8 H Estimated Creat Clear 30.61 Estimated GFR 37 Glucose 107 Lactate Calcium 9.0 Magnesium Iron TIBC % Saturation Total Bilirubin Direct Bilirubin AST ALT Alkaline Phosphatase C-Reactive Protein < 0.5 L NT-Pro-B Natriuret Pep Total Protein Albumin SARS-CoV-2 (PCR) POC Troponin I Discharge Plan Discharge Disposition: Xfer Other Date of Admission: 04/28/22 16:09 Attending Provider on Discharge: Sammy Agarwal Primary Care Provider: Mick Barraza Condition: Stable Discharge Medications: Continued cholecalciferol (vitamin D3) 125 mcg (5,000 unit) tablet 5,000 unit PO .3XWEEKLY aspirin 81 mg tablet,delayed release (DR/EC) 81 mg PO Q48H fluticasone propionate 50 mcg/actuation spray,suspension 1 spray intranasal BID Rx Instructions: for nasal stuffiness metformin 500 mg tablet 500 - 1,000 mg PO BID Qty: 270 3RF Rx Instructions: One tab each morning, two each evening. metoprolol succinate 50 mg tablet extended release 24 hr 50 mg PO DAILY Qty: 90 3RF tamsulosin 0.4 mg capsule 0.8 mg PO DAILY Qty: 180 3RF gabapentin 300 mg capsule 600 mg PO HS omeprazole 20 mg capsule,delayed release(DR/EC) 20 mg PO DAILY montelukast 10 mg tablet 10 mg PO HS rosuvastatin 40 mg tablet 40 mg PO DAILY ferrous sulfate [iron] 325 mg (65 mg iron) tablet 325 mg PO DAILY Discontinued lisinopril 20 mg tablet 20 mg PO DAILY Qty: 90 3RF naproxen sodium [Aleve] 220 mg capsule 220 mg PO DAILY PRN Follow Up Appointments: Mick Barraza MD [Primary Care Provider] - Debbie Burden MD [Staff Physician] - Forms: [employer]enter[employer] Info Instructions
--- NOTE | 2022-04-29 09:35 | PM.IMPN1 ---
Progress Note: A&P Assessment and plan (1) Episode of unresponsiveness: Problem details: Uncertain if this was a seizure. Had a 2nd unresponsive episode during sleep last night. Spoke with Neurology at [facility]. Recommend transfer for EEG monitoring Status: Acute (2) Acute renal insufficiency: Problem details: Cause for this is uncertain. Chronic lisinopril use likely making it worse. Summer 2021 creatinine 1.0 and potassium 4.7 04/28/2022 creatinine 1.8 and potassium 6.1 04/29/2022 creatinine 1.9 and potassium 5.3 after normal saline bolus and furosemide 40 mg IV Status: Acute (3) Acute hyperkalemia: Problem details: Hydrate, diuretic, hold lisinopril and NSAIDs Status: Acute (4) Obstructive sleep apnea syndrome: Problem details: 2 unresponsive spells occurred when he was not wearing CPAP. Uncertain if unresponsive spell was due to disordered sleep/obstructive sleep apnea or seizure Status: Acute (5) Hypertension: Problem details: Hold lisinopril. May need diuretic. Status: Acute (6) BPH (benign prostatic hyperplasia): Problem details: Normal renal ultrasound. No apparent obstructive uropathy Status: Acute (7) Gastrointestinal bleed: Problem details: Progressive anemia with guaiac-positive stool on 04/28/2022. Colonoscopy scheduled for next week. Will try to arrange EGD at that time as well. Hemoglobin stable in the hospital. Status: Acute (8) Tremor: Problem details: Possibly early Parkinson's. Status: Acute (9) Unsteady gait: Problem details: Recent fall due to legs giving out. Possibly early Parkinson's. PT evaluation. Status: Acute Plan Transfer to [facility] for neurology consultation and EEG monitoring Time Spent With Patient Total time spent: Total time spent today is 45 minutes, 30 minutes in coordination care and discussing with patient other providers ongoing evaluation management of spells and other medical problems Subjective Date Seen: 04/29/22 Interval history: Jd Go is a 81 year old male admitted through the emergency department with an unresponsive spell at home as well as other concerns. During the night last night his awoke to find him having very noisy breathing and even some gurgling sound.? She tried to arouse him but was unable to arouse him for 15 or 20 minutes.? During this time he was breathing but he had noisy breathing.? She also noted that he had clenched his right fist very tightly and she could not get it to relax.? He has sleep apnea and uses CPAP.? When this episode occurred his CPAP was off.? His tried unsuccessfully to put back on.? He eventually woke up but initially was talking gibberish.? Eventually he was able to come back to normal consciousness and normal speech.? There was no generalized seizure activity.? No tonic clonic movement except for the clenching of his fist.? She called her son who recommended that he come to the emergency room for evaluation.? When she called 911 they did a stroke screen over the phone and he had no focal neurologic abnormalities that she could identify.? On that basis she decided to bring him to the emergency room in the morning rather than during the night. He fell on Sunday, 5 days ago.? He was standing at the kitchen counter and he reports his legs just gave out on him.? He he was conscious as he went down.? He did not lose consciousness.? He reports he was otherwise feeling fine.? His witnessed this.? He hit a cabinet with his head.? No significant head injury.? He saw his primary care doctor in clinic.? He denies previous episodes of falls.? He does note that his gait is less steady than it used to be.? His notes that he has a shuffling gait. He is currently being evaluated for anemia.? He has a colonoscopy scheduled for next Sunday, 1 week from today.? His last colonoscopy was over a decade ago and was apparently normal at that time.? He has not had bloody stools.? He does have constipation.? He did have guaiac-positive stool today. He was also found to have elevated potassium 6.1 and elevated creatinine 1.8 today.? These were last checked last summer when his creatinine was 1.0 and potassium was 4.7.? He is on lisinopril.? He takes Aleve but quite infrequently.? Maybe 1 tablet this week.? He does have BPH with urinary retention, incontinence, frequency. In the emergency department he had a head CT which showed no acute findings, just chronic age-related changes. He had a renal ultrasound which showed no evidence of obstructive uropathy and otherwise normal anatomy. He received 2 L of normal saline and 40 mg of furosemide IV. Overnight his creatinine went from 1.8-1.9 and his potassium went from 6.1-5.3. During the night he had another spell of unresponsiveness. His nurse noted that he was again posturing with his right arm and clenching his right fist. He was unresponsive. This lasted about 5 minutes. When he came to he was again having incoherent speech. This resolved relatively quickly. He has no memory of this event. He was observed to be breathing. He was not wearing CPAP at the time. Exam Narrative: Exam Narrative: He is alert and appears in no distress. Head is without trauma. Eyes normal. Extraocular movements are full without nystagmus. Visual frazier are intact. Oropharynx is normal. No facial asymmetry. Respirations are clear to auscultation. Cardiovascular: S1, S2, regular rate and rhythm. 2/6 systolic ejection murmur. No gallop or rub. Abdomen: Bowel sounds active. Abdomen is soft without tenderness or mass. Upper extremities are examined appear normal he has no obvious focal weakness. He has no rigidity. He is slightly slow and slightly clumsy with rapid finger movements bilaterally. He has a mild coarse tremor when doing fine hand movements. No resting tremor. Const: Vital Signs, click to edit/add: Vital Signs - 24 hr 04/28/22 11:26 04/28/22 13:02 04/28/22 13:03 Temperature Pulse Rate 61 61 Pulse Rate [Left R adial] Pulse Rate [Pulse Oximeter] 66 Respiratory Rate 18 Blood Pressure Blood Pressure [Ri ght Arm] Blood Pressure [Ri ght Upper Arm] 135/71 Pulse Oximetry 99 93 95 [facility]xygen [facility] 04/28/22 13:15 04/28/22 13:30 04/28/22 13:45 Temperature Pulse Rate 61 53 L 60 Pulse Rate [Left R adial] Pulse Rate [Pulse Oximeter] Respiratory Rate Blood Pressure Blood Pressure [Ri ght Arm] Blood Pressure [Ri ght Upper Arm] Pulse Oximetry 94 95 95 Oxygen Delivery Me thod 04/28/22 13:57 04/28/22 13:58 04/28/22 14:00 Temperature Pulse Rate 60 62 62 Pulse Rate [Left R adial] Pulse Rate [Pulse Oximeter] Respiratory Rate Blood Pressure 116/79 Blood Pressure [Ri ght Arm] Blood Pressure [Ri ght Upper Arm] Pulse Oximetry 96 95 94 Oxygen Delivery Me thod 04/28/22 14:02 04/28/22 14:24 04/28/22 14:31 Temperature Pulse Rate 63 65 Pulse Rate [Left R adial] Pulse Rate [Pulse Oximeter] Respiratory Rate Blood Pressure 112/65 114/69 Blood Pressure [Ri ght Arm] Blood Pressure [Ri ght Upper Arm] Pulse Oximetry 97 98 Oxygen Delivery Me thod 04/28/22 15:02 04/28/22 15:03 04/28/22 15:15 Temperature Pulse Rate 69 61 66 Pulse Rate [Left R adial] Pulse Rate [Pulse Oximeter] Respiratory Rate Blood Pressure 114/62 Blood Pressure [Ri ght Arm] Blood Pressure [Ri ght Upper Arm] Pulse Oximetry 99 98 99 Oxygen Delivery Me thod 04/28/22 15:30 04/28/22 15:32 04/28/22 15:36 Temperature Pulse Rate 72 69 67 Pulse Rate [Left R adial] Pulse Rate [Pulse Oximeter] Respiratory Rate Blood Pressure 85/68 L 135/72 Blood Pressure [Ri ght Arm] Blood Pressure [Ri ght Upper Arm] Pulse Oximetry 97 98 96 Oxygen Delivery Me thod 04/28/22 16:20 04/28/22 16:20 04/28/22 17:38 Temperature 97.5 F L Pulse Rate 86 Pulse Rate [Left R adial] 80 Pulse Rate [Pulse Oximeter] Respiratory Rate 18 18 Blood Pressure Blood Pressure [Ri ght Arm] 111/85 Blood Pressure [Ri ght Upper Arm] Pulse Oximetry 100 100 Oxygen Delivery Me thod Room Air Room Air 04/28/22 19:03 04/28/22 23:00 04/29/22 03:00 Temperature 97.9 F 98 F 97.8 F Pulse Rate Pulse Rate [Left R adial] 95 82 69 Pulse Rate [Pulse Oximeter] Respiratory Rate 18 18 18 Blood Pressure Blood Pressure [Ri ght Arm] 107/75 101/67 93/74 Blood Pressure [Ri ght Upper Arm] Pulse Oximetry 98 93 98 Oxygen Delivery Me thod Room Air Room Air Room Air 04/29/22 07:15 Temperature Pulse Rate 86 Pulse Rate [Left R adial] Pulse Rate [Pulse Oximeter] Respiratory Rate Blood Pressure Blood Pressure [Ri ght Arm] Blood Pressure [Ri ght Upper Arm] Pulse Oximetry Oxygen Delivery Me thod Documenting provider has reviewed patient's vital signs: yes Labs Labs: Laboratory Results - last 24 hr 04/28/22 04/28/22 04/28/22 12:28 12:28 12:28 WBC 7.95 RBC 2.86 L Hgb 9.3 L Hct 27.4 L MCV 96 MCH 33 MCHC 34 RDW Coeff of Martin 12.5 Plt Count 195 Neut % (Auto) 69.1 Lymph % (Auto) 17.1 L [place] % (Auto) 11.8 H Eos % (Auto) 1.6 Baso % (Auto) 0.1 Neut # (Auto) 5.49 Lymph # (Auto) 1.40 [place] # (Auto) 0.90 Eos # (Auto) 0.13 Baso # (Auto) 0.01 ESR 44 H Absolute Retic Percent Retic Immature Retic Fraction Retic Hgb Equivalent Sodium 140 Potassium 6.0 H Chloride 110 Carbon Dioxide 22 BUN 40 H Creatinine 1.8 H Estimated Creat Clear 30.61 Estimated GFR 37 Glucose 107 Lactate Calcium 9.0 Magnesium Iron TIBC % Saturation Total Bilirubin Direct Bilirubin AST ALT Alkaline Phosphatase C-Reactive Protein < 0.5 L NT-Pro-B Natriuret Pep Total Protein Albumin SARS-CoV-2 (PCR) POC Troponin I 04/28/22 04/28/22 04/28/22 12:28 12:28 12:28 WBC RBC Hgb Hct MCV MCH MCHC RDW Coeff of Martin Plt Count Neut % (Auto) Lymph % (Auto) [place] % (Auto) Eos % (Auto) Baso % (Auto) Neut # (Auto) Lymph # (Auto) [place] # (Auto) Eos # (Auto) Baso # (Auto) ESR Absolute Retic Percent Retic Immature Retic Fraction Retic Hgb Equivalent Sodium Potassium Chloride Carbon Dioxide BUN Creatinine Estimated Creat Clear Estimated GFR Glucose Lactate 0.9 Calcium Magnesium 1.7 Iron TIBC % Saturation Total Bilirubin 0.5 Direct Bilirubin 0.2 AST 20 ALT 15 Alkaline Phosphatase 51 C-Reactive Protein NT-Pro-B Natriuret Pep 257 Total Protein 7.4 Albumin 4.2 SARS-CoV-2 (PCR) POC Troponin I 0.01 04/28/22 04/28/22 04/28/22 12:28 13:50 14:23 WBC RBC Hgb Hct MCV MCH MCHC RDW Coeff of Martin Plt Count Neut % (Auto) Lymph % (Auto) [place] % (Auto) Eos % (Auto) Baso % (Auto) Neut # (Auto) Lymph # (Auto) [place] # (Auto) Eos # (Auto) Baso # (Auto) ESR Absolute Retic Percent Retic Immature Retic Fraction Retic Hgb Equivalent Sodium Potassium 6.1 H* Chloride Carbon Dioxide BUN Creatinine Estimated Creat Clear Estimated GFR Glucose Lactate Calcium Magnesium Iron 110 TIBC 299 % Saturation 37 Total Bilirubin Direct Bilirubin AST ALT Alkaline Phosphatase C-Reactive Protein NT-Pro-B Natriuret Pep Total Protein Albumin SARS-CoV-2 (PCR) Negative SARS-CoV-2 POC Troponin I 04/29/22 04/29/22 06:04 06:04 WBC 10.33 RBC 3.03 L Hgb 9.9 L Hct 29.4 L MCV 97 MCH 33 MCHC 34 RDW Coeff of Martin 12.5 Plt Count 266 Neut % (Auto) 69.9 Lymph % (Auto) 17.9 L [place] % (Auto) 10.8 Eos % (Auto) 1.1 Baso % (Auto) 0.2 Neut # (Auto) 7.22 H Lymph # (Auto) 1.80 [place] # (Auto) 1.10 H Eos # (Auto) 0.11 Baso # (Auto) 0.02 ESR Absolute Retic 0.06 Percent Retic 2.1 H Immature Retic Fraction 10.5 Retic Hgb Equivalent 32.6 Sodium 140 Potassium 5.3 H Chloride 107 Carbon Dioxide 23 BUN 42 H Creatinine 1.9 H Estimated Creat Clear 29.00 Estimated GFR 35 Glucose 135 H Lactate Calcium 9.0 Magnesium Iron TIBC % Saturation Total Bilirubin Direct Bilirubin AST ALT Alkaline Phosphatase C-Reactive Protein NT-Pro-B Natriuret Pep Total Protein Albumin SARS-CoV-2 (PCR) POC Troponin I
[2022-04-29 11:15] VITALS: BP 109/56; PULSE 65; RESP 18; TEMP 36.7; O2SAT 96
--- NOTE | 2022-04-29 13:46 | PC.NURSE ---
TELE indicates NSR. Eval by Dr. Agarwal. No dysphagia with meds. VSS, one litre of NS infused over 2 hours. Adequate I and O. No seizure activity noted, pt is slightly slow to process information. No dysphagia with medications. Eval by PT and OT. Felecia and dtr Radha updated by RN on lab results. Dr. Agarwal in to review rationale behind transfer to neurology service at [facility]. Report called to Maddie TELLES at [facility] via phone, room # [address] [facility]. Pt discharged via stretcher per non-emergent EMS @9124 with patient belongings. & dtr will bring in CPAP and insurance information to [facility] along with Jd's electronic items and track fitter.
== END 2022-04-29 13:35 | disposition short-term general hospital (02) ==
LOC: ED 15:20 → MEDSURG 16:09
PROVIDERS: Admitting Provider Family Medicine; Emergency Provider Emergency Medicine; PCP Family Medicine; Visit Provider Family Medicine
DX: E87.5 Hyperkalemia (principal); N28.9 Disorder of kidney and ureter, unspecified; D64.9 Anemia, unspecified; R79.89 Other specified abnormal findings of blood chemistry; K92.2 Gastrointestinal hemorrhage, unspecified; R70.0 Elevated erythrocyte sedimentation rate; R19.5 Other fecal abnormalities; G47.33 Obstructive sleep apnea (adult) (pediatric); I10 Essential (primary) hypertension; N40.0 Benign prostatic hyperplasia without lower urinary tract symptoms; R25.1 Tremor, unspecified; R26.81 Unsteadiness on feet; W19.XXXA Unspecified fall, initial encounter; K59.00 Constipation, unspecified; R32 Unspecified urinary incontinence; R35.0 Frequency of micturition; R33.9 Retention of urine, unspecified; Z86.79 Personal history of other diseases of the circulatory system; E11.9 Type 2 diabetes mellitus without complications; Z98.890 Other specified postprocedural states; Z66 Do not resuscitate; I44.0 Atrioventricular block, first degree; E86.0 Dehydration; N28.1 Cyst of kidney, acquired; R41.89 Other symptoms and signs involving cognitive functions and awareness; R06.4 Hyperventilation; K21.9 Gastro-esophageal reflux disease without esophagitis; E78.5 Hyperlipidemia, unspecified
CPT/HCPCS: 36415; 70450; 76775; 80048; 80076; 83540; 83550; 83605; 83735; 83880; 84132; 84484; 85025; 85045; 85651; 86140; 87635; 93005; 96361; 96374; 97161; 99284; 99285; G0378; A9270; J1940; J7030

== ENCOUNTER 2022-04-29 13:31 | Outpatient (CLI) | payer MEDICARE, SELFPAY ==
--- OUTSIDE RECORDS SUMMARY | 2022-05-01 07:14 | XMS_ITS | Continuity of Care Document ---
:1940 Author Organization [facility] Address [address] [address] [place] [address] Phone Care Team Providers Name Role Phone [...] rs Description For Visit Copied on Encounter [facility] No Information Jun- Niru ORTEGA [facility]. [facility] [place], Endoscopy [address] [place] [address], [address], [place] [address], [place], [place], [place], [id number], [place], [place] [id number], tel:[phone] tel:[phone] [place] [address] No Information Jun- Yue ORTEGA Referri [facility]. Provider: [facility], Hospital [address] [facility] PO [facility] Yue [place], [address], [address] [place] [address], [facility], [place], [place], [address] [place] [id number], [place], [address], [place] [id number], [place] tel:[phone] [place]. , [place], [id number] tel:[phone] . tel:[phone] Telephone [facility] GI Acute Yue ORTEGA Referring E&M III [facility] Symptoms pancreatitis, [facility]. Provi rajiv: 21-30 Min MD [place], or unspecified [address] Concerns complication [facility] [place] [address], (chief status, [address], , [address] [facility] complaint) unspecified [address], [place], pancreatitis [place], , [id number], type [place], [place], [place] [id number], [place], [address]. tel:[phone] [place]. tel:[phone] tel:[phone] [phone] [facility] No Information Niru ORTE[facility]. [facility], [address] [place] [address], [address], [address], [place], [place], [place], [id number], [place], [place] [id number], tel:[phone] tel:[phone] [facility] [place] [facility] Cancer No Referri ng Dig[facility] ScreeningHemor 9-200 Information Pro vider: Health [place], Endoscopy rhoids [address] [facility] [place] [address], [place], [address] [facility] [address], [place], [place], [facility] [id number], [place], [address]. tel:+ tel:[phone] Family History Family Member Type Diagnosis Age [...] Other Registry tetanus toxoid, reduced administered Note: [place] [facility] bi-directional diphtheria toxoid, and acellular interface [...] Other Registry tetanus toxoid, reduced administered Note: [place] IC bi-directional diphtheria toxoid, and acellular interface ; Source: Other pertussis vaccine, adsorbed Roberta stry Influenza, seasonal, injectable administered Note: [facility] bi-directional interface ; Sour ce: Other Registry tetanus toxoid, reduced administered Note: [place] [facility] bi-directional diphtheria toxoid, and acellular interface ; Source: Other pertussis vaccine, adsorbed Roberta stry Pneumovax administered Note: [facility] bi-di rectional interface ; Sour ce: Other Registry Payers Payer name Insurance type Covered green party ID Authorization(s ) [employer] Medicare Advantage BL [id number] Social History Type Description Quantity Date Captured [...]
== END 2022-04-29 13:32 | disposition home or self-care (01) ==
LOC: AMB 05-01 07:11
PROVIDERS: PCP Family Medicine; Visit Provider Family Medicine
DX: R56.9 Unspecified convulsions (principal); R41.82 Altered mental status, unspecified
CPT/HCPCS: A0425; A0426

== ENCOUNTER 2022-07-04 11:04 | Outpatient (CLI) | payer MEDICARE, SELFPAY | END 2022-07-04 11:05 | disposition home or self-care (01) | PROVIDERS: PCP Family Medicine; Visit Provider Family Medicine | DX: E11.9 Type 2 diabetes mellitus without complications (principal); I10 Essential (primary) hypertension; E78.5 Hyperlipidemia, unspecified; D64.9 Anemia, unspecified | CPT/HCPCS: 80048; 80061 ==

== ENCOUNTER 2023-02-15 12:15 | Outpatient (RCR) | payer MEDICARE, SELFPAY ==
--- NOTE | 2022-11-02 16:14 | PT.OPEX ---
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 Jd is five months s/p cerebral stroke and four months s/p ventricular tachycardia episode w/ AICD implantation. The strokes (two in very short span) were in April (caused by small vessel disease, although pt is not sure region), and the AICD/pacemaker were implanted in May. The stroke affected his left upper and lower extremity, leading to weakness , imbalance, spasticity, memory issues, and cramping. He did all his stroke rehab at [facility] in inpatient rehab. He made an almost full recovery by end of June. Since then, he notes that his balance has been regressing since the summer. Has had 3-4 falls in last year . He had one fall in particular with an injury at end of June where he missed a step and tipped back, leading to right forearm injury. No falls recently, however. Functional goals are left- sided strength and balance with walking. Sometimes, he feels like he may lose his balance even in bed. States he is nervous about falling. He uses his four-wheeled walker for walks outside and can walk 8-9 blocks total before fatigue sets in. Does note some fatigue, but this varies throughout the day. Also notes he often trips, and recovers his balance, but hasn 't noticed drop foot. No other assistive devices other than four-wheeled walker for longer distances. Denies numbness/ tingling, but does have some left hand spasms. Has rambler home with basement, but doesn' t have to go up or downstairs. He is not driving. PMH significant for AICD and pacemaker implanted May 2022 for V-tach, hypertension, diabetes type II, history of CVA, stage III chronic kidney disease, CPAP, cardiac precautions, and peripheral neuropathy. Pain Comments None Date of Last Physician Visit 08/15/22 Current Work Status Retired Precautions Treatment Precautions/Contraindications AICD implanted May 2022 for V-tach, hypertension, diabetes type II, history of CVA ( residual memory problems), stage III chronic kidney disease, CPAP, cardiac precautions, peripheral neuropathy Weight Bearing Status Full Weight Bearing Objective Other/Pertinent Objective Posture assessment: Forward head, rounded shoulders Gait assessment: Ambulates w/ decreased trunk rotation/arm swing, mildly decreased ori, even stride length, downward gaze, and no assistive device. Mildly decreased bilateral foot clearance, leading to occasional catching of toe. ROM: UE: grossly within normal limits LE: grossly within normal limits, mild stiffness bilaterally into hip ER/IR UE MMT: Shoulder flexion: R 5/5 L 5/5 Shoulder abduction: R 5/5 L 5/ 5 Elbow flexion: R 5/5 L 5/5 Elbow extension: R 5/5 L 5/5 Project Asst strength: grossly WNL LE MMT: Hip flexion: R 5/5 L 4+/5 Hip abduction: R 5/5 L 3+/5 Hip extension: not formally assessed, able to perform single leg bridge Knee flexion: R 5/5 L 5/5 Knee extension: R 5/5 L 5/5 Ankle dorsiflexion: R 5/5 L 4/ 5 Plantarflexion (unilateral heel raises): R 7 reps, L 5 reps Sensation: Denies N/T, not formally assessed (known peripheral neuropathy) Outcome Measures: LE Balance: -30 second Ixd-wy-Zadii: 14 -Gait speed: 0.9 m/s -DGI: -Gait level surface: 2/3 -Change in gait speed: 2/3 -Gait with horizontal head turns: 1/3 -Gait with vertical head turns : 2/3 -Gait and pivot turn: 3/3 on second trial, mild LOB on first trial -Step over obstacle: 3/3 -Step around obstacle: 0/3 -Steps: 2/3 Total: (0-424 = severely impaired/dependent, 5 -9 = severe fall risk, 10-14 = moderate fall risk, 15-19 = minimal fall risk, 21-24 = minimal to no fall risk) Gait/balance: Four-stage balance test -Narrow stance: 10+ seconds -Semi-tandem: 10+ seconds -Tandem: 1-2 seconds B -SLS: 1 second B Other: Increased tone noted throughout L extremity > right , occasionally catching w/ fast movements, although spasticity not formally assessed Functional Test Performed & Score ABC Scale: 1040/1600 = 65% Assessment Assessment/Impression Pt is a 81 -year-old male who presents with concerns of balance/gait approximately 5 months following cerebral infarction affecting left UE/ LE. Pat and patient are unsure exact location of stroke, but patient received comprehensive rehabilitation at [place] through June. Since then, pt feels his balance has been worsening. On exam, patient also demonstrates notable objective findings including full and pain-free UE and LE ROM, impaired balance, impaired gait, and mildly decreased left lower extremity strength, leading to difficulties with walking on uneven terrain, performing stairs, bending down, getting in and out of car, and walking longer distances due to fatigue. Patient also demonstrates signs and symptoms of potential spasticity, although not formally assessed, and may benefit from stretching program with long-duration holds. According to DGI, patient is at mild to moderate fall risk. According to gait speed and 30-second STS, pt is within normal limits for LE strength/mobility. Patient is appropriate for skilled physical therapy services to address the above deficits. Pt was agreeable with plan of care and goals established. Primary Functional Limitations uneven terrain, performing stairs, bending down, getting in and out of car, and walking longer distances due to fatigue Plan of Care Rehabilitation Potential Good Physical Therapy Goals In 2 sessions: Patient will be independent with HEP and self-management of symptoms. In 8-12 sessions: Patient will improve DGI score from 15 to 18 or more to demonstrate clinically significant improvements in balance/stability. Patient will ambulate uneven terrain without loss of balance consistently to demonstrate clinical significant improvements in balance/stability. Patient will improve left lower extremity strength to >4 +/5 for all major muscle groups for improvement in left -sided lower extremity strength when performing ADLs/ ambulation. Coordination/Communication With Referral Source Treatment Plan/Direct Interventions Gait Training,Joint Mobilization,Manual Therapy, Neuromuscular Re-ed,Self-Care/ Home Management,Therapeutic Activities,Therapeutic Exercises Frequency/Duration 1x/week for 8-10 weeks Patient Will Be Discharged From Therapy Completion of LTG(s), Independent w/HEP, Independently Progressing Evaluation Billing Untimed Code Treatment Minutes 30 Complexity High Certification Information Initial Certification Date 11/02/22 Ending Certification Date 01/26/23 Provider Signature Shows Agreement With POC & Medical Necessity Physician Signature & Date Requested Please Sign/Date Here Physician Comment/Change : Physician NPI Number #
--- NOTE | 2023-01-22 10:53 | OT.OPGNE ---
OT Outpatient General/Neuro Eval OT Outpatient General/Neuro Eval Start: 01/21/23 20:32 Freq: Status: Active Protocol: Document 01/18/23 20:00 SMW (Rec: 01/22/23 10:47 SMW [id number]) E-signed By Bridgette Jackson OT OT Outpatient Evaluation Details Type Type Eval Complexity Low Insurance Information Insurance Information Insurance Information Medicare B Outpatient History/Precautions Medical/Functional History Medical History Reviewed Yes Assessment Assessment Assessment The patient is a 82 year old male referred to outpatient OT from PT with concerns of cognition, balance and patient desire to return to driving. 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 He also was hospitalized for ventricular tachycardia at that time with an AICD implant. He did intensive stroke rehab at [facility] through April and has been seeing PT from October until January. PT reports, cognitively, he still has some left-sided neglect, significant difficulty with multi-tasking, and difficulty with motor execution. He lives with his spouse in a senior apartment. He is now walking without an AD. He reports independence in dressing with the exception of assistance tying his shoes. Both he and spouse report issues with short term memory. He has not returned to driving but voices that he would like to at some point. His spouse in present for therapy and is able to fill in medical history and timeline of events post CVA. The patient is very agreeable to participate in outpatient OT services. He will benefit from skilled OT to thoroughly assess cognition, provide recommendation/education post assessment. Occupational Therapy Treatment Plan - OP Potential Rehabilitation Potential Good Set Goals Goals Set with Patient Yes Goals Goals Within 5 visits, the patient will.. 1. complete all cognitive assessments to determine need for increased services/ oversight. 2. complete offroad driving assessments to determine feasibility to return to driving. 3. along with spouse, verbalize understanding of cognitive results and recommendations. Progress met Treatment Plan Treatment Plan Evaluation,Self-Care/Home Management,Education Expected Frequency 1x Week Expected Duration 4-6 Weeks Certification Certification I Certify That: Therapy Services Provided, Therapy Plan Established, Therapy Plan Reviewed Recertification Information Recertification Information Initial Certification Date 01/18/23 Recertification Start Date 01/18/23 Provider Signature Shows Agreement With POC & Medical Necessity Physician Comment/Change Comment or Changes Physician NPI Number #
== END 2023-06-15 23:59 | disposition home or self-care (01) ==
PROVIDERS: PCP Family Medicine; Visit Provider Family Medicine
DX: I63.10 Cerebral infarction due to embolism of unspecified precerebral artery (principal); R26.81 Unsteadiness on feet; M62.81 Muscle weakness (generalized); R26.9 Unspecified abnormalities of gait and mobility; R29.6 Repeated falls; Z51.89 Encounter for other specified aftercare
CPT/HCPCS: 97110; 97112; 97163; 97165; 97535

== ENCOUNTER 2023-03-07 12:02 | Outpatient (CLI) | payer MEDICARE, SELFPAY | END 2023-03-07 12:03 | disposition home or self-care (01) | PROVIDERS: PCP Family Medicine; Visit Provider Family Medicine | DX: R53.83 Other fatigue (principal); D64.9 Anemia, unspecified; I10 Essential (primary) hypertension; J06.9 Acute upper respiratory infection, unspecified | CPT/HCPCS: 80053; 82728; 84443 ==

== ENCOUNTER 2023-03-14 11:28 | Emergency (ER) | payer MEDICARE, SELFPAY ==
[2023-03-14 11:40] VITALS: BP 117/66; PULSE 71; RESP 16; TEMP 36.7; O2SAT 97; BMI 28.3
--- NOTE | 2023-03-14 12:40 | CRLHL7_ITS ---
For Patients: As a result of the Century Cures Act, medical imaging exams and procedure reports are released immediately into your electronic medical record. You may view this report before your referring provider. If you have questions, please contact your health care provider. INDICATION: Fall TECHNIQUE: Noncontrast axial CT of the head. Coronal and sagittal reformats. Bone and soft tissue algorithms. COMPARISON: MRI brain report 04/30/2022, CT head 04/28/2022 FINDINGS: Mild generalized cerebral volume loss. Patchy hypoattenuation throughout the supratentorial white matter typical of chronic microangiopathy. Chronic lacunar infarct at the left basal ganglia, with adjacent senescent mineralization changes. No acute intracranial hemorrhage or abnormal extra-axial fluid collection. No midline shift, hydrocephalus, or herniation. Preserved li-white matter differentiation. Calcific intracranial atherosclerotic plaquing. Bony calvarium appears grossly intact. Scattered paranasal sinus mucosal thickening with anterior nasal septal perforation defect. Clear mastoid air cells. Bilateral lens implants. IMPRESSION: 1. No skull fracture or acute intracranial hemorrhage identified. 2. Mild generalized cerebral volume loss, mild chronic microangiopathy changes, and old left basal ganglia lacunar infarct. Please note that all CT scans at this facility use dose modulation, iterative reconstruction, and/or weight-based dosing when appropriate to reduce radiation dose to as low as reasonably achievable. Dictated by Mariela Rodriguez MD @ 03/14/2023 1:53:32 PM (Electronically Signed)
--- NOTE | 2023-03-14 12:44 | ED.GENADULT ---
HPI - General Adult General Chief complaint: Fall/Minor Trauma Stated complaint: Fell this am, hit head Time Seen by Provider: 03/14/23 12:26 History of Present Illness HPI narrative: Patient is an 82-year-old white male who is very pleasant, presents with his family. He was walking today and his legs get weak and he fell. Hit the back of his head. He did not get knocked out, had no nausea vomiting, has no significant headache, reports small bump on the back of his head. He does have heart disease had a CVA he is on Plavix. He denies chest pain, denies shortness of breath denies neurologic complaints at this time. He was diagnosed with COVID a few days ago and started on Paxil of id and completed the course 2 days ago. He still had a slight cough. He has had trouble with anemia in the past as well. He has a follow-up with Dr. Garza in other month. Related Data Home Medications Medication Instructions Recorded Confirmed cholecalciferol (vitamin D3) 125 5,000 unit PO .3XWEEKLY 09/08/21 03/16/23 mcg (5,000 unit) tablet fluticasone propionate 50 1 spray intranasal BID 09/08/21 03/16/23 mcg/actuation nasal spray,suspension ferrous sulfate 325 mg (65 mg 325 mg PO DAILY 04/28/22 03/16/23 iron) tablet (iron) magnesium hydroxide 400 mg (170 mg 400 mg PO 05/10/22 03/16/23 magnesium) chewable tablet Previous Rx's Medication Instructions Recorded metformin 500 mg tablet 500 - 1,000 mg (1 - 2 x 500 mg) PO 03/21/22 BID #270 tabs clopidogrel 75 mg tablet 75 mg PO QDAY #90 tabs 05/22/22 metoprolol succinate 25 mg 12.5 mg (1/2 x 25 mg) PO QDAY #90 06/07/22 tablet,extended release 24 hr tabs amiodarone 200 mg tablet 200 mg PO QDAY #90 tabs 07/04/22 pantoprazole 40 mg tablet,delayed 40 mg PO QDAY #90 tabs 07/04/22 release tamsulosin 0.4 mg capsule 0.8 mg (2 x 0.4 mg) PO DAILY #180 12/20/22 ea gabapentin 300 mg capsule 600 mg (2 x 300 mg) PO QPM #180 ea 02/22/23 montelukast 10 mg tablet 10 mg PO HS #90 tabs 02/22/23 rosuvastatin 40 mg tablet 40 mg PO DAILY #90 tabs 02/22/23 Allergies Allergy/AdvReac Type Severity Reaction Status Date / Time iodine Allergy Severe skin Verified 03/16/23 13:51 reaction SEVERE mercury (elemental) Allergy Verified 03/16/23 13:51 Review of Systems Status of ROS: Reports: 6 or more systems reviewed and unremarkable except as noted in History and below [facility] Medical History (Updated 03/16/23 @ 14:40 by Mick Barraza MD) ISLAS (dyspnea on exertion) ?R06.09 - Other forms of dyspnea (ICD-10) Fatigue ?R53.83 - Other fatigue (ICD-10) Gastrointestinal bleed ?K92.2 - Gastrointestinal hemorrhage, unspecified (ICD-10) Pancreatitis ?K85.90 - Acute pancreatitis without necrosis or infection, unspecified (ICD-10) Low back pain ?M54.50 - Low back pain, unspecified (ICD-10) Kidney lesion ?N28.9 - Disorder of kidney and ureter, unspecified (ICD-10) Groin mass ?R19.09 - Other intra-abdominal and pelvic swelling, mass and lump (ICD-10) Decreased testosterone level ?R79.89 - Other specified abnormal findings of blood chemistry (ICD-10) Asymptomatic coronary heart disease ?I25.9 - Chronic ischemic heart disease, unspecified (ICD-10) Surgical History Status post internal cardiac defibrillator procedure ?Z95.810 - Presence of automatic (implantable) cardiac defibrillator (ICD-10) History of shoulder surgery ?Z98.890 - Other specified postprocedural states (ICD-10) History of nasal septoplasty ?Z98.890 - Other specified postprocedural states (ICD-10) History of hand surgery ?Z98.890 - Other specified postprocedural states (ICD-10) Family History Son Atrial fibrillation Thyroid cancer Daughter Autoimmune disorder Social History Narrative: He lives with his of 61 years in [place]. 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 is healthcare power of securities attorney primarily and his son and daughter are secondary healthcare power of securities attorney. Code status is DNR. He does not smoke. He drinks alcohol about 3 times a month. Smoking Status: Never smoker Do you use any of these nicotine containing products: None Second hand tobacco smoke exposure: Yes How often do you have a drink containing alcohol: 2-4 times a month How many standard drinks containing alcohol do you have on a typical day: 1 or 2 How often do you have six or more drinks on one occasion: Never AUDIT-C Alcohol total score: 2 Non-prescribed substance use: denies use Caffeine: Yes (1 cup coffee AM) Little interest or pleasure in doing things: not at all Feeling down, depressed, or hopeless: several days service: No Exam Narrative: Exam Narrative: Objective: Patient's vital signs look within normal limit . He is alert orient x3. He is smiling communicative interactive. HEENT shows no facial asymmetry pupils react to light extra movements intact neck is supple, tongue protrudes midline, no facial asymmetry with smiling. Lungs clear Heart rate and rhythm regular occasional ectopic beat noted 2/6 systolic murmur abdomen benign soft extremities show normal strength sensation no drift of his arms or legs he is able lift his legs off the ground hold him for 5-7 seconds. He is able to do that his arms as well. 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 Patient has normal finger-nose testing bilaterally. Abdomen benign Good peripheral perfusion noted. Mental status appropriate Const: Vital Signs, click to edit/add: Vital Signs - 24 hr 03/14/23 11:40 Temperature 98.1 F Pulse Rate [Right Pulse Oximeter] 71 Respiratory Rate 16 Blood Pressure [Ri ght Upper Arm] 117/66 Pulse Oximetry 97 Oxygen Delivery Me thod Room Air Course Vital Signs Vital signs: Initial Vital Signs Temperature 98.1 F 03/14/23 11:40 Temperature Source Temporal Artery Scan 03/14/23 11:40 Pulse Rate 71 03/14/23 11:40 Pulse Rhythm Regular 03/14/23 11:40 Pulse Strength 3+ Normal 03/14/23 11:40 Respiratory Rate 16 03/14/23 11:40 Blood Pressure 117/66 03/14/23 11:40 Blood Pressure Mean 83 03/14/23 11:40 Blood Pressure Position Sitting 03/14/23 11:40 Pulse Oximetry 97 03/14/23 11:40 Oxygen Delivery Method Room Air 03/14/23 11:40 Vital Signs Temperature 98.1 F 03/14/23 11:40 Pulse Rate 71 03/14/23 11:40 Respiratory Rate 16 03/14/23 11:40 Blood Pressure 117/66 03/14/23 11:40 Pulse Oximetry 97 03/14/23 11:40 Oxygen Delivery Method Room Air 03/14/23 11:40 Temperature 98.1 F 03/14/23 14:00 Pulse Rate 71 03/14/23 14:00 Respiratory Rate 16 03/14/23 14:00 Blood Pressure 117/66 03/14/23 14:00 Pulse Oximetry 97 03/14/23 11:40 Oxygen Delivery Method Room Air 03/14/23 11:40 Medical Decision Making MDM Narrative Medical decision making narrative: 82-year-old male with a history of chronic heart disease, anemia, kidney disease. Presents with an episode of leg weakness proximally 1 we can do a diagnosis of COVID. At this point he has no stigmata of stroke. He is back to normal. Still has a little residual COVID type symptoms with cough and congestion. I think it be reasonable given he has a small occipital bump without step-off that we should do a CT scan of his head given he is on Plavix, would also check his heme 4 and basic 7. If these are reassuring I think he could proceed home. Engage in light activity, uses walker. Of note is he was using his walker when he fell today. He needs follow-up with Dr. Greg downs, return here sooner problems concerns worsening. Please see addendum. Addendum 2:[address] patient has a CT scan that shows no skull fracture or acute intracranial hemorrhage there is an old left painful basilar ganglial lacunar infarct. Labs look reassuring. Patient be allowed to go home rest light activity fluids follow-up with primary care as needed,. Lab Data Labs: Lab Results 03/14/23 Range/Units 13:05 WBC 9.59 (4.50-11.00) K/uL RBC 3.80 L (4.30-5.90) m/uL Hgb 12.3 L (13.5-17.5) gm/dL Hct 36.7 L (37.0-53.0) % MCV 97 (80-100) fL MCH 32 (26-34) pg MCHC 34 (32-36) gm/dL RDW Coeff of Martin 12.8 (11.5-15.5) % Plt Count 254 (140-440) K/uL Neut % (Auto) 76.2 H (42.0-72.0) % Lymph % (Auto) 11.6 L (20-44) % Young % (Auto) 9.5 (0.0-11.0) % Eos % (Auto) 2.4 (0.0-7.0) % Baso % (Auto) 0.1 (0.0-3.0) % Neut # (Auto) 7.30 H (1.7-7.0) K/uL Lymph # (Auto) 1.10 (0.90-2.90) K/uL Young # (Auto) 0.90 (0.00-0.90) K/UL Eos # (Auto) 0.23 (0.00-0.50) K/uL Baso # (Auto) 0.01 (0.00-0.30) K/uL Abs Immat Gran (auto) 0.02 (0.00-0.30) K/uL Imm/Tot Granulo (auto) 0.2 % Sodium 141 (135-149) mmol/L Potassium 4.3 (3.6-5.1) mmol/L Chloride 104 (96-114) mmol/L Carbon Dioxide 27 (20-32) mmol/L Anion Gap 10 (7-15) mEq/L BUN 36 H (7-30) mg/dL Creatinine 1.8 H (0.5-1.5) mg/dL Estimated Creat Clear 30.08 Estimated GFR 37 ml/min Glucose 120 H (60-115) mg/dL Calcium 9.1 (8.4-10.6) mg/dL Discharge Plan Discharge Clinical Impression: Fall, Anemia, COVID-19 Patient Disposition: Home, Self-Care Additional Instructions: Fluids, rest, light activity, recheck with doctor as planned. Return to ED sooner problems or concerns. Activity Level: No Restrictions Discharge Diet: Regular Prescriptions: No Action cholecalciferol (vitamin D3) 125 mcg (5,000 unit) tablet 5,000 unit PO .3XWEEKLY fluticasone propionate 50 mcg/actuation spray,suspension 1 spray intranasal BID Rx Instructions: for nasal stuffiness magnesium hydroxide 400 mg (170 mg magnesium) tablet,chewable 400 mg PO pantoprazole 40 mg tablet,delayed release (DR/EC) 40 mg PO QDAY Qty: 90 3RF amiodarone 200 mg tablet 200 mg PO QDAY Qty: 90 3RF metformin 500 mg tablet 500 - 1,000 mg PO BID Qty: 270 3RF Rx Instructions: One tab each morning, two each evening. ferrous sulfate [iron] 325 mg (65 mg iron) tablet 325 mg PO DAILY clopidogrel 75 mg tablet 75 mg PO QDAY Qty: 90 3RF metoprolol succinate 25 mg tablet extended release 24 hr 12.5 mg PO QDAY Qty: 90 3RF tamsulosin 0.4 mg capsule 0.8 mg PO DAILY Qty: 180 3RF rosuvastatin 40 mg tablet 40 mg PO DAILY Qty: 90 0RF montelukast 10 mg tablet 10 mg PO HS Qty: 90 0RF gabapentin 300 mg capsule 600 mg PO QPM Qty: 180 3RF Follow Up/Referrals: Mick Barraza MD [Primary Care Provider] - Stand Alone Forms: [employer] Info Instructions
[2023-03-14 13:12] LABS: Basophils Absolute Auto 0.01 K/uL (0.00-0.30); Basophils Percent Auto 0.1 % (0.0-3.0); Eosinophils Absolute Auto 0.23 K/uL (0.00-0.50); Eosinophils Percent Auto 2.4 % (0.0-7.0); Hematocrit 36.7 % (37.0-53.0); Hemoglobin* 12.3 gm/dL (13.5-17.5); Immature Granulocytes Abs Auto 0.02 K/uL (0.00-0.30); Immature Granulocytes Pct Auto 0.2 %; Lymphocytes Percent Auto 11.6 % (20-44); Mean Corpuscular HGB Conc 34 gm/dL (32-36); Mean Corpuscular Hemoglobin 32 pg (26-34); Mean Corpuscular Volume 97 fL (80-100); Monocytes Percent Auto 9.5 % (0.0-11.0); Neutrophils Percent Auto 76.2 % (42.0-72.0); Platelet Count* 254 K/uL (140-440); RDW Coefficient of Variation % 12.8 % (11.5-15.5); White Blood Count* 9.59 K/uL (4.50-11.00)
[2023-03-14 13:19] LABS: Slide Review Reflex No
[2023-03-14 13:25] LABS: Chloride* 104 mmol/L (96-114); Potassium* 4.3 mmol/L (3.6-5.1); Sodium* 141 mmol/L (135-149)
[2023-03-14 13:28] LABS: Anion Gap 10 mEq/L (7-15); Carbon Dioxide* 27 mmol/L (20-32); Creatinine* 1.8 mg/dL (0.5-1.5); Est. Creatinine Clearance* 30.08; Estimated Glomerular Filt Rate 37 ml/min
[2023-03-14 13:29] LABS: Blood Urea Nitrogen* 36 mg/dL (7-30); Calcium* 9.1 mg/dL (8.4-10.6); Glucose* 120 mg/dL (60-115)
[2023-03-14 14:00] VITALS: BP 117/66; PULSE 71; RESP 16; TEMP 36.7
== END 2023-03-14 14:09 | disposition home or self-care (01) ==
PROVIDERS: Emergency Provider Family Medicine; PCP Family Medicine
DX: S09.90XA Unspecified injury of head, initial encounter (principal); D64.9 Anemia, unspecified; U07.1 COVID-19
CPT/HCPCS: 36415; 70450; 80048; 85025; 99284

== ENCOUNTER 2023-06-16 04:23 | Outpatient (CLI) | payer MEDICARE, SELFPAY ==
--- OUTSIDE RECORDS SUMMARY | 2023-06-22 11:30 | XMS_ITS | Clinical Summary ---
Author Name Unknown Organization [facility] Address [place], [place] [address] Care Team Providers Care Orchard Pruner Name Role Phone Mick Barraza MD Primary Care Provider [phone] [phone] Allergies Active Allergy Reactions Criticality Noted Date [...] type, unspecified whether angina present, unspecified whether [place] or transplanted heart Take 1 Tablet (40 mg) by mouth at bedtime. 90 Tablet 3 10/19/2021 Active fluticasone (50 mcg per actuation) nasal solution (FLONASE) Inhale 1 [place] into affected nostril(s) two times daily. Active metoprolol succinate (TOPROL XL) 25 mg Sustained-Release tabletIndications:HTN (hypertension),Yoon ry artery disease, unspecified vessel or lesion type, unspecified whether angina present, unspecified whether [place] or transplanted heart Take 0.5 Tablets (12.5 [...] Department Care Team Description 04/27/2023 11:30 AM EMERGENCY OPERATOR Office Visit [facility] [address] [place] [address] Carlos Friend MD 04/12/2023 Orders Only [facility] [address] [place] [address] Carlos Friend MD <No scans attached> 04/10/2023 11:00 AM EMERGENCY OPERATOR Ancillary Procedure [facility] [address] [place] [address] 04/10/2023 Travel 04/02/2023 Telephone [facility] [address] [place] [address] Carlos Friend MD Appointment (echo) from Last [...] 07/24/2023 10:30 AM CDT Cardiac Device Check [facility] [place] [facility] [address] [place] [address] 08/30/2023 10:00 AM CDT Office Visit [facility] [address] [place] [address] Ashly Magana PA [address] [place] [address] Health Maintenance Due Date Last Done Comments [...] COMPLETE WO CONTRAST Routine 04/10/2023 11:37 AM EMERGENCY OPERATOR Ascending aorta dilation (HC) from Last 3 Months Results * ECHO TTE COMPLETE WO CONTRAST (04/10/2023 11:37 AM EMERGENCY OPERATOR) AORTIC VALVE MEAN PG 22 mmHg EJECTION FRACTION 58 % PEAK TR VELOCITY 2.5 m/s LVEDD 4.7 cm Anatomical Region Laterality Modality Ultrasound 04/10/2023 11:0 2 AM EMERGENCY OPERATOR Narrative 04/10/2023 12:49 PM EMERGENCY OPERATOR ECHOCARDIOGRAM JD MCLAUGHLIN ?Accession#: ?? [id number] : ?1940 82 years Study Date: ?? 04/10/2023 11:02:12 AM Gender: M ? BP: ? 134/64 mmHg Height: 173.00 cm ? BSA: ?1.96 m? ? ? Weight: 82.00 kg ?Tech: ? MJW ?Referring MD: CARLOS FRIEND Site: ? [facility] Reading Location: Mobile-OP Patient Location: Procedure: 2D, [...] . This study was interpreted by an [facility] accredited facility. ??Final ?? Procedure Note Bill Bernal MD - 04/10/2023 ECHOCARDIOGRAM JD MCLAUGHLIN : 1940 82 years Study Date: 04/10/2023 11:02:12 AM Gender: M BP: 134/64 mmHg Height: 173.00 cm BSA: 1.96 m? ? ? Weight: 82.00 kg Tech: TACHO Referring MD: CARLOS FRIEND Site: [facility] Reading Location: Mobile-OP Patient Location: Procedure: 2D, [...] . This study was interpreted by an [facility] accredited facility. Final Carlos Friend MD ECHO ORD from Last 3 Months Advance Directives Documents on File Type Date Recorded Patient Metal Sprayer Production Expl anation Healthcare Directive 12/26/2001 002 * [...] Preferences, Provider to review later Care Teams Orchard Pruner Relationship Specialty Start Date End Date Mick Barraza MD [address] [place] [address] PCP - General Family Practice 04/10/23
--- OUTSIDE RECORDS SUMMARY | 2023-06-22 11:31 | XMS_ITS | Clinical Summary ---
Author Name Unknown Organization [facility] Address [address] [place] [address] Care Team Providers Care Pack Worker Name Role Phone Debbie Burden MD Primary Care Provider +1- [phone] Allergies Active Allergy Reactions Criticality Noted Date [...] Check BS daily as directed 100 Strip prn 06/10/2009 Active ACCU-CHEK MULTICLIX LANCETS MISCIndications:Type II or unspecified type diabetes mellitus without mention of complication, not stated as uncontrolled TEST DAILY 100 Each prn 06/10/2009 Active metFORMIN (GLUCOPHAGE) 500 MG tablet Take 1,500 mg by mouth daily (with breakfast) Active atorvastatin (LIPITOR) 20 MG tablet Take 20 mg by mouth daily Active tamsulosin (FLOMAX) 0.4 MG capsule Take 0.4 mg by mouth daily Active gabapentin (NEURONTIN) 600 MG tablet Take 600 mg by mouth At Bedtime Active montelukast (SINGULAIR) 10 MG tablet Take 10 mg by mouth At Bedtime Active metoprolol succinate ER (TOPROL-XL) 50 MG 24 hr tablet Take 50 mg by mouth daily Active cholecalciferol (VITAMIN D3) 125 mcg (5000 units) capsule Take by mouth three times a week Active fluticasone (FLONASE) 50 MCG/ACT nasal spray [place] 1 spray into both nostrils daily Active Active Problems Problem Noted Date Diagnosed [...] 10/27/2008, Additional history exists A1C 02/23/2010 11/24/2009, 06/2009, 04/28/2009, Additional history exists DIABETIC FOOT EXAM 06/10/2010 06/10/2009, 06/10/2009 BMP 07/13/2010 07/13/2009, 0 03/2009, 04/28/2009, Additional history exists CREATININE 07/13/2010 07/13/2009, 0 03/2009, 04/28/2009, Additional history exists EYE EXAM [...] on patient's age to complete this topic Procedures Procedure Name Priority Date/Time Associated Diagnosis Comments HCL ALBUMIN URINE (INC CREAT) Routine 11/24/2009 10:27 AM CDT HYPERLIPIDEMIA NEC/NOS HCL GLYCATED HEMOGLOBIN Routine 11/24/2009 10:26 AM CDT HYPERLIPIDEMIA NEC/NOS CL AFF A.M.A. LIPID PANEL Routine 07/13/2009 9:16 AM CDT Diabetes Mellitus, Type 2 (H) HCL COMPREHENSIVE METABOLIC PANEL Routine 07/13/2009 9:16 AM CDT Diabetes Mellitus, Type 2 (H) C FOOT EXAM Routine 06/10/2009 10:25 AM CDT DIABETES MELLITUS TYPE II-UNCOMPL from Last 3 Months or Most Recently Relevant to Health Maintenance Results * MICROALBUMIN (INC URINE CREAT) (11/24/2009 10:27 AM CDT) Creatinine Urine 196 mg/dL [facility] Albumin Urine mg/L 12 mg/L [facility] Albumin Urine mg/g Cr 6.12 0 - 20 mg/g Cr [facility] 11/24/2009 10:2 7 AM CDT 11/24/2009 10:30 AM CDT Ramy Sánchez MD LABORATORY [facility] * (ABNORMAL) HEMOGLOBIN A1C (11/24/2009 10:26 AM CDT) Hemoglobin A1C 6.8(H) 4.3 - 6.0 % [facility] 11/24/2009 10:2 6 AM CDT 11/24/2009 10:29 AM CDT Ramy Sánchez MD LABORATORY [facility] * (ABNORMAL) A.M.A. COMPREHENSIVE MET.PANEL (07/13/2009 9:16 AM CDT) Sodium 140 133 - 144 mmol/L [facility] Potassium 4.5 3.4 - 5.3 mmol/L [facility] Chloride 101 94 - 109 mmol/L [facility] Carbon Dioxide 27 20 - 32 mmol/L [facility] Anion Gap 12 6 - 17 mmol/L [facility] Glucose 151(H) 60 - 99 mg/dL [facility] Urea Nitrogen 19 7 - 30 mg/dL [facility] Creatinine 0.90 0.66 - 1.25 mg/dL [facility] Comment:New IDMS-traceable c alibration beginning 07/11/07 GFR Estimate 84 >60 mL/min/1.7 m2 [facility] GFR Estimate If Black >90 >60 mL/min/1.7 m2 [facility] Calcium 8.9 8.5 - 10.4 mg/dL [facility] Bilirubin Total 0.6 0.2 - 1.3 mg/dL [facility] Albumin 4.5 3.3 - 4.9 g/dL [facility] Comment:Reference range goodson ged on 12/03/2007. Protein Total 8.4 6.8 - 8.8 g/dL [facility] Comment:As of 07, refer ence range reflects plasma specimen type. Alkaline Phosphatase 66 40 - 150 U/L [facility] ALT 21 0 - 70 U/L [facility] AST 31 0 - 55 U/L [facility] 07/13/2009 9:16 AM CDT 07/13/2009 9:21 AM CDT Ramy Sánchez MD LABORATORY Performing Organization Address City/[facility]/ZIP Co de Phone Number [facility] * (ABNORMAL) A.M.A. LIPID PANEL (07/13/2009 9:16 AM CDT) Cholesterol 243(H) 0 - 200 mg/dL [facility] Comment: LDL Cholesterol is the primary guide to therapy. The NCEP recommends further evaluation of: patients with cholesterol <200 mg/dL if additional risk factors are present, cholesterol >240 mg/dL, triglycerides >150 mg/dL, or HDL <40 mg/dL. Triglycerides 282(H) 0 - 150 mg/dL [facility] HDL Cholesterol 27(L) 40 - 110 mg/dL [facility] LDL Cholesterol Calculated 159(H) 0 - 129 mg/dL [facility] Comment: LDL Cholesterol is the primary guide to therapy: LDL-cholesterol goal in high risk patients is <100 mg/dL and in very high risk patients is <70 mg/dL. VLDL-Cholesterol 56(H) 0 - 30 mg/dL [facility] Cholesterol/HDL Ratio 8.9(H) 0.0 - 5.0 [facility] 07/13/2009 9:16 AM CDT 07/13/2009 9:21 AM CDT Ramy Sánchez MD LABORATORY Performing Organization Address City/[facility]/ZIP Co de Phone Number [facility] from Last 3 Months or Most Recently Relevant to Health Maintenance Care Teams Pack Worker Relationship Specialty Start Date End Date Debbie Burden MD [facility] [address] [place], [place] [id number] PCP - General Family Medicine 05/26/21
--- OUTSIDE RECORDS SUMMARY | 2023-06-22 11:31 | XMS_ITS | Encounter Summary ---
Author Name Unknown Organization [facility] Address [address] [place] [address] Care Team Providers Care Automotive Parts Manager Name Role Phone Debbie Burden MD Primary Care Provider +1- [phone] Encounter Details Date Type Department Care Team (Late st Contact Info) Description 06/06/2021 [facility] Medical Advice [facility] Centralized Scheduling [address] [place] [address] [facility] Social History Tobacco Use Types Packs/Day Years [...] on filedocumented in this encounter Care Teams Automotive Parts Manager Relationship Specialty Start Date End Date Debbie Burden MD [facility] [address] [place] [address] PCP - General Family Medicine 05/26/21 documented as of this encounter
--- OUTSIDE RECORDS SUMMARY | 2023-06-22 11:31 | XMS_ITS | Encounter Summary ---
Author Name Unknown Organization [facility] Address [address] [place] [address] Care Team Providers Care Co Founder And Ceo Name Role Phone Ramy Sánchez MD Primary Care Provider Unavailable Debbie Burden MD Primary Care Provider +1- [phone] Encounter Details Date Type Department Care Team (Late st Contact Info) Description 12/19/2019 [facility] [address] [address] Ramona Herrera Obstructive sleep apnea [...] hypertension documented in this encounter Care Teams Co Founder And Ceo Relationship Specialty Start Date End Date Ramy Sánchez MD PCP - General 09/20/01 05/25/21 Debbie Burden MD [facility] [address] [place] [address] PCP - General Family Medicine 05/26/21 documented as of this encounter
--- OUTSIDE RECORDS SUMMARY | 2023-06-22 11:31 | XMS_ITS | Referral Summary ---
Author Name Unknown Organization [facility] Address [address] [place] [address] Care Team Providers Care Pie Topper Name Role Phone Debbie Burden MD Primary Care Provider [phone]- [phone] Allergies Active Allergy Reactions Criticality Noted Date [...] Active fluticasone (FLONASE) 50 MCG/ACT nasal spray [place] 1 spray into both nostrils daily Active [...] CDT Plan of Treatment Not on file Procedures Procedure Name Priority Date/Time Associated Diagnosis [...] 10:27 AM CDT) Creatinine Urine 196 mg/dL [facility] Albumin Urine mg/L 12 mg/L [facility] Albumin Urine mg/g Cr 6.12 0 - 20 mg/g Cr [facility] 11/24/2009 10:2 7 AM CDT 11/24/2009 10:30 AM CDT Ramy Sánchez MD LABORATORY [facility] * (ABNORMAL) HEMOGLOBIN A1C (11/24/2009 10:26 AM CDT) Hemoglobin A1C 6.8(H) 4.3 - 6.0 % [facility] 11/24/2009 10:2 6 AM CDT 11/24/2009 10:29 AM CDT Ramy Sánchez MD LABORATORY [facility] * (ABNORMAL) A.M.A. COMPREHENSIVE MET.PANEL (07/13/2009 9:16 AM CDT) Sodium 140 133 - 144 mmol/L [facility] Potassium 4.5 3.4 - 5.3 mmol/L [facility] Chloride 101 94 - 109 mmol/L [facility] Carbon Dioxide 27 20 - 32 mmol/L [facility] Anion Gap 12 6 - 17 mmol/L [facility] Glucose 151(H) 60 - 99 mg/dL [facility] Urea Nitrogen 19 7 - 30 mg/dL [facility] Creatinine 0.90 0.66 - 1.25 mg/dL [facility] Comment:New IDMS-traceable c alibration beginning 07/11/07 GFR Estimate 84 >60 mL/min/1.[address] [facility] GFR Estimate If Black >90 >60 mL/min/1.[address] [facility] Calcium 8.9 8.5 - 10.4 mg/dL [facility] Bilirubin Total 0.6 0.2 - 1.3 mg/dL [facility] Albumin 4.5 3.3 - 4.9 g/dL [facility] Comment:Reference range goodson ged on 12/03/2007. Protein Total 8.4 6.8 - 8.8 g/dL [facility] Comment:As of 07, refer ence range reflects plasma specimen type. Alkaline Phosphatase 66 40 - 150 U/L [facility] ALT 21 0 - 70 U/L [facility] AST 31 0 - 55 U/L [facility] 07/13/2009 9:16 AM CDT 07/13/2009 9:21 AM CDT Ramy Sánchez MD LABORATORY Performing Organization Address [facility] Co de Phone Number [facility] * (ABNORMAL) A.M.A. LIPID PANEL (07/13/2009 9:16 AM CDT) Cholesterol 243(H) 0 - 200 mg/dL [facility] Comment: LDL Cholesterol is the primary guide to therapy. The NCEP recommends further evaluation of: patients with cholesterol <200 mg/dL if additional risk factors are present, cholesterol >240 mg/dL, triglycerides >150 mg/dL, or HDL <40 mg/dL. Triglycerides 282(H) 0 - 150 mg/dL [facility] HDL Cholesterol 27(L) 40 - 110 mg/dL [facility] LDL Cholesterol Calculated 159(H) 0 - 129 mg/dL [facility] Comment: LDL Cholesterol is the primary guide to therapy: LDL-cholesterol goal in high risk patients is <100 mg/dL and in very high risk patients is <70 mg/dL. VLDL-Cholesterol 56(H) 0 - 30 mg/dL [facility] Cholesterol/HDL Ratio 8.9(H) 0.0 - 5.0 [facility] 07/13/2009 9:16 AM CDT 07/13/2009 9:21 AM CDT Ramy Sánchez MD LABORATORY Performing Organization Address [facility] Co de Phone Number [facility] from Last 3 Months or Most Recently Relevant to Health Maintenance Care Teams Pie Topper Relationship Specialty Start Date End Date Debbie Burden MD [facility] [address] [place] [address] PCP - General Family Medicine 05/26/21
--- OUTSIDE RECORDS SUMMARY | 2023-06-22 11:31 | XMS_ITS | Encounter Summary ---
Author Name Unknown Organization [facility] Address [address] [place] [address] Care Team Providers Care Coin Rolling Machine Operator Name Role Phone Ramy Sánchez MD Primary Care Provider Unavailable Debbie Burden MD Primary Care Provider [phone]- [phone] Encounter Details Date Type Department Care Team [...] on filedocumented in this encounter Care Teams Coin Rolling Machine Operator Relationship Specialty Start Date End Date Ramy Sánchez MD PCP - General 09/20/01 05/25/21 Debbie Burden MD [facility] [address] [place] [address] PCP - General Family Medicine 05/26/21 documented as of this encounter
--- OUTSIDE RECORDS SUMMARY | 2023-06-22 11:31 | XMS_ITS | Encounter Summary ---
Author Name Unknown Organization [facility] Address [address] [place] [address] Care Team Providers Care Cellophane Bath Mixer Name Role Phone Ramy Sánchez MD Primary Care Provider Unavailable Debbie Burden MD Primary Care Provider +1- [phone] Encounter Details Date Type Department Care Team (Late st Contact Info) Description 09/16/[address] [id number] [facility] Social History Tobacco Use Types Packs/Day Years [...] on filedocumented in this encounter Care Teams Cellophane Bath Mixer Relationship Specialty Start Date End Date Ramy Sánchez MD PCP - General 09/20/01 05/25/21 Debbie Burden MD [facility] [address] [place] [address] PCP - General Family Medicine 05/26/21 documented as of this encounter
--- OUTSIDE RECORDS SUMMARY | 2023-06-22 11:31 | XMS_ITS | Encounter Summary ---
Author Name Unknown Organization [facility] Address [address] [place] [address] Care Team Providers Care Branch Account Manager Name Role Phone Ramy Sánchez MD Primary Care Provider Unavailable Debbie Burden MD Primary Care Provider +1- [phone] Encounter Details Date Type Department Care Team [...] on filedocumented in this encounter Care Teams Branch Account Manager Relationship Specialty Start Date End Date Ramy Sánchez MD PCP - General 09/20/01 05/25/21 Debbie Burden MD [facility] [address] [place] [address] PCP - General Family Medicine 05/26/21 documented as of this encounter
== END 2023-06-16 04:24 | disposition home or self-care (01) ==
PROVIDERS: PCP Family Medicine; Visit Provider Family Medicine
DX: R07.89 Other chest pain (principal)
CPT/HCPCS: A0425; A0427

== ENCOUNTER 2023-06-16 05:16 | Emergency (ER) | payer MEDICARE, SELFPAY ==
[2023-06-16] VITALS (13 sets, daily range): BP systolic 106–138; BP diastolic 59–77; PULSE 60–63; RESP 20; TEMP 36.7; O2SAT 90–97; BMI 27.4
--- NOTE | 2023-06-16 05:34 | ED.GENADULT ---
HPI - General Adult General Time Seen by Provider: 05:34 Date Seen: 06/16/23 Chief complaint: Extremity Pain/Injury, Upper Stated complaint: Right Arm Pain Time Seen by Provider: 06/16/23 05:32 Source: patient, EMS, RN notes reviewed and old records reviewed Mode of arrival: ambulatory Limitations: no limitations History of Present Illness HPI narrative: 82-year-old male who presents today with right elbow pain. This started yesterday but got worse overnight. Took 2 Tylenol minimal improvement. No known injury. Pain is worse with movement. Related Data Home Medications Medication Instructions Recorded Confirmed cholecalciferol (vitamin D3) 125 5,000 unit PO .3XWEEKLY 09/08/21 06/16/23 mcg (5,000 unit) tablet fluticasone propionate 50 1 spray intranasal BID 09/08/21 06/16/23 mcg/actuation nasal spray,suspension ferrous sulfate 325 mg (65 mg 325 mg PO DAILY 04/28/22 06/16/23 iron) tablet (iron) magnesium hydroxide 400 mg (170 mg 400 mg PO 05/10/22 05/28/23 magnesium) chewable tablet Previous Rx's Medication Instructions Recorded clopidogrel 75 mg tablet 75 mg PO QDAY #90 tabs 05/22/22 amiodarone 200 mg tablet 200 mg PO QDAY #90 tabs 07/04/22 pantoprazole 40 mg tablet,delayed 40 mg PO QDAY #90 tabs 07/04/22 release tamsulosin 0.4 mg capsule 0.8 mg (2 x 0.4 mg) PO DAILY #180 12/20/22 ea gabapentin 300 mg capsule 600 mg (2 x 300 mg) PO QPM #180 ea 02/22/23 metformin 500 mg tablet 500 - 1,000 mg (1 - 2 x 500 mg) PO 03/28/23 BID #270 tabs metoprolol succinate 25 mg 12.5 mg (1/2 x 25 mg) PO QDAY #90 06/13/23 tablet,extended release 24 hr tabs montelukast 10 mg tablet 10 mg PO HS #90 tabs 06/13/23 rosuvastatin 40 mg tablet 40 mg PO DAILY #90 tabs 06/13/23 diclofenac sodium 1 % topical gel 2.25 inch topical QID #100 grams 06/16/23 (Voltaren Arthritis Pain) Allergies Allergy/AdvReac Type Severity Reaction Status Date / Time iodine Allergy Severe skin Verified 06/16/23 05:28 reaction SEVERE mercury (elemental) Allergy Verified 06/16/23 05:28 [facility] Medical History COVID-19 ?U07.1 - COVID-19 (ICD-10) Fall ?W19.XXXA - Unspecified fall, initial encounter (ICD-10) Gastrointestinal bleed ?K92.2 - Gastrointestinal hemorrhage, unspecified (ICD-10) Pancreatitis ?K85.90 - Acute pancreatitis without necrosis or infection, unspecified (ICD-10) Low back pain ?M54.50 - Low back pain, unspecified (ICD-10) Kidney lesion ?N28.9 - Disorder of kidney and ureter, unspecified (ICD-10) Groin mass ?R19.09 - Other intra-abdominal and pelvic swelling, mass and lump (ICD-10) Decreased testosterone level ?R79.89 - Other specified abnormal findings of blood chemistry (ICD-10) Asymptomatic coronary heart disease ?I25.9 - Chronic ischemic heart disease, unspecified (ICD-10) Surgical History Status post internal cardiac defibrillator procedure ?Z95.810 - Presence of automatic (implantable) cardiac defibrillator (ICD-10) History of shoulder surgery ?Z98.890 - Other specified postprocedural states (ICD-10) History of nasal septoplasty ?Z98.890 - Other specified postprocedural states (ICD-10) History of hand surgery ?Z98.890 - Other specified postprocedural states (ICD-10) Family History Son Atrial fibrillation Thyroid cancer Daughter Autoimmune disorder Social History Narrative: He lives with his of 61 years in [place]. 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 Code status is DNR. He does not smoke. He drinks alcohol about 3 times a month. Smoking Status: Never smoker Do you use any of these nicotine containing products: None Second hand tobacco smoke exposure: No How often do you have a drink containing alcohol: 2-4 times a month How many standard drinks containing alcohol do you have on a typical day: 1 or 2 How often do you have six or more drinks on one occasion: Never AUDIT-C Alcohol total score: 2 Non-prescribed substance use: denies use Caffeine: Yes (1 cup coffee AM) Little interest or pleasure in doing things: not at all Feeling down, depressed, or hopeless: several days service: No Exam Narrative: Exam Narrative: General: well nourished , NAD Head: Atraumatic and normocephalic ENT: External ears and external nose are normal Eyes: Conjunctiva clear, pupils are equal reactive, external ocular motions are intact Neck: Full spontaneous range of motion of the neck Lungs: No respiratory distress Musculoskeletal: Tenderness over the lateral upper condyle. No joint effusion, no redness or warmth. Pain with passive pronation and resisted supination, also pain with passive extension Neurologic: No gross focal neurologic deficits Skin: No rashes Psych: Mood and affect are appropriate Const: Vital Signs, click to edit/add: Vital Signs - 24 hr 06/16/23 05:26 Temperature 98.0 F Pulse Rate [Right Pulse Oximeter] 60 Respiratory Rate 20 Blood Pressure [Le ft Upper Arm] 106/59 L Pulse Oximetry 94 Oxygen Delivery Me thod Room Air Course Course ED Course: Patient seen examined, prior records are reviewed. Patient presents today with right elbow pain since yesterday, no known trauma. On exam, tenderness over the lateral epicondyle and pain with resisted supination and passive pronation. Symptoms are most consistent with lateral epicondylitis although patient does have some locking in decreased motion with flexion and extension which would be more consistent with a lateral plica or fracture, x-rays are ordered to evaluate for possible bony abnormality. If negative, patient is stable for discharge. He was given fentanyl 100 mcg for EMS and so is a little bit sleepy and oxygen saturations drop a little bit, we watched in the emergency department for stability Reevaluation(s) Time of Reevaluation #1: 06:24 Reevaluation #1: X-ray independently interpreted by me negative for acute fracture. Patient lateral but elbow pain, this seems consistent with epicondylitis, suggest rest, topical anti-inflammatory, and physical therapy. Consider also lateral plica this patient does says he feels like something is locking or stocking there although he is able extend the elbow. No redness, warmth, or joint effusion to suggest crystal arthropathy or septic arthritis. Time of Reevaluation #2: 07:25 Reevaluation #2: Care discussed with [facility] orth[facility] who agrees with plan and can see the patient Sunday or Sunday in clinic Vital Signs Vital signs: Initial Vital Signs Temperature 98.0 F 06/16/23 05:26 Temperature Source Temporal Artery Scan 06/16/23 05:26 Pulse Rate 60 06/16/23 05:26 Respiratory Rate 20 06/16/23 05:26 Blood Pressure 106/59 L 06/16/23 05:26 Blood Pressure Mean 74 06/16/23 05:26 Blood Pressure Position Supine 06/16/23 05:26 Pulse Oximetry 94 06/16/23 05:26 Oxygen Delivery Method Room Air 06/16/23 05:26 Vital Signs Temperature 98.0 F 06/16/23 05:26 Pulse Rate 60 06/16/23 05:26 Respiratory Rate 20 06/16/23 05:26 Blood Pressure 106/59 L 06/16/23 05:26 Pulse Oximetry 94 06/16/23 05:26 Oxygen Delivery Method Room Air 06/16/23 05:26 Temperature 98.0 F 06/16/23 05:26 Pulse Rate 60 06/16/23 05:26 Respiratory Rate 20 06/16/23 05:26 Blood Pressure 106/59 L 06/16/23 05:26 Pulse Oximetry 94 06/16/23 05:26 Oxygen Delivery Method Room Air 06/16/23 05:26 Discharge Plan Discharge Clinical Impression: Elbow pain, right Patient Disposition: Home, Self-Care Condition: Stable Instructions: Tennis Elbow (ED) Additional Instructions: Ice 15-20 minutes every 2-3 hours while awake for 24 hours Tylenol for pain Follow-up with orthopedics this week for further evaluation. Call [phone] for an appointment on Sunday or Sunday Wear sling for comfort Discharge Diet: Regular Prescriptions: New diclofenac sodium [Voltaren Arthritis Pain] 1 % gel 2.25 inch topical QID Qty: 100 0RF Rx Instructions: apply to single elbow, wrist or hand; for hand includes palm/fingers/back of hand No Action cholecalciferol (vitamin D3) 125 mcg (5,000 unit) tablet 5,000 unit PO .3XWEEKLY fluticasone propionate 50 mcg/actuation spray,suspension 1 spray intranasal BID Rx Instructions: for nasal stuffiness magnesium hydroxide 400 mg (170 mg magnesium) tablet,chewable 400 mg PO pantoprazole 40 mg tablet,delayed release (DR/EC) 40 mg PO QDAY Qty: 90 3RF amiodarone 200 mg tablet 200 mg PO QDAY Qty: 90 3RF ferrous sulfate [iron] 325 mg (65 mg iron) tablet 325 mg PO DAILY clopidogrel 75 mg tablet 75 mg PO QDAY Qty: 90 3RF tamsulosin 0.4 mg capsule 0.8 mg PO DAILY Qty: 180 3RF gabapentin 300 mg capsule 600 mg PO QPM Qty: 180 3RF metformin 500 mg tablet 500 - 1,000 mg PO BID Qty: 270 3RF Rx Instructions: One tab each morning, two each evening. rosuvastatin 40 mg tablet 40 mg PO DAILY Qty: 90 0RF montelukast 10 mg tablet 10 mg PO HS Qty: 90 0RF metoprolol succinate 25 mg tablet extended release 24 hr 12.5 mg PO QDAY Qty: 90 0RF Follow Up/Referrals: Mick Barraza MD [Primary Care Provider] - Stand Alone [facility]: [facility] Info Instructions
--- NOTE | 2023-06-16 05:39 | XR_ITS ---
Patient: ELHAM MCLAUGHLIN Facility:?[facility] Patient ID:?[id number] Site Patient ID:?[id number]. Site :?[id number] Study:?XRay-Extremity Right ELBOW 3 VIEWS-06/16/2023 5:58:42 AM Ordering Physician:KARINE Final Report: INDICATION: Right elbow pain TECHNIQUE: Three views of the right elbow FINDINGS: Seen only on the oblique view is a lucency along the coronoid process which may represent a nondisplaced fracture. There is an olecranon spur. There is mild soft tissue swelling no definite effusion is seen. Correlate with exam findings. Vascular calcifications. Dictated by Shayla Lane MD @ 06/16/2023 7:37:32 AM Signed by:?Shayla Lane MD @06/16/2023 7:37:32 AM (Electronic Signature)
--- OUTSIDE RECORDS SUMMARY | 2023-06-16 06:39 | XMS_ITS | Encounter Summary ---
Author Name Unknown Organization [facility] Address [address] [place] [address] Care Team Providers Care Aix Architect Name Role Phone Ramy Sánchez MD Primary Care Provider Unavailable Debbie Burden MD Primary Care Provider +1- [phone] Encounter Details Date Type Department Care Team (Late st Contact Info) Description 02/22/2009 [facility] Medical Advice Initial Department Ondina Hester Social History Tobacco Use Types Packs/Day Years Used Date Smoking Tobacco: Former Cigars Alcohol Use Standard Drinks/Week Comments Yes 0 (1 standard drink = 0.6 oz pur e alcohol) one drink once a week Sex and Gender Information Value Date Recorded Sex Assigned at Not on file Gender Identity Not on file Sexual Orientation Not on file documented as of this encounter Plan of Treatment Not on file documented as of this encounter Visit Diagnoses Not on filedocumented in this encounter Care Teams Aix Architect Relationship Specialty Start Date End Date Ramy Sánchez MD PCP - General 09/20/01 05/25/21 Debbie Burden MD [facility] [address] [place] [address] PCP - General Family Medicine 05/26/21 documented as of this encounter
--- OUTSIDE RECORDS SUMMARY | 2023-06-16 06:39 | XMS_ITS | Encounter Summary ---
Author Name Unknown Organization [facility] Address [address] [place] [address] Care Team Providers Care Cane Flume Chute Operator Name Role Phone Ramy Sánchez MD Primary Care Provider Unavailable Debbie Burden MD Primary Care Provider +1- [phone] Encounter Details Date Type Department Care Team (Late st Contact Info) Description 12/19/2019 [facility] [address] [address] Ramona Herrera Obstructive sleep apnea (adult) (pediatric) (Primary Dx); Hypertension, essential Social History Tobacco Use Types Packs/Day Years [...] Visit Diagnoses Diagnosis Obstructive sleep apnea (adult) (pediatric)- Primary Hypertension, essential Unspecified essential hypertension documented in this encounter Care Teams Cane Flume Chute Operator Relationship Specialty Start Date End Date Ramy Sánchez MD PCP - General 09/20/01 05/25/21 Debbie Burden MD [facility] [address] [place] [address] PCP - General Family Medicine 05/26/21 documented as of this encounter
--- OUTSIDE RECORDS SUMMARY | 2023-06-16 06:39 | XMS_ITS | Referral Summary ---
Author Name Unknown Organization [facility] Address [address] [place] [address] Care Team Providers Care Mill Hand Name Role Phone Debbie Burden MD Primary Care Provider +1- [phone] Allergies Active Allergy Reactions Criticality Noted Date Comments Iodine Blisters 06/09/2021 Mercury Blisters 11/22/2005 No Known Drug Allergy 08/06/2003 Medications Medication Sig Dispensed Refills Start Date End Date Status ASPIRIN 81 MG OR TABSIndications:Other and unspecified hyperlipidemia,Essent ial hypertension, benign ONE DAILY 100 3 06/14/2006 Active LISINOPRIL 20 MG OR TABSIndications:Type II or unspecified type diabetes mellitus without mention of complication, not stated as uncontrolled,Essentia l hypertension, benign ONE DAILY, LAST REFILL 30 10 12/18/2008 Active ACCU-CHEK CATARINO DEVIIndications:Type II or unspecified type diabetes mellitus without mention of complication, not stated as uncontrolled FOR ONCE DAILY CHECKS 1 Device 1 06/10/2009 Active ACCU-CHEK CATARINO STRPIndications:Type II or unspecified type diabetes mellitus without mention of complication, not stated as uncontrolled Check BS daily as directed 100 Strip 0 06/10/2009 Active ACCU-CHEK MULTICLIX LANCETS MISCIndications:Type II or unspecified type diabetes mellitus without mention of complication, not stated as uncontrolled TEST DAILY 100 Each 0 06/10/2009 Active metFORMIN (GLUCOPHAGE) 500 MG tablet Take 1,500 mg by mouth daily (with breakfast) 0 Active atorvastatin (LIPITOR) 20 MG tablet Take 20 mg by mouth daily 0 Active tamsulosin (FLOMAX) 0.4 MG capsule Take 0.4 mg by mouth daily 0 Active gabapentin (NEURONTIN) 600 MG tablet Take 600 mg by mouth At Bedtime 0 Active montelukast (SINGULAIR) 10 MG tablet Take 10 mg by mouth At Bedtime 0 Active metoprolol succinate ER (TOPROL-XL) 50 MG 24 hr tablet Take 50 mg by mouth daily 0 Active cholecalciferol (VITAMIN D3) 125 mcg (5000 units) capsule Take by mouth three times a week 0 Active fluticasone (FLONASE) 50 MCG/ACT nasal spray [place] 1 spray into both nostrils daily 0 Active Active Problems Problem Noted Date Diagnosed Date TYPE 2 DIABETES, HBA1C GOAL < 7% 01/09/2010 HYPERLIPIDEMIA LDL GOAL <100 01/09/2010 Impotence of organic origin 10/04/2007 Diabetes mellitus, type 2 10/31/2006 Overview: Problem list name updated by automated process. Provider to review Allergic rhinitis 10/13/2004 Overview: Problem list name updated by automated process. Provider to review Hyperlipidemia 08/06/2003 Overview: Problem list name updated by automated process. Provider to review Essential hypertension, benign 08/06/2003 Special screening for malignant neoplasm of pros welch 08/06/2003 Resolved Problems Problem Noted Date Diagnosed Date Resolved Date Abnormal glucose 06/14/2006 10/06/2007 Overview: Problem list name updated by automated process. Provider to review Immunizations Name Administration Dates Next Due Pneumococcal 23 valent 06/10/2009 TD,PF 7+ (Tenivac) 06/10/2009,07/13/1997 Social History Tobacco Use Types Packs/Day Years Used Date Smoking Tobacco: Former Cigars Smokeless Tobacco: Never Alcohol Use Standard Drinks/Week Comments Yes 0 (1 standard drink = 0.6 oz pur e alcohol) one drink once a week Adolescent Education Answer Date Record ed Getting School Help Needed Not on file 12/24 Sex and Gender Information Value Date Recorded Sex Assigned at Not on file Gender Identity Not on file Sexual Orientation Not on file Last Filed Vital Signs Vital Sign Reading Time Taken Comments Blood Pressure 139/85 06/16/2021 2:45 PM CDT Pulse 69 06/16/2021 2:45 PM CDT Temperature 36.7 ??C (98.1 ??F) 06/16/2021 2:45 PM CD T Respiratory Rate 16 06/16/2021 2:45 PM CDT Oxygen Saturation 96% 06/16/2021 2:45 PM CDT Inhaled Oxygen Concentration - - Weight 89.8 kg (198 lb) 06/15/2021 12:07 PM CDT H&P Height 172.7 cm (5' 8) 06/15/2021 12:07 PM CDT H&P Body Mass Index 30.11 06/15/2021 12:07 PM CDT Plan of Treatment Not on file Care Teams Mill Hand Relationship Specialty Start Date End Date Debbie Burden MD [facility] [address] [place] [address] PCP - General Family Medicine 05/26/21
--- OUTSIDE RECORDS SUMMARY | 2023-06-16 06:39 | XMS_ITS | Encounter Summary ---
Author Name Unknown Organization [place] Address [address] [place] [address] Care Team Providers Care Tiedown Operator Name Role Phone Debbie Burden MD Primary Care Provider +1- [phone] Encounter Details Date Type Department Care Team (Late st Contact Info) Description 06/06/2021 [facility] Medical Advice [place] Centralized Scheduling [address] [place] [address] [facility] Social History Tobacco Use Types Packs/Day Years Used Date Smoking Tobacco: Former Cigars Alcohol Use Standard Drinks/Week Comments Yes 0 (1 standard drink = 0.6 oz pur e alcohol) one drink once a week Sex and Gender Information Value Date Recorded Sex Assigned at Not on file Gender Identity Not on file Sexual Orientation Not on file COVID-19 Exposure Response Date Recorded In the last month, have you been in contact with someone who was confirmed or suspected to have Coronavirus / COVID-19? No / Unsure 06/09/2021 3:22 PM CDT documented as of this encounter Plan of Treatment Not on file documented as of this encounter Visit Diagnoses Not on filedocumented in this encounter Care Teams Tiedown Operator Relationship Specialty Start Date End Date Debbie Burden MD [facility] [address] [place] [address] PCP - General Family Medicine 05/26/21 documented as of this encounter
--- OUTSIDE RECORDS SUMMARY | 2023-06-16 06:39 | XMS_ITS | Clinical Summary ---
Author Name Unknown Organization [facility] Address [place], [place] [address] Care Team Providers Care Juvenile Probation Officer Name Role Phone Mick Barraza MD Primary Care Provider [phone] Allergies Active Allergy Reactions Criticality Noted Date Comments Iodine Contact Dermatitis 06/09/2021 Mercury (Bulk) Contact Dermatitis 11/22/2005 Medications Medication Sig Dispensed Refills Start Date End Date Status cholecalciferol (VITAMIN D3) 5,000 unit capsule Take by mouth. Active gabapentin (NEURONTIN) 300 mg capsule Take 600 mg by mouth at bedtime. 08/30/2021 Active montelukast (SINGULAIR) 10 mg tablet Take 10 mg by mouth at bedtime. 08/30/2021 Active rosuvastatin (CRESTOR) 40 mg tabletIndications:Cor onary artery disease, unspecified vessel or lesion type, unspecified whether angina present, unspecified whether [place] or transplanted heart Take 1 Tablet (40 mg) by mouth at bedtime. 90 Tablet 3 10/19/2021 Active fluticasone (50 mcg per actuation) nasal solution (FLONASE) Inhale 1 [place] into affected nostril(s) two times daily. Active metoprolol succinate (TOPROL XL) 25 mg Sustained-Release tabletIndications:HTN (hypertension),Yoon ry artery disease, unspecified vessel or lesion type, unspecified whether angina present, unspecified whether w[place] or transplanted heart Take 0.5 Tablets (12.5 mg) by mouth once daily. 45 Tablet 05/03/2022 Active diphenhydrAMINE (BENADRYL) 25 mg tabletIndications:millie al congestion Take 25 mg by mouth every 6 hours if needed. Take 1-2 tablets every 6 hours as needed for nasal congenstion. Indications: stuffy nose Active amiodarone (CORDARONE) 200 mg tabletIndications:Phi tricular tachyarrhythmia (HC) Take 2 tablets (400 mg) twice a day for 1 week (through) 06/08/2022, then reduce to 1 tablet (200 mg) twice a day for 4 weeks (through 07/06/2022), then reduce to 1 tablet (200 mg) daily thereafter. 90 Tablet 4 06/02/2022 Active acetaminophen (TYLENOL) 325 mg tablet Take 2 Tablets (650 mg) by mouth every 6 hours if needed for Pain (For mild pain.). Max acetaminophen dose: 4000mg in 24 hrs. 0 06/02/2022 Active clopidogreL (PLAVIX) 75 mg tabletIndications:Hx of ischemic left MCA stroke Take 1 Tablet (75 mg) by mouth every morning. 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 90 Tablet 06/14/2022 Active tamsulosin (FLOMAX) 0.4 mg capsule Take 1 Capsule (0.4 mg) by mouth. three times daily 0 08/22/2022 Active metFORMIN (GLUCOPHAGE) 500 mg tablet Take 1 Tablet (500 mg) by mouth two times daily with meals. 0 08/22/2022 Active Active Problems Patient Care Coordination No te Formatting of this note migh t be different from the original. HF/Structural Research Eligibility Review Date: 02/27/19 The patient did not qualify for any currently enrolling studies at the time of this review. 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 05/29/2022 First degree AV block 05/29/2022 Acute ischemic stroke 04/30/2022 Seizure 04/29/2022 JOÃO (acute kidney injury) 04/29/2022 Anemia 04/29/2022 Sleep apnea 04/29/2022 Hyperkalemia 04/29/2022 Bicuspid aortic valve 04/29/2022 Type 2 diabetes mellitus 04/29/2022 Mixed hyperlipidemia 10/03/2019 Ascending aortic aneurysm 10/03/2019 Obesity (BMI 30.0-34.9) 10/03/2019 Aortic valve stenosis 10/13/2016 HTN (hypertension) 10/13/2016 Encounters Date Type Department Care Team Description 04/27/2023 11:30 AM PRINTING PRESSMAN Office Visit [facility] [address] [place] [address] Carlos Friend MD 04/12/2023 Orders Only [facility] [address] [place] [address] Carlos Friend MD <No scans attached> 04/10/2023 11:00 AM PRINTING PRESSMAN Ancillary Procedure [facility] [address] [place] [address] 04/10/2023 Travel 04/02/2023 Telephone [facility] [address] [place] [address] Carlos Friend MD Appointment (echo) from Last 3 Months Family History Medical History Relation Name Comments Esophageal cancer Brother 1 Cancer-pancreatic Brother 2 Diabetes type II Brother 3 Relation Name Status Comments Brother 1 Brother 2 Alive Brother 3 Alive Social History Tobacco Use Types Packs/Day Years Used Date Smoking Tobacco: Former Cigarettes Smokeless Tobacco: Never Tobacco Cessation:Counseling Given: No Comments:Patient reported to smoke once 50 years ago. Alcohol Use Standard Drinks/Week Comments Not Currently 0 (1 standard drink = 0.6 oz pur e alcohol) Social Connections Answer Date Recorded Frequency of Communication with Friends and Fami ly Not on file 03/12/2021 Financial Resource Strain Answer Date R ecorded Difficulty of Paying Living Expenses Not on file 03/12/2021 Difficulty of Paying Living Expenses Not on file 03/12/2021 Sex and Gender Information Value Date Recorded Sex Assigned at Not on file Gender Identity Not on file Sexual Orientation Not on file Obstetrics History Last Filed Vital Signs Vital Sign Reading Time Taken Comments Blood Pressure 133/79 09/19/2022 10:23 AM CDT Pulse 63 09/19/2022 10:23 AM CDT Temperature 36.6 ??C (97.9 ??F) 07/04/2022 2:34 PM CD T Respiratory Rate 15 07/03/2022 12:15 PM CDT Oxygen Saturation 97% 09/19/2022 10:23 AM CDT Inhaled Oxygen Concentration - - Weight 84.4 kg (186 lb) 09/19/2022 10:23 AM CDT Height 172.7 cm (5' 8) 08/22/2022 10:12 AM CDT Body Mass Index 28.28 08/22/2022 10:12 AM CDT Plan of Treatment Upcoming Encounters Date Type Department Care Team (Late st Contact Info) Description 07/24/2023 10:30 AM CDT Cardiac Device Check [facility] [address] [place] [id number] 08/30/2023 10:00 AM CDT Office Visit [facility] [address] [place] [address] Ashly Magana PA [address] [place] [address] Health Maintenance Due Date Last Done Comments Pneumococcal series for age 65+ (1 of 2 - PCV) 12/27/1945 Tdap 12/27/1950 Depression screening for age 12+ 1951 Tetanus booster 1959 Zoster (shingles) series for age 50+ (1 of 2) 12/27/1989 Medicare Wellness for age 65+ 12/27/2004 BMI (ht and wt on same day) for age 18+ 08/23/2023 08/22/2022, 06/14/2022 Influenza for age 65+ 11/11/2023 COVID-19 vaccine series Completed 12/25/19, 01/17/2022, 09/20/2021, Additional history exists Procedures Procedure Name Priority Date/Time Associated Diagnosis Comments ECHO TTE COMPLETE WO CONTRAST Routine 04/10/2023 11:37 AM PRINTING PRESSMAN Ascending aorta dilation (HC) from Last 3 Months Results * ECHO TTE COMPLETE WO CONTRAST (04/10/2023 11:37 AM PRINTING PRESSMAN) AORTIC VALVE MEAN PG 22 mmHg EJECTION FRACTION 58 % PEAK TR VELOCITY 2.5 m/s LVEDD 4.7 cm Anatomical Region Laterality Modality Ultrasound 04/10/2023 11:0 2 AM PRINTING PRESSMAN Narrative 04/10/2023 12:49 PM PRINTING PRESSMAN ECHOCARDIOGRAM JD MCLAUGHLIN ?Accession#: ?? [id number] : ?1940 82 years Study Date: ?? 04/10/2023 11:02:12 AM Gender: M ? BP: ? 134/64 mmHg Height: 173.00 cm ? BSA: ?1.96 m? ? ? Weight: 82.00 kg ?Tech: ? MJW ?Referring MD: CARLOS FRIEND Site: ? [facility] Reading Location: Mobile-OP Patient Location: Procedure: 2D, Color Doppler and Spectral Doppler. Indication for study: AO Stenosis Dilation Cardiac Rhythm: Regular.Study quality: Imaging limitations: This study was subject to imaging limitations due to body habitus and a prominent lung artifact. Final Impressions: 1. Normal left ventricular size, mildly increased wall thickness, normal global systolic function, calculated EF of 58 %. 2. Right ventricular cavity size is normal, global systolic RV function is normal. 3. Mildly enlarged left atrium. 4. The ascending aorta is dilated with a maximal diameter of 5.1 cm. 5. The aortic sinus is dilated with a maximal diameter of 4.2 cm. 6. The aortic valve appears trileaflet, sclerotic and calcified, moderate stenosis (peak velocity 2.9 m/s, mean gradinet 22 mmHg, ERIKA 1.57 cm^2, DI 0.27, SVI 55 ml/m^2) and mild regurgitation. 7. The mitral valve is sclerotic, trace mitral regurgitation. 8. Mild tricuspid regurgitation with an estimated RVSP of 24 mmHg plus the RA pressure. Comparison Compared to prior exam of 10/09/2022: - the maximal ascending aortic diameter now measures 5.1 cm. Does not appear to be in a precisely analagous location to the prior maximal diameter of 4.9 cm. Chamber Sizes and Function Normal left ventricular size, mildly increased wall thickness, normal global systolic function, calculated EF of 58 %. Left atrial size is mildly enlarged. Right ventricular cavity size is normal, global systolic RV function is normal. RV wall thickness is normal. The right atrium is normal. Right atrial volume index is 26 ml/m? ? ?. Right atrial area is 18 cm? ? ?. The pulmonary artery is of normal size and origin. The sinus of Valsalva is dilated. The ascending aorta is dilated. Valves, RV Pressures and Diastolic Function The aortic valve is trileaflet, sclerotic and calcified, moderate stenosis and mild regurgitation. The mitral valve is sclerotic, trace mitral regurgitation. Spectral Doppler shows Grade 1 pattern of LV diastolic filling. The tricuspid valve is normal in structure. Tricuspid regurgitation is mild regurgitation. The tricuspid regurgitant velocity is 2.4 m/s, the estimated right ventricular systolic pressure is 24 mmHg plus right atrial pressure. The pulmonic valve is not well visualized. No pulmonary regurgitation. Masses, Effusion, Shunts There is no pericardial effusion. The inferior vena cava is not well visualized, respiratory size variation not well visualized. Interatrial septum is not well visualized. MEASUREMENTS AND CALCULATIONS 2-D Measurements and LV Function: LVID (d) 4.6 cm Planimetered EF 58 % LVID (s) 2.6 cm LV FS% (2D) ? 44 % IVS (d) ??1.3 cm LVOT diameter ?? 2.7 cm LVPW (d) 1.5 cm HR ?63 bpm Ao Sinus 4.2 cm LA Vol index ?38 ml/m2 Asc Ao ?? 5.1 cm RA Vol index ?26 ml/m2 LA ? 4.8 cm RA area ? 18 cm?RV Max 4C (d) ?? 4.6 cm Diastology: Mitral ?Tissue Doppler E Peak 0.8 m/s ??e', Septum ? 0.04 m/s A Peak 0.9 m/s ??e', Lateral ?0.07 m/s E/A ?0.8 ?E/e' Average ?? 14.00 DT ? 283 msec Aortic Valve: Vmax ? 2.9 m/s ??ERIKA (V) ?? 1.57 cm? AI P 1/2 675 msec VTI ?0.70 m ?? ERIKA (I) ?? 1.54 cm? ? ? LVOT V max ? 0.8 m/s ??Max PG ?33 mmHg LVOT VTI ? 0.19 m ?? Mean PG ?? 22 mmHg SV ? 108 ml ?? Dim Index 0.27 SV index ? 55 ml/m? ? ? CO ?6.8 l/min AV Ejection Time 0.28 sec CI ?3.5 l/min/m? ? ? AV Flow Rate ? 384 ml/s Mitral Valve: MVA ?2.7 cm? ? ? MV P 1/2 82 msec Tricuspid Valve and estimated PA pressures: TR Vmax 2.4 m/s TAPSE 3.3 cm TR maxG 24 mmHg . This study was interpreted by an [facility] accredited facility. ??Final ?? Procedure Note Bill Bernal MD - 04/10/2023 ECHOCARDIOGRAM JD MCLAUGHLIN : 1940 82 years Study Date: 04/10/2023 11:02:12 AM Gender: M BP: 134/64 mmHg Height: 173.00 cm BSA: 1.96 m? ? ? Weight: 82.00 kg Tech: TACHO Referring MD: CARLOS FRIEND Site: [facility] Reading Location: Mobile-OP Patient Location: Procedure: 2D, Color Doppler and Spectral Doppler. Indication for study: AO Stenosis Dilation Cardiac Rhythm: Regular.Study quality: Imaging limitations: This study was subject to imaging limitations due tobody habitus and a prominent lung artifact. Final Impressions: 1. Normal left ventricular size, mildly increased wall thickness, normalglobal systolic function, calculated EF of 58 %. 2. Right ventricular cavity size is normal, global systolic RV functionis normal. 3. Mildly enlarged left atrium. 4. The ascending aorta is dilated with a maximal diameter of 5.1 cm. 5. The aortic sinus is dilated with a maximal diameter of 4.2 cm. 6. The aortic valve appears trileaflet, sclerotic and calcified, moderatestenosis (peak velocity 2.9 m/s, mean gradinet 22 mmHg, ERIKA 1.57 cm^2, DI0.27, SVI 55 ml/m^2) and mild regurgitation. 7. The mitral valve is sclerotic, trace mitral regurgitation. 8. Mild tricuspid regurgitation with an estimated RVSP of 24 mmHg plusthe RA pressure. Comparison Compared to prior exam of 10/09/2022: - the maximal ascending aortic diameter now measures 5.1 cm. Does notappear to be in a precisely analagous location to the prior maximaldiameter of 4.9 cm. Chamber Sizes and Function Normal left ventricular size, mildly increased wall thickness, normalglobal systolic function, calculated EF of 58 %. Left atrial size ismildly enlarged. Right ventricular cavity size is normal, global systolicRV function is normal. RV wall thickness is normal. The right atrium isnormal. Right atrial volume index is 26 ml/m? ? ?. Right atrial area is 18cm? ? ?. The pulmonary artery is of normal size and origin. The sinus ofValsalva is dilated. The ascending aorta is dilated. Valves, RV Pressures and Diastolic Function The aortic valve is trileaflet, sclerotic and calcified, moderate stenosisand mild regurgitation. The mitral valve is sclerotic, trace mitralregurgitation. Spectral Doppler shows Grade 1 pattern of LV diastolicfilling. The tricuspid valve is normal in structure. Tricuspidregurgitation is mild regurgitation. The tricuspid regurgitant velocity is2.4 m/s, the estimated right ventricular systolic pressure is 24 mmHg plusright atrial pressure. The pulmonic valve is not well visualized. Nopulmonary regurgitation. Masses, Effusion, Shunts There is no pericardial effusion. The inferior vena cava is not wellvisualized, respiratory size variation not well visualized. Interatrialseptum is not well visualized. MEASUREMENTS AND CALCULATIONS 2-D Measurements and LV Function: LVID (d) 4.6 cm Planimetered EF 58 % LVID (s) 2.6 cm LV FS% (2D) 44 % IVS (d) 1.3 cm LVOT diameter 2.7 cm LVPW (d) 1.5 cm HR 63 bpm Ao Sinus 4.2 cm LA Vol index 38 ml/m2 Asc Ao 5.1 cm RA Vol index 26 ml/m2 LA 4.8 cm RA area 18 cm? ? ? RV Max 4C (d) 4.6 cm Diastology: Mitral Tissue Doppler E Peak 0.8 m/s e', Septum 0.04 m/s A Peak 0.9 m/s e', Lateral 0.07 m/s E/A 0.8 E/e' Average 14.00 DT 283 msec Aortic Valve: Vmax 2.9 m/s ERIKA (V) 1.57 cm? ? ? AI P /2 675 msec VTI 0.70 m ERIKA (I) 1.54 cm? ? ? LVOT V max 0.8 m/s Max PG 33 mmHg LVOT VTI 0.19 m Mean PG 22 mmHg SV 108 ml Dim Index 0.27 SV index 55 ml/m? ? ? CO 6.8 l/min AV Ejection Time 0.28 sec CI 3.5 l/min/m? ? ? AV Flow Rate 384 ml/s Mitral Valve: MVA 2.7 cm? ? ? MV P /2 82 msec Tricuspid Valve and estimated PA pressures: TR Vmax 2.4 m/s TAPSE 3.3 cm TR maxG 24 mmHg . This study was interpreted by an [facility] accredited facility. Final Carlos Friend MD ECHO ORD from Last 3 Months Advance Directives Documents on File Type Date Recorded Patient Wafer Cutter Expl anation Healthcare Directive 12/26/2001 002 * Full Code (Latest Code Status on File) Date Activated Date Inactivated Comments 05/29/2022 6:16 PM 06/02/2022 5:08 PM Question Answer Comments Code Status Discussion: Reviewed Preferences * DNR Date Activated Date Inactivated Comments 04/29/2022 4:30 PM 05/05/2022 4:22 PM Question Answer Comments Code Status Discussion: Reviewed Preferences * Full Code Date Activated Date Inactivated Comments 04/29/2022 3:22 PM 04/29/2022 4:30 PM Question Answer Comments Code Status Discussion: Unable to Assess Preferences, Provider to review later Care Teams Juvenile Probation Officer Relationship Specialty Start Date End Date Mick Barraza MD [id number] [place] [address] PCP - General Family Practice 04/10/23
--- OUTSIDE RECORDS SUMMARY | 2023-06-16 06:39 | XMS_ITS | Continuity of Care Document ---
Author Name Unknown Organization [facility] Address [address] [address] [place] [address] Phone Care Team Providers Care Flowers Salesperson Name Role Phone Niru ORTEGA, Andreas Unavailable Unavailable Allergies, Adverse Reactions, Alerts Substance Reaction Status Criticality sodium iodide Adverse reaction Active No Informa tion povidone-iodine Adverse reaction Active No Infor mation iodoform Adverse reaction Active No Informat ion POTASSIUM IODIDE Adverse reaction Active No Info rmation IODINE Adverse reaction Active No Informat ion SODIUM IODIDE Adverse reaction Active No Informa tion Medications Medication Instructions Dosage Effective Dates (start - stop) Status Comments gabapentin 600 mg tablet take 1 Tablet by Oral route 3 times every day 1 Tablet - Active metoprolol succinate ER 50 mg tablet,extended release 24 hr take 1 tablet by oral route every day 50 MG - Active MONTELUKAST SODIUM (unknown strength) chew 2 tablet by oral route every day Not Available - Active metformin 500 mg tablet take 1 tablet by ORAL route 2 times every day 500 MG - Active atorvastatin 20 mg tablet take 1 tablet by ORAL route every day 20 MG - Active tamsulosin 0.4 mg capsule take 1 capsule by ORAL route every day 1/2 hour following the same meal each day 0.4 MG - Active Vitamin D3 125 mcg (5,000 unit) tablet take 1 by Oral route every day 1 - Active Lipitor 20 mg Tab Take 1 tablet by mouth daily - Active lisinopril 20 mg Tab Take one tablet by mouth daily - Active Aspirin Low Dose 81 mg Tab, Delayed Release Take one tablet by mouth daily - Active Procedures Procedure Date Ugi Endo; W/endo Ultrasound Ex Telephone E&M III 21-30 Min EFFIE Colonoscopy Flex; Dx (sep Pro) Advance Directives Directive Yes / No Effective Date File Name No Information Encounters Encounter Description Practice Location Reason(s) For Visit Diagnoses Date Provider Providers Copied on Encounter [facility], [address] [address], [place], [place], [id number], [place] tel:[phone] [facility] No Information 2 Niru Johns. [address] [facility], [facility] [address], [place], [place], [id number], [place]. tel:[phone] [facility], [address] [address], [place], [place], [id number], [place] tel:[phone] [facility] No Information 2 Yue Reddy. [address] [facility], [facility] [address], [place], [place], [id number], [place]. tel:[phone] Referring Provider: Barry Turner MD, [address] [facility] [address], [place], [address] . tel:[phone] Telephone E&M III 21-30 Min EFFIE [facility], [address] [address], [place], [place], [address], [place] tel:[phone] [facility] GI Symptoms or Concerns (chief complaint) Acute pancreatitis, unspecified complication status, unspecified pancreatitis type 2 Yue Reddy. [address] [facility], [facility] [address], [place], [id number], [place]. tel:[phone] Referring Provider: Debbie Burden MD, [address] [place], [address]. tel:[phone] [facility], [address] [address], [place], [address], [place] tel:[phone] [facility] No Information 2 Niru Johns. [address] [facility], [address], [place], [place], [id number], [place]. tel:[phone] [facility], [address] [address], [place], [place], [address], [place] tel:[phone] [facility] Colon Cancer ScreeningHemor rhoids Nos [phone] No Information Referring Provider: Ramy Veloz, [address] [place], [address]. tel:[phone] Family History Family Member Type Diagnosis Age At Onset No Information Immunizations Vaccine Date Status Comments influenza, high-dose seasona l, quadrivalent, .7mL dose, preservative free administered Note: [facility] bi-direct ional interface ; Source: Other Registry SARS-COV-2 (COVID-19) vaccin e, mRNA, spike protein, LNP, preservative free, 30 mcg/0.3mL dose administered Note: [facility] bi-direct ional interface ; Source: Other Registry SARS-COV-2 (COVID-19) vaccin e, mRNA, spike protein, LNP, preservative free, 30 mcg/0.3mL dose administered Note: [facility] bi-direct ional interface ; Source: Other Registry SARS-COV-2 (COVID-19) vaccin e, mRNA, spike protein, LNP, preservative free, 30 mcg/0.3mL dose administered Note: [facility] bi-direct ional interface ; Source: Other Registry influenza, seasonal vaccine, quadrivalent, adjuvanted, .5mL dose, preservative free administered Note: [facility] bi-di rectional interface ; Source: Other Registry zoster vaccine recombinant administered N ote: [facility] bi-directional interface ; Source: Other Registry tetanus toxoid, reduced diphtheria toxoid, and acellular pertussis vaccine, adsorbed administered Note: [facility] b i-directional interface ; Source: Other Registry zoster vaccine recombinant administered N ote: [facility] bi-directional interface ; Source: Other Registry influenza, high dose seasona l, preservative-free administered Note: [facility] bi-direct ional interface ; Source: Other Registry influenza, high dose seasona l, preservative-free administered Note: [facility] bi-direct ional interface ; Source: Other Registry influenza, high dose seasona l, preservative-free administered Note: [facility] bi-direct ional interface ; Source: Other Registry Afluria Qd [id number] administered Note: [facility] bi-directional interface ; Source: Other Registry influenza, high dose seasona l, preservative-free administered Note: [facility] bi-direct ional interface ; Source: Other Registry Prevnar 13 administered Note: [facility] bi-d irectional interface ; Source: Other Registry influenza, high dose seasona l, preservative-free administered Note: [facility] bi-direct ional interface ; Source: Other Registry zoster vaccine, live administered Note: [facility] bi-directional interface ; Source: Other Registry Pneumovax 23 administered Note: [facility] bi-d irectional interface ; Source: Other Registry influenza virus vaccine, unspecified formulation administered Note: [facility] bi-di rectional interface ; Source: Other Registry tetanus toxoid, reduced diphtheria toxoid, and acellular pertussis vaccine, adsorbed administered Note: [facility] b i-directional interface ; Source: Other Registry Influenza, seasonal, injectable administe red Note: [facility] bi- directional interface ; Source: Other Registry tetanus toxoid, reduced diphtheria toxoid, and acellular pertussis vaccine, adsorbed administered Note: [facility] b i-directional interface ; Source: Other Registry Pneumovax 23 administered Note: [facility] bi-d irectional interface ; Source: Other Registry Payers Payer name Insurance type Covered green party ID Authoriza tion(s) [employer] Medicare Advantage [id number] Social History Type Description Quantity Date Captured Comments Sex Male Smoking Status No Information Chief Complaint And Reason For Visit No Information Reason For Referral Reason For Referral No Information Plan Of Treatment Date Type Action Status Referral Ordered: EUS Appointment date/timeframe: 06/16/2021 ordered History Of Present Illness Encounter Date Complaint History Of Prese nt Illness GI Symptoms or Concerns Jd is a very pleasant 80-year-old gentleman with no past medical history of any pancreas problems who about 6 weeks ago developed abdominal pain and was hospitalized and after workup was diagnosed with acute pancreatitis of unknown etiology. He did have a mild elevation in ALT about 2 times upper limit of normal but otherwise had normal liver tests an ultrasound revealed no stones in his gallbladder or bile duct dilatation. He does not drink alcohol. 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 I should note this study was done at the time of his episode and there was some edema in his pancreas noted that aided the diagnosis. Since his discharge he has done well with no weight loss no nausea or vomiting. Abdominal pain had completely resolved. Functional Status Date Functional Assessmen t No Information Instructions Date Instruction Additional Infor ramon At this point I do r ecommend proceeding with endoscopic ultrasound to better interrogate his pancreas and rule out any occult lesion as well as to better characterize his pancreas cyst. He asked good questions and has a good understanding of the issues at hand. Related to Acute pancreatitis, unspecified complication status, unspecified pancreatitis type Assessments Type Assessment Date No Information Patient Care Teams Name Effective Dates (start - stop) Status Members No Information
--- OUTSIDE RECORDS SUMMARY | 2023-06-16 06:39 | XMS_ITS | Clinical Summary ---
Author Name Unknown Organization [facility] Address [address] [place] [address] Care Team Providers Care Sales Agent Trading Stamps Name Role Phone Debbie Burden MD Primary Care Provider [phone] Allergies Active Allergy Reactions Criticality Noted Date [...] Active fluticasone (FLONASE) 50 MCG/ACT nasal spray [place] 1 spray into both nostrils daily 0 [...] 23 valent 06/10/2009 TD,PF 7+ (Tenivac) 06/10/2009,07/13/1997 Family History Medical History Relation Comments Cancer Brother 1 pancreatic 57 ye ars diagnosis Diabetes Brother 2 type two Cancer [...] 1940 ANNUAL REVIEW OF HM ORDERS 1939 RSV VACCINE ( & 60+) (1 - 1-dose 60+ series) 1999 FALL RISK ASSESSMENT 12/27/2004 MEDICARE ANNUAL WELLNESS VISIT 12/27/2004 LIPID 01/13/2010 07/13/2009, 04/12, 10/27/2008, Additional history exists A1C 02/23/2010 11/24/2009, 0506/2009, 04/28/2009, Additional history exists DIABETIC FOOT EXAM 06/10/2010 06/10/2009, 06/10/2009 BMP 07/13/2010 07/13/2009, 0 03/2009, 04/28/2009, Additional history exists CREATININE 07/13/2010 07/13/2009, 040 03/2009, 04/28/2009, Additional history exists EYE EXAM 11/24/2010 11/24/2009 MICROALBUMIN 11/24/2010 11/24/2009, 10/10, 09/27/2007 COVID-19 Vaccine ( season) 2022 12/17/2020, 05/15/2020, 04/24/2020 INFLUENZA VACCINE (#1) 2022 , 11/21/2019, 01/13/2019, Additional history exists PHQ-2 (once per calendar year) 2023 DTAP/TDAP/TD IMMUNIZATION (3 - Td or Tdap) 10/12/2029 10/13/2019, 03/12/2011, 06/10/2009, Additional history exists Pneumococcal Vaccine: 65+ Years Completed 05/06/2014, 03/19/2012, 06/10/2009 ZOSTER IMMUNIZATION Completed 11/21/2019, 07/17/2019, 03/19/2012 HPV IMMUNIZATION Aged Out No longer e ligible based on patient's age to complete this topic IPV IMMUNIZATION Aged Out No longer e ligible based on patient's age to complete this topic MENINGITIS IMMUNIZATION Aged Out No l onger eligible based on patient's age to complete this topic RSV MONOCLONAL ANTIBODY Aged Out No l onger eligible based on patient's age to complete this topic Care Teams Sales Agent Trading Stamps Relationship Specialty Start Date End Date Debbie Burden MD [facility] [address] [place], [place] [id number] PCP - General Family Medicine 05/26/21
--- OUTSIDE RECORDS SUMMARY | 2023-06-16 06:40 | XMS_ITS | Encounter Summary ---
Author Name Unknown Organization [facility] Address [address] [place] [address] Care Team Providers Care Coding Consultant Name Role Phone Ramy Sánchez MD Primary Care Provider Unavailable Debbie Burden MD Primary Care Provider [phone] Encounter Details Date Type Department Care Team (Late st Contact Info) Description 12/23/2007 MyC Medical Advice Initial Department Ondina Hester Social History Tobacco Use Types Packs/Day Years Used Date Smoking Tobacco: Every Day Cigars Comments:couple times a year Alcohol Use Standard Drinks/Week [...] on filedocumented in this encounter Care Teams Coding Consultant Relationship Specialty Start Date End Date Ramy Sánchez MD PCP - General 09/20/01 05/25/21 Debbie Burden MD [facility] [address] [place] [address] PCP - General Family Medicine 05/26/21 documented as of this encounter
--- OUTSIDE RECORDS SUMMARY | 2023-06-16 06:40 | XMS_ITS | Encounter Summary ---
Author Name Unknown Organization [facility] Address [address] [place] [address] Care Team Providers Care Money Manager Name Role Phone Ramy Sánchez MD Primary Care Provider Unavailable Debbie Burden MD Primary Care Provider [phone]- [phone] Encounter Details Date Type Department Care Team (Late st Contact Info) Description 09/16/[address] [id number] [facility] Social History Tobacco Use Types Packs/Day Years Used Date Smoking Tobacco: Every Day Cigars Comments:couple times a year Alcohol Use Standard Drinks/Week Comments Not Asked 0 (1 standard drink = 0.6 oz pur e alcohol) Sex and Gender Information Value Date Recorded Sex Assigned at Not on file Gender Identity Not on file Sexual Orientation Not on file documented as of this encounter Plan of Treatment Not on file documented as of this encounter Visit Diagnoses Not on filedocumented in this encounter Care Teams Money Manager Relationship Specialty Start Date End Date Ramy Sánchez MD PCP - General 09/20/01 05/25/21 Debbie Burden MD [facility] [address] [place] [address] PCP - General Family Medicine 05/26/21 documented as of this encounter
== END 2023-06-16 07:44 | disposition home or self-care (01) ==
PROVIDERS: Emergency Provider Family Medicine; PCP Family Medicine
DX: M25.521 Pain in right elbow (principal)
CPT/HCPCS: 73080; 93005; 99284

== ENCOUNTER 2023-06-16 21:48 | Emergency (ER) | payer MEDICARE, SELFPAY ==
[2023-06-16 22:00] VITALS: BP 141/68; PULSE 85; RESP 20; TEMP 37.7; O2SAT 99; BMI 27.4
--- NOTE | 2023-06-16 22:12 | ED_ITS ---
HPI - General Adult General Chief complaint: Extremity Pain/Injury, Upper Stated complaint: right elbow pain, fever Time Seen by Provider: 06/16/23 21:56 History of Present Illness HPI narrative: Patient is a 82-year-old gentleman who was earlier today with right-sided elbow pain. Patient has had history of CVA in the past and may or may not have had some recent falls. It was initially felt that the patient had normal x-ray of the right elbow however, there is lucency along the coronoid process which raises the possibility of a nondisplaced fracture. Patient states his pain is been worse since going home. He is in a sling and now has significant swelling in his right elbow primarily over the lateral epicondyle. Patient had some worsening of his confusion well as some occasional urinary incontinence but he down plays the urinary symptoms stating that his symptoms are 100% related to his right elbow pain. Related Data Home Medications Medication Instructions Recorded Confirmed cholecalciferol (vitamin D3) 125 5,000 unit PO .3XWEEKLY 09/08/21 06/16/23 mcg (5,000 unit) tablet fluticasone propionate 50 1 spray intranasal BID 09/08/21 06/16/23 mcg/actuation nasal spray,suspension ferrous sulfate 325 mg (65 mg 325 mg PO DAILY 04/28/22 06/16/23 iron) tablet (iron) magnesium hydroxide 400 mg (170 mg 400 mg PO 05/10/22 05/28/23 magnesium) chewable tablet Previous Rx's Medication Instructions Recorded clopidogrel 75 mg tablet 75 mg PO QDAY #90 tabs 05/22/22 amiodarone 200 mg tablet 200 mg PO QDAY #90 tabs 07/04/22 pantoprazole 40 mg tablet,delayed 40 mg PO QDAY #90 tabs 07/04/22 release tamsulosin 0.4 mg capsule 0.8 mg (2 x 0.4 mg) PO DAILY #180 12/20/22 ea gabapentin 300 mg capsule 600 mg (2 x 300 mg) PO QPM #180 ea 02/22/23 metformin 500 mg tablet 500 - 1,000 mg (1 - 2 x 500 mg) PO 03/28/23 BID #270 tabs metoprolol succinate 25 mg 12.5 mg (1/2 x 25 mg) PO QDAY #90 06/13/23 tablet,extended release 24 hr tabs montelukast 10 mg tablet 10 mg PO HS #90 tabs 06/13/23 rosuvastatin 40 mg tablet 40 mg PO DAILY #90 tabs 06/13/23 diclofenac sodium 1 % topical gel 2.25 inch topical QID #100 grams 06/16/23 (Voltaren Arthritis Pain) Allergies Allergy/AdvReac Type Severity Reaction Status Date / Time iodine Allergy Severe skin Verified 06/16/23 22:02 reaction SEVERE mercury (elemental) Allergy Verified 06/16/23 22:02 Review of Systems Status of ROS: Reports: 10 or more systems reviewed and unremarkable except as noted in History and below [facility] Medical History COVID-19 ?U07.1 - COVID-19 (ICD-10) Fall ?W19.XXXA - Unspecified fall, initial encounter (ICD-10) Gastrointestinal bleed ?K92.2 - Gastrointestinal hemorrhage, unspecified (ICD-10) Pancreatitis ?K85.90 - Acute pancreatitis without necrosis or infection, unspecified (ICD- 10) Low back pain ?M54.50 - Low back pain, unspecified (ICD-10) Kidney lesion ?N28.9 - Disorder of kidney and ureter, unspecified (ICD-10) Groin mass ?R19.09 - Other intra-abdominal and pelvic swelling, mass and lump (ICD-10) Decreased testosterone level ?R79.89 - Other specified abnormal findings of blood chemistry (ICD-10) Asymptomatic coronary heart disease ?I25.9 - Chronic ischemic heart disease, unspecified (ICD-10) Surgical History Status post internal cardiac defibrillator procedure ?Z95.810 - Presence of automatic (implantable) cardiac defibrillator (ICD-10) History of shoulder surgery ?Z98.890 - Other specified postprocedural states (ICD-10) History of nasal septoplasty ?Z98.890 - Other specified postprocedural states (ICD-10) History of hand surgery ?Z98.890 - Other specified postprocedural states (ICD-10) Family History Son Atrial fibrillation Thyroid cancer Daughter Autoimmune disorder Social History Narrative: He lives with his of 61 years in [place]. 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 is healthcare power of family law attorney primarily and his son and daughter are secondary healthcare power of family law attorney. Code status is DNR. He does not smoke. He drinks alcohol about 3 times a month. Smoking Status: Never smoker Do you use any of these nicotine containing products: None Second hand tobacco smoke exposure: No How often do you have a drink containing alcohol: 2-4 times a month How many standard drinks containing alcohol do you have on a typical day: 1 or 2 How often do you have six or more drinks on one occasion: Never AUDIT-C Alcohol total score: 2 Non-prescribed substance use: denies use Caffeine: Yes (1 cup coffee AM) Little interest or pleasure in doing things: not at all Feeling down, depressed, or hopeless: several days service: No Exam Narrative: Exam Narrative: EXAM GENERAL: Patient appears comfortable and well. EYES: No scleral icterus. ENT: Tympanic membranes and oropharynx normal. THYROID: no thyroid nodules or thyromegaly. LYMPH: No supraclavicular or cervical lymphadenopathy. SKIN: Visible skin seen during exam normal or with benign process only. EXT: Patient has pain and swelling noted of the right lateral epicondyle. He has markedly reduced range of motion of the right elbow. No signs of erythema or cellulitis. HEART: Regular rate and rhythm with no murmurs, rubs, or gallops. LUNGS: Clear to auscultation bilaterally with no crackles or wheezes. ABD: Soft, non tender, non distended. PSYCH: Good eye contact, speech is not pressured. Const: Vital Signs, click to edit/add: Vital Signs - 24 hr 06/16/23 22:00 Temperature 99.9 F H Pulse Rate [Right Pulse Oximeter] 85 Respiratory Rate 20 Blood Pressure [Ri ght Upper Arm] 141/68 H Pulse Oximetry 99 Oxygen Delivery Me thod Room Air Course Course ED Course: I did place long-arm splint on the patient and rehab sling to him. At this time we are checking a UA to make sure he does not have a urinary tract infection. Vital Signs Vital signs: Initial Vital Signs Temperature 99.9 F H 04/06/24 22:00 Temperature Source Temporal Artery Scan 06/16/23 22:00 Pulse Rate 85 06/16/23 22:00 Respiratory Rate 20 06/16/23 22:00 Blood Pressure 141/68 H 06/16/23 22:00 Blood Pressure Mean 92 06/16/23 22:00 Blood Pressure Position Sitting 06/16/23 22:00 Pulse Oximetry 99 06/16/23 22:00 Oxygen Delivery Method Room Air 06/16/23 22:00 Vital Signs Temperature 99.9 F H 06/16/23 22:00 Pulse Rate 85 06/16/23 22:00 Respiratory Rate 20 06/16/23 22:00 Blood Pressure 141/68 H 06/16/23 22:00 Pulse Oximetry 99 06/16/23 22:00 Oxygen Delivery Method Room Air 06/16/23 22:00 Temperature 99.9 F H 06/16/23 22:00 Pulse Rate 85 06/16/23 22:00 Respiratory Rate 20 06/16/23 22:00 Blood Pressure 141/68 H 06/16/23 22:00 Pulse Oximetry 99 06/16/23 22:00 Oxygen Delivery Method Room Air 06/16/23 22:00 Medical Decision Making MDM Narrative Medical decision making narrative: Patient is a 82-year-old gentleman who comes in today with worsening right elbow pain. Review of his x-ray shows questionable fracture. Clinically he appears to have worsening symptoms consistent with a fracture. Again he was splinted and put in a sling. I did prescribe Rochert to use limited 1 tablet every 8 hours as needed. Symptomatic treatment. I did send off a urine due to the falls and confusion does have some hematuria but no signs of infection. I did inform him of the hematuria and he will follow up with his primary physician. Again he seeing Orthopedics next few days. I expect repeat imaging will be done at that time. Lab Data Labs: Lab Results 06/16/23 Range/Units 22:23 Urine Color Brown A (Yellow) Urine Appearance Cloudy A (Clear) Urine pH 5.5 (5.0-8.5) Ur Specific [place] >= 1.030 (1.000-1.030) Urine Protein 3+ A (Negative) Urine Glucose (UA) Negative (Negative) Urine Ketones Trace A (Negative) Urine Blood 3+ A (Negative) Urine Nitrite Negative (Negative) Urine Bilirubin 1+ A (Negative) Urine Urobilinogen 1.0 (0.2-1.0) Ur Leukocyte Esterase Negative (Negative) Urine RBC >100 A (0-2) Urine WBC 0-2 (0-5) Ur Squamous Epith Cells Few (None-Few) Other Sediment Few A (None) Urine Bacteria Many A (None) Discharge Plan Discharge Clinical Impression: Elbow fracture Patient Disposition: Home w/ Parent or Adult Condition: Stable Instructions: Elbow Fracture (ED) Additional Instructions: Wear sling and splint Rochert as directed Ice Follow-up with orthopedics in the next few days. Activity Level: No Restrictions Discharge Diet: Regular Prescriptions: No Action cholecalciferol (vitamin D3) 125 mcg (5,000 unit) tablet 5,000 unit PO .3XWEEKLY fluticasone propionate 50 mcg/actuation spray,suspension 1 spray intranasal BID Rx Instructions: for nasal stuffiness magnesium hydroxide 400 mg (170 mg magnesium) tablet,chewable 400 mg PO pantoprazole 40 mg tablet,delayed release (DR/EC) 40 mg PO QDAY Qty: 90 3RF amiodarone 200 mg tablet 200 mg PO QDAY Qty: 90 3RF ferrous sulfate [iron] 325 mg (65 mg iron) tablet 325 mg PO DAILY diclofenac sodium [Voltaren Arthritis Pain] 1 % gel 2.25 inch topical QID Qty: 100 0RF Rx Instructions: apply to single elbow, wrist or hand; for hand includes palm/fingers/back of hand clopidogrel 75 mg tablet 75 mg PO QDAY Qty: 90 3RF tamsulosin 0.4 mg capsule 0.8 mg PO DAILY Qty: 180 3RF gabapentin 300 mg capsule 600 mg PO QPM Qty: 180 3RF metformin 500 mg tablet 500 - 1,000 mg PO BID Qty: 270 3RF Rx Instructions: One tab each morning, two each evening. rosuvastatin 40 mg tablet 40 mg PO DAILY Qty: 90 0RF montelukast 10 mg tablet 10 mg PO HS Qty: 90 0RF metoprolol succinate 25 mg tablet extended release 24 hr 12.5 mg PO QDAY Qty: 90 0RF Follow Up/Referrals: Mick Barraza MD [Primary Care Provider] - Stand Alone Forms: [facility] Info Instructions
[2023-06-16 22:31] LABS: Appearance Urine Cloudy (Clear); Bilirubin Urine 1+ (Negative); Blood Urine 3+ (Negative); Color Urine Brown (Yellow); Glucose Urine Negative (Negative); Ketones Urine Trace (Negative); Leukocyte Esterase Urine Negative (Negative); Nitrite Urine Negative (Negative); Protein Urine 3+ (Negative); Specific Gravity Urine >= 1.030 (1.000-1.030); pH Urine 5.5 (5.0-8.5)
--- OUTSIDE RECORDS SUMMARY | 2023-06-16 22:33 | XMS_ITS | Clinical Summary ---
Author Name Unknown Organization [facility] Address [address] [place] [address] Care Team Providers Care Celery Stripper Name Role Phone Debbie Burden MD Primary Care Provider +1- [phone] Allergies Active Allergy Reactions Criticality Noted Date [...] Active fluticasone (FLONASE) 50 MCG/ACT nasal spray [place] 1 spray into both nostrils daily 0 [...] age to complete this topic Care Teams Celery Stripper Relationship Specialty Start Date End Date Debbie Burden MD [facility] [address] [place], [place] [id number] PCP - General Family Medicine 05/26/21
--- OUTSIDE RECORDS SUMMARY | 2023-06-16 22:33 | XMS_ITS | Encounter Summary ---
Author Name Unknown Organization [facility] Address [address] [place] [address] Care Team Providers Care Children'S Book Author Name Role Phone Ramy Sánchez MD Primary Care Provider Unavailable Debbie Burden MD Primary Care Provider +1- [phone] Encounter Details Date Type Department Care Team (Late st Contact Info) Description 09/16/[address] [id number] [facility] Social History Tobacco Use Types Packs/Day Years [...] on filedocumented in this encounter Care Teams Children'S Book Author Relationship Specialty Start Date End Date Ramy Sánchez MD PCP - General 09/20/01 05/25/21 Debbie Burden MD [facility] [address] [place] [address] PCP - General Family Medicine 05/26/21 documented as of this encounter
--- OUTSIDE RECORDS SUMMARY | 2023-06-16 22:33 | XMS_ITS | Clinical Summary ---
Author Name Unknown Organization [facility] Address [place], [place] [address] Care Team Providers Care Principal Systems Architect Name Role Phone Mick Barraza MD Primary Care Provider [phone] [phone] Allergies Active Allergy Reactions Criticality Noted Date [...] type, unspecified whether angina present, unspecified whether upper [place] or transplanted heart Take 1 Tablet (40 mg) by mouth at bedtime. 90 Tablet 3 10/19/2021 Active fluticasone (50 mcg per actuation) nasal solution (FLONASE) Inhale 1 [place] into affected nostril(s) two times daily. Active metoprolol succinate (TOPROL XL) 25 mg Sustained-Release tabletIndications:HTN (hypertension),Yoon ry artery disease, unspecified vessel or lesion type, unspecified whether angina present, unspecified whether [place] or transplanted heart Take 0.5 Tablets (12.5 [...] Department Care Team Description 04/27/2023 11:30 AM CLIENT EXECUTIVE Office Visit [facility] [address] [place] [address] Carlos Friend MD 04/12/2023 Orders Only [facility] [address] [place] [address] Carlos Friend MD <No scans attached> 04/10/2023 11:00 AM CLIENT EXECUTIVE Ancillary Procedure [facility] [address] [place] [address] 04/10/2023 Travel 04/02/2023 Telephone [facility] [address] [place] [address] Carlos Friend MD Appointment (echo) from Last [...] 07/24/2023 10:30 AM CDT Cardiac Device Check [facility] [place] [facility] [address] [place] [address] 08/30/2023 10:00 AM CDT Office Visit [facility] [address] [place] [address] Ashly Magana PA [address] [place] [address] Health Maintenance Due Date Last Done Comments [...] COMPLETE WO CONTRAST Routine 04/10/2023 11:37 AM CLIENT EXECUTIVE Ascending aorta dilation (HC) from Last 3 Months Results * ECHO TTE COMPLETE WO CONTRAST (04/10/2023 11:37 AM CLIENT EXECUTIVE) AORTIC VALVE MEAN PG 22 mmHg EJECTION FRACTION 58 % PEAK TR VELOCITY 2.5 m/s LVEDD 4.7 cm Anatomical Region Laterality Modality Ultrasound 04/10/2023 11:0 2 AM CLIENT EXECUTIVE Narrative 04/10/2023 12:49 PM CLIENT EXECUTIVE ECHOCARDIOGRAM JD MCLAUGHLIN ?Accession#: ?? [id number] : ?1940 82 years Study Date: ?? 04/10/2023 11:02:12 AM Gender: M ? BP: ? 134/64 mmHg Height: 173.00 cm ? BSA: ?1.96 m? ? ? Weight: 82.00 kg ?Tech: ? MJW ?Referring MD: CARLOS FRIEND Site: ? [facility] Reading Location: Mobile-OP Patient Location: Procedure: [...] . This study was interpreted by an [facility] accredited facility. ??Final ?? Procedure Note Bill Bernal MD - 04/10/2023 ECHOCARDIOGRAM JD MCLAUGHLIN : 1940 82 years Study Date: 04/10/2023 11:02:12 AM Gender: M BP: 134/64 mmHg Height: 173.00 cm BSA: 1.96 m? ? ? Weight: 82.00 kg Tech: TACHO Referring MD: CARLOS FRIEND Site: [facility] Reading Location: Mobile-OP Patient Location: Procedure: [...] . This study was interpreted by an [facility] accredited facility. Final Carlos Friend MD ECHO ORD from Last 3 Months Advance Directives Documents on File Type Date Recorded Patient Vice President Digital Strategist Expl anation Healthcare Directive 12/26/2001 002 * [...] Preferences, Provider to review later Care Teams Principal Systems Architect Relationship Specialty Start Date End Date Mick Barraza MD [address] [place] [address] PCP - General Family Practice 04/10/23
--- OUTSIDE RECORDS SUMMARY | 2023-06-16 22:33 | XMS_ITS | Referral Summary ---
Author Name Unknown Organization [facility] Address [address] [place] [address] Care Team Providers Care Packer Sausage And Wiener Name Role Phone Debbie Burden MD Primary Care Provider [phone]- [phone] Allergies Active Allergy Reactions Criticality Noted Date [...] Active fluticasone (FLONASE) 50 MCG/ACT nasal spray [place] 1 spray into both nostrils daily 0 [...] of Treatment Not on file Care Teams Packer Sausage And Wiener Relationship Specialty Start Date End Date Debbie Burden MD [facility] [address] [place] [address] PCP - General Family Medicine 05/26/21
--- OUTSIDE RECORDS SUMMARY | 2023-06-16 22:33 | XMS_ITS | Encounter Summary ---
Author Name Unknown Organization [facility] Address [address] [place] [address] Care Team Providers Care Crt Name Role Phone Debbie Burden MD Primary Care Provider +1- [phone] Encounter Details Date Type Department Care Team (Late st Contact Info) Description 06/06/2021 [facility] Adv[facility] Centralized Scheduling [address] [place] [address] [facility] Social History Tobacco Use Types Packs/Day Years [...] on filedocumented in this encounter Care Teams Crt Relationship Specialty Start Date End Date Debbie Burden MD [facility] [address] [place] [address] PCP - General Family Medicine 05/26/21 documented as of this encounter
--- OUTSIDE RECORDS SUMMARY | 2023-06-16 22:33 | XMS_ITS | Encounter Summary ---
Author Name Unknown Organization [facility] Address [address] [place] [address] Care Team Providers Care Certified Pharmacy Tech Name Role Phone Ramy Sánchez MD Primary Care Provider Unavailable Debbie Burden MD Primary Care Provider +1- [phone] Encounter Details Date Type Department Care Team [...] on filedocumented in this encounter Care Teams Certified Pharmacy Tech Relationship Specialty Start Date End Date Ramy Sánchez MD PCP - General 09/20/01 05/25/[address] [facility] [address] [place] [address] PCP - General Family Medicine 05/26/21 documented as of this encounter
--- OUTSIDE RECORDS SUMMARY | 2023-06-16 22:33 | XMS_ITS | Continuity of Care Document ---
Author Name Unknown Organization [facility] Address [address] [address] [place] [address] Phone Care Team Providers Care Transition Mgr Name Role Phone Niru ORTEGA, Andreas Unavailable [...] Diagnoses Date Provider Providers Copied on Encounter [facility], [address] [address], [place], [place], [address], [place] tel:[phone] [facility] No Information 2 Niru Johns. [address] [facility], [facility] [address], [place], [place], [address], [place]. tel:[phone] [facility], [address] [address], [place], [place], [address], [place] tel:[phone] [facility] No Information 2 Yue Reddy. [address] [facility], [facility] [address], [place], [place], [address], [place]. tel:[phone] Referring Provider: Barry Turner MD, [address] [facility] [address], [place], [address] . tel:[phone] Telephone E&M III 21-30 Min EFFIE [facility], [address] [address], [place], [place], [address], [place] tel:[phone] [facility] GI Symptoms or Concerns (chief complaint) Acute pancreatitis, unspecified complication status, unspecified pancreatitis type 2 Yue Reddy. [address] [facility], [facility] [address], [place], [address], [place]. tel:[phone] Referring Provider: Debbie Burden MD, [address] [place], [address]. tel:[phone] [facility], [address] [address], [place], [place], [address], [place] tel:[phone] [facility] No Information 2 Niru Johns. [address] [facility], [address], [place], [place], [address], [place]. tel:[phone] [facility], [address] [address], [place], [place], [address], [place] tel:[phone] [facility] Center Colon Cancer ScreeningHemor rhoids Nos [phone] No Information Referring Provider: Ramy Veloz, [address] [place], [address]. tel:[phone] Family History Family Member Type Diagnosis Age [...] interface ; Source: Other Registry Afluria Qd [id number] administered Note: M IIC bi-directional interface ; [...] Registry Payers Payer name Insurance type Covered republican ID Authoriza tion(s) Blue Cross Medicare Advantage [id number] 2001 Social History Type Description Quantity Date [...]
--- OUTSIDE RECORDS SUMMARY | 2023-06-16 22:33 | XMS_ITS | Encounter Summary ---
Author Name Unknown Organization [facility] Address [address] [place] [address] Care Team Providers Care Tariff Publishing Agent Name Role Phone Ramy Sánchez MD Primary Care Provider Unavailable Debbei Burden MD Primary Care Provider [phone]- [phone] Encounter Details Date Type Department Care Team [...] on filedocumented in this encounter Care Teams Tariff Publishing Agent Relationship Specialty Start Date End Date Ramy Sánchez MD PCP - General 09/20/01 05/25/21 Debbie Burden MD [facility] [address] [place] [address] PCP - General Family Medicine 05/26/21 documented as of this encounter
--- OUTSIDE RECORDS SUMMARY | 2023-06-16 22:33 | XMS_ITS | Encounter Summary ---
Author Name Unknown Organization [facility] Address [address] [place] [address] Care Team Providers Care Chip Silo Tender Name Role Phone Ramy Sánchez MD Primary Care Provider Unavailable Debbie Burden MD Primary Care Provider [phone]- [phone] Encounter Details Date Type Department Care Team (Late st Contact Info) Description 12/19/2019 [facility] [address] [address] Ramona Herrera Obstructive sleep apnea [...] hypertension documented in this encounter Care Teams Chip Silo Tender Relationship Specialty Start Date End Date Ramy Sánchez MD PCP - General 09/20/01 05/25/21 Debbie Burden MD [facility] [address] [place] [address] PCP - General Family Medicine 05/26/21 documented as of this encounter
[2023-06-16 22:49] LABS: Bacteria Urine Many; RBC Urine >100 (0-2); Squamous Epithelial Cell Urine Few (None-Few); WBC Urine 0-2 (0-5)
[2023-06-16 22:50] LABS: Other Sediment Urine Few
[2023-06-16 23:01] LABS: PCR FLU A Negative PCR FLU A (Negative); PCR FLU B Negative PCR FLU B (Negative); PCR RSV Negative PCR RSV (Negative); SARS PCR* Negative SARS-CoV-2 (Negative)
== END 2023-06-16 23:12 | disposition home or self-care (01) ==
PROVIDERS: Emergency Provider Internal Medicine; PCP Family Medicine
DX: S42.401A Unspecified fracture of lower end of right humerus, initial encounter for closed fracture (principal)
CPT/HCPCS: 73080; 81001; 81003; 87086; 87631; 93005; 99283; 99284; 99285

== ENCOUNTER 2023-06-19 14:52 | Outpatient (CLI) | payer MEDICARE, SELFPAY ==
--- NOTE | 2023-06-19 15:00 | CT_ITS ---
Patient: ELHAM MCLAUGHLIN Facility:?[facility] Patient ID:?[id number] Site Patient ID:?[id number]. Site :?[id number] Study:?CT-Extremity Right ELBOW W/O-06/19/2023 3:48:55 PM Ordering Physician:RANDOLPH Final Report: EXAM: CT OF THE RIGHT ELBOW, WITHOUT CONTRAST CLINICAL INDICATION: Pain. Evaluate fracture. COMPARISON STUDIES: 06/16/2023 radiographs. TECHNICAL: Non-contrast CT of the elbow with axial images. Sagittal oblique and coronal oblique reformatted images were created. FINDINGS: OSSEOUS STRUCTURES: Humerus: No fracture. Radius: No fracture. Ulna: There is a 0.9 cm fracture fragment through the ulnar most aspect of the coronoid. There is corticated osseous margins adjacent to the fracture consistent with a chronic process. ELBOW JOINT: Joint Fluid: Small joint effusion. No calcific loose body. Joint Space: Moderate to advanced narrowing of the glenohumeral articulation with mild hypertrophic change. No narrowing in the radiocapitellar articulation. Alignment: No subluxation or dislocation. SOFT TISSUES: Dorsal subcutaneous edema at the elbow. No subcutaneous hematoma or fluid collection. MUSCLES AND TENDONS: No intramuscular hematoma. No muscle atrophy. No retracted tendon tear. IMPRESSION: 1. Small chronic appearing fracture fragment in the ulnar aspect of the coronoid. 2. 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 3. Small joint effusion. 4. Dorsal subcutaneous edema at the elbow. Please note that all CT scans at this facility use dose modulation, iterative reconstruction, and/or weight-based dosing when appropriate to reduce radiation dose to as low as reasonably achievable. Dictated by Jerry Crow MD @ 06/20/2023 9:55:58 AM Signed by:?Jerry Crow MD @06/20/2023 9:55:58 AM (Electronic Signature)
== END 2023-06-19 14:53 | disposition home or self-care (01) ==
LOC: CT 14:53
PROVIDERS: PCP Family Medicine; Visit Provider Physician Assistant Surgical
DX: M25.521 Pain in right elbow (principal); S52.041A Displaced fracture of coronoid process of right ulna, initial encounter for closed fracture; M19.021 Primary osteoarthritis, right elbow; M25.421 Effusion, right elbow; S42.409A Unspecified fracture of lower end of unspecified humerus, initial encounter for closed fracture; S59.901A Unspecified injury of right elbow, initial encounter
CPT/HCPCS: 73200

== ENCOUNTER 2023-08-03 15:43 | Emergency (ER) | payer MEDICARE, SELFPAY ==
[2023-08-03 15:56] VITALS: BP 112/65; RESP 18; TEMP 37.2; O2SAT 96; BMI 28.2
--- NOTE | 2023-08-03 17:43 | ED.GENADULT ---
HPI - General Adult General Date Seen: 08/03/23 Chief complaint: Extremity Pain/Injury, Lower Stated complaint: Pain in feet Time Seen by Provider: 08/03/23 17:38 History of Present Illness HPI narrative: 82-year-old male with history of type 2 diabetes, hypertension, hyperlipidemia, chronic kidney disease, sleep apnea, aortic stenosis, previous stroke, memory loss, history of V-tach, now with implanted defibrillator pacemaker who presents to the ER today for a painful swollen blister on the lateral aspect of his left heel. He notes that yesterday he were some tennis shoes that he has not worn for a long time. He was on his feet for a while because he went to a constitution party and did a lot of standing. He began to have some discomfort in his foot while standing and then yesterday evening noted that he had a fairly large blister roughly an inch or 2 in diameter on the lateral aspect of his left heel. His foot was uncomfortable overnight in hurts today when he tries to walk especially because the blister is swollen and presses against the inside of his shoe. His has also noted some redness on the lateral foot around the blister. He is not having any fever or chills. No redness affecting the dorsal foot or extending up his leg. No other painful injuries. No other blisters. Because he has diabetes they were concerned he might be developing an infection so came here to the ER. He has not had any recent trauma. He does have dry peeling skin on his feet and his wonders what they can put on it. Related Data Home Medications ?Medication ?Instructions ?Recorded ?Confirmed fluticasone propionate 50 1 spray intranasal BID 09/08/21 07/09/23 mcg/actuation nasal spray,suspension ferrous sulfate 325 mg (65 mg 325 mg PO DAILY 04/28/22 07/09/23 iron) tablet (iron) magnesium hydroxide 400 mg (170 mg 400 mg PO 05/10/22 07/09/23 magnesium) chewable tablet atorvastatin 20 mg tablet 20 mg PO QDAY 06/18/23 07/09/23 cholecalciferol (vitamin D3) 125 125 mcg PO QDAY 06/18/23 07/09/23 mcg (5,000 unit) capsule gabapentin 600 mg tablet 600 mg PO QHS 06/18/23 07/09/23 lisinopril 20 mg tablet 20 mg PO QDAY 06/18/23 07/09/23 metoprolol succinate 50 mg 50 mg PO QDAY 06/18/23 07/09/23 tablet,extended release 24 hr Previous Rx's ?Medication ?Instructions ?Recorded clopidogrel 75 mg tablet 75 mg PO QDAY #90 tabs 05/22/22 amiodarone 200 mg tablet 200 mg PO QDAY #90 tabs 07/04/22 pantoprazole 40 mg tablet,delayed 40 mg PO QDAY #90 tabs 07/04/22 release tamsulosin 0.4 mg capsule 0.8 mg (2 x 0.4 mg) PO DAILY #180 12/20/22 ea metformin 500 mg tablet 500 - 1,000 mg (1 - 2 x 500 mg) PO 03/28/23 BID #270 tabs montelukast 10 mg tablet 10 mg PO HS #90 tabs 06/13/23 rosuvastatin 40 mg tablet 40 mg PO DAILY #90 tabs 06/13/23 diclofenac sodium 1 % topical gel 2.25 inch topical QID #100 grams 06/16/23 (Voltaren Arthritis Pain) dextroamphetamine-amphetamine 5 mg 5 mg PO BID #60 tabs 06/26/23 tablet Allergies Allergy/AdvReac Type Severity Reaction Status Date / Time iodine Allergy Severe skin Verified 07/12/23 12:55 reaction SEVERE iodoform Allergy Unknown Verified 07/12/23 12:55 povidone-iodine Allergy Unknown Verified 07/12/23 12:55 sodium iodide Allergy Unknown Verified 07/12/23 12:55 mercury (elemental) Allergy Verified 07/12/23 12:55 [facility] Medical History Seizure (04/29/22) ?R56.9 - Unspecified convulsions (ICD-10) Bicuspid aortic valve (04/29/22) ?Q23.1 - Congenital insufficiency of aortic valve (ICD-10) Allergic rhinitis (10/13/04) ?J30.9 - Allergic rhinitis, unspecified (ICD-10) COVID-19 ?U07.1 - COVID-19 (ICD-10) Pancreatitis ?K85.90 - Acute pancreatitis without necrosis or infection, unspecified (ICD-10) Kidney lesion ?N28.9 - Disorder of kidney and ureter, unspecified (ICD-10) Groin mass ?R19.09 - Other intra-abdominal and pelvic swelling, mass and lump (ICD-10) Asymptomatic coronary heart disease ?I25.9 - Chronic ischemic heart disease, unspecified (ICD-10) Surgical History Status post internal cardiac defibrillator procedure ?Z95.810 - Presence of automatic (implantable) cardiac defibrillator (ICD-10) History of shoulder surgery ?Z98.890 - Other specified postprocedural states (ICD-10) History of nasal septoplasty ?Z98.890 - Other specified postprocedural states (ICD-10) History of hand surgery ?Z98.890 - Other specified postprocedural states (ICD-10) Family History Son Atrial fibrillation Thyroid cancer Daughter Autoimmune disorder Social History Narrative: He lives with his of 61 years in [place]. 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 is healthcare power of document review attorney primarily and his son and daughter are secondary healthcare power of document review attorney. Code status is DNR. He does not smoke. He drinks alcohol about 3 times a month. Smoking Status: Never smoker Do you use any of these nicotine containing products: None Second hand tobacco smoke exposure: No How often do you have a drink containing alcohol: 2-4 times a month How many standard drinks containing alcohol do you have on a typical day: 1 or 2 How often do you have six or more drinks on one occasion: Never AUDIT-C Alcohol total score: 2 Non-prescribed substance use: denies use Caffeine: Yes (1 cup coffee AM) Little interest or pleasure in doing things: not at all Feeling down, depressed, or hopeless: several days service: No Exam Narrative: Exam Narrative: Constitutional: Appears well-developed and well-nourished. Alert. Conversant. Non toxic. HENT: Head: Atraumatic. Nose: Nose normal. Mouth/Throat: Oral mucosa is clear and moist. no trismus. Pharynx normal. Tonsils symmetric. No tonsillar enlargement, erythema, or exudate. Eyes: Conjunctivae normal. EOM normal. Pupils equal, round, and reactive to light. No scleral icterus. Neck: Normal range of motion. Neck supple. No tracheal deviation present. Cardiovascular: Normal rate, regular rhythm. No gallop. No friction rub. No murmur heard. Symmetric dorsalis pedis and posterior tibial artery pulses . Normal capillary refill in both feet in the toes. Pulmonary/Chest: Effort normal. No stridor. No respiratory distress. No wheezes. No rales. No rhonchi . Musculoskeletal: RUE: Normal range of motion. No tenderness. No deformity LUE: Normal range of motion. No tenderness. No deformity RLE: Normal range of motion. No edema. No tenderness. No deformity LLE: Normal range of motion. No edema. No tenderness. No deformity Lymph: No cervical adenopathy. Neurological: Alert and oriented to person, place, and time. Normal strength. CN II-VII intact. No sensory deficit. GCS eye subscore is 4. GCS verbal subscore is 5. GCS motor subscore is 6. Normal coordination Skin: The patient does have a intact 4 x 5 cm blister on the lateral aspect of his left heel. Surrounding this there is a small irregularly shaped rim of erythema extending almost up to the lateral malleolus. There is no crepitus. No definite fluctuance. Also there is dry scaly skin on both heels suggestive for possible tinea pedis. No ascending lymphangitis. After a sterile preparation I entered the patient's blister in sterile fashion using an 18 gauge needle. We were able to aspirate clear yellowish serous fluid. There is no purulent debris or bleeding. No dishwater fluid. After this the blister was visibly decompressed. We applied antibiotic ointment over the needle puncture site and a large dressing to cover the blister to keep it from rubbing against his socks. Skin is warm and dry. No rash noted. No pallor. Normal capillary refill. Psychiatric: Normal mood. Normal affect. Const: Vital Signs, click to edit/add: Vital Signs - 24 hr 08/03/23 15:56 Temperature 98.9 F Respiratory Rate 18 Blood Pressure [Ri ght Upper Arm] 112/65 Pulse Oximetry 96 Oxygen Delivery Me thod Room Air Course Vital Signs Vital signs: Initial Vital Signs Temperature 98.9 F 08/03/23 15:56 Temperature Source Temporal Artery Scan 08/03/23 15:56 Respiratory Rate 18 08/03/23 15:56 Blood Pressure 112/65 08/03/23 15:56 Blood Pressure Mean 80 08/03/23 15:56 Blood Pressure Position Sitting 08/03/23 15:56 Pulse Oximetry 96 08/03/23 15:56 Oxygen Delivery Method Room Air 08/03/23 15:56 Vital Signs Temperature 98.9 F 08/03/23 15:56 Respiratory Rate 18 08/03/23 15:56 Blood Pressure 112/65 08/03/23 15:56 Pulse Oximetry 96 08/03/23 15:56 Oxygen Delivery Method Room Air 08/03/23 15:56 Temperature 98.9 F 08/03/23 15:56 Respiratory Rate 18 08/03/23 15:56 Blood Pressure 112/65 08/03/23 15:56 Pulse Oximetry 96 08/03/23 15:56 Oxygen Delivery Method Room Air 08/03/23 15:56 Medical Decision Making [facility] Narrative Medical decision making narrative: This patient presents for evaluation of a blister on his left lateral heel with associated skin redness. Differential would include a ordinary blister from a friction trauma from the inside of his shoe. He did wear old shoes yesterday that he had not worn for a long time. It is possible that the blister in the surrounding redness is from that. Also could potentially be due to cellulitis with the blister as a nidus. There do not appear at this time to be any complication of cellulitis including abscess, lymphangitis, lymphadenitis, osteomyelitis, sepsis, or shock. With any infection associated blister consider possible necrotizing infection but overall clinical presentation is not consistent with that. At this point I do not think he needs to be admitted for surgical debridement or IV antibiotics. The patient is not immunosuppressed. Supportive outpatient management is indicated with antibiotics. cephalexin 500mg TID for 10 days. The patient is instructed to return to ER or follow-up with primary care physician to ensure no progression and rapid resolution and given precautions to return if high fever, spread greater than 2cm outside of the marked area, worsening pain, vomiting or any other worsening. Questions answered and return precautions reviewed. Discharge Plan Discharge Clinical Impression: Blister of heel, Cellulitis of foot Patient Disposition: Home, Self-Care Instructions: Cellulitis (ED), Blister (ED) Additional Instructions: As we discussed, the please keep the dressing and antibiotic in place today. You can take the dressing off tomorrow. Clean the blistered area if there is any drainage or crusting. He after you clean it, reapply antibiotic ointment and a dressing. Keep the blistered area covered with a dressing every day until it heals. Monitor the reddened skin around the blister. If the redness is spreading, or if you have worsening swelling, worsening pain, red streaks moving up your leg, fever or chills, weakness, or any problems, come back to the ER right away to recheck. Use the cephalexin 500 mg tablet 3 times daily for 10 days. Please recheck with your regular doctor on Sunday to have re-evaluation of your blister. Remember, if you get worse come back to the ER right away.. Prescriptions: No Action fluticasone propionate 50 mcg/actuation spray,suspension 1 spray intranasal BID Rx Instructions: for nasal stuffiness magnesium hydroxide 400 mg (170 mg magnesium) tablet,chewable 400 mg PO pantoprazole 40 mg tablet,delayed release (DR/EC) 40 mg PO QDAY Qty: 90 3RF amiodarone 200 mg tablet 200 mg PO QDAY Qty: 90 3RF lisinopril 20 mg tablet 20 mg PO QDAY atorvastatin 20 mg tablet 20 mg PO QDAY cholecalciferol (vitamin D3) 125 mcg (5,000 unit) capsule 125 mcg PO QDAY metoprolol succinate 50 mg tablet extended release 24 hr 50 mg PO QDAY gabapentin 600 mg tablet 600 mg PO QHS dextroamphetamine-amphetamine 5 mg tablet 5 mg PO BID Qty: 60 0RF Rx Instructions: administer doses at least 4-6 hours apart ferrous sulfate [iron] 325 mg (65 mg iron) tablet 325 mg PO DAILY diclofenac sodium [Voltaren Arthritis Pain] 1 % gel 2.25 inch topical QID Qty: 100 0RF Rx Instructions: apply to single elbow, wrist or hand; for hand includes palm/fingers/back of hand clopidogrel 75 mg tablet 75 mg PO QDAY Qty: 90 3RF tamsulosin 0.4 mg capsule 0.8 mg PO DAILY Qty: 180 3RF metformin 500 mg tablet 500 - 1,000 mg PO BID Qty: 270 3RF Rx Instructions: One tab each morning, two each evening. rosuvastatin 40 mg tablet 40 mg PO DAILY Qty: 90 0RF montelukast 10 mg tablet 10 mg PO HS Qty: 90 0RF Follow Up/Referrals: Mick Barraza MD [Primary Care Provider] - Stand Alone Forms: [employer] Info Instructions
--- OUTSIDE RECORDS SUMMARY | 2023-08-03 18:18 | XMS_ITS | Encounter Summary ---
Author Organization [facility] Address [address] [place] [address] Care Team Providers Care Pot Filler Name Role Phone Ramy Sánchez MD Primary Care Provider Unavailable Debbie Burden MD Primary Care Provider [phone] Encounter Details Date Type Department Care Team ([facility] st Contact Info) Description 12/23/2007 [facility] Medical [...] on filedocumented in this encounter Care Teams Pot Filler Relationship Specialty Start Date End Date Ramy Sánchez MD PCP - General 09/20/01 05/25/21 Debbie Burden MD [facility] [address] [place] [address] PCP - General Family Medicine 05/26/21 documented as of this encounter
--- OUTSIDE RECORDS SUMMARY | 2023-08-03 18:18 | XMS_ITS | Clinical Summary ---
Author Organization [facility] Address [place], [place] [address] Care Team Providers Care Clinic Lpn Name Role Phone Mick Barraza MD Primary Care Provider Allergies Active Allergy Reactions Criticality Noted Date [...] type, unspecified whether angina present, unspecified whether [place] or transplanted heart Take 1 Tablet (40 mg) by mouth at bedtime. 90 Tablet 3 10/19/2021 Active fluticasone (50 mcg per actuation) nasal solution (FLONASE) Inhale 1 [place] into affected nostril(s) two times daily. Active metoprolol succinate (TOPROL XL) 25 mg Sustained-Release tabletIndications:HTN (hypertension),Yoon ry artery disease, unspecified vessel or lesion type, unspecified whether angina present, unspecified whether [place] or transplanted heart Take 0.5 Tablets (12.5 [...] Encounters Date Type Department Care Team Description 07/24/2023 Travel from Last 3 Months Family History Medical [...] Care Team (Late st Contact Info) Description 08/29/2023 Cardiac Device Check [facility] [phone] 08/30/2023 10:00 AM CDT Office Visit [facility] [address] [place] [address] Ashly Magana PA [address] [place], [place] [id number] 11/30/2023 Cardiac Device Check [facility] [phone] Health Maintenance Due Date Last Done Comments [...] Completed 12/25/19, 01/17/2022, 09/20/2021, Additional history exists Advance Directives Documents on File Type Date Recorded Patient Customer Business Manager Expl anation Healthcare Directive 12/26/2001 002 * [...] Preferences, Provider to review later Care Teams Clinic Lpn Relationship Specialty Start Date End Date Mick Barraza MD [address], [place] [address] PCP - General Family Practice 04/10/23
--- OUTSIDE RECORDS SUMMARY | 2023-08-03 18:18 | XMS_ITS | Encounter Summary ---
Author Organization [facility] Address [address] [place] [address] Care Team Providers Care Assistant Front Desk Manager Name Role Phone Ramy Sánchez MD Primary Care Provider Unavailable Debbie Burden MD Primary Care Provider +1- [phone] Encounter Details Date Type Department Care Team (Late st Contact Info) Description 12/19/2019 [facility] [address] [address] Ramona Herrera Obstructive sleep apnea [...] hypertension documented in this encounter Care Teams Assistant Front Desk Manager Relationship Specialty Start Date End Date Ramy Sánchez MD PCP - General 09/20/01 05/25/21 Debbie Burden MD [facility] [address] [place] [address] PCP - General Family Medicine 05/26/21 documented as of this encounter
--- OUTSIDE RECORDS SUMMARY | 2023-08-03 18:18 | XMS_ITS | Encounter Summary ---
Author Organization [place] Address [address] [place] [address] Care Team Providers Care Yacht Captain Name Role Phone Debbie Burden MD Primary Care Provider +1- [phone] Encounter Details Date Type Department Care Team (Late st Contact Info) Description 06/06/2021 [facility] Medical Advice [place] Centralized Scheduling [address] [place] [address] [facility] Social History Tobacco Use Types Packs/Day Years [...] on filedocumented in this encounter Care Teams Yacht Captain Relationship Specialty Start Date End Date Debbie Burden MD [facility] [address] [place] [address] PCP - General Family Medicine 05/26/21 documented as of this encounter
--- OUTSIDE RECORDS SUMMARY | 2023-08-03 18:18 | XMS_ITS | Continuity of Care Document ---
Author Organization [facility] Address [address] [address] [place] [address] Phone Care Team Providers Care Exercise Teacher Name Role Phone Niru ORTEGA, Andreas Unavailable [...] Diagnoses Date Provider Providers Copied on Encounter [facility], [address] [address], [place], [address], [place] tel:[phone] [facility] No Information 2 Niru Johns. [address] [place] [address], [facility] [address], [place], [place], [address], [place]. tel:[phone] [facility], [address] [address], [place], [address], [place] tel:[phone] [facility] No Information 2 Yue Reddy. [address] [facility], [facility] [address], [place], [place], [address], [place]. tel:[phone] Referring Provider: Barry Turner MD, [address] [facility] [address], [place], [address] . tel:[phone] Telephone E&M III 21-30 Min EFFIE [facility], [address] [address], [place], [place], [address], [place] tel:[phone] [facility] GI Symptoms or Concerns (chief complaint) Acute pancreatitis, unspecified complication status, unspecified pancreatitis type 2 Yue Reddy. [address] [facility], [facility] [address], [place], [address], [place]. tel:[phone] Referring Provider: Debbie Burden MD, [address] [place], [address]. tel:[phone] [facility], [address] [address], [place], [address], [place] tel:[phone] [facility] No Information 2 Niru Johns. [address] [facility], [address], [place], [place], [address], [place]. tel:[phone] [facility], [address] [address], [place], [address], [place] tel:[phone] [facility] Colon Cancer ScreeningHemor rhoids Nos [phone] No Information Referring Provider: Ramy Veloz, [address] [place], [address]. tel:[phone] Family History Family Member Type Diagnosis Age [...] interface ; Source: Other Registry Afluria Qd [id number] administered Note: M IIC bi-directional interface ; [...] ID Authoriza tion(s) Blue Cross Medicare Advantage [id number] 2000 Social History Type Description Quantity Date [...]
--- OUTSIDE RECORDS SUMMARY | 2023-08-03 18:18 | XMS_ITS | Encounter Summary ---
Author Organization [facility] Address [address] [place] [address] Care Team Providers Care Hhas Name Role Phone Ramy Sánchez MD Primary Care Provider Unavailable Debbie Burden MD Primary Care Provider [phone]- [phone] Encounter Details Date Type Department Care Team [...] on filedocumented in this encounter Care Teams Hhas Relationship Specialty Start Date End Date Ramy Sánchez MD PCP - General 09/20/01 05/25/21 Debbie Burden MD [facility] [address] [place] [address] PCP - General Family Medicine 05/26/21 documented as of this encounter
--- OUTSIDE RECORDS SUMMARY | 2023-08-03 18:18 | XMS_ITS | Referral Summary ---
Author Organization [place] Address [address] [place] [address] Care Team Providers Care Winding Inspector And Tester Name Role Phone Debbie Burden MD Primary Care Provider [phone]- [phone] Allergies Active Allergy Reactions Criticality Noted Date [...] Active fluticasone (FLONASE) 50 MCG/ACT nasal spray [place] 1 spray into both nostrils daily Active [...] 10:27 AM CDT) Creatinine Urine 196 mg/dL [facility] Albumin Urine mg/L 12 mg/L [facility] Albumin Urine mg/g Cr 6.12 0 - 20 mg/g Cr [facility] 11/24/2009 10:2 7 AM CDT 11/24/2009 10:30 AM CDT Ramy Sánchez MD LABORATORY [facility] * (ABNORMAL) HEMOGLOBIN A1C (11/24/2009 10:26 AM CDT) Hemoglobin A1C 6.8(H) 4.3 - 6.0 % [facility] 11/24/2009 10:2 6 AM CDT 11/24/2009 10:29 AM CDT Ramy Sánchez MD LABORATORY [facility] * (ABNORMAL) A.M.A. COMPREHENSIVE MET.PANEL (07/13/2009 9:16 AM CDT) Sodium 140 133 - 144 mmol/L [facility] Potassium 4.5 3.4 - 5.3 mmol/L [facility] Chloride 101 94 - 109 mmol/L [facility] Carbon Dioxide 27 20 - 32 mmol/L [facility] Anion Gap 12 6 - 17 mmol/L [facility] Glucose 151(H) 60 - 99 mg/dL [facility] Urea Nitrogen 19 7 - 30 mg/dL [facility] Creatinine 0.90 0.66 - 1.25 mg/dL [facility] Comment:New IDMS-traceable c alibration beginning 07/11/07 GFR Estimate 84 >60 mL/min/1.7 m2 [facility] GFR Estimate If Black >90 >60 mL/min/1.7 m2 [facility] Calcium 8.9 8.5 - 10.4 mg/dL [facility] Bilirubin Total 0.6 0.2 - 1.3 mg/dL [facility] Albumin 4.5 3.3 - 4.9 g/dL [facility] Comment:Reference range goodson ged on 12/03/2007. Protein Total 8.4 6.8 - 8.8 g/dL [facility] Comment:As of 07, refer ence range reflects plasma specimen type. Alkaline Phosphatase 66 40 - 150 U/L [facility] ALT 21 0 - 70 U/L [facility] AST 31 0 - 55 U/L [facility] 07/13/2009 9:16 AM CDT 07/13/2009 9:21 AM CDT Ramy Sánchez MD LABORATORY Performing Organization Address [facility] Co de Phone Number [facility] * (ABNORMAL) A.M.A. LIPID PANEL (07/13/2009 9:16 AM CDT) Cholesterol 243(H) 0 - 200 mg/dL [facility] Comment: LDL Cholesterol is the primary guide to therapy. The NCEP recommends further evaluation of: patients with cholesterol <200 mg/dL if additional risk factors are present, cholesterol >240 mg/dL, triglycerides >150 mg/dL, or HDL <40 mg/dL. Triglycerides 282(H) 0 - 150 mg/dL [facility] HDL Cholesterol 27(L) 40 - 110 mg/dL [facility] LDL Cholesterol Calculated 159(H) 0 - 129 mg/dL [facility] Comment: LDL Cholesterol is the primary guide to therapy: LDL-cholesterol goal in high risk patients is <100 mg/dL and in very high risk patients is <70 mg/dL. VLDL-Cholesterol 56(H) 0 - 30 mg/dL [facility] Cholesterol/HDL Ratio 8.9(H) 0.0 - 5.0 [facility] 07/13/2009 9:16 AM CDT 07/13/2009 9:21 AM CDT Ramy Sánchez MD LABORATORY Performing Organization Address [facility] Co de Phone Number [facility] from Last 3 Months or Most Recently Relevant to Health Maintenance Care Teams Winding Inspector And Tester Relationship Specialty Start Date End Date Debbie Burden MD [facility] [address], [place] [address] PCP - General Family Medicine 05/26/21
--- OUTSIDE RECORDS SUMMARY | 2023-08-03 18:18 | XMS_ITS | Continuity of Care Document ---
Author Organization [facility] Address [address] [address] [place] [address] Phone Care Team Providers Care Sed High School Teacher Name Role Phone Niru ORTEGA, Andreas [...] Diagnoses Date Provider Providers Copied on Encounter [facility], [address] [address], [place], [address], [place] tel:[phone] [facility] No Information 2 Niru Johns. [address] [place] [address], [facility] [address], [place], [place], [address], [place]. tel:[phone] [facility], [address] [address], [place], [address], [place] tel:[phone] [facility] No Information 2 Yue Reddy. [address] [facility], [facility] [address], [place], [place], [address], [place]. tel:[phone] Referring Provider: Barry Turner MD, [address] [facility] [address], [place], [address] . tel:[phone] Telephone E&M III 21-30 Min EFFIE [facility], [address] [address], [place], [place], [address], [place] tel:[phone] [facility] GI Symptoms or Concerns (chief complaint) Acute pancreatitis, unspecified complication status, unspecified pancreatitis type 2 Yue Reddy. [address] [facility], [facility] [address], [place], [address], [place]. tel:[phone] Referring Provider: Debbie Burden MD, [address] [place], [address]. tel:[phone] [facility], [address] [address], [place], [address], [place] tel:[phone] [facility] No Information 2 Niru Johns. [address] [facility], [address], [place], [place], [address], [place]. tel:[phone] [facility], [address] [address], [place], [address], [place] tel:[phone] [facility] Colon Cancer ScreeningHemor rhoids Nos [phone] No Information Referring Provider: Ramy Veloz, [address] [place], [address]. tel:[phone] Family History Family Member Type Diagnosis Age [...] interface ; Source: Other Registry Afluria Qd [id number] administered Note: M IIC bi-directional interface ; [...] Registry Payers Payer name Insurance type Covered constitution party ID Authoriza tion(s) Blue Cross Medicare Advantage [id number] 2000 Social History Type Description Quantity Date [...]
--- OUTSIDE RECORDS SUMMARY | 2023-08-03 18:18 | XMS_ITS | Encounter Summary ---
Author Organization [facility] Address [address] [place] [address]. [place] [address] Care Team Providers Care Preschool Lead Teacher Name Role Phone Ramy Sánchez MD Primary Care Provider Unavailable Debbie Burden MD Primary Care Provider [phone]- [phone] Encounter Details Date Type Department Care Team (Late st Contact Info) Description 09/16/[address] [id number] [facility] Social History Tobacco Use Types Packs/Day Years [...] on filedocumented in this encounter Care Teams Preschool Lead Teacher Relationship Specialty Start Date End Date Ramy Sánchez MD PCP - General 09/20/01 05/25/21 Debbie Burden MD [facility] [address], [place] [address] PCP - General Family Medicine 05/26/21 documented as of this encounter
--- OUTSIDE RECORDS SUMMARY | 2023-08-03 18:18 | XMS_ITS | Clinical Summary ---
Author Organization [place] Address [address] [place] [address] Care Team Providers Care Racebook Writer Name Role Phone Debbie Burden MD Primary Care Provider [phone]- [phone] Allergies Active Allergy Reactions Criticality Noted Date [...] Active fluticasone (FLONASE) 50 MCG/ACT nasal spray [place] 1 spray into both nostrils daily Active [...] Vaccine ( season) 2022 12/17/2020, 05/15/2020, 04/24/2020 PHQ-2 (once per calendar year) 2023 INFLUENZA VACCINE (Season Ended) 2023 01/10/2021, 11/21/2019, 01/13/2019, Additional history exists DTAP/TDAP/TD IMMUNIZATION (3 - Td or Tdap) [...] 10:27 AM CDT) Creatinine Urine 196 mg/dL [facility] Albumin Urine mg/L 12 mg/L [facility] Albumin Urine mg/g Cr 6.12 0 - 20 mg/g Cr [facility] 11/24/2009 10:2 7 AM CDT 11/24/2009 10:30 AM CDT Ramy Sánchez MD LABORATORY [facility] * (ABNORMAL) HEMOGLOBIN A1C (11/24/2009 10:26 AM CDT) Hemoglobin A1C 6.8(H) 4.3 - 6.0 % [facility] 11/24/2009 10:2 6 AM CDT 11/24/2009 10:29 AM CDT Ramy Sánchez MD LABORATORY [facility] * (ABNORMAL) A.M.A. COMPREHENSIVE MET.PANEL (07/13/2009 9:16 AM CDT) Sodium 140 133 - 144 mmol/L [facility] Potassium 4.5 3.4 - 5.3 mmol/L [facility] Chloride 101 94 - 109 mmol/L [facility] Carbon Dioxide 27 20 - 32 mmol/L [facility] Anion Gap 12 6 - 17 mmol/L [facility] Glucose 151(H) 60 - 99 mg/dL [facility] Urea Nitrogen 19 7 - 30 mg/dL [facility] Creatinine 0.90 0.66 - 1.25 mg/dL [facility] Comment:New IDMS-traceable c alibration beginning 07/11/07 GFR Estimate 84 >60 mL/min/1.7 m2 [facility] GFR Estimate If Black >90 >60 mL/min/1.7 m2 [facility] Calcium 8.9 8.5 - 10.4 mg/dL [facility] Bilirubin Total 0.6 0.2 - 1.3 mg/dL [facility] Albumin 4.5 3.3 - 4.9 g/dL [facility] Comment:Reference range goodson gemarshal on 12/03/2007. Protein Total 8.4 6.8 - 8.8 g/dL [facility] Comment:As of 07, refer ence range reflects plasma specimen type. Alkaline Phosphatase 66 40 - 150 U/L [facility] ALT 21 0 - 70 U/L [facility] AST 31 0 - 55 U/L [facility] 07/13/2009 9:16 AM CDT 07/13/2009 9:21 AM CDT Ramy Sánchez MD LABORATORY Performing Organization Address [facility]/ZIP Co de Phone Number [facility] * (ABNORMAL) A.M.A. LIPID PANEL (07/13/2009 9:16 AM CDT) Cholesterol 243(H) 0 - 200 mg/dL [facility] Comment: LDL Cholesterol is the primary guide to therapy. The NCEP recommends further evaluation of: patients with cholesterol <200 mg/dL if additional risk factors are present, cholesterol >240 mg/dL, triglycerides >150 mg/dL, or HDL <40 mg/dL. Triglycerides 282(H) 0 - 150 mg/dL [facility] HDL Cholesterol 27(L) 40 - 110 mg/dL [facility] LDL Cholesterol Calculated 159(H) 0 - 129 mg/dL [facility] Comment: LDL Cholesterol is the primary guide to therapy: LDL-cholesterol goal in high risk patients is <100 mg/dL and in very high risk patients is <70 mg/dL. VLDL-Cholesterol 56(H) 0 - 30 mg/dL [facility] Cholesterol/HDL Ratio 8.9(H) 0.0 - 5.0 [facility] 07/13/2009 9:16 AM CDT 07/13/2009 9:21 AM CDT Ramy Sánchez MD LABORATORY Performing Organization Address City/[facility]/ZIP Co de Phone Number [facility] from Last 3 Months or Most Recently Relevant to Health Maintenance Care Teams Racebook Writer Relationship Specialty Start Date End Date Debbie Burden MD [facility] [address] [place] [address] PCP - General Family Medicine 05/26/21
== END 2023-08-03 18:30 | disposition home or self-care (01) ==
PROVIDERS: Emergency Provider Emergency Medicine; PCP Family Medicine
DX: L03.116 Cellulitis of left lower limb (principal); S90.822A Blister (nonthermal), left foot, initial encounter
CPT/HCPCS: 99283

== ENCOUNTER 2023-08-23 09:19 | Outpatient (CLI) | payer MEDICARE, SELFPAY ==
--- OUTSIDE RECORDS SUMMARY | 2023-08-23 09:21 | XMS_ITS | Encounter Summary ---
Author Organization [facility] Address [address] [place] [address] Care Team Providers Care Business Strategy Manager Name Role Phone Ramy Sánchez MD Primary Care Provider Unavailable Debbie Burden MD Primary Care Provider +1- [phone] Encounter Details Date Type Department Care Team ([facility] st Contact Info) Description 12/23/2007 [facility] [...] on filedocumented in this encounter Care Teams Business Strategy Manager Relationship Specialty Start Date End Date Ramy Sánchez MD PCP - General 09/20/01 05/25/21 Debbie Burden MD [facility] [address] [place] [address] PCP - General Family Medicine 05/26/21 documented as of this encounter
--- OUTSIDE RECORDS SUMMARY | 2023-08-23 09:21 | XMS_ITS | Clinical Summary ---
Author Organization [facility] Address [address] [place] [address] Care Team Providers Care Garage Attendant Name Role Phone Debbie Burden MD Primary Care Provider +1- [phone] Allergies Active Allergy Reactions Criticality Noted Date [...] Active fluticasone (FLONASE) 50 MCG/ACT nasal spray [place] 1 spray into both nostrils daily Active [...] 10:27 AM CDT) Creatinine Urine 196 mg/dL [facility] Albumin Urine mg/L 12 mg/L [facility] Albumin Urine mg/g Cr 6.12 0 - 20 mg/g Cr [facility] 11/24/2009 10:2 7 AM CDT 11/24/2009 10:30 AM CDT Ramy Sánchez MD LABORATORY [facility] * (ABNORMAL) HEMOGLOBIN A1C (11/24/2009 10:26 AM CDT) Hemoglobin A1C 6.8(H) 4.3 - 6.0 % [facility] 11/24/2009 10:2 6 AM CDT 11/24/2009 10:29 AM CDT Ramy Sánchez MD LABORATORY [facility] * (ABNORMAL) A.M.A. COMPREHENSIVE MET.PANEL (07/13/2009 9:16 AM CDT) Sodium 140 133 - 144 mmol/L [facility] Potassium 4.5 3.4 - 5.3 mmol/L [facility] Chloride 101 94 - 109 mmol/L [facility] Carbon Dioxide 27 20 - 32 mmol/L [facility] Anion Gap 12 6 - 17 mmol/L [facility] Glucose 151(H) 60 - 99 mg/dL [facility] Urea Nitrogen 19 7 - 30 mg/dL [facility] Creatinine 0.90 0.66 - 1.25 mg/dL [facility] Comment:New IDMS-traceable c alibration beginning 07/11/07 GFR Estimate 84 >60 mL/min/1.7 m2 [facility] GFR Estimate If Black >90 >60 mL/min/1.7 m2 [facility] Calcium 8.9 8.5 - 10.4 mg/dL [facility] Bilirubin Total 0.6 0.2 - 1.3 mg/dL [facility] Albumin 4.5 3.3 - 4.9 g/dL [facility] Comment:Reference range goodson gemarshal on 12/03/2007. Protein Total 8.4 6.8 - 8.8 g/dL [facility] Comment:As of 07, refer ence range reflects plasma specimen type. Alkaline Phosphatase 66 40 - 150 U/L [facility] ALT 21 0 - 70 U/L [facility] AST 31 0 - 55 U/L [facility] 07/13/2009 9:16 AM CDT 07/13/2009 9:21 AM CDT Ramy Sánchez MD LABORATORY Performing Organization Address [facility]/ZIP Co de Phone Number [facility] * (ABNORMAL) A.M.A. LIPID PANEL (07/13/2009 9:16 AM CDT) Cholesterol 243(H) 0 - 200 mg/dL [facility] Comment: LDL Cholesterol is the primary guide to therapy. The NCEP recommends further evaluation of: patients with cholesterol <200 mg/dL if additional risk factors are present, cholesterol >240 mg/dL, triglycerides >150 mg/dL, or HDL <40 mg/dL. Triglycerides 282(H) 0 - 150 mg/dL [facility] HDL Cholesterol 27(L) 40 - 110 mg/dL [facility] LDL Cholesterol Calculated 159(H) 0 - 129 mg/dL [facility] Comment: LDL Cholesterol is the primary guide to therapy: LDL-cholesterol goal in high risk patients is <100 mg/dL and in very high risk patients is <70 mg/dL. VLDL-Cholesterol 56(H) 0 - 30 mg/dL [facility] Cholesterol/HDL Ratio 8.9(H) 0.0 - 5.0 [facility] 07/13/2009 9:16 AM CDT 07/13/2009 9:21 AM CDT Ramy Sánchez MD LABORATORY Performing Organization Address City/[facility]/ZIP Co de Phone Number [facility] from Last 3 Months or Most Recently Relevant to Health Maintenance Care Teams Garage Attendant Relationship Specialty Start Date End Date Debbie Burden MD [facility] [address] [place] [address] PCP - General Family Medicine 05/26/21
--- OUTSIDE RECORDS SUMMARY | 2023-08-23 09:21 | XMS_ITS | Referral Summary ---
Author Organization [place] Address [address] [place] [address] Care Team Providers Care Electric Dolly Operator Name Role Phone Debbie Burden MD Primary Care Provider +1- [phone] Allergies Active Allergy Reactions Criticality Noted Date [...] Active fluticasone (FLONASE) 50 MCG/ACT nasal spray [place] 1 spray into both nostrils daily Active [...] AM CDT) Creatinine Urine 196 mg/dL [facility] Albumin Urine mg/L 12 mg/L [facility] Albumin Urine mg/g Cr 6.12 0 - 20 mg/g Cr [facility] 11/24/2009 10:2 7 AM CDT 11/24/2009 10:30 AM CDT Ramy Sánchez MD LABORATORY [facility] * (ABNORMAL) HEMOGLOBIN A1C (11/24/2009 10:26 AM CDT) Hemoglobin A1C 6.8(H) 4.3 - 6.0 % [facility] 11/24/2009 10:2 6 AM CDT 11/24/2009 10:29 AM CDT Ramy Sánchez MD LABORATORY [facility] * (ABNORMAL) A.M.A. COMPREHENSIVE MET.PANEL (07/13/2009 9:16 AM CDT) Sodium 140 133 - 144 mmol/L [facility] Potassium 4.5 3.4 - 5.3 mmol/L [facility] Chloride 101 94 - 109 mmol/L [facility] Carbon Dioxide 27 20 - 32 mmol/L [facility] Anion Gap 12 6 - 17 mmol/L [facility] Glucose 151(H) 60 - 99 mg/dL [facility] Urea Nitrogen 19 7 - 30 mg/dL [facility] Creatinine 0.90 0.66 - 1.25 mg/dL [facility] Comment:New IDMS-traceable c alibration beginning 07/11/07 GFR Estimate 84 >60 mL/min/1.7 m2 [facility] GFR Estimate If Black >90 >60 mL/min/1.7 m2 [facility] Calcium 8.9 8.5 - 10.4 mg/dL [facility] Bilirubin Total 0.6 0.2 - 1.3 mg/dL [facility] Albumin 4.5 3.3 - 4.9 g/dL [facility] Comment:Reference range goodson ged on 12/03/2007. Protein Total 8.4 6.8 - 8.8 g/dL [facility] Comment:As of 07, refer ence range reflects plasma specimen type. Alkaline Phosphatase 66 40 - 150 U/L [facility] ALT 21 0 - 70 U/L [facility] AST 31 0 - 55 U/L [facility] 07/13/2009 9:16 AM CDT 07/13/2009 9:21 AM CDT Ramy Sánchez MD LABORATORY Performing Organization Address [facility] Co de Phone Number [facility] * (ABNORMAL) A.M.A. LIPID PANEL (07/13/2009 9:16 AM CDT) Cholesterol 243(H) 0 - 200 mg/dL [facility] Comment: LDL Cholesterol is the primary guide to therapy. The NCEP recommends further evaluation of: patients with cholesterol <200 mg/dL if additional risk factors are present, cholesterol >240 mg/dL, triglycerides >150 mg/dL, or HDL <40 mg/dL. Triglycerides 282(H) 0 - 150 mg/dL [facility] HDL Cholesterol 27(L) 40 - 110 mg/dL [facility] LDL Cholesterol Calculated 159(H) 0 - 129 mg/dL [facility] Comment: LDL Cholesterol is the primary guide to therapy: LDL-cholesterol goal in high risk patients is <100 mg/dL and in very high risk patients is <70 mg/dL. VLDL-Cholesterol 56(H) 0 - 30 mg/dL [facility] Cholesterol/HDL Ratio 8.9(H) 0.0 - 5.0 [facility] 07/13/2009 9:16 AM CDT 07/13/2009 9:21 AM CDT Ramy Sánchez MD LABORATORY Performing Organization Address [facility] Co de Phone Number [facility] from Last 3 Months or Most Recently Relevant to Health Maintenance Care Teams Electric Dolly Operator Relationship Specialty Start Date End Date Debbie Burden MD [facility] [address], [place] [address] PCP - General Family Medicine 05/26/21
--- OUTSIDE RECORDS SUMMARY | 2023-08-23 09:21 | XMS_ITS | Encounter Summary ---
Author Organization [place] Address [address] [place] [address] Care Team Providers Care Operation Agent Name Role Phone Ramy Sánchez MD Primary Care Provider Unavailable Debbie Burden MD Primary Care Provider +1- [phone] Encounter Details Date Type Department Care Team (Late st Contact Info) Description 12/19/2019 [facility] [address] [address] Ramona Herrera Obstructive sleep apnea [...] hypertension documented in this encounter Care Teams Operation Agent Relationship Specialty Start Date End Date Ramy Sánchez MD PCP - General 09/20/01 05/25/21 Debbie Burden MD [facility] [address] [place] [address] PCP - General Family Medicine 05/26/21 documented as of this encounter
--- OUTSIDE RECORDS SUMMARY | 2023-08-23 09:21 | XMS_ITS | Encounter Summary ---
Author Organization [place] Address [address] [place] [address] Care Team Providers Care Parks And Recreation Manager Name Role Phone Debbie Burden MD Primary Care Provider +1- [phone] Encounter Details Date Type Department Care Team (Late st Contact Info) Description 06/06/2021 [facility] Medical Advice [place] Centralized Scheduling [address] [place] [address] [facility] Social History Tobacco Use Types Packs/Day [...] on filedocumented in this encounter Care Teams Parks And Recreation Manager Relationship Specialty Start Date End Date Debbie Burden MD [facility] [address] [place] [address] PCP - General Family Medicine 05/26/21 documented as of this encounter
--- OUTSIDE RECORDS SUMMARY | 2023-08-23 09:21 | XMS_ITS | Encounter Summary ---
Author Organization [place] Address [address] [place] [address] Care Team Providers Care Mechanical Meter Tester Name Role Phone Ramy Sánchez MD Primary Care Provider Unavailable Debbie Burden MD Primary Care Provider +1- [phone] Encounter Details Date Type Department Care Team [...] on filedocumented in this encounter Care Teams Mechanical Meter Tester Relationship Specialty Start Date End Date Ramy Sánchez MD PCP - General 09/20/01 05/25/21 Debbie Burden MD [facility] [address] [place] [address] PCP - General Family Medicine 05/26/21 documented as of this encounter
--- OUTSIDE RECORDS SUMMARY | 2023-08-23 09:21 | XMS_ITS | Clinical Summary ---
Author Organization [facility] Address [place], [place] [address] Care Team Providers Care Senior Svp Name Role Phone Mick Barraza MD Primary Care Provider [phone] Allergies Active Allergy Reactions Criticality Noted Date [...] type, unspecified whether angina present, unspecified whether [place] or transplanted heart Take 1 Tablet (40 mg) by mouth at bedtime. 90 Tablet 3 10/19/2021 Active fluticasone (50 mcg per actuation) nasal solution (FLONASE) Inhale 1 [place] into affected nostril(s) two times daily. Active metoprolol succinate (TOPROL XL) 25 mg Sustained-Release tabletIndications:HTN (hypertension),Yoon ry artery disease, unspecified vessel or lesion type, unspecified whether angina present, unspecified whether [place] or transplanted heart Take 0.5 Tablets (12.5 [...] Contact Info) Description 08/29/2023 Cardiac Device Check [facility] [place] [facility] [place] [phone] 08/30/2023 10:00 AM CDT Office Visit [facility] [address] [place] [address] Ashly Magana PA [address] [place], [place] [id number] 11/30/2023 Cardiac Device Check [facility] [phone] Health Maintenance Due Date Last Done Comments Pneumococcal series for age 65+ (1 of 2 - PCV) 12/27/1945 Tdap 12/27/1950 Depression screening for age 12+ 1951 Tetanus booster 1959 Zoster (shingles) series for age 50+ (1 of 2) 12/27/1989 Medicare Wellness for age 65+ 12/27/2004 COVID-19 vaccine series (2022-24 season) 2023 12/24/2022, 01/17/2022, 09/20/2021, Additional history exists BMI (ht and wt on same day) for age 18+ 08/23/2023 08/22/2022, 06/14/2022 Influenza for age 65+ 11/11/2023 Advance Directives Documents on File Type Date Recorded Patient Sawmilling Operator Expl anation Healthcare Directive 12/26/2001 002 * [...] Preferences, Provider to review later Care Teams Senior Svp Relationship Specialty Start Date End Date Mick Barraza MD [address] [place] [address] PCP - General Family Practice 04/10/23
== END 2023-08-23 09:20 | disposition home or self-care (01) ==
LOC: WOUND 09:19
PROVIDERS: PCP Family Medicine; Visit Provider Nurse Practitioner Family
DX: E11.42 Type 2 diabetes mellitus with diabetic polyneuropathy (principal); N18.30 Chronic kidney disease, stage 3 unspecified; Z79.4 Long term (current) use of insulin
CPT/HCPCS: G0463

== ENCOUNTER 2023-08-27 13:45 | Outpatient (CLI) | payer MEDICARE, SELFPAY | END 2023-08-27 13:46 | disposition home or self-care (01) | LOC: RAD 13:45 | PROVIDERS: PCP Family Medicine; Visit Provider Internal Medicine Cardiovascular Disease | DX: I35.0 Nonrheumatic aortic (valve) stenosis (principal); I51.7 Cardiomegaly | CPT/HCPCS: 93306 ==

== ENCOUNTER 2023-09-06 12:41 | Outpatient (CLI) | payer MEDICARE, SELFPAY | END 2023-09-06 12:42 | disposition home or self-care (01) | LOC: WOUND 12:41 | PROVIDERS: PCP Family Medicine; Visit Provider Nurse Practitioner Family | DX: E11.42 Type 2 diabetes mellitus with diabetic polyneuropathy (principal); N18.30 Chronic kidney disease, stage 3 unspecified; Z79.84 Long term (current) use of oral hypoglycemic drugs | CPT/HCPCS: G0463 ==

== ENCOUNTER 2023-09-26 09:30 | Outpatient (CLI) | payer MEDICARE, SELFPAY | END 2023-09-26 09:31 | disposition home or self-care (01) | LOC: LKVREF 09:31 | PROVIDERS: PCP Family Medicine; Visit Provider Family Medicine | DX: R30.0 Dysuria (principal); D64.9 Anemia, unspecified; Z13.29 Encounter for screening for other suspected endocrine disorder | CPT/HCPCS: 84439; 84443; 87086; 87186 ==

== ENCOUNTER 2023-10-08 14:47 | Emergency (ER) | payer MEDICARE, SELFPAY ==
[2023-10-08 14:52] VITALS: BP 107/75; PULSE 75; RESP 20; TEMP 36.4; O2SAT 96; BMI 26.6
--- NOTE | 2023-10-08 15:11 | CRLHL7_ITS ---
For Patients: As a result of the Cures Act, medical imaging exams and procedure reports are released immediately into your electronic medical record. You may view this report before your referring provider. If you have questions, please contact your health care provider. INDICATION: Cough COMPARISON: 07/29/2020 TECHNIQUE: Two radiographic view(s) of the chest. FINDINGS: ICD with left chest wall battery pack. No pleural effusion. No pneumothorax. Faint opacity at the right lung base. Normal heart size. Mild aortic calcification. There are osseous degenerative changes. No acute osseous findings. IMPRESSION: A faint opacity at the right lung base probably represent atelectasis although consolidation cannot be excluded. Dictated by Gaudencio Comer MD @ 10/08/2023 6:44:26 PM (Electronically Signed)
--- OUTSIDE RECORDS SUMMARY | 2023-10-08 15:23 | XMS_ITS | Encounter Summary ---
Author Organization [facility] Address [address] [place] [address] Care Team Providers Care Diesel Mechanic Apprentice Name Role Phone Debbie Burden MD Primary Care Provider +1- [phone] Encounter Details Date Type Department Care Team (Late st Contact Info) Description 06/06/2021 [facility] Medical Advice [place] Centralized Scheduling [address] [place] [address] [facility] Social History Tobacco Use Types Packs/Day Years [...] on filedocumented in this encounter Care Teams Diesel Mechanic Apprentice Relationship Specialty Start Date End Date Debbie Burden MD [facility] [address] [place] [address] PCP - General Family Medicine 05/26/21 documented as of this encounter
--- OUTSIDE RECORDS SUMMARY | 2023-10-08 15:23 | XMS_ITS | Continuity of Care Document ---
Author Organization [facility] Janelo gy, [facility] Address [address] [place] [address] Care Team Providers Care Siebel Developer Name Role Phone MICK GIVENS Primary Care Provider Assessment Encounter Date Assessment Date Assessment LastModified by Organization Details LastModified Time 07/18/2023 07/18/2023 82-year-old male with microscopic hematuria and CKD stage III Not available 07/18/2023 12:07:32 Plan of Treatment Reminders Order Date Submit Date Provider Last Modified By Organization Details Last Modified Time Details Appointments ESTABLISH ED 10 2023 01:00P Alexey Leiva MD Not available Not available Not available Lab [facility]inalysi s, dipstick [facility]23 [facility], [address], [place], [address], 07/18/2023 11:42:22 Referral None recorded. Procedures None recorded. Surgeries None recorded. Imaging None recorded. Medication Orders diazepam 10 mg tablet 2023 024 [facility], [address] [facility], [place], [address], 07/18/2023 12:10:22 Patient TargetsNo targets recorded. Patient InstructionsNo instructions recorded. Reason for Referral None Reported. Results Created Date Observation Date Name Description Value Unit Range Abnormal Flag LastModifiedBy Organization Detail LastModifiedTime 07/18/19 24 07/18/2023 urina lysis , dipst ick Color-Status Yellow Not Available [facility] [address], [place], [address], 07/18/2023 11:41:38 07/18/19 24 07/18/2023 urina lysis , dipst ick Clarity-Stat us Clear Not Available [facility] [address], [place], [address], 07/18/2023 11:41:38 07/18/19 24 07/18/2023 urina lysis , dipst ick Sp Mal[place]-Stat us 1.010 Not Available [facility] [address], [place], [address], 07/18/2023 11:41:38 07/18/19 24 07/18/2023 urina lysis , dipst ick pH-Status 5.5 Not Available [facility] [address], [place], [address], 07/18/2023 11:41:38 07/18/19 24 07/18/2023 urina lysis , dipst ick Protein-Stat us >=9.0 Not Available [facility] [address], [place], [address], 07/18/2023 11:41:38 07/18/19 24 07/18/2023 urina lysis , dipst ick Urobilinogen -Status 0.2 Not Available [facility] [address], [place], [address], 07/18/2023 11:41:38 07/18/19 24 07/18/2023 urina lysis , dipst ick Nitrates-Sta tus negati ve Not Available [facility] [address], [place], [address], 07/18/2023 11:41:38 07/18/19 24 07/18/2023 urina lysis , dipst ick Blood-Status Negati ve Not Available [facility] [address], [place], [address], 07/18/2023 11:41:38 07/18/19 24 07/18/2023 urina lysis , dipst ick Leuko-Status Negati ve Not Available [facility] [address], [place], [address], 07/18/2023 11:41:38 07/18/19 24 07/18/2023 urina lysis , dipst ick Specimen Type Voided Not Available [facility] [address], [place], [address], 07/18/2023 11:41:38 07/18/19 24 07/18/2023 urina lysis , dipst ick Performed by [facility] RN Not Available [facility] [address], [place], [address], 07/18/2023 11:41:38 Result Notes None recorded. Procedures Surgical History Date Name Laterality Status Provider Name and Address Organization Details Recorded Time Urinalysis completed Juventino Leiva MD [address] [place] [address], [phone], [facility] 07/18/2023 11:42:31 cardiac pacemaker procedure completed Juventino Leiva MD [address] [place] [address], [address], [facility] 07/18/2023 11:48:40 Imaging Results None recorded. Procedure Notes None recorded. Medical Equipment None Reported. Allergies Allergen ID Allergen Name Allergen Category Reaction Reaction Severity Criticality Documentation Date Start Date Code Code System Note Provider Name and Address Organization Details Recorded Time [id number] iodine medicatio n Not available Not available Not available 07/18/2023 5933 RxRobert Leiva MD [address] [place] [address],[address] [place] [address], [phone], [facility] 11:43:50 [id number] iodoform medicatio n Not available Not available Not available 07/18/2023 62456 Soledad Leiva MD [address] [place] [address],[address], [place], [address], [facility] 4 11:43:56 [id number] mercury medicatio n Not available Not available Not available 07/18/2023 6769 Soledad Leiva MD [address] [place] [address],[address] [place] [address], [phone], [facility] 4 11:44:01 [id number] povidone- iodine medicatio n Not available Not available Not available 07/18/2023 8611 Soledad Leiva MD [address] [place] [address] [place] [address], [phone], [facility] 4 11:44:11 [id number] sodium iodide medicatio n Not available Not available Not available 07/18/2023 9884 Soledad Leiva MD [address] [place] [address] [place] [address], [phone], [facility] 4 11:44:22 Medications Name Sig Start Date Stop Date Status Note LastModified by Organization Details LastModified Time metformin 500 mg tablet TAKE ONE TABLET BY MOUTH EVERY MORNING AND TWO TABLETS IN THE EVENING active Not Available Not Available No t Available gabapentin 600 mg tablet Take 1 tablet 3 times a day by oral route. active Not Available Not Available No t Available atorvastati n 20 mg tablet Take 1 tablet every day by oral route. active Not Available Not Available No t Available amiodarone 200 mg tablet TAKE 1 TABLET (200 MG) BY MOUTH EVERY DAY active Not Available Not Available No t Available lisinopril 20 mg tablet Take 1 tablet every day by oral route. active Not Available Not Available No t Available clopidogrel 75 mg tablet TAKE 1 TABLET (75 MG) BY MOUTH EVERY MORNING. active Not Available Not Available No t Available tamsulosin 0.4 mg capsule TAKE 2 CAPSULES BY MOUTH DAILY active Not Available Not Available No t Available cephalexin 500 mg capsule active Not Available Not Available Not Available pantoprazol e 40 mg tablet,maribel yed release Take 1 tablet every day by oral route. active Not Available Not Available No t Available gabapentin 300 mg capsule TAKE TWO CAPSULES BY MOUTH DAILY IN THE EVENING 07/17 completed Not Available Not Available Not Available montelukast 10 mg tablet TAKE 1 TABLET (10 MG) BY MOUTH AT BEDTIME active Not Available Not Available No t Available metoprolol succinate ER 25 mg tablet,exte nded release 24 hr TAKE 12 TABLET (12.5 MG) BY MOUTH DAILY active Not Available Not Available No t Available diazepam 10 mg tablet Take 1 tablet by oral route as directed, for In-office procedure . 2023 active Not Available Not Available Not Avai lable dextroamphe tamine-amph etamine 5 mg tablet TAKE 1 TABLET (5 MG) BY MOUTH TWICE DAILY; ADMINISTE R DOSES AT LEAST 4-6 HOURS APART active Not Available Not Available No t Available diazepam 5 mg tablet TAKE TWO TABLETS (10 MG) BY MOUTH DIRECTED FOR IN-OFFICE PROCEDURE active Not Available Not Available No t Available rosuvastati n 40 mg tablet TAKE 1 TABLET (40 MG) BY MOUTH DAILY active Not Available Not Available No t Available diclofenac 1 % topical gel 2.25 INCH TOPICALLY FOUR TIMES DAILY; APPLY TO SINGLE ELBOW, WRIST OR HAND; FOR HAND INCLUDES PALMFINGE RSBACK OF HAND active Not Available Not Available No t Available cholecalcif hanna (vit D3) 1,000 unit-vitami n K2 (MK4) 100 mcg tablet Take by oral route. active Not Available Not Available No t Available ferrous sulfate (bulk) active Not Available Not Available Not Available Paxlovid 150 mg-100 mg tablets in a dose pack (Renal Dose) TAKE 2 TABLETS BY MOUTH TWICE DAILY FOR 5 DAYS. PAUSE AMLODIPIN E, TAMSULOSI N, ROSUVASTA TIN DURING THERAPY.* 07/17 completed Not Available Not Available Not Available Vitals Date Recorded Body height Body mass index (BMI) Body weight Provider Name and Address Organization Details Last Updated DateTime 07/18/2023 172.72 cm 26.3 kg/m2 40345.48 g Juventino Leiva MD [address] [place] [address],[address], [address], [facility] 07/18/2023 11:45:05 Social History Question Answer Notes LastModified by Organizat ion Details LastModified Time Tobacco Smoking Status Former Smoker Juventino Leiva MD [address] [place] [address],[address], [address], [facility] 07/18/2023 11:48:07 What Is Your Level Of Alcohol Consumption? Occasional Information not available 07/18/2023 What Is Your Level Of Caffeine Consumption? Occasional Information not available 07/18/2023 When Did You Quit Smoking? 16+yearssincel ben Information not available 07/18/2023 What Was The Date Of Your Most Recent Tobacco Screening? 07/18/2023 Information not available 07/18/2023 Have You Ever Been Counseled For Unhealthy Alcohol Use? No Information not available 07/18/2023 Do You Use Any Illicit Or Recreational Drugs? No Information not available 07/18/2023 Do You Or Have You Ever Used Any Other Forms Of Tobacco Or Nicotine? No Information not available 07/18/2023 How Many Days In The Past Year Have You Consumed 5 Or More Drinks? 0 Information no t available 07/18/2023 Sex: Unknown Functional Status None recorded. Mental Status None recorded. Family History Relationship Description Onset Age of this Age Resolved Age Notes Brother Malignant tumor of pancreas Brother Malignant tumor of pancreas Medical History Condition Response Other Y High Blood Pressure Y Kidney Stones N Lung Disease Y Depression N GERD/Acid Reflux N Diabetes Y Sexually Transmitted Infection N Bleeding Disorder Y Cancer N High Cholesterol Y Heart Disease Y Immunizations Vaccine Type Date Status Provider Name and Address Organization Details Recorded Time zoster recombinant 07/17/2019 completed Juventino flores MD [address] [place] [address],[address], [address], [facility] 07/18/2023 11:42:56 zoster recombinant 11/21/2019 completed Juventino flores MD [address] [place] [address],[address], [address], [facility] 07/18/2023 11:42:57 Influenza, high-dose, quadrivalent, PF 01/10/2021 completed Juventino Leiva MD [address] [place] [address],[address], [address], [facility] 07/18/2023 11:42:57 Influenza, high-dose, quadrivalent, PF 01/17/2022 completed Juventino Leiva MD [address] [place] [address],[address], [address], [facility] 07/18/2023 11:42:57 Influenza, adjuvanted, quadrivalent, PF 11/21/2019 completed Juventino Leiva MD [address] [place] [address],[facility] [address], [address], [facility] 07/18/2023 11:42:57 Influenza, adjuvanted, quadrivalent, PF 12/24/2022 completed Juventino Leiva MD [address] [place] [address],[facility] [address], [address], [facility] 07/18/2023 11:42:57 COVID-19, mRNA, LNP-S, PF, 30 mcg/0.3 mL dose 04/24/2020 completed Juventino Leiva MD [address] [place] [address],[address], [address], [facility] 07/18/2023 11:42:57 COVID-19, mRNA, LNP-S, PF, 30 mcg/0.3 mL dose 05/15/2020 completed Juventino Leiva MD [address] [place] [address],[address] [place] [address], [address], [facility] 07/18/2023 11:42:57 COVID-19, mRNA, LNP-S, PF, 30 mcg/0.3 mL dose 09/20/2021 completed Juventino Leiva MD [address] [place] [address],[address], [address], [facility] 07/18/2023 11:42:57 COVID-19, mRNA, LNP-S, PF, 30 mcg/0.3 mL dose 12/17/2020 completed Juventino Leiva MD [address] [place] [address],[address], [address], [facility] 07/18/2023 11:42:57 COVID-19, mRNA, LNP-S, bivalent, PF, 30 mcg/0.3 mL dose 01/17/2022 completed Juventino Leiva MD [address] [place] [address],[address], [address], [facility] 07/18/2023 11:42:57 COVID-19, mRNA, LNP-S, PF, aissatou-sucrose, 30 mcg/0.3 mL 12/24/2022 completed Juventino Leiva MD [address] [place] [address],[address] [place] [address], [address], [facility] 07/18/2023 11:42:57 pneumococcal polysaccharide PPV23 03/19/2012 completed Juventino Leiva MD [address] [place] [address],[address], [address], [facility] 07/18/2023 11:42:57 pneumococcal polysaccharide PPV23 06/10/2009 completed Juventino Leiva MD [address] [place] [address],[address], [address], [facility] 07/18/2023 11:42:57 influenza, unspecified formulation 01/11/2012 completed Juventino Leiva MD [address] [place] [address],[address] [place] [address], [address], [facility] 07/18/2023 11:42:57 Tdap 03/12/2011 completed Juventino Leiva MD [address] [place] [address],[address] [place] [address], [address], [facility] 07/18/2023 11:42:57 Tdap 06/10/2009 completed Juventino Leiva MD [address] [place] [address],[address], [address], [facility] 07/18/2023 11:42:57 Tdap 10/13/2019 completed Juventino Leiva MD [address] [place] [address],[address], [address], [facility] 07/18/2023 11:42:57 Pneumococcal conjugate PCV 13 05/06/2014 completed Juventino Leiva MD [address] [place] [address],[address], [address], [facility] 07/18/2023 11:42:57 zoster live 03/19/2012 completed Juventino Leiva MD [address] [place] [address],[address], [address], [facility] 07/18/2023 11:42:57 Influenza, high-dose, trivalent, PF 12/25/2016 completed Juventino Leiva MD [address] [place] [address],[address], [place] [address], [facility] 07/18/2023 11:42:57 Influenza, high-dose, trivalent, PF 12/31/2013 completed Juventino Leiva MD [address] [place] [address],[place] [address], [facility] 07/18/2023 11:42:57 Influenza, high-dose, trivalent, PF 01/13/2019 completed Juventino Leiva MD [address] [place] [address],[place] [address], [facility] 07/18/2023 11:42:57 Influenza, high-dose, trivalent, PF 01/15/2018 completed Juventino Leiva MD [address] [place] [address],[place] [address], [facility] 07/18/2023 11:42:57 Influenza, high-dose, trivalent, PF 02/15/2015 completed Juventino Leiva MD [address] [place] [address],[place] [address], [facility] 07/18/2023 11:42:57 Influenza, split virus, trivalent, preservative 11/11/2009 completed Juventino Leiva MD [address] [place] [address],[place] [address], [facility] 07/18/2023 11:42:57 Influenza, split virus, quadrivalent, PF 02/07/2016 completed Juventino Leiva MD [address] [place] [address], [facility] 07/18/2023 11:42:57 Past Encounters Encounter ID Performer Location Encounter Start Date Encounter Closed Date Diagnosis/Indication Diagnosis SNOMED-CT Code [id number] Juventino Leiva MD [facility] [address] [address] 07/18/2023 11:22:51 07/18/2023 13:45:22 Microscopic hematuria [id number] Chronic ki dney disease stage 3 [id number] Preoperative state 58721 002 Health Concerns Section Related Observation LastModified by Organization Detai ls LastModified Time None Recorded Concern Status LastModified by Organization Details LastModified Time None Recorded Payers Encounter Date Sequence Insurance Name Policy Number Policy Singh Covered Member ID Singh Member ID Guarantor Name 07/18/2023 1 [employer] - DOS ON OR AFTER 19 (MEDICARE REPLACEMENT/ ADVANTAGE - HMO) Jd Go [id number] Jd Go Notes Date Note Type Note Provider Name and Address Organization Details Recorded Time 07/18/2023 text/html HPI Notes: This is a 82year old male who is referred by Dr. Mick Givens for the evaluation and management of microscopic hematuria. Known history of simple renal cyst but no other urologic history. The patient is a non-smoker. They deny any worrisome occupational exposures that would increase their risk for urothelial cell carcinoma. He denies any history of urologic malignancies. No history of nephrolithiasis. No history of prior pelvic radiation. Patient underwent renal ultrasound which noted no hydronephrosis, stones, masses, or other findings. Medical records from patient's primary care provider dated 06/27/2023 reviewed. Seen today with his provides some history. Juventino Leiva MD [address] [place] [address],[address], [place], [address], [facility] 07/18/2023 12:10:16
--- OUTSIDE RECORDS SUMMARY | 2023-10-08 15:23 | XMS_ITS | Clinical Summary ---
Author Organization [facility] Address [address] [place] [address] Care Team Providers Care Plater Production Name Role Phone Debbie Burden MD Primary Care Provider [phone] Allergies Active Allergy Reactions Criticality Noted Date [...] Active fluticasone (FLONASE) 50 MCG/ACT nasal spray [place] 1 spray into both nostrils daily Active [...] (once per calendar year) 2023 INFLUENZA VACCINE (#1) 2023 , 11/21/2019, 01/13/2019, Additional history exists DTAP/TDAP/TD IMMUNIZATION [...] 10:27 AM CDT) Creatinine Urine 196 mg/dL [facility] Albumin Urine mg/L 12 mg/L [facility] Albumin Urine mg/g Cr 6.12 0 - 20 mg/g Cr [facility] 11/24/2009 10:2 7 AM CDT 11/24/2009 10:30 AM CDT Ramy Sánchez MD LABORATORY [facility] * (ABNORMAL) HEMOGLOBIN A1C (11/24/2009 10:26 AM CDT) Hemoglobin A1C 6.8(H) 4.3 - 6.0 % [facility] 11/24/2009 10:2 6 AM CDT 11/24/2009 10:29 AM CDT Ramy Sánchez MD LABORATORY [facility] * (ABNORMAL) A.M.A. COMPREHENSIVE MET.PANEL (07/13/2009 9:16 AM CDT) Sodium 140 133 - 144 mmol/L [facility] Potassium 4.5 3.4 - 5.3 mmol/L [facility] Chloride 101 94 - 109 mmol/L [facility] Carbon Dioxide 27 20 - 32 mmol/L [facility] Anion Gap 12 6 - 17 mmol/L [facility] Glucose 151(H) 60 - 99 mg/dL [facility] Urea Nitrogen 19 7 - 30 mg/dL [facility] Creatinine 0.90 0.66 - 1.25 mg/dL [facility] Comment:New IDMS-traceable c alibration beginning 07/11/07 GFR Estimate 84 >60 mL/min/1.7 m2 [facility] GFR Estimate If Black >90 >60 mL/min/1.7 m2 [facility] Calcium 8.9 8.5 - 10.4 mg/dL [facility] Bilirubin Total 0.6 0.2 - 1.3 mg/dL [facility] Albumin 4.5 3.3 - 4.9 g/dL [facility] Comment:Reference range goodson gemarshal on 12/03/2007. Protein Total 8.4 6.8 - 8.8 g/dL [facility] Comment:As of 07, refer ence range reflects plasma specimen type. Alkaline Phosphatase 66 40 - 150 U/L [facility] ALT 21 0 - 70 U/L [facility] AST 31 0 - 55 U/L [facility] 07/13/2009 9:16 AM CDT 07/13/2009 9:21 AM CDT Ramy Sánchez MD LABORATORY Performing Organization Address [facility]/ZIP Co de Phone Number [facility] * (ABNORMAL) A.M.A. LIPID PANEL (07/13/2009 9:16 AM CDT) Cholesterol 243(H) 0 - 200 mg/dL [facility] Comment: LDL Cholesterol is the primary guide to therapy. The NCEP recommends further evaluation of: patients with cholesterol <200 mg/dL if additional risk factors are present, cholesterol >240 mg/dL, triglycerides >150 mg/dL, or HDL <40 mg/dL. Triglycerides 282(H) 0 - 150 mg/dL [facility] HDL Cholesterol 27(L) 40 - 110 mg/dL [facility] LDL Cholesterol Calculated 159(H) 0 - 129 mg/dL [facility] Comment: LDL Cholesterol is the primary guide to therapy: LDL-cholesterol goal in high risk patients is <100 mg/dL and in very high risk patients is <70 mg/dL. VLDL-Cholesterol 56(H) 0 - 30 mg/dL [facility] Cholesterol/HDL Ratio 8.9(H) 0.0 - 5.0 [facility] 07/13/2009 9:16 AM CDT 07/13/2009 9:21 AM CDT Ramy Sánchez MD LABORATORY Performing Organization Address City[facility]/ZIP Co de Phone Number [facility] from Last 3 Months or Most Recently Relevant to Health Maintenance Care Teams Plater Production Relationship Specialty Start Date End Date Debbie Burden MD [facility] [address] [place] [address] PCP - General Family Medicine 05/26/21
--- OUTSIDE RECORDS SUMMARY | 2023-10-08 15:23 | XMS_ITS | Referral Summary ---
Author Organization [place] Address [address] [place] [address] Care Team Providers Care Engine Cowling Installer Name Role Phone Debbie Burden MD Primary Care Provider [phone] Allergies Active Allergy Reactions Criticality Noted Date [...] Active fluticasone (FLONASE) 50 MCG/ACT nasal spray [place] 1 spray into both nostrils daily Active [...] 10:27 AM CDT) Creatinine Urine 196 mg/dL [facility] Albumin Urine mg/L 12 mg/L [facility] Albumin Urine mg/g Cr 6.12 0 - 20 mg/g Cr [facility] 11/24/2009 10:2 7 AM CDT 11/24/2009 10:30 AM CDT Ramy Sánchez MD LABORATORY [facility] * (ABNORMAL) HEMOGLOBIN A1C (11/24/2009 10:26 AM CDT) Hemoglobin A1C 6.8(H) 4.3 - 6.0 % [facility] 11/24/2009 10:2 6 AM CDT 11/24/2009 10:29 AM CDT Ramy Sánchez MD LABORATORY [facility] * (ABNORMAL) A.M.A. COMPREHENSIVE MET.PANEL (07/13/2009 9:16 AM CDT) Sodium 140 133 - 144 mmol/L [facility] Potassium 4.5 3.4 - 5.3 mmol/L [facility] Chloride 101 94 - 109 mmol/L [facility] Carbon Dioxide 27 20 - 32 mmol/L [facility] Anion Gap 12 6 - 17 mmol/L [facility] Glucose 151(H) 60 - 99 mg/dL [facility] Urea Nitrogen 19 7 - 30 mg/dL [facility] Creatinine 0.90 0.66 - 1.25 mg/dL [facility] Comment:New IDMS-traceable c alibration beginning 07/11/07 GFR Estimate 84 >60 mL/min/1.7 m2 [facility] GFR Estimate If Black >90 >60 mL/min/1.7 m2 [facility] Calcium 8.9 8.5 - 10.4 mg/dL [facility] Bilirubin Total 0.6 0.2 - 1.3 mg/dL [facility] Albumin 4.5 3.3 - 4.9 g/dL [facility] Comment:Reference range goodson ged on 12/03/2007. Protein Total 8.4 6.8 - 8.8 g/dL [facility] Comment:As of 07, refer ence range reflects plasma specimen type. Alkaline Phosphatase 66 40 - 150 U/L [facility] ALT 21 0 - 70 U/L [facility] AST 31 0 - 55 U/L [facility] 07/13/2009 9:16 AM CDT 07/13/2009 9:21 AM CDT Ramy Sánchez MD LABORATORY Performing Organization Address [facility] Co de Phone Number [facility] * (ABNORMAL) A.M.A. LIPID PANEL (07/13/2009 9:16 AM CDT) Cholesterol 243(H) 0 - 200 mg/dL [facility] Comment: LDL Cholesterol is the primary guide to therapy. The NCEP recommends further evaluation of: patients with cholesterol <200 mg/dL if additional risk factors are present, cholesterol >240 mg/dL, triglycerides >150 mg/dL, or HDL <40 mg/dL. Triglycerides 282(H) 0 - 150 mg/dL [facility] HDL Cholesterol 27(L) 40 - 110 mg/dL [facility] LDL Cholesterol Calculated 159(H) 0 - 129 mg/dL [facility] Comment: LDL Cholesterol is the primary guide to therapy: LDL-cholesterol goal in high risk patients is <100 mg/dL and in very high risk patients is <70 mg/dL. VLDL-Cholesterol 56(H) 0 - 30 mg/dL [facility] Cholesterol/HDL Ratio 8.9(H) 0.0 - 5.0 [facility] 07/13/2009 9:16 AM CDT 07/13/2009 9:21 AM CDT Ramy Sánchez MD LABORATORY Performing Organization Address [facility] Co de Phone Number [facility] from Last 3 Months or Most Recently Relevant to Health Maintenance Care Teams Engine Cowling Installer Relationship Specialty Start Date End Date Debbie Burden MD [facility] [address], [place] [address] PCP - General Family Medicine 05/26/21
--- OUTSIDE RECORDS SUMMARY | 2023-10-08 15:23 | XMS_ITS | Clinical Summary ---
Author Organization [employer] [facility] Address [place], [place] [address] Care Team Providers Care Continuous Towel Roller Name Role Phone Mick Barraza MD Primary Care Provider [phone] Allergies Active Allergy Reactions Criticality Noted Date Comments Iodine Contact Dermatitis 06/09/2021 Iodoform *Unknown Mercury (Bulk) Contact Dermatitis 11/22/2005 Povidone-Iodine *Unknown Sodium Iodide *Unknown Medications Medication Sig Dispensed Refills Start Date [...] type, unspecified whether angina present, unspecified whether [place] or transplanted heart Take 1 Tablet (40 mg) by mouth at bedtime. 90 Tablet 3 10/19/2021 Active fluticasone (50 mcg per actuation) nasal solution (FLONASE) Inhale 1 [place] into affected nostril(s) two times daily. Active diphenhydrAMINE (BENADRYL) 25 mg tabletIndications:millie al congestion Take 25 mg by mouth every 6 hours if needed. Take 1-2 tablets every 6 hours as needed for nasal congenstion. Indications: stuffy nose Active acetaminophen (TYLENOL) 325 mg tablet Take [...] times daily with meals. 0 08/22/2022 Active lisinopriL (PRINIVIL; ZESTRIL) 20 mg tablet Take 1 Tablet (20 mg) by mouth once daily. Active metoprolol succinate (TOPROL XL) 50 mg sustained-release tabletIndications:HTN (hypertension),Yoon ry artery disease, unspecified vessel or lesion type, unspecified whether angina present, unspecified whether [place] or transplanted heart Take 1 Tablet (50 mg) by mouth once daily. Active Magnesium 200 mg tab Take 1 Tablet (200 mg) by mouth. Active ferrous sulfate, 65 mg elemental, tablet Take 1 Tablet (325 mg) by mouth. Active cephalexin (KEFLEX) 500 mg capsule Take 1 Capsule (500 mg) by mouth. 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 Take 2 tablets (400 mg) twice a day for 1 week (through) 06/08/2022, then reduce to 1 tablet (200 mg) twice a day for 4 weeks (through 07/06/2022), then reduce to 1 tablet (200 mg) daily thereafter. 90 Tablet 3 08/30/2023 Active Active Problems Patient Care Coordination No [...] Encounters Date Type Department Care Team Description 10/04/2023 Telephone [facility] [place] [address] [facility] [address] [place] [id number] Ashly Magana PA Lab 09/20/2023 10:30 AM CDT Office Visit [facility] [address] [place] [address] Jacinto Longoria MD 08/30/2023 10:00 AM CDT Office Visit [facility] [place] [address] [facility] [address] [place] [address] Ashly Magana PA Follow Up (F/U for 2nd Degree AV Block); Device Check 08/30/2023 Travel 08/27/2023 2:00 PM CDT Ancillary Procedure [facility] [address] [place] [address] 08/27/2023 Travel 07/24/2023 Travel from Last 3 Months Family [...] Sign Reading Time Taken Comments Blood Pressure 106/58 08/30/2023 9:46 AM CDT Pulse 63 08/30/2023 9:46 AM CDT Temperature 36.6 ??C (97.9 ??F) 07/04/2022 2:34 PM CD T Respiratory Rate 15 07/03/2022 12:15 PM CDT Oxygen Saturation 96% 08/30/2023 9:46 AM CDT Inhaled Oxygen Concentration - - Weight 79.4 kg (175 lb) 08/30/2023 9:46 AM CDT Height 172.7 cm (5' 8) 08/30/2023 9:46 AM CDT Body Mass Index 26.61 08/30/2023 9:46 AM CDT Plan of Treatment Upcoming Encounters Date Type Department Care Team (Late st Contact Info) Description 11/30/2023 Cardiac Device Check [employer] [facility] [phone] Health Maintenance Due Date Last Done Comments Pneumococcal series for age 65+ (1 of 2 - PCV) 12/27/1945 Tdap 12/27/1950 Depression screening for age 12+ 1951 Tetanus booster 1959 Zoster (shingles) series for age 50+ (1 of 2) 12/27/1989 Medicare Wellness for age 65+ 12/27/2004 COVID-19 vaccine series ( season) 2023 12/24/2022, 01/17/2022, 09/20/2021, Additional history exists Influenza for age 65+ 11/11/2023 BMI (ht and wt on same day) for age 18+ 08/29/2024 08/30/2023, 08/22/2022, 06/14/2022 Procedures Procedure Name Priority Date/Time Associated Diagnosis Comments EKG 12 LEAD Routine 08/31/2023 Wide-complex tachycardia 2nd degree AV block Fitting or adjustment of automatic implantable cardioverter-defibri llator ECHO TTE COMPLETE WO CONTRAST Routine 08/27/2023 3:03 PM CDT Nonrheumatic aortic (valve) stenosis from Last 3 Months Results * EKG 12 LEAD (08/31/2023) Ashly MOREL EKG ORD * ECHO TTE COMPLETE WO CONTRAST (08/27/2023 3:03 PM CDT) AORTIC VALVE MEAN PG 19 mmHg EJECTION FRACTION 67 % LVEDD 4.3 cm EJECTION FRACTION 60 - 65% Anatomical Region Laterality Modality Ultrasound 08/27/2023 2:08 PM CDT Narrative 08/27/2023 4:16 PM CDT ECHOCARDIOGRAM JD MCLAUGHLIN ?Accession#: ?? [id number] : ?1940 82 years Study Date: ?? 08/27/2023 2:08:57 PM Gender: M ? BP: ? 158/75 mmHg Height: 173.00 cm ? BSA: ?1.68 m? ? ? Weight: 57.00 kg ?Tech: ? MTS ?Referring MD: CARLOS FRIEND Site: ? [facility] Reading Location: MOBILE OP Patient Location: Outpatient. Procedure: 2D, Color Doppler and Spectral Doppler. Indication for study: Nonrheumatic aortic (valve) stenosis Cardiac Rhythm: Regular.Study quality: Fair. Imaging limitations: This study was subject to imaging limitations due to transgastric difficulties. Final Impressions: 1. Normal LV size, moderately increased wall thickness, estimated EF of 60 - 65%. 2. Mild RV enlargement, normal systolic function. 3. Moderate LA enlargement. 4. The aortic valve is sclerotic, probably moderate stenosis (discrepant measurements): Vmax 2.8 m/s, MG 19 mmHg, ERIKA 1.08 cm? ? ?, DI 0.21, SVi 45.3 ml/m? ? ?. Leaftlets appear moderately stenotic on 2D imaging. 5. The ascending aorta is dilated with a maximal diameter of 4.8 cm. Comparison Compared to prior exam of 04/10/2023: - Aortic valve hemodynamics are similar - Unable to reproduce aorta measurement of 5.1 cm from current study Chamber Sizes and Function Normal left ventricular size, moderately increased wall thickness, normal global systolic function with an estimated EF of 60 - 65%. Left atrial size is moderately enlarged. Right ventricular cavity size is mildly enlarged, global systolic RV function is borderline reduced. RV wall thickness is normal. The right atrium is moderately enlarged. The pulmonary artery is not well visualized. The sinus of Valsalva is normal sized. The ascending aorta is dilated. Valves, RV Pressures and Diastolic Function The aortic valve is sclerotic, moderate stenosis and trivial regurgitation. The mitral valve is sclerotic, mild mitral regurgitation. Normal diastolic function for age. The tricuspid valve is normal in structure. Tricuspid regurgitation is regurgitation is not evident. The pulmonic valve is not well visualized. Unable to determine pulmonary regurgitation. Masses, Effusion, Shunts There is no pericardial effusion. The inferior vena cava is not well visualized, respiratory size variation not well visualized. No left to right shunting was detected by limited color flow Doppler interrogation of the interatrial septum. MEASUREMENTS AND CALCULATIONS 2-D Measurements and LV Function: LVID (d) 4.3 cm LV FS% (2D) ?? 46 % LVID (s) 2.3 cm LVOT diameter 2.6 cm IVS (d) ??1.3 cm HR ?59 bpm LVPW (d) 1.4 cm LA Vol index ??46 ml/m2 Ao Sinus 4.0 cm Asc Ao ?? 4.8 cm Diastology: Mitral ?Tissue Doppler E Peak 0.5 m/s ??e', Septum ? 0.04 m/s A Peak 1.0 m/s ??e', Lateral ?0.05 m/s E/A ?0.6 ?E/e' Average ?? 12.47 DT ? 213 msec Aortic Valve: Vmax ? 2.8 m/s ??ERIKA (V) ?? 1.08 cm? AI P 1/2 558 msec VTI ?0.71 m ?? ERIKA (I) ?? 1.08 cm? ? ? LVOT V max 0.6 m/s ??Max PG ?32 mmHg LVOT VTI ?? 0.15 m ?? Mean PG ?? 19 mmHg SV ? 76 ml ?Dim Index 0.21 SV index ?? 45 ml/m? ? ? CO ?4.5 l/min ?CI ?2.7 l/min/m? ? ? Mitral Valve: MVA ?3.6 cm? ? ? MV P 1/2 62 msec . This study was interpreted by an [facility] accredited facility. CC: [facility]. ??Final ?? Procedure Note Derek Wang MD - 08/27/2023 ECHOCARDIOGRAM JD MCLAUGHLIN : 1940 82 years Study Date: 08/27/2023 2:08:57 PM Gender: M BP: 158/75 mmHg Height: 173.00 cm BSA: 1.68 m? ? ? Weight: 57.00 kg Tech: LA Referring MD: CARLOS FRIEND Site: [facility] Reading Location: MOBILE OP Patient Location: Outpatient. Procedure: 2D, Color Doppler and Spectral Doppler. Indication for study: Nonrheumatic aortic (valve) stenosis Cardiac Rhythm: Regular.Study quality: Fair. Imaging limitations: This study was subject to imaging limitations due totransgastric difficulties. Final Impressions: 1. Normal LV size, moderately increased wall thickness, estimated EF of60 - 65%. 2. Mild RV enlargement, normal systolic function. 3. Moderate LA enlargement. 4. The aortic valve is sclerotic, probably moderate stenosis (discrepantmeasurements): Vmax 2.8 m/s, MG 19 mmHg, ERIKA 1.08 cm? ? ?, DI 0.21, SVi 45.3ml/m? ? ?. Leaftlets appear moderately stenotic on 2D imaging. 5. The ascending aorta is dilated with a maximal diameter of 4.8 cm. Comparison Compared to prior exam of 04/10/2023: - Aortic valve hemodynamics are similar - Unable to reproduce aorta measurement of 5.1 cm from current study Chamber Sizes and Function Normal left ventricular size, moderately increased wall thickness, normalglobal systolic function with an estimated EF of 60 - 65%. Left atrialsize is moderately enlarged. Right ventricular cavity size is mildlyenlarged, global systolic RV function is borderline reduced. RV wallthickness is normal. The right atrium is moderately enlarged. Thepulmonary artery is not well visualized. The sinus of Valsalva is normalsized. The ascending aorta is dilated. Valves, RV Pressures and Diastolic Function The aortic valve is sclerotic, moderate stenosis and trivialregurgitation. The mitral valve is sclerotic, mild mitral regurgitation.Normal diastolic function for age. The tricuspid valve is normal instructure. Tricuspid regurgitation is regurgitation is not evident. Thepulmonic valve is not well visualized. Unable to determine pulmonaryregurgitation. Masses, Effusion, Shunts There is no pericardial effusion. The inferior vena cava is not wellvisualized, respiratory size variation not well visualized. No left toright shunting was detected by limited color flow Doppler interrogation ofthe interatrial septum. MEASUREMENTS AND CALCULATIONS 2-D Measurements and LV Function: LVID (d) 4.3 cm LV FS% (2D) 46 % LVID (s) 2.3 cm LVOT diameter 2.6 cm IVS (d) 1.3 cm HR 59 bpm LVPW (d) 1.4 cm LA Vol index 46 ml/m2 Ao Sinus 4.0 cm Asc Ao 4.8 cm Diastology: Mitral Tissue Doppler E Peak 0.5 m/s e', Septum 0.04 m/s A Peak 1.0 m/s e', Lateral 0.05 m/s E/A 0.6 E/e' Average 12.47 DT 213 msec Aortic Valve: Vmax 2.8 m/s ERIKA (V) 1.08 cm? ? ? AI P 03/13 558 msec VTI 0.71 m ERIKA (I) 1.08 cm? ? ? LVOT V max 0.6 m/s Max PG 32 mmHg LVOT VTI 0.15 m Mean PG 19 mmHg SV 76 ml Dim Index 0.21 SV index 45 ml/m? ? ? CO 4.5 l/min CI 2.7 l/min/m? ? ? Mitral Valve: MVA 3.6 cm? ? ? MV P 03/13 62 msec . This study was interpreted by an [facility] accredited facility. CC: [facility]. 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
--- OUTSIDE RECORDS SUMMARY | 2023-10-08 15:24 | XMS_ITS | Data Portability ---
Author Organization [place] [facility] [facility], [facility] Address [address] [facility] [address] [place] [address] Care Team Providers Care Gang Bore Operator Name Role Phone MICK GIVENS Primary Care Provider [phone] Assessment Encounter Date Assessment Date Assessment LastModified by Organization Details LastModified Time 07/18/2023 07/18/2023 82-year-old male with microscopic hematuria and CKD stage III Not available 07/18/2023 12:07:32 Plan of Treatment Reminders Order Date Submit Date Provider Last Modified By Organization Details Last Modified Time Details Appointments ESTABLISH ED 10 2023 01:00P M Juventino Leiva MD Not available Not available Not available Lab urinalysi s, dipstick 2023 024 [email or web address], [address], [place], [address], 07/18/2023 11:42:22 Referral None recorded. Procedures None recorded. Surgeries None recorded. Imaging None recorded. Medication Orders diazepam 10 mg tablet 2023 024 [facility], [address] [place] [address], [place], [address], 07/18/2023 12:10:22 Patient TargetsNo targets recorded. Patient InstructionsNo instructions recorded. Reason for Referral None Reported. Results Created Date Observation Date Name Description Value Unit Range Abnormal Flag LastModifiedBy Organization Detail LastModifiedTime 07/18/19 24 07/18/2023 urina lysis , dipst ick Color-Status Yellow Not Available [facility] [address], [place], [address], 07/18/2023 11:41:38 07/18/19 24 07/18/2023 urina lysis , dipst ick Clarity-Stat us Clear Not Available [facility] [address], [place], [address], 07/18/2023 11:41:38 07/18/19 24 07/18/2023 urina lysis , dipst ick Sp [place]-Stat us 1.010 Not Available [facility] [address], [place], [address], 07/18/2023 11:41:38 07/18/19 24 07/18/2023 urina lysis , dipst ick pH-Status 5.5 Not Available [facility] [address], [place], [address], 07/18/2023 11:41:38 07/18/19 24 07/18/2023 urina lysis , dipst ick Protein-Stat us >=9.0 Not Available [facility] [address], [place], [address], 07/18/2023 11:41:38 07/18/19 24 07/18/2023 urina lysis , dipst ick Urobilinogen -Status 0.2 Not Available [facility] [address], [place], [address], 07/18/2023 11:41:38 07/18/19 24 07/18/2023 urina lysis , dipst ick Nitrates-Sta tus negati ve Not Available [facility] [address], [place], [address], 07/18/2023 11:41:38 07/18/19 24 07/18/2023 urina lysis , dipst ick Blood-Status Negati ve Not Available [facility] [address], [place], [address], 07/18/2023 11:41:38 07/18/19 24 07/18/2023 urina lysis , dipst ick Leuko-Status Negati ve Not Available [facility] [address], [place], [address], 07/18/2023 11:41:38 07/18/19 24 07/18/2023 urina lysis , dipst ick Specimen Type Voided Not Available [facility] [address], [place], [address], 07/18/2023 11:41:38 07/18/19 24 07/18/2023 urina lysis , dipst ick Performed by [facility] RN Not Available [facility] [address], [place], [address], 07/18/2023 11:41:38 Result Notes None recorded. Procedures Surgical History Date Name Laterality Status Provider Name and Address Organization Details Recorded Time Urinalysis completed Juventino Leiva MD [address] [place] [address], [address], [facility] 07/18/2023 11:42:31 cardiac pacemaker procedure completed Juventino Leiva MD [address] [place] [address],[address], [address], [facility] 07/18/2023 11:48:40 Imaging Results None recorded. Procedure Notes None recorded. Medical Equipment None Reported. Allergies Allergen ID Allergen Name Allergen Category Reaction Reaction Severity Criticality Documentation Date Start Date Code Code System Note Provider Name and Address Organization Details Recorded Time 051203 iodine medicatio n Not available Not available Not available 07/18/2023 5933 RxNorm Juventino Leiva MD [address] [facility],[address] [place] [address], [address], [facility] 11:43:50 918063 iodoform medicatio n Not available Not available Not available 07/18/2023 18217 Soledad Leiva MD [address] [place] [address],[address], [place], [address], [facility] 4 11:43:56 501029 mercury medicatio n Not available Not available Not available 07/18/2023 6769 Soledad Leiva MD [address] [place] [address],[address] [place] [address], [address], [facility] 4 11:44:01 178296 povidone- iodine medicatio n Not available Not available Not available 07/18/2023 8611 Soledad Leiva MD [address] [place] [address],[facility] [address] [place] [address], [address], [facility] 4 11:44:11 117305 sodium iodide medicatio n Not available Not available Not available 07/18/2023 9884 Soledad Leiva MD [address] [place] [address],[facility] [address] [place] [address], [address], [facility] 4 11:44:22 Medications Name Sig Start [...] Updated DateTime 07/18/2023 172.72 cm 26.3 kg/m2 24962.48 g Juventino Leiva MD [address] [place] [address],[address], [address], [facility] 07/18/2023 11:45:05 Social History Question Answer Notes LastModified by Organizat ion Details LastModified Time Tobacco Smoking Status Former Smoker Juventino Leiva MD [address] [place] [address],[address], [address], [facility] 07/18/2023 11:48:07 What Is Your Level [...] tumor of pancreas Medical History Condition Response Diabetes Y Sexually Transmitted Infection N Other Y Bleeding Disorder Y High Blood Pressure Y Kidney Stones N High Cholesterol Y GERD/Acid Reflux N Heart Disease Y Cancer N Lung Disease Y Depression N Immunizations Vaccine Type Date Status Provider Name and Address Organization Details Recorded Time zoster recombinant 07/17/2019 completed Juventino flores MD [address] [place] [address],[address], [address], [facility] 07/18/2023 11:42:56 zoster recombinant 11/21/2019 completed Juventino flores MD [address] [place] [address],[address] [place] [address], [address], [facility] 07/18/2023 11:42:57 Influenza, high-dose, quadrivalent, PF 01/10/2021 completed Juventino Leiva MD [address] [place] [address],[address], [address], [facility] 07/18/2023 11:42:57 Influenza, high-dose, quadrivalent, PF 01/17/2022 completed Juventino Leiva MD [address] [place] [address],[address], [place], [address], [facility] 07/18/2023 11:42:57 Influenza, adjuvanted, quadrivalent, PF 11/21/2019 completed Juventino Leiva MD [address] [place] [address],[address], [place], [address], [facility] 07/18/2023 11:42:57 Influenza, adjuvanted, quadrivalent, PF 12/24/2022 completed Juventino Leiva MD [address] [place] [address],[address], [place], [address], [facility] 07/18/2023 11:42:57 COVID-19, mRNA, LNP-S, PF, 30 mcg/0.3 mL dose 04/24/2020 completed Juventino Leiva MD [address] [place] [address],[address], [place], [address], [facility] 07/18/2023 11:42:57 COVID-19, mRNA, LNP-S, PF, 30 mcg/0.3 mL dose 05/15/2020 completed Juventino Leiva MD [address] [place] [address],[address], [place], [address], [facility] 07/18/2023 11:42:57 COVID-19, mRNA, LNP-S, PF, 30 mcg/0.3 mL dose 09/20/2021 completed Juventino Leiva MD [address] [place] [address],[address], [place], [address], [facility] 07/18/2023 11:42:57 COVID-19, mRNA, LNP-S, PF, 30 mcg/0.3 mL dose 12/17/2020 completed Juventino Leiva MD [address] [place] [address],[address], [place], [address], [facility] 07/18/2023 11:42:57 COVID-19, mRNA, LNP-S, bivalent, PF, 30 mcg/0.3 mL dose 01/17/2022 completed Juventino Leiva MD [address] [place] [address],[address], [place], [address], [facility] 07/18/2023 11:42:57 COVID-19, mRNA, LNP-S, PF, aissatou-sucrose, 30 mcg/0.3 mL 12/24/2022 completed Juventino Leiva MD [address] [place] [address],[address] [place] [address], [address], [facility] 07/18/2023 11:42:57 pneumococcal polysaccharide PPV23 03/19/2012 completed Juventino Leiva MD [address] [place] [address],[address], [address], [facility] 07/18/2023 11:42:57 pneumococcal polysaccharide PPV23 06/10/2009 completed Juventino Leiva MD [address] [place] [address],[address] [place] [address], [address], [facility] 07/18/2023 11:42:57 influenza, unspecified formulation 01/11/2012 completed Juventino Leiva MD [address] [place] [address],[address] [place] [address], [address], [facility] 07/18/2023 11:42:57 Tdap 03/12/2011 completed Juventino Leiva MD [address] [place] [address],[address] [place] [address], [address], [facility] 07/18/2023 11:42:57 Tdap 06/10/2009 completed Juventino Leiva MD [address] [place] [address],[address], [address], [facility] 07/18/2023 11:42:57 Tdap 10/13/2019 completed Juventino Leiva MD [address] [place] [address],[address], [address], [facility] 07/18/2023 11:42:57 Pneumococcal conjugate PCV 13 05/06/2014 completed Juventino Leiva MD [address] [place] [address],[address] [place] [address], [address], [facility] 07/18/2023 11:42:57 zoster live 03/19/2012 completed Juventino Leiva MD [address] [place] [address],[address] [place] [address], [address], [facility] 07/18/2023 11:42:57 Influenza, high-dose, trivalent, PF 12/25/2016 completed Juventino Leiva MD [address] [place] [address],[place] [address], [facility] 07/18/2023 11:42:57 Influenza, high-dose, trivalent, PF 12/31/2013 completed Juventino Leiva MD [address] [place] [address],[place] [address], [facility] 07/18/2023 11:42:57 Influenza, high-dose, trivalent, PF 01/13/2019 completed Juventino Leiva MD [address] [place] [address], [facility] 07/18/2023 11:42:57 Influenza, high-dose, trivalent, PF 01/15/2018 completed Juventino Leiva MD [address] [place] [address], [facility] 07/18/2023 11:42:57 Influenza, high-dose, trivalent, PF 02/15/2015 completed Juventino Leiva MD [address] [place] [address], [facility] 07/18/2023 11:42:57 Influenza, split virus, trivalent, preservative 11/11/2009 completed Juventino Leiva MD [address] [place] [address], [facility] 07/18/2023 11:42:57 Influenza, split virus, quadrivalent, PF 02/07/2016 completed Juventino Leiva MD [address] [place] [address], [facility] 07/18/2023 11:42:57 Past Encounters Encounter ID Performer Location Encounter Start Date Encounter Closed Date Diagnosis/Indication Diagnosis SNOMED-CT Code [id number] Juventino Leiva MD [facility] [address] [address] 07/18/2023 11:22:51 07/18/2023 13:45:22 Microscopic hematuria [id number] Chronic ki dney disease stage 3 [id number] Preoperative state 19065 002 Health Concerns Section Related Observation LastModified by Organization [place] LastModified Time None Recorded Concern Status LastModified by Organization Details LastModified Time None Recorded Advance Directives Directive None Recorded Payers Encounter Date Sequence Insurance Name Policy Number Policy Snigh Covered Member ID Singh Member ID Guarantor Name 07/18/2023 1 [employer] - DOS ON OR AFTER 19 (MEDICARE REPLACEMENT/ ADVANTAGE - HMO) Jd Go [id number] Jd Go Notes Date Note Type Note [...] his provides some history. Juventino Leiva MD [address] [place] [address],[address], [place], [address], [facility] 07/18/2023 12:10:16
--- OUTSIDE RECORDS SUMMARY | 2023-10-08 15:24 | XMS_ITS | Encounter Summary ---
Author Organization [place] Address [address] [place] [address]. [place] [address] Care Team Providers Care Personal Lines Underwriter Name Role Phone Ramy Sánchez MD Primary Care Provider Unavailable Debbie Burden MD Primary Care Provider [phone]- [phone] Encounter Details Date Type Department Care Team (Late st Contact Info) Description 09/16/[address] [phone] [facility] Social History Tobacco Use Types Packs/Day Years [...] on filedocumented in this encounter Care Teams Personal Lines Underwriter Relationship Specialty Start Date End Date Ramy Sánchez MD PCP - General 09/20/01 05/25/21 Debbie Burden MD [facility] [address], [place] [address] PCP - General Family Medicine 05/26/21 documented as of this encounter
--- OUTSIDE RECORDS SUMMARY | 2023-10-08 15:24 | XMS_ITS | Encounter Summary ---
Author Organization [place] Address [address] [place] [address] Care Team Providers Care Director Channel Name Role Phone Ramy Sánchez MD Primary Care Provider Unavailable Debbie Burden MD Primary Care Provider [phone]- [phone] Encounter Details Date Type Department Care Team (Late st Contact Info) Description 12/19/2019 [facility] [address] [address] Ramona Herrera Obstructive sleep apnea [...] hypertension documented in this encounter Care Teams Director Channel Relationship Specialty Start Date End Date Ramy Sánchez MD PCP - General 09/20/01 05/25/21 Debbie Burden MD [facility] [address] [place] [address] PCP - General Family Medicine 05/26/21 documented as of this encounter
--- OUTSIDE RECORDS SUMMARY | 2023-10-08 15:24 | XMS_ITS | Encounter Summary ---
Author Organization [place] Address [address] [place] [address] Care Team Providers Care Jewel Bearing Driller Name Role Phone Ramy Sánchez MD Primary Care Provider Unavailable Debbie Burden MD Primary Care Provider [phone]- [phone] Encounter Details Date Type Department Care Team [...] on filedocumented in this encounter Care Teams Jewel Bearing Driller Relationship Specialty Start Date End Date Ramy Sánchez MD PCP - General 09/20/01 05/25/21 Debbie Burden MD [facility] [address] [place] [address] PCP - General Family Medicine 05/26/21 documented as of this encounter
--- OUTSIDE RECORDS SUMMARY | 2023-10-08 15:24 | XMS_ITS | Encounter Summary ---
Author Organization [place] Address [address] [place] [address] Care Team Providers Care Seed Production Field Supervisor Name Role Phone Ramy Sánchez MD Primary Care Provider Unavailable Debbie Burden MD Primary Care Provider [phone]- [phone] Encounter Details Date Type Department Care Team ([facility] st Contact Info) Description 12/23/2007 [facility] [...] on filedocumented in this encounter Care Teams Seed Production Field Supervisor Relationship Specialty Start Date End Date Ramy Sánchez MD PCP - General 09/20/01 05/25/21 Debbie Burden MD [facility] [address] [place] [address] PCP - General Family Medicine 05/26/21 documented as of this encounter
[2023-10-08 15:42] LABS: Basophils Absolute Auto 0.02 K/uL (0.00-0.30); Basophils Percent Auto 0.2 % (0.0-3.0); Eosinophils Absolute Auto 0.17 K/uL (0.00-0.50); Eosinophils Percent Auto 1.7 % (0.0-7.0); Hemoglobin* 12.2 gm/dL (13.5-17.5); Immature Granulocytes Abs Auto 0.09 K/uL (0.00-0.30); Immature Granulocytes Pct Auto 0.9 %; Mean Corpuscular HGB Conc 34 gm/dL (32-36); Mean Corpuscular Hemoglobin 33 pg (26-34); Mean Corpuscular Volume 97 fL (80-100); Neutrophils Percent Auto 73.2 % (42.0-72.0); Platelet Count* 223 K/uL (140-440); RDW Coefficient of Variation % 12.6 % (11.5-15.5); Red Blood Count 3.71 m/uL (4.30-5.90); White Blood Count* 9.86 K/uL (4.50-11.00)
[2023-10-08 16:11] LABS: Chloride* 105 mmol/L (96-114)
[2023-10-08 16:12] LABS: Potassium* 4.2 mmol/L (3.6-5.1); Sodium* 139 mmol/L (135-149)
[2023-10-08 16:14] LABS: Creatinine* 1.7 mg/dL (0.5-1.5); Est. Creatinine Clearance* 30.78; Estimated Glomerular Filt Rate 40 ml/min
[2023-10-08 16:15] LABS: Anion Gap 13 mEq/L (7-15); Blood Urea Nitrogen* 35 mg/dL (7-30); Calcium* 9.3 mg/dL (8.4-10.6); Carbon Dioxide* 21 mmol/L (20-32); Glucose* 173 mg/dL (60-115)
[2023-10-08 16:28] LABS: Slide Review Reflex No
[2023-10-08 16:42] VITALS: BP 110/83; PULSE 81; TEMP 36.3; O2SAT 97
--- NOTE | 2023-10-08 16:52 | ED.GENADULT ---
HPI - General Adult General Date Seen: 10/08/23 Chief complaint: Cough Stated complaint: pneumonia - dehydrated Time Seen by Provider: 10/08/23 14:50 Source: patient and family Mode of arrival: ambulatory Limitations: no limitations History of Present Illness HPI narrative: Patient is an 82-year-old gentleman who presents here for evaluation of a cough that he has had for couple weeks, he is being treated currently for pneumonia a tells me with doxycycline. Other 10 he sees his primary care physician, this morning had a lot of coughing, and wonders if maybe he did something with a coughing is also wondered about the amount of phlegm he has and whether not he can become dehydrated with this. He has had no fevers or chills, denies any chest pain denies any leg swelling, has had no syncopal episodes. He has these is taking and has had a decreased the the sees T on oral intake, but believes he is still urinating, he has had no diarrhea. Associated symptoms: denies other symptoms Treatments prior to arrival: none Related Data Home Medications ?Medication ?Instructions ?Recorded ?Confirmed ferrous sulfate 325 mg (65 mg 325 mg PO DAILY 04/28/22 10/08/23 iron) tablet (iron) magnesium hydroxide 400 mg (170 mg 400 mg PO DAILY 05/10/22 10/08/23 magnesium) chewable tablet cholecalciferol (vitamin D3) 125 125 mcg PO QDAY 06/18/23 10/08/23 mcg (5,000 unit) capsule gabapentin 600 mg tablet 600 mg PO QHS 06/18/23 10/08/23 lisinopril 20 mg tablet 20 mg PO QDAY 06/18/23 10/08/23 metoprolol succinate 50 mg 50 mg PO QDAY 06/18/23 10/08/23 tablet,extended release 24 hr diclofenac sodium 1 % topical gel 2.25 inch topical QID PRN 09/26/23 10/08/23 (Voltaren Arthritis Pain) fluticasone propionate 50 1 spray intranasal BID PRN 09/26/23 10/08/23 mcg/actuation nasal spray,suspension Previous Rx's ?Medication ?Instructions ?Recorded tamsulosin 0.4 mg capsule 0.8 mg (2 x 0.4 mg) PO DAILY #180 12/20/22 ea metformin 500 mg tablet 500 - 1,000 mg (1 - 2 x 500 mg) PO 03/28/23 BID #270 tabs amiodarone 200 mg tablet 200 mg PO QDAY #90 tabs 08/28/23 clopidogrel 75 mg tablet 75 mg PO QDAY #90 tabs 08/28/23 montelukast 10 mg tablet 10 mg PO HS #90 tabs 08/28/23 pantoprazole 40 mg tablet,delayed 40 mg PO QDAY #90 tabs 08/28/23 release rosuvastatin 40 mg tablet 40 mg PO DAILY #90 tabs 08/28/23 doxycycline hyclate 100 mg tablet 100 mg PO BID #20 tabs 10/01/23 Allergies Allergy/AdvReac Type Severity Reaction Status Date / Time iodine Allergy Severe skin Verified 10/08/23 14:56 reaction SEVERE iodoform Allergy Unknown Verified 10/08/23 14:56 povidone-iodine Allergy Unknown Verified 10/08/23 14:56 sodium iodide Allergy Unknown Verified 10/08/23 14:56 mercury (elemental) Allergy Verified 10/08/23 14:56 Review of Systems Status of ROS: Reports: 10 or more systems reviewed and unremarkable except as noted in History and below [facility] Medical History Seizure (04/29/22) ?R56.9 - Unspecified convulsions (ICD-10) Allergic rhinitis (10/13/04) ?J30.9 - Allergic rhinitis, unspecified (ICD-10) COVID-19 ?U07.1 - COVID-19 (ICD-10) Pancreatitis ?K85.90 - Acute pancreatitis without necrosis or infection, unspecified (ICD-10) Kidney lesion ?N28.9 - Disorder of kidney and ureter, unspecified (ICD-10) Groin mass ?R19.09 - Other intra-abdominal and pelvic swelling, mass and lump (ICD-10) Asymptomatic coronary heart disease ?I25.9 - Chronic ischemic heart disease, unspecified (ICD-10) Surgical History Status post internal cardiac defibrillator procedure ?Z95.810 - Presence of automatic (implantable) cardiac defibrillator (ICD-10) History of shoulder surgery ?Z98.890 - Other specified postprocedural states (ICD-10) History of nasal septoplasty ?Z98.890 - Other specified postprocedural states (ICD-10) History of hand surgery ?Z98.890 - Other specified postprocedural states (ICD-10) Family History Son Atrial fibrillation Thyroid cancer Daughter Autoimmune disorder Social History Narrative: He lives with his of 61 years in [place]. 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 is healthcare power of finance attorney primarily and his son and daughter are secondary healthcare power of finance attorney. Code status is DNR. He does not smoke. He drinks alcohol about 3 times a month. Smoking Status: Never smoker Do you use any of these nicotine containing products: None Second hand tobacco smoke exposure: No How often do you have a drink containing alcohol: 2-4 times a month How many standard drinks containing alcohol do you have on a typical day: 1 or 2 How often do you have six or more drinks on one occasion: Never AUDIT-C Alcohol total score: 2 Non-prescribed substance use: denies use Caffeine: Yes (1 cup coffee AM) Little interest or pleasure in doing things: not at all Feeling down, depressed, or hopeless: several days service: No Exam Narrative: Exam Narrative: On examination in room 1 he is in no apparent distress he is pleasant alert he moves around the room normally conversing normally pupils equal round reactive to light there is no scleral icterus redness TMs are normal oropharynx normal there is no adenopathy anterior posterior chains his chest is good air entry bilaterally no wheezing crackles noted his heart sounds are normal. Abdomen is soft there is no guarding no organomegaly moves all extremities independently well no evidence of rashes, able to walk independently. Const: Vital Signs, click to edit/add: Vital Signs - 24 hr 10/08/23 14:52 10/08/23 16:42 Temperature 97.5 F L 97.3 F L Pulse Rate [Pulse Oximeter] 75 81 Respiratory Rate 20 Blood Pressure [Ri ght Upper Arm] 107/75 110/83 Pulse Oximetry 96 97 Oxygen Delivery Me thod Room Air Room Air Documenting provider has reviewed patient's vital signs: yes Course Course ED Course: Avoid back in talk the patient is doing well yes she is not even coughing at the present time vital signs are all stable. I think would be reasonable let him go home he does have a bit of elevated BUN and creatinine, but better than previous, so I think this is a chronic finding. White count was normal. Chest x-ray showed some atelectasis/infiltrate along the right base. In comparison to old chest x-rays. I think he should finish up his doxycycline, and follow up with his previous doctor, I would repeat his chest x-ray in 4-6 weeks. I will call him if his he is anything other than that on the x-ray. There were very comfortable this plan. Return if signs symptoms of worsening such as weakness nausea vomiting chest pain or any other issue. Vital Signs Vital signs: Initial Vital Signs Temperature 97.5 F L 10/08/23 14:52 Temperature Source Oral 10/08/23 14:52 Pulse Rate 75 10/08/23 14:52 Pulse Rhythm Regular 10/08/23 14:52 Pulse Strength 3+ Normal 10/08/23 14:52 Respiratory Rate 20 10/08/23 14:52 Blood Pressure 107/75 10/08/23 14:52 Blood Pressure Mean 85 10/08/23 14:52 Blood Pressure Position Sitting 10/08/23 14:52 Pulse Oximetry 96 10/08/23 14:52 Oxygen Delivery Method Room Air 10/08/23 14:52 Vital Signs Temperature 97.5 F L 10/08/23 14:52 Pulse Rate 75 10/08/23 14:52 Respiratory Rate 20 10/08/23 14:52 Blood Pressure 107/75 10/08/23 14:52 Pulse Oximetry 96 10/08/23 14:52 Oxygen Delivery Method Room Air 10/08/23 14:52 Temperature 97.3 F L 10/08/23 16:42 Pulse Rate 81 10/08/23 16:42 Respiratory Rate 20 10/08/23 14:52 Blood Pressure 110/83 10/08/23 16:42 Pulse Oximetry 97 10/08/23 16:42 Oxygen Delivery Method Room Air 10/08/23 16:42 Medical Decision Making MDM Narrative Medical decision making narrative: Life-threatening differential diagnosis includes occluded COPD exacerbation, pulmonary edema, acute coronary syndromes, pulmonary embolism, pneumonia, and pneumothorax. Other differential diagnosis considerations include asthma, bronchitis as well as other etiologies Medical Records Medical records reviewed: Yes I reviewed the patient's medical records Lab Data Lab results reviewed: Yes I reviewed the patient's lab results Labs: Lab Results 10/08/23 Range/Units 15:11 WBC 9.86 (4.50-11.00) K/uL RBC 3.71 L (4.30-5.90) m/uL Hgb 12.2 L (13.5-17.5) gm/dL Hct 36.0 L (37.0-53.0) % MCV 97 (80-100) fL MCH 33 (26-34) pg MCHC 34 (32-36) gm/dL RDW Coeff of Martin 12.6 (11.5-15.5) % Plt Count 223 (140-440) K/uL Neut % (Auto) 73.2 H (42.0-72.0) % Lymph % (Auto) 14.0 L (20-44) % Hardee % (Auto) 10.0 (0.0-11.0) % Eos % (Auto) 1.7 (0.0-7.0) % Baso % (Auto) 0.2 (0.0-3.0) % Neut # (Auto) 7.20 H (1.7-7.0) K/uL Lymph # (Auto) 1.40 (0.90-2.90) K/uL Hardee # (Auto) 1.00 H (0.00-0.90) K/UL Eos # (Auto) 0.17 (0.00-0.50) K/uL Baso # (Auto) 0.02 (0.00-0.30) K/uL Abs Immat Gran (auto) 0.09 (0.00-0.30) K/uL Imm/Tot Granulo (auto) 0.9 % Sodium 139 (135-149) mmol/L Potassium 4.2 (3.6-5.1) mmol/L Chloride 105 (96-114) mmol/L Carbon Dioxide 21 (20-32) mmol/L Anion Gap 13 (7-15) mEq/L BUN 35 H (7-30) mg/dL Creatinine 1.7 H (0.5-1.5) mg/dL Estimated Creat Clear 30.78 Estimated GFR 40 ml/min Glucose 173 H (60-115) mg/dL Calcium 9.3 (8.4-10.6) mg/dL Imaging Data Chest x-ray: Attestation: I have reviewed the pertinent imaging results. My impression: Mild the infiltrate along the right base. Radiology read pending Discharge Plan Discharge Clinical Impression: Cough, Pneumonia Patient Disposition: Home, Self-Care Condition: Stable Instructions: Community Acquired Pneumonia (ED) Additional Instructions: Home rest finish up doxycycline, follow-up with your primary doctor within the next 3-4 weeks I would repeat the chest x-ray at that time, I will call you if this chest x-ray shows anything other than a little bit of pneumonia on the area that we discussed. Return here if increasing nausea vomiting shortness of breath or other issues. Prescriptions: No Action fluticasone propionate 50 mcg/actuation spray,suspension 1 spray intranasal BID PRN Rx Instructions: for nasal stuffiness magnesium hydroxide 400 mg (170 mg magnesium) tablet,chewable 400 mg PO DAILY diclofenac sodium [Voltaren Arthritis Pain] 1 % gel 2.25 inch topical QID PRN Rx Instructions: apply to single elbow, wrist or hand; for hand includes palm/fingers/back of hand doxycycline hyclate 100 mg tablet 100 mg PO BID Qty: 20 0RF lisinopril 20 mg tablet 20 mg PO QDAY cholecalciferol (vitamin D3) 125 mcg (5,000 unit) capsule 125 mcg PO QDAY metoprolol succinate 50 mg tablet extended release 24 hr 50 mg PO QDAY gabapentin 600 mg tablet 600 mg PO QHS ferrous sulfate [iron] 325 mg (65 mg iron) tablet 325 mg PO DAILY tamsulosin 0.4 mg capsule 0.8 mg PO DAILY Qty: 180 3RF metformin 500 mg tablet 500 - 1,000 mg PO BID Qty: 270 3RF Rx Instructions: One tab each morning, two each evening. pantoprazole 40 mg tablet,delayed release (DR/EC) 40 mg PO QDAY Qty: 90 0RF clopidogrel 75 mg tablet 75 mg PO QDAY Qty: 90 0RF montelukast 10 mg tablet 10 mg PO HS Qty: 90 0RF rosuvastatin 40 mg tablet 40 mg PO DAILY Qty: 90 3RF amiodarone 200 mg tablet 200 mg PO QDAY Qty: 90 3RF Follow Up/Referrals: Mick Barraza MD [Primary Care Provider] - Stand Alone Forms: [facility] Info Instructions
== END 2023-10-08 17:59 | disposition home or self-care (01) ==
PROVIDERS: Emergency Provider Family Medicine; PCP Family Medicine
DX: J18.9 Pneumonia, unspecified organism (principal); R05.9 Cough, unspecified
CPT/HCPCS: 36415; 71046; 80048; 85025; 99284

== ENCOUNTER 2023-10-30 11:15 | Outpatient (RCR) | payer MEDICARE, SELFPAY ==
--- NOTE | 2023-07-02 14:16 | OT.OPOE ---
OT Outpatient Ortho Eval OT Outpatient Ortho Eval* Start: 06/28/23 13:57 Freq: Status: Active Protocol: Document 06/28/23 13:57 VIC (Rec: 06/28/23 15:38 VIC [id number]) E-signed By Ana Orlando, OTR/L, CLT OT OP Ortho Eval Details Complexity Complexity Low Insurance Information Insurance Information Medicare B,UCARE Outpatient History/Precautions Current Condition/Medical Diagnosis Referring Provider Dannielle Schneider, MPH, PA-C Treatment Diagnosis M25.521: Pain in R elbow & M25 .621: Stiffness in R elbow Date of Onset 06/15/23 Other Precautions Medical dx: S42.409A - Unspecified fracture of lower end of unspecified humerus, initial encounter for closed fracture Repeated, multiple falls, A- fib (patient has a pacemaker) & history of Stroke Medical Conditions DM Other Conditions Patient has a Pacemaker for A- fib dx Medical/Functional History Medical History Reviewed Yes Prior Level of Function/Mobility Allergies: iodine Allergy (Severe, Verified 06/26/23 13:43) skin reaction SEVERE iodoform Allergy (Unknown, Verified 06/26/23 13:43) povidone-iodine Allergy ( Unknown, Verified 06/26/23 13: 43) sodium iodide Allergy (Unknown , Verified 06/26/23 13:43) mercury (elemental) Allergy ( Verified 06/26/23 13:43) PMH: Type II diabetes mellitus, well controlled (Acute) Dx circa 2009 E11.9 - Type 2 diabetes mellitus without complications (ICD-10) Hypertension (Acute) I10 - Essential (primary) hypertension (ICD-10) Hyperlipidemia (Acute) E78.5 - Hyperlipidemia, unspecified (ICD-10) CKD (chronic kidney disease) stage 3, GFR 30-59 ml/min ( Acute) N18.30 - Chronic kidney disease, stage 3 unspecified ( ICD-10) Obstructive sleep apnea syndrome (Acute) On CPAP G47.33 - Obstructive sleep apnea (adult) (pediatric) (ICD -10) Aortic stenosis (Acute) 1.15 valve area by echo, 2022, bicuspid valve I35.0 - Nonrheumatic aortic ( valve) stenosis (ICD-10) Ascending aorta dilatation ( Acute) 4.9cm due for imaging summer 2021, also mild aortic stenosis, 5.2 09/2021 CT cardiology I77.810 - Thoracic aortic ectasia (ICD-10) CVA (cerebral vascular accident) (Acute) 04/2022, Mild left Hemiparesis I63.9 - Cerebral infarction, unspecified (ICD-10) Elbow fracture (Acute) DOI: unclear. S42.409A - Unspecified fracture of lower end of unspecified humerus, initial encounter for closed fracture (ICD-10) Elbow pain, right (Acute) M25.521 - Pain in right elbow (ICD-10) Memory loss (Acute) R41.3 - Other amnesia (ICD-10) Neuropathy (Acute) G62.9 - Polyneuropathy, unspecified (ICD-10) Ventricular tachyarrhythmia ( Acute) A!CD placement, 2022 I47.20 - Ventricular tachycardia, unspecified (ICD- 10) BPH (benign prostatic hyperplasia) (Acute) N40.0 - Benign prostatic hyperplasia without lower urinary tract symptoms (ICD-10 ) Anemia (Acute) D64.9 - Anemia, unspecified ( ICD-10) Hematuria (Acute) Known right kidney cyst, thought to be benign R31.9 - Hematuria, unspecified (ICD-10) Environmental and seasonal allergies (Acute) J30.89 - Other allergic rhinitis (ICD-10) 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 MRI/MRCP in Mar 2023 recommended for follow up D49.0 - Neoplasm of unspecified behavior of digestive system (ICD-10) Unsteady gait (Acute) . R26.81 - Unsteadiness on feet (ICD-10) Tremor (Acute) Possibly early Parkinson's. R25.1 - Tremor, unspecified ( ICD-10) Vitamin D deficiency (Acute) E55.9 - Vitamin D deficiency, unspecified (ICD-10) Home Medications amiodarone 200 mg PO QDAY atorvastatin 20 mg PO QDAY cholecalciferol (vitamin D3) 125 mcg PO QDAY clopidogrel 75 mg PO QDAY diclofenac sodium 1% (Voltaren Arthritis Pain) 2.25 inches topical QID ferrous sulfate (iron) 325 mg PO DAILY fluticasone propionate 50 mcg/ actuation 1 spray intranasal BID gabapentin 600 mg PO QHS lisinopril 20 mg PO QDAY magnesium hydroxide 400 mg PO metformin 500 - 1,000 mg (1 - 2 x 500 mg) PO BID metoprolol succinate ER 50 mg PO QDAY montelukast 10 mg PO HS pantoprazole 40 mg PO QDAY rosuvastatin 40 mg PO DAILY tamsulosin 0.8 mg (2 x 0.4 mg) PO DAILY At apt with PCP on 06/26/23 patient was prescribed a new medication: dextroamphetamine-amphetamine 5 mg administer doses at least 4-6 hours apart 5 mg PO BID 60 tabs 0RF for the dx of R53.83 - Other fatigue Social History Employment Status Retired 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 Patient has been requiring assistance with ADLs (this is new). is healthcare power of county attorney primarily and his son and daughter are secondary healthcare power of county attorney. Code status is DNR. He does not smoke. He drinks alcohol about 3 times a month. Patient has had more than 10 falls this year (in 4 months). Patient and have 3 daughters and 1 son (6 grandboys). Pain Assessment Pain Present Pain Present Pain Reported Location Right Elbow Description Radiating,Throbbing,With Movement,Heaviness Intensity 6 Range of Motion and Strength Elbow/Forearm Range of Motion and Strength Elbow/Forearm Range of Motion and Right elbow: Strength No obvious gross deformity to the elbow; elbow has a normal valgus carrying angle with extension. Moderate tenderness to palpation medial epicondyle. Mild-moderate tenderness lateral epicondyle. Mild tenderness olecranon. Nontender radial head. Goniometric Comments Goniometric Comments Goniometric Comments R Elbow Active ROM 40-70 degrees Passive ROM 30-80 degrees. ( Left elbow AROM: 20-120 degrees) Pronation 90?, supination 45?. (Left elbow pronation/ supination: 90/90 degrees) Hand Pinch/[place] Aide Strength Hand Right [place] Aide Strength Position 1 (lbs) 36 [place] Aide Strength Position 2 (lbs) 24 Lateral Pinch Strength (lbs) 9 Three Point Pinch (lbs) 9 Tip Pinch Strength (lbs) 7 Left [place] Aide Strength Position 1 (lbs) 57 [place] Aide Strength Position 2 (lbs) 59 Lateral Pinch Strength (lbs) 14 Three Point Pinch (lbs) 13 Tip Pinch Strength (lbs) 13 OT Objective Data Skin/Wounds/Edema Comments No open wounds nor signs of abrasions. Swelling present over olecranon and superior to posterior elbow. Numerous areas of ecchymosis throughout bilateral forearm/wrist/hand. Sensation Sensation Assessment Summary Comments CMS intact distally with 2+ radial pulses. [place], warm digits with appropriate capillary fill. Sensation and motor function confirmed along the radial, ulnar, and median nerve distributions. Deltoid sensation intact. Additional Information Objective Additional Information Imagining: Right elbow CT dated 06/19/23 was reviewed from [facility]. This shows: a small (0.9 cm) chronic fracture fragment of the ulnar aspect of the coronoid. Moderate to advanced narrowing the ulnar humeral articulation with mild hypertrophic changes. No narrowing of the radiocapitellar articulation. No subluxation or dislocation. Small joint effusion. Dexterity 9 Hole Peg Test Right Scoring Time (seconds) 49 Left Scoring Time (seconds) 57 OT Problems Problems Problems Decreased Strength,Decreased Range of Motion,Decreased Dexterity,Pain,Decreased Coordination,Sensory Sensitivity,Lifting,Gripping, Pinching Problems Comments Patient wakes up from pain, when he doesn't sleep well at night he takes frequent naps during the daytime. Other Problems Writing,Opening Containers, Dressing,Fasteners,Sleeping Patient Potential Excellent Assessment Assessment Assessment 82 year old R hand dominant male patient fell onto his right side while walking in the park when his walker fell off the sidewalk (06/15/23). Patient has also had several other falls and bumps over the past few weeks. Patient was seen at [facility] on , where imaging showed a subtle coronoid process fracture. Patient was placed in a posterior long arm splint and sling. He was then seen by the PA in the ortho clinic on 06/18/23 and again on 06/21/23 with significant elbow pain . Associated symptoms include: loss of range of motion, significant pain with range of motion and swelling. Numerous areas of ecchymosis throughout bilateral upper extremities. Pain improves with Tylenol and heat. Denies numbness/tingling distally. Unable to recall previous right elbow injuries. Patient was then seen by his PCP on to work through multiple comorbidities. A PT referral to work on gait/balance was ordered and patient will be Eval'd by PT next week. Patient's R UE, coronoid fracture is a chronic finding and not the source of his right elbow pain. Patient's right elbow is significantly stiff with limited active motion. At the Ortho apt, it was discussed with patient/ family to discontinue use of his splint and sling and begin working on right elbow range of motion. Patient's next Ortho f/u apt is scheduled in 3 weeks for clinical re- evaluation. OT PLAN: use of modalities as needed for pain and edema reduction ( Ultrasound, Ionto); Manual treatment ([facility]), Therapeutic Activities and Exercise; development of an individualized home exercise program that progresses as patient is able to take on increased challenge and pain symptoms decrease. Patient is anticipated to make excellent progress with skilled OT treatment and achieve all goals written in POC. Occupational Therapy Treatment Plan - OP Potential Rehabilitation Potential Good Barriers Barriers to goal attainment Chronic condition with severe pain Patient has a history of repeated/multiple falls but will begin PT next week Set Goals Goals Set with Patient Yes Goals Goals 1. Pt will demonstrate pain- free cupola tapper helper and pinch strength comparable to the uninvolved side in order to improve functional grasp, hold, reach, and lifting ability needed to complete self-care, leisure tasks, and work activities. 2. Through activity participation in skilled therapy sessions, and consistency in performing a customized HEP, patient will improve capacity of tendons and muscles to manage load in order to have less pain with ADLs, work, leisure activities and IADLs. 3. From EVAL raw score (37 points) on The Disabilities of the Arm, Shoulder and Hand ( Quick DASH) patient will have a decreased score by >9 points in order to show significant change in UE function to better her ADL, IADL, work and leisure performance 4. Patient will increase R ( dominant) hand cupola tapper helper strength from 24 lbs to >34 lbs in order to return to everyday tasks w/o fear of dropping items 5. Pt will report improved quality of sleep waking < 2x per night due to R UE pain for >3 consecutive days in a given week. 6. Patient will demonstration improvement in the active motion of the R (dominant) Elbow from (EVAL: Active ROM 40-70 degrees Passive ROM 30-80 degrees. ( Left elbow AROM: 20-120 degrees) R UE, Pronation 90?, supination 45?) in order to have full motion necessary for his ADLs and daily routines. Target Date 8 weeks Treatment Plan Treatment Plan Evaluation,Edema Control, Iontophoresis,Joint Mobilization,Manual Therapy, Ultrasound,Therapeutic Exercise,Therapeutic Activities,Self Care/Home Management,Education Expected Frequency 1-2x Week Expected Duration 8-10 Weeks Home Program Home Program Home Program Initiated Home Program Specifics Access Code: [email or web address] URL: [email or web address] Date: 06/28/2023 Prepared by: Ana Orlando Exercises - Seated Elbow Flexion and Extension AROM - 1 x daily - 7 x weekly - 3 sets - 10 reps - Seated Shoulder Flexion Towel Slide at Table Top - 1 x daily - 7 x weekly - 3 sets - 10 reps - Flexion-Extension Shoulder Pendulum with Table Support - 1 x daily - 7 x weekly - 3 sets - 10 reps - Seated Shoulder Abduction Towel Slide at Table Top - 1 x daily - 7 x weekly - 3 sets - 10 reps - Supine Elbow Flexion Extension AROM - 1 x daily - 7 x weekly - 3 sets - 10 reps - Seated Forearm Pronation and Supination AROM - 1 x daily - 7 x weekly - 3 sets - 10 reps - Putty Squeezes - 1 x daily - 7 x weekly - 3 sets - 10 reps - Wrist AROM Flexion Extension - 1 x daily - 7 x weekly - 3 sets - 10 reps - Resisted Finger Extension and Thumb Abduction - 1 x daily - 7 x weekly - 3 sets - 10 reps Recertification Information Recertification Information Initial Certification Date 06/28/23 Recertification Due Date 09/26/23 Click To Default 'Per treatment plan' Per treatment plan Continued Plan of Care and Interventions Per treatment plan Provider Signature Shows Agreement With POC & Medical Necessity Physician Comment/Change Comment or Changes Physician NPI Number #
--- NOTE | 2023-07-05 21:56 | PT.OPE ---
[facility] Outpatient Eval PT [facility] Outpatient Eval Start: 07/04/23 13:05 Freq: Status: Active Protocol: Document 07/04/23 13:10 BMS (Rec: 07/04/23 13:17 BMS [id number]) E-signed By Natalie Cotto PT Physical Therapy Outpatient Evaluation Insurance Information Recert Due Date 10/01/23 Insurance Information/Comments blue medicare advantage Provider Fax Number internal Medical Diagnosis CVA unspecified I 63.9 other fatigue R 53.83 other dyspnea R06.09 polyneuropathy G 62.9 unsteadiness of feet R26.81 tremor unspecified R25.1 Treating Diagnosis abnormal gait R 26.89 recurrent falls R 29.6 generalized weakness M62.81 Referring MD Dannielle Schneider PA-C Subjective Subjective provided by patient heavily supplemented by appropriately attentive . Has had serious of falls over past year, since stroke(s) in Apr 2022. 4 falls in June (past 3 weeks )- 1 was just standing, legs gave out, laid on kitchen floor x 1.5+ hours until woke up; 1 [place] park with 4WW tipped over sideways . have pain 6/10 (was 10/10) in elbow - theye found old fx. have had home health therapy for testing abilities post stroke, speech and OT for cognitive. GOALS: get up from floor sit/ stand low chair balance curb/ stair safety for entrance to home and access to basement if poss inc ability to walk for health benefits (multiple chronic conditions) moving LE under covers hold great grandchildren past med hx + for: diabetes and neuropathy in feet, heart condition now have defibrillator and pacemaker due to finding of ventricular tachycardia, have metal implants, arthritis, hx of stroke in Apr 2022 affecting L side. have seen chiro also for pain just started dringking more H2O think it helped yesterday but have to pee all the time. see urologist on . had back to back strokes 1 at home 2nd at hospital, was sent to [facility] did tests, finished PT with Marielena and she was very good but [facility] is a little closer, live in [place] - have falls that happen sometimes wehn just standing legs give out. have had 4 falls in june. caught self on door but pulled door out on 06/15 woke up and said he needed ambulance, arm and shoulder pain, EKG said was fine, went to hospital said was tenonitis, by night had fever, put in sling, went to ortho saw a reinjured old fx. Sun then found him flat on kitchen floor legs gave out see neetu Greer at [facility] in august. have CPAP dont wear bc cant get angela to fit. big toe L numb tingle, napping every day but better than was 3-4x/ day. Pain Comments have pain 6/10 (was 10/10) in elbow - theye found old fx, chronic back pain Current Work Status Retired Precautions Treatment Precautions/Contraindications implanted defib and pacemaker, hx stroke x 2, multiple injurious falls and recurrent falls, sleep apnea not consistently using CPAP, kidney issues, cognitive decline, HTN, neuropathy, tremor, ascending aorta dilatation and stenosis, CKD stage 3 Therapy Limitations/Systems Review Cognition,Vision,Other Medical Problem Objective Range of Motion hip ext lacking in stance not formally assessed. lack of knee ext with hip flexx Strength B UE 5/5 except B ER 4/5. B LE 5/5 to 1 rep max MMT Palpation myofascial restrictions throughout LE and back, atrophy Balance & Gait 4WW, neither stride passing other, foot flat contact, head forward COG. narrow CHRIST in gait, 4WW adjusted down 2 notches which allowed increased stride length and postural improvement. path deviation mod, question almost festinating gait at times, masked expression. falls posterior airex fail mCTSIB 2 and 4, 3 was questionable. Posture seated sacral sit with inc thoracic kyphosis, has slid out of chair. standing flex at waist, head forward of COG, inc thoracic kyphosis. Other/Pertinent Objective dec awareness of place in space, 3x attempted to sit in chair that was 6-12 off center (nearly missed chair and nearly sat on chairarms rather than seat) with no recognition. does typically look for seat and feels chair on legs however also isabel walker and unsafely tried to step around/over it to get to chair rather than approaching safely. does well with straightaway. delayed processing with multistep commands Functional Test Performed & Score tinetti 14/28 high fall risk Assessment Assessment/Impression Patient is very pleasant 82 yo male referred s/p recurrent falls with above listed dx. He is accompanied by his attentive Dalia who assists with history and goal setting . Patient lives in home with 2 steps entrance, does have basement but no need to access as all needs main level. He has cane and 4WW and has been using walker or nothing in home. Has hx of injurious falls including 4 falls in June, some of them bc 'my legs just gave out underneathe me' and states he laid on the floor for almost 2 hours bc couldnt yell and mouth was too dry to whistle. He has had 2 strokes ~ 1 year ago, did have home health and outpatient therapy. Was found to have ventricular tachycardia and now has implanted defibrillator and pacemaker, has hx of CKD stage 3, is recovering from reinjury of old elbow fx and seeing OT for same as well as cognitive, demo cognitive decline and decreased awareness of env and space as he attempts to sit in chair several times that is ~ 12 to side of where he thought it was even after checking. Sacral sit and impaired posture, functional weakness, loss of balance sobeida posterior. Does demo very narrow base of support in gait , nearly festination noted x 2 , and mask expression and tremor but denies history of Parkinsons. Patient is appropriate for skilled physical therapy for functional strength, balance, mobility, floor transfers, safety and transfers. Patient is very pleasant 82 yo male accompanied by his attentive caregiver/ Dalia. He has complex medical history with recurrent falls that may be multifactoral. He is also being followed by OT for cognitive and elbow fx s/p fall. Today he presents with altered gait pattern ( initially narrow base of support with hip, trunk and knee flex, very limited stride length and lack of pushoff.) He does demo LOB in mulitple directions without assistive device, even in static stance though appears fairly steady for short periods of time with both UE supported on counter or walker. Sits in sacral sit against back of chair but able to correct with significant cueing. Cueing needs to be precise and short, difficulty with dual task and/or multi step sequences. He is very motivated and willing to participate despite multiple physical challenges. He is appropriate for skilled physical therapy to address multiple factors of vestibular , balance and gait leading to falls. Instructed in home program of 3 ex for strength and balance. Primary Functional Limitations gait, balance, safety, L side more than R weakness, pain R elbow and shoulder, falls Plan of Care Rehabilitation Potential Good Physical Therapy Goals 1) Pt demo I with home program for safety and improved safety awareness, transfers and gait. 2) Patient demo safe and independent floor transfer for recovery from fall may need cueing 3) Pt demo ability to ambulate 300' without evidence of LOB or more than minor path deviation using least restrictive gait aid. 4) Pt demo ability to nod head , turn head in gait for reduced fall risk, each side 5) Pt demo ability to performs standing on airex w EC without LOB for improved ability to navigate uneven ground and dark room. [ End ] Coordination/Communication With Referral Source,Patient Caregiver Treatment Plan/Direct Interventions Gait Training,Manual Therapy, Neuromuscular Re-ed,Self-Care/ Home Management,Therapeutic Activities,Therapeutic Exercises Frequency/Duration 1-2x/ week x 6 weeks, likely 1 -2x/ week additional 6 weeks Patient Will Be Discharged From Therapy Completion of LTG(s),Skills Plateau,Independent w/HEP, Independently Progressing Evaluation Billing Untimed Code Treatment Minutes 40 Complexity Moderate Certification Information Initial Certification Date 07/04/23 Ending Certification Date 10/01/23 Provider Signature Shows Agreement With POC & Medical Necessity Physician Signature & Date Requested Please Sign/Date Here Physician Comment/Change : Physician NPI Number #
== END 2024-02-27 23:59 | disposition home or self-care (01) ==
PROVIDERS: PCP Family Medicine; Visit Provider Physician Assistant Surgical
DX: S42.401A Unspecified fracture of lower end of right humerus, initial encounter for closed fracture (principal); R26.89 Other abnormalities of gait and mobility; Z51.89 Encounter for other specified aftercare
CPT/HCPCS: 97110; 97112; 97116; 97140; 97162; 97164; 97165; G0463; X5282

== ENCOUNTER 2024-03-30 21:44 | Outpatient (CLI) | payer MEDICARE, SELFPAY | END 2024-03-30 21:45 | disposition home or self-care (01) | LOC: AMB 04-11 02:15 | PROVIDERS: PCP Family Medicine; Visit Provider Family Medicine | DX: R41.82 Altered mental status, unspecified (principal); R31.9 Hematuria, unspecified | CPT/HCPCS: A0425; A0427 ==